=== PATIENT | female | born 1995 | race Hispanic/Latino ===

== ENCOUNTER 2019-12-25 13:27 | Emergency (ER) | payer SELFPAY ==
[2019-12-25 14:59] LABS: Absolute Lymphocytes (CBC) 2.5 K/uL (0.7-4.9); Basophils % 0.4 % (0-1.3); Hematocrit 36.4 % (36.0-45.0); Lymphocytes % 25.2 % (15.3-44.8); RBC Red Blood Cell Count 4.11 M/uL (3.86-4.86)
[2019-12-25 15:02] LABS: Protime INR 1.02
--- NOTE | 2019-12-25 15:07 | RAD REPORT ---
EXAM DESCRIPTION: RAD - Chest Single View - 12/25/2019 3:00 pm CLINICAL HISTORY: CHEST PAIN COMPARISON: None TECHNIQUE: AP portable chest image was obtained 12/25/2019 3:00 pm . FINDINGS: Lungs are clear. Heart and vasculature are normal. No measurable pleural effusion and no p neumothorax. No acute bony abnormality seen. No acute aortic findings suspected. IMPRESSION: No acute cardiopulmonary process.
[2019-12-25 15:14] LABS: Urine Blood 2+ (NEG); Urine Glucose NEGATIVE (NEG); Urine Protein 2+ (NEG); Urine Specific Gravity 1.025 (1.005-1.030)
[2019-12-25 15:34] LABS: ALT/SGPT 20 U/L (12-78); AST/SGOT 10 U/L (15-37); Albumin 3.2 g/dL (3.4-5.0); Alkaline Phosphatase 52 U/L (45-117); BUN Blood Urea Nitrogen 9 mg/dL (7-18); Bicarbonate 24 mmol/L (21-32); Bilirubin Direct < 0.1 mg/dL (0-0.2); Bilirubin Total 0.4 mg/dL (0.2-1.0); Glucose Level 84 mg/dL (74-106); Magnesium 2.2 mg/dL (1.8-2.4); Potassium 3.9 mmol/L (3.5-5.1); Protein, Total 8.5 g/dL (6.4-8.2); Sodium Level 140 mmol/L (136-145); Troponin (Emerg Dept Use Only) < 0.02 ng/mL (0.0-0.045)
--- NOTE | 2019-12-25 15:58 | ER ---
Nurse's Notes [facility] Name: Rakesh Vigil Age: 24 yrs Sex: Female : 1995 Arrival Date: 12/25/2019 Time: 13:31 Bed 17 Private MD: Diagnosis: Other chest pain Presentation: 12/24 13:41 Chief complaint: Patient states: substernal chest pain that started 1 week ago, that em radiates into left arm, denies N/V or fever, feels slightly short of breath. Coronavirus screen: Proceed with normal triage. Patient denies a cough. Patient denies shortness of breath or difficulty breathing. Patient denies measured and/or subjective temperature greater than 100.4F prior to today's visit. Patient denies travel on a cruise ship or to a country the [facility] currently lists as an affected area. Patient denies contact with known and/or suspected case of COVID-19. Ebola Screen: Patient negative for fever greater than or equal to 101.5 degrees Fahrenheit, and additional compatible Ebola Virus Disease symptoms Patient denies exposure to infectious person. Patient denies travel to an Ebola-affected area in the 21 days before illness onset. No symptoms or risks identified at this time. Initial Sepsis Screen: Does the patient meet any 2 criteria? No. Patient's initial sepsis screen is negative. Does the patient have a suspected source of infection? No. Patient's initial sepsis screen is negative. Risk Assessment: Do you want to hurt yourself or someone else? Patient reports no desire to harm self or others. Onset of symptoms was December 18, 2019. 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 - Social history:: Smoking status: Patient denies any tobacco usage or history of. Screenin:49 Abuse screen: Denies threats or abuse. Denies injuries from another. Nutritional ca1 screening: No deficits noted. Tuberculosis screening: No symptoms or risk factors identified. Fall Risk None identified. Assessment: 13:49 General: Appears in no apparent distress. comfortable, Behavior is calm, cooperative, ca1 appropriate for age. Pain: Complains of pain in anterior aspect of left upper chest Pain radiates to left scapular area and left arm Pain currently is 10 out of 10 on a pain scale. Pain began a week ago Is intermittent. Neuro: Level of Consciousness is awake, alert, obeys commands, Oriented to person, place, time, situation. Cardiovascular: Heart tones S1 S2 present Capillary refill < 3 seconds Patient's skin is warm and dry. Cardiovascular: Rhythm is sinus rhythm. Respiratory: Airway is patent Respiratory effort is even, unlabored, Respiratory pattern is regular, symmetrical, Breath sounds are clear bilaterally. GI: Abdomen is flat, non-distended, Bowel sounds present X 4 quads. Abd is soft and non tender X 4 quads. : No signs and/or symptoms were reported regarding the genitourinary system. EENT: No signs and/or symptoms were reported regarding the EENT system. Derm: Skin is intact, is healthy with good turgor, Skin is pink, warm \T\ dry. Musculoskeletal: Circulation, motion, and sensation intact. Capillary refill < 3 seconds. 14:39 Reassessment: Patient appears in no apparent distress at this time. Patient and/or ca1 family updated on plan of care and expected duration. Pain level reassessed. Patient is alert, oriented x 3, equal unlabored respirations, skin warm/dry/pink. 15:45 Reassessment: Patient appears in no apparent distress at this time. Patient and/or ca1 family updated on plan of care and expected duration. Pain level reassessed. Patient is alert, oriented x 3, equal unlabored respirations, skin warm/dry/pink. Vital Signs: 13:41 BP 136 / 92; Pulse 80; Resp 18; Pulse Ox 100% on R/A; Weight 58.97 kg; Height 5 ft. 2 em in. (157.48 cm); Pain 10/10; 14:39 BP 140 / 97; Pulse 74; Resp 16 S; Pulse Ox 100% on R/A; ca1 15:45 BP 123 / 79; Pulse 82; Resp 18 S; Pulse Ox 100% on R/A; ca1 13:41 Body Mass Index 23.78 (58.97 kg, 157.48 cm) em ED Course: 13:31 Patient arrived in ED. as 13:43 Samantha Hill, RN is Primary Nurse. ca1 13:43 Triage completed. em 13:43 Arm band placed on. em 13:44 Neel Santillan PA is PHCP. cp 13:44 Sukhi Barlow MD is Attending Physician. cp 13:49 Patient has correct armband on for positive identification. Bed in low position. Call ca1 light in reach. Side rails up X 1. Pulse ox on. NIBP on. Warm blanket given. 13:51 No provider procedures requiring assistance completed. Patient maintains SpO2 ca1 saturation greater than 95% on room air. 14:40 Initial lab(s) drawn, by me, sent to lab. Inserted saline lock: 20 gauge in right ca1 antecubital area, using aseptic technique. Blood collected. 15:00 XRAY Chest (1 view) In Process Unspecified. EDMS 16:18 IV discontinued, intact, bleeding controlled, No redness/swelling at site. Pressure ca1 dressing applied. Administered Medications: 16:05 Drug: TORadol - Ketorolac 15 mg Route: IVP; Site: right antecubital; ca1 16:16 Follow up: Response: No adverse reaction; Pain is decreased ca1 Outcome: 15:57 Discharge ordered by MD. cp 16:18 Discharged to home ambulatory. ca1 16:18 Condition: stable 16:18 Discharge instructions given to patient, Instructed on discharge instructions, follow up and referral plans. medication usage, Demonstrated understanding of instructions, follow-up care, medications, Prescriptions given X 1. 16:19 Patient left the ED. ca1 Signatures: Dispatcher [employer] EDNJ Allen Siu RN RN em Khadra Jeffries as Neel Santillan PA PA cp Samantha Hill, JYOTHI RN ca1
--- NOTE | 2019-12-25 15:58 | EDPHYS ---
Physician Documentation [facility] Name: Rakesh Vigil Age: 24 yrs Sex: Female : 1995 Arrival Date: 12/25/2019 Time: 13:31 Bed 17 Private MD: ED Physician Sukhi Barlow HPI: 12/24 14:15 This 24 yrs old Female presents to ER via Ambulatory with complaints of Chest cp Pain, Arm Pain. 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 - Social history:: Smoking status: Patient denies any tobacco usage or history of. ROS: 14:20 Constitutional: Negative for body aches, chills, fever, poor PO intake. cp 14:20 Eyes: Negative for injury, pain, redness, and discharge. cp 14:20 ENT: Negative for ear pain, sore throat, difficulty swallowing, difficulty handling secretions. 14:20 Cardiovascular: Positive for chest pain, Negative for edema, palpitations. 14:20 Respiratory: Negative for cough, shortness of breath, wheezing. 14:20 Abdomen/GI: Negative for abdominal pain, nausea, vomiting, and diarrhea. 14:20 Back: Negative for radiated pain. 14:20 MS/extremity: Positive for pain, of the left arm, Negative for injury or acute deformity, decreased range of motion, paresthesias. 14:20 Neuro: Negative for altered mental status, headache, syncope, weakness. 14:20 All other systems are negative. Exam: 14:02 ECG was reviewed by the Attending Physician. cp 14:25 Head/Face: Normocephalic, atraumatic. cp 14:25 Constitutional: The patient appears in no acute distress, alert, awake, non-diaphoretic, non-toxic, well developed, well nourished. 14:25 Eyes: Periorbital structures: appear normal, Conjunctiva: normal, no exudate, no cp injection, Sclera: no appreciated abnormality, Lids and lashes: appear normal, bilaterally. 14:25 ENT: External ear(s): are unremarkable, Nose: is normal, Mouth: Lips: moist, Oral mucosa: pink and intact, moist, Posterior pharynx: is normal, airway is patent, no erythema, no exudate. 14:25 Neck: ROM/movement: is normal, is supple, without pain, no range of motions limitations. 14:25 Chest/axilla: Inspection: normal, Palpation: crepitus, is not appreciated, tenderness, that is mild, of the left breast, that partially reproduces the patient's complaints, Breasts: are normal. 14:25 Cardiovascular: Rate: normal, Rhythm: regular, Edema: is not appreciated, JVD: is not appreciated. 14:25 Respiratory: the patient does not display signs of respiratory distress, Respirations: normal, no use of accessory muscles, no retractions, labored breathing, is not present, Breath sounds: are clear throughout, no decreased breath sounds, no stridor, no wheezing. 14:25 Abdomen/GI: Exam negative for discomfort, distension, guarding, Inspection: abdomen appears normal. 14:25 Back: pain, is absent, ROM is normal. 14:25 Skin: no rash present. 14:25 Neuro: Orientation: to person, place \T\ time. Mentation: is normal, Motor: moves all fours, strength is normal, Sensation: no obvious gross deficits. Vital Signs: 13:41 BP 136 / 92; Pulse 80; Resp 18; Pulse Ox 100% on R/A; Weight 58.97 kg; Height 5 ft. 2 em in. (157.48 cm); Pain 10/10; 14:39 BP 140 / 97; Pulse 74; Resp 16 S; Pulse Ox 100% on R/A; ca1 15:45 BP 123 / 79; Pulse 82; Resp 18 S; Pulse Ox 100% on R/A; ca1 13:41 Body Mass Index 23.78 (58.97 kg, 157.48 cm) em MDM: 13:52 Patient medically screened. cp 15:00 Differential diagnosis: bronchitis, pneumonia cardiac arrythmia, chest wall pain, cp costochondritis. 15:57 Data reviewed: vital signs, nurses notes, lab test result(s), EKG, radiologic studies, cp plain films, and as a result, I will discharge patient. 15:57 Test interpretation: by ED physician or midlevel provider: ECG. Counseling: I had a cp detailed discussion with the patient and/or guardian regarding: the historical points, exam findings, and any diagnostic results supporting the discharge/admit diagnosis, lab results, radiology results, to return to the emergency department if symptoms worsen or persist or if there are any questions or concerns that arise at home. Special discussion: Based on the patient's history, exam, and Dx evaluation, there is no indication for emergent intervention or inpatient Tx. It is understood by the patient/guardian that if the Sx's persist or worsen they need to return immediately for re-evaluation. 12/24 14:13 Order name: Basic Metabolic Panel; Complete Time: 15:35 cp 12/24 14:13 Order name: CBC with Diff; Complete Time: 15:35 cp 12/24 15:35 Interpretation: Normal except: HGB 11.9. cp 12/24 14:13 Order name: LFT's; Complete Time: 15:35 cp 12/24 14:13 Order name: Magnesium; Complete Time: 15:35 cp 12/24 14:13 Order name: PT-INR; Complete Time: 15:20 cp 12/24 14:13 Order name: Troponin (emerg Dept Use Only); Complete Time: 15:35 cp 12/24 13:49 Order name: EKG; Complete Time: 13:49 ca1 12/24 13:49 Order name: EKG - Nurse/Tech; Complete Time: 13:49 ca1 12/24 13:53 Order name: Urine Dipstick-Ancillary (obtain specimen); Complete Time: 14:55 cp 12/24 14:13 Order name: XRAY Chest (1 view); Complete Time: 15:08 cp 12/24 15:08 Interpretation: Report review. cp 12/24 14:13 Order name: D-Dimer; Complete Time: 15:20 cp 12/24 14:58 Order name: Urine Dipstick--Ancillary (enter results); Complete Time: 15:20 em1 12/24 15:20 Interpretation: Normal except: UBLD 2+; UPROT 2+; UESTR 3+. cp 12/24 14:58 Order name: Urine --Ancillary (enter results); Complete Time: 15:20 em1 12/24 13:53 Order name: Urine Test (obtain specimen); Complete Time: 14:55 cp 12/24 14:13 Order name: Cardiac monitoring; Complete Time: 14:39 cp 12/24 14:13 Order name: IV Saline Lock; Complete Time: 14:39 cp 12/24 14:13 Order name: Labs collected and sent; Complete Time: 14:39 cp 12/24 14:13 Order name: O2 Per Protocol; Complete Time: 14:39 cp 12/24 14:13 Order name: O2 Sat Monitoring; Complete Time: 14:39 cp EC:02 Rate is 73 beats/min. Rhythm is regular. MO interval is normal. QRS interval is normal. cp QT interval is normal. T waves are Inverted in lead aVR. Interpreted by me. Reviewed by me. Administered Medications: 16:05 Drug: TORadol - Ketorolac 15 mg Route: IVP; Site: right antecubital; ca1 16:16 Follow up: Response: No adverse reaction; Pain is decreased ca1 Disposition: 12/25 05:37 Co-signature as Attending Physician, Sukhi Barlow MD I agree with the assessment and kdr plan of care. Disposition: 12/25/19 15:57 Discharged to Home. Impression: Other chest pain. - Condition is Stable. - Discharge Instructions: Chest Wall Pain. - Prescriptions for Diclofenac Sodium 75 mg Oral Tablet Sustained Release - take 1 tablet by ORAL route 2 times per day; 30 tablet. - Medication Reconciliation Form, Thank You Letter, Antibiotic Education, Prescription Opioid Use form. - Follow up: Private Physician; When: 2 - 3 days; Reason: Worsening of condition. - Problem is new. - Symptoms have improved. Signatures: Dispatcher [employer] EDSukhi Sweet MD MD [facility] Allen Siu RN RN Neel Irby PA PA cp Samantha Hill RN RN ca1 Corrections: (The following items were deleted from the chart) 12/24 16:19 15:57 12/25/2019 15:57 Discharged to Home. Impression: Other chest pain. Condition is ca1 Stable. Forms are Medication Reconciliation Form, Thank You Letter, Antibiotic Education, Prescription Opioid Use. Follow up: Private Physician; When: 2 - 3 days; Reason: Worsening of condition. Problem is new. Symptoms have improved. cp
[2019-12-25] MEDS ORDERED: KETOROLAC 30 MG/ML INJ ONE (16:15)
[2019-12-25 16:26] VITALS: O2SAT 100
[2019-12-25 16:29] VITALS: BP 123/79
--- NOTE | 2019-12-25 20:58 | EKG ---
Test Date: 2019-12-25 Test Time: 13:46:16 Nailing Machine Feeder: JULY MEASUREMENT RESULTS: Intervals: Rate: 73 NH: 150 QRSD: 82 QT: 380 QTc: 418 [place]: P: -10 NH: 150 QRS: 79 T: 40 INTERPRETIVE STATEMENTS: Normal sinus rhythm Normal ECG No previous ECG available for comparison Electronically Signed On 12-25-19 20:56:52 CDT by J Carlos Peacock
== END 2019-12-25 16:19 | disposition home or self-care (01) ==
LOC: ER 13:27
DX: R07.89 Other chest pain (principal)
CPT/HCPCS: 36415; 71045; 80048; 80076; 81003; 81025; 83735; 84484; 85025; 85379; 85610; 93005; 96374; 99285

== ENCOUNTER 2020-03-06 08:49 | Emergency (ER) | payer SELFPAY ==
[2020-03-06 10:17] LABS: Urine Blood 3+ (NEG); Urine Glucose NEGATIVE (NEG); Urine Protein 3+ (NEG); Urine Specific Gravity 1.025 (1.005-1.030); Urine pH 6.5 (5.0-7.0)
[2020-03-06 10:24] LABS: Urine Bacteria LOADED /HPF (<20); Urine Culture Reflex Order NOT NEEDED
--- NOTE | 2020-03-06 10:54 | RAD REPORT ---
EXAM DESCRIPTION: CT - Stone Protocol - 03/06/2020 10:38 am CLINICAL HISTORY: Flank pain. FLANK PAIN COMPARISON: No comparisons TECHNIQUE: Axial images were obtained without oral or IV contrast. Lack of contrast limits solid org an and vascular assessment. The [id number] spans the entirety of the system partially obscuring uppermost abdomen and lung bases. Coronal reformatted images were obtained and reviewed. All CT scans are performed using dose optimization technique as appropriate and may include automated exposure control or mA/KV adjustment according to patient size. FINDINGS: The lower lung peñaloza are clear. Imaged portions of the liver and spleen show no suspicious findings on non-contrast imaging. The panc reas and adrenal glands are normal. No pathologic lymphadenopathy in the abdomen or pelvis. Severe right-sided hydronephrosis is present. A large 25 mm stone (1106 HU) is present enveloping the proximal pigtail of a right double-J stent within the right renal pelvis. Right-sided hydroureter is present. Along the distal pigtail the right double-J stent in the urinary bladder a large 36 mm ston e is present enveloping the distal pigtail. Tiny air bubble is present urinary bladder. No left-sided stone is seen. No bowel obstruction, free air, free fluid or abscess. Normal appendix noted. No significant bony abnormality. IMPRESSION: Right-sided double-J stent is in place spanning the right renal pelvis and urinary bladd er. This stent is likely not functioning due to development of large stones surrounding both pigtails . Severe right-sided hydronephrosis and hydroureter is present.
[2020-03-06] MEDS ORDERED: ONDANSETRON 4 MG/2 ML VIAL ONE ×3 (10:57→11:25)
[2020-03-06] MEDS ORDERED: NA CHLORIDE 0.9% 1,000 ML ONE ×2 (10:58→12:29)
[2020-03-06] MEDS ORDERED: KETOROLAC 30 MG/ML INJ ONE (10:58)
[2020-03-06] MEDS ORDERED: CEFTRIAXONE/SWI 1gm 1 GM/10 ML SYR ONE (10:58)
--- NOTE | 2020-03-06 11:22 | EDPHYS ---
Physician Documentation [facility] Name: Rakesh Vigil Age: 24 yrs Sex: Female : 1995 Arrival Date: 03/06/2020 Time: 08:51 Bed 18 Private MD: ED Physician Darian Alejandra HPI: 03/06 10:30 This 24 yrs old Female presents to ER via Ambulatory with complaints of Back cp Pain, Abdominal Pain. 10:30 The patient presents with pain that is acute, with no known mechanism of injury. The cp symptoms are located in the right mid back. Onset: The symptoms/episode began/occurred 3 day(s) ago. The pain radiates to the abdomen. Associated signs and symptoms: Pertinent positives: abdominal pain, nausea, chills, Pertinent negatives: fever. Patient reports history of kidney stones and pain is similar. Patient reports having stent placed in right ureter about 1 year ago by physician in [place]. 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 - Social history:: Smoking status: Patient denies any tobacco usage or history of. ROS: 10:35 Constitutional: Positive for chills, Negative for fever, poor PO intake. cp 10:35 Eyes: Negative for injury, pain, redness, and discharge. cp 10:35 ENT: Negative for ear pain, sore throat, difficulty swallowing, difficulty handling secretions. 10:35 Cardiovascular: Negative for chest pain, palpitations. 10:35 Respiratory: Negative for cough, shortness of breath, wheezing. 10:35 Abdomen/GI: Positive for abdominal pain, nausea, Negative for vomiting, diarrhea, constipation. 10:35 Back: Positive for flank pain, on the right. 10:35 Neuro: Negative for altered mental status, headache, weakness. 10:35 All other systems are negative. Exam: 10:40 Constitutional: The patient appears in no acute distress, alert, awake, non-toxic, well cp developed, well nourished. 10:40 Head/Face: Normocephalic, atraumatic. cp 10:40 Eyes: Periorbital structures: appear normal, Conjunctiva: normal, no exudate, no injection, Sclera: no appreciated abnormality, Lids and lashes: appear normal, bilaterally. 10:40 ENT: External ear(s): are unremarkable, Nose: is normal, Posterior pharynx: Airway: no evidence of obstruction, patent. 10:40 Chest/axilla: Inspection: normal, Palpation: is normal, no crepitus, no tenderness. cp 10:40 Cardiovascular: Rate: normal, Rhythm: regular, Edema: is not appreciated, JVD: is not cp appreciated. 10:40 Respiratory: the patient does not display signs of respiratory distress, Respirations: normal, no use of accessory muscles, no retractions, labored breathing, is not present, Breath sounds: are clear throughout, no decreased breath sounds, no stridor, no wheezing. 10:40 Abdomen/GI: Inspection: abdomen appears normal, Bowel sounds: active, all quadrants, Palpation: soft, in all quadrants, moderate abdominal tenderness, in the posterior aspect of right lateral abdomen, anterior aspect of right lateral abdomen, right upper quadrant and right lower quadrant, rebound tenderness, is not appreciated, voluntary guarding, is elicited in the posterior aspect of right lateral abdomen, anterior aspect of right lateral abdomen, right upper quadrant and right lower quadrant. 10:40 Back: ROM is normal, CVA tenderness, that is moderate, is noted on the right. 10:40 Skin: no rash present. 10:40 Neuro: Orientation: to person, place \T\ time. Mentation: is normal, Motor: moves all fours, strength is normal, Sensation: is normal. Vital Signs: 08:56 BP 123 / 79; Pulse 88; Resp 16; Temp 99.5; Pulse Ox 100% on R/A; Weight 61.23 kg; hb Height 5 ft. 2 in. (157.48 cm); Pain 10/10; 11:39 BP 111 / 75; Pulse 92; Resp 16; Temp 99.3(O); Pulse Ox 99% on R/A; sv 12:15 BP 99 / 42; Pulse 89; Resp 16; Pulse Ox 99% ; sv 08:56 Body Mass Index 24.69 (61.23 kg, 157.48 cm) hb MDM: 09:56 Patient medically screened. cp 11:45 Physician consultation: was contacted at 11:40, regarding regarding transfer, to [facility]. consult, DR Danielson, urologist, will consult on patient and request transfer to hospitalist services. 11:45 Data reviewed: vital signs, nurses notes, lab test result(s), radiologic studies, CT cp scan, I have discussed the patient's presentation/case with the attending Emergency Department Physician; and as a result, I will transfer patient. 11:45 Differential diagnosis: Pyelonephritis UTI, kidney stone, cholecystitis, cp cholelithiasis, sepsis. Counseling: I had a detailed discussion with the patient and/or guardian regarding: the historical points, exam findings, and any diagnostic results supporting the discharge/admit diagnosis, lab results, radiology results, the need to transfer to another facility, [facility] does not immediately have the required specialist. 12:10 Physician consultation: was contacted at 12:00, regarding regarding transfer, to [facility]. patient's condition, DR Morales, hospitalist, will accept patient as transfer. 03/06 10:06 Order name: Urine Microscopic Only; Complete Time: 10:54 03/06 10:54 Interpretation: Normal except: UWBC LOADED; URBC 10-20; UBACT LOADED. 03/06 10:06 Order name: Urine Culture 03/06 10:15 Order name: Urine Dipstick--Ancillary (enter results); Complete Time: 10:21 03/06 10:54 Interpretation: Normal except: UKET 3+; UBLD 3+; UPROT 3+; U NIT POSITIVE; UESTR 3+. 03/06 10:15 Order name: Urine --Ancillary (enter results); Complete Time: 10:21 03/06 10:24 Order name: Basic Metabolic Panel; Complete Time: 11:48 03/06 11:48 Interpretation: Normal except: K 3.4; GFR 70. 03/06 10:24 Order name: CBC with Diff 03/06 11:57 Interpretation: Normal except: RBC 3.44; HGB 10.0; HCT 29.4; MCV 85.5; LYM% 14.9; MN% cp 20.1; MNA 1.9. 03/06 10:24 Order name: CT Stone Protocol; Complete Time: 10:55 03/06 10:56 Interpretation: Report reviewed. 03/06 10:24 Order name: Hepatic Function; Complete Time: 11:48 cp 03/06 11:49 Interpretation: Normal except: AST 8; BILIT 1.1; BILID 0.4; TP 8.7; ALB 2.8; GLOB 5.9; cp A/G 0.5. 03/06 10:24 Order name: Lipase; Complete Time: 11:48 cp 03/06 11:44 Order name: COVID-19 03/06 09:55 Order name: Urine Dipstick-Ancillary (obtain specimen); Complete Time: 10:18 03/06 09:55 Order name: Urine Test (obtain specimen); Complete Time: 09:59 03/06 10:24 Order name: IV Saline Lock; Complete Time: 11:17 03/06 10:24 Order name: Labs collected and sent; Complete Time: 11:17 03/06 11:44 Order name: NPO; Complete Time: 11:45 cp Administered Medications: 11:10 Drug: NS 0.9% 1000 ml Route: IV; Rate: 1 bolus; Site: right antecubital; sv 12:37 Follow up: Response: No adverse reaction; IV Status: Completed infusion; IV Intake: sv 1000ml 11:10 Drug: Zofran (Ondansetron) 4 mg Route: IVP; Site: right antecubital; sv 11:16 Follow up: Response: No adverse reaction sv 11:12 Drug: TORadol - Ketorolac 15 mg Route: IVP; Site: right antecubital; sv 11:45 Follow up: Response: No adverse reaction; Marked relief of symptoms sv 11:14 Drug: Rocephin 1 grams Route: IV; Rate: calculated rate; Site: right antecubital; sv 11:16 Drug: Zofran (Ondansetron) 4 mg Route: IVP; Site: right antecubital; sv 11:45 Follow up: Response: No adverse reaction; Marked relief of symptoms; Nausea is decreasedsv 12:30 Drug: Potassium Chloride 10 mEq Route: IV; Rate: calculated rate; Site: right sv antecubital; 14:12 Follow up: Response: No adverse reaction; IV Status: Infusion continued upon transfer sv 12:30 Drug: NS 0.9% 1000 ml Route: IV; Rate: 125 ml/hr; Site: right antecubital; sv 14:11 Follow up: IV Status: Infusion continued upon transfer ss 14:12 Follow up: Response: No adverse reaction; IV Status: Infusion continued upon transfer sv 14:11 Not Given (Pt denies pain at thist chuy): morphine 2 mg IVP once; (PAIN>8) RASS on ADMN: ss Combtv4, Very Agttd3, Agttd2, Rstlss1, AlertClm0, Drwsy-1, LtSdtn-2, ModSdtn-3, DpSdtn-4, UnArsble-5 x2 Disposition: 16:18 Co-signature as Attending Physician, Darian Alejandra MD. ma2 Disposition: 03/06/20 11:22 Transfer ordered to [facility]. Diagnosis are Calculus of kidney - Right, Unspecified hydronephrosis - Severe Right Kidney. - Reason for transfer: Higher level of care. - Accepting physician is DR Morales. - Condition is Stable. - Problem is new. - Symptoms have improved. Signatures: Dispatcher [employer] Aruna Ireland RN RN Oriana Abarca RN RN Neel Santillan PA PA cp Juliana Schroeder RN RN Darian Alejandra MD MD ma2 Corrections: (The following items were deleted from the chart) 11:57 11:49 Normal except: RBC 3.44; HGB 10.0; HCT 29.4; MCV 85.5; LYM% 14.9; MN% 20.1. cp cp 12:17 11:22 03/06/2020 11:22 Transfer ordered to [facility]. cp Diagnosis is Calculus of kidney - Right; Unspecified hydronephrosis - Severe Right Kidney. Reason for transfer: Higher level of care. Accepting physician is Doctor. Condition is Stable. Problem is new. Symptoms have improved. cp 14:12 12:17 03/06/2020 11:22 Transfer ordered to [facility]. ss Diagnosis is Calculus of kidney - Right; Unspecified hydronephrosis - Severe Right Kidney. Reason for transfer: Higher level of care. Accepting physician is DR Morales. Condition is Stable. Problem is new. Symptoms have improved. cp
--- NOTE | 2020-03-06 11:22 | ER ---
Nurse's Notes [facility] Name: Rakesh Vigil Age: 24 yrs Sex: Female : 1995 Arrival Date: 03/06/2020 Time: 08:51 Bed 18 Private MD: Diagnosis: Calculus of kidney-Right;Unspecified hydronephrosis-Severe Right Kidney Presentation: 03/06 08:56 Chief complaint: Right flank pain, urinary urgency and frequency x 3 days. Hx of kidney hb stones, reports pain is similar. Coronavirus screen: At this time, the client does not indicate any symptoms associated with coronavirus-19. Ebola Screen: No symptoms or risks identified at this time. Initial Sepsis Screen: Does the patient meet any 2 criteria? No. Patient's initial sepsis screen is negative. Does the patient have a suspected source of infection? No. Patient's initial sepsis screen is negative. Risk Assessment: Do you want to hurt yourself or someone else? Patient reports no desire to harm self or others. Onset of symptoms was March 03, 2020. 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 - Social history:: Smoking status: Patient denies any tobacco usage or history of. Screenin:00 Abuse screen: Denies threats or abuse. Denies injuries from another. Nutritional sv screening: No deficits noted. Tuberculosis screening: No symptoms or risk factors identified. Fall Risk None identified. Assessment: 11:00 General: Appears in no apparent distress. uncomfortable, well groomed, well developed, sv Behavior is calm, cooperative, appropriate for age. Pain: Complains of pain in right mid back Pain does not radiate. Pain currently is 10 out of 10 on a pain scale. Quality of pain is described as sharp, Pain began 2-3 days ago. Is continuous. Neuro: Level of Consciousness is awake, alert, obeys commands, Oriented to person, place, time, situation, Moves all extremities. Full function Gait is steady, Speech is normal. Respiratory: Airway is patent Respiratory effort is even, unlabored, Respiratory pattern is regular, symmetrical. : Reports burning with urination, urgency, urinary frequency. Derm: Skin is intact, Skin is pink, warm \T\ dry. Musculoskeletal: Range of motion: intact in all extremities. 11:30 Reassessment: Patient appears in no apparent distress at this time. Patient and/or sv family updated on plan of care and expected duration. Pain level reassessed. Patient is alert, oriented x 3, equal unlabored respirations, skin warm/dry/pink. Patient states feeling better. Patient states symptoms have improved. 13:03 Reassessment: Patient appears in no apparent distress at this time. Patient and/or sv family updated on plan of care and expected duration. Pain level reassessed. Patient is alert, oriented x 3, equal unlabored respirations, skin warm/dry/pink. Patient states feeling better. Patient states symptoms have improved. 14:12 Reassessment: Patient appears in no apparent distress at this time. Patient and/or ss family updated on plan of care and expected duration. Pain level reassessed. Patient is alert, oriented x 3, equal unlabored respirations, skin warm/dry/pink. Patient denies pain at this time. Patient states feeling better. Vital Signs: 08:56 BP 123 / 79; Pulse 88; Resp 16; Temp 99.5; Pulse Ox 100% on R/A; Weight 61.23 kg; hb Height 5 ft. 2 in. (157.48 cm); Pain 10/10; 11:39 BP 111 / 75; Pulse 92; Resp 16; Temp 99.3(O); Pulse Ox 99% on R/A; sv 12:15 BP 99 / 42; Pulse 89; Resp 16; Pulse Ox 99% ; sv 08:56 Body Mass Index 24.69 (61.23 kg, 157.48 cm) ED Course: 08:51 Patient arrived in ED. mr 09:04 Triage completed. hb 09:04 Arm band placed on. hb 09:54 Aruna Galeano, JYOTHI is Primary Nurse. sv 09:54 Neel Santillan PA is PHCP. cp 09:54 Darian Alejandra MD is Attending Physician. cp 10:18 Nurse Practitioner and/or Physician Home Care Assistant to see patient. sv 10:38 CT Stone Protocol In Process Unspecified. EDMS 11:00 Patient has correct armband on for positive identification. Bed in low position. Call sv light in reach. Pulse ox on. NIBP on. Door closed. Head of bed elevated. 11:05 Inserted saline lock: 20 gauge in right antecubital area, using aseptic technique. sv Blood collected. Flushed right antecubital with 5 ml normal saline. 11:40 initiated transfer to [facility], talk to Audrey. bd 13:49 pt accepted in transfer to [facility], admin approval given by Audrey Ramachandran. bd 14:12 No provider procedures requiring assistance completed. Patient transferred, IV remains ss in place. Administered Medications: 11:10 Drug: NS 0.9% 1000 ml Route: IV; Rate: 1 bolus; Site: right antecubital; sv 12:37 Follow up: Response: No adverse reaction; IV Status: Completed infusion; IV Intake: sv 1000ml 11:10 Drug: Zofran (Ondansetron) 4 mg Route: IVP; Site: right antecubital; sv 11:16 Follow up: Response: No adverse reaction sv 11:12 Drug: TORadol - Ketorolac 15 mg Route: IVP; Site: right antecubital; sv 11:45 Follow up: Response: No adverse reaction; Marked relief of symptoms sv 11:14 Drug: Rocephin 1 grams Route: IV; Rate: calculated rate; Site: right antecubital; sv 11:16 Drug: Zofran (Ondansetron) 4 mg Route: IVP; Site: right antecubital; sv 11:45 Follow up: Response: No adverse reaction; Marked relief of symptoms; Nausea is decreasedsv 12:30 Drug: Potassium Chloride 10 mEq Route: IV; Rate: calculated rate; Site: right sv antecubital; 14:12 Follow up: Response: No adverse reaction; IV Status: Infusion continued upon transfer sv 12:30 Drug: NS 0.9% 1000 ml Route: IV; Rate: 125 ml/hr; Site: right antecubital; sv 14:11 Follow up: IV Status: Infusion continued upon transfer ss 14:12 Follow up: Response: No adverse reaction; IV Status: Infusion continued upon transfer sv 14:11 Not Given (Pt denies pain at thist chuy): morphine 2 mg IVP once; (PAIN>8) RASS on ADMN: ss Combtv4, Very Agttd3, Agttd2, Rstlss1, AlertClm0, Drwsy-1, LtSdtn-2, ModSdtn-3, DpSdtn-4, UnArsble-5 x2 Intake: 12:37 IV: 1000ml; Total: 1000ml. sv Outcome: 11:22 ER care complete, transfer ordered by MD. cp 12:58 Transferred by ground EMS to [facility], Transfer form completed. sv X-rays sent w/ patient. Note: Report given to Margarette ROE at [facility] 12:58 Condition: stable 12:58 Instructed on the need for transfer. 14:12 Patient left the ED. ss Signatures: Dispatcher [employer] EDMS Sasha Gonsalez Stephanie, RN RN Bejarano, Jacqueline peck Oriana Abarca RN RN Neel Santillan PA PA cp Baxter, Heather, JYOTHI RN hb Corrections: (The following items were deleted from the chart) 13:02 11:39 Pulse 92bpm; Resp 16bpm; Pulse Ox 99% RA; Temp 99.3F Oral; sv sv
[2020-03-06 11:25] LABS: Absolute Lymphocytes (CBC) 1.4 K/uL (0.7-4.9); Basophils % 0.3 % (0-1.3); Hematocrit 29.4 % (36.0-45.0); Lymphocytes % 14.9 % (15.3-44.8); MPV 8.3 fL (7.6-11.3); RBC Red Blood Cell Count 3.44 M/uL (3.86-4.86)
[2020-03-06 11:42] LABS: Albumin 2.8 g/dL (3.4-5.0); Bilirubin Direct 0.4 mg/dL (0-0.2); Bilirubin Total 1.1 mg/dL (0.2-1.0); Potassium 3.4 mmol/L (3.5-5.1); Protein, Total 8.7 g/dL (6.4-8.2)
[2020-03-06] MEDS ORDERED: KCL 20 MEQ/100 mL IVPB 20 MEQ/100 ML BAG IV ONE (12:30)
[2020-03-06 14:27] VITALS: TEMP 99.3; O2SAT 99
[2020-03-06 14:29] VITALS: BP 99/42
[2020-03-06 14:32] LABS: Blood Morphology Comment NOT SEEN (NOT SEEN); Platelet Estimate ADEQ
== END 2020-03-06 14:12 | disposition short-term general hospital (02) ==
LOC: ER 08:49
DX: N13.2 Hydronephrosis with renal and ureteral calculous obstruction (principal); Z87.442 Personal history of urinary calculi
CPT/HCPCS: 36415; 74176; 76377; 80048; 80076; 81003; 81015; 81025; 83690; 85025; 87086; 87088; 96361; 96365; 96366; 96375; 99285; J0696; J2405; J3480; J7030

== ENCOUNTER 2020-07-05 13:23 | Emergency (ER) | payer SELFPAY ==
--- OUTSIDE RECORDS SUMMARY | 2020-07-05 13:26 | XMS REPORT | Clinical Summary ---
:1995 Author Organization [facility] Address [address] [place] [address] Care Team Providers Name Role Phone Unavailable Primary Care Provider Unavailable Allergies No Known Allergies Medications Medication Sig Dispensed Refills Start End Date Status Date ferrous sulfate 325 Take 1 tablet 30 tablet 11 Active (65 FE) MG tablet (325 mg total) 0 21 by mouth daily with breakfast. tamsulosin (FLOMAX) Take 1 capsule 14 capsule 0 10/13 0.4 mg Cap 24 hr (0.4 mg total) 0 20 capsule by mouth daily for 14 days. phenazopyridine Take 2 tablets 10 tablet 0 03/17/20 (PYRIDIUM) 95 MG (190 mg total) 0 20 tablet by mouth 3 (three) times daily as needed (dysuria) for up to 3 days. oxybutynin Take 1 tablet (5 21 tablet 0 03/21/20 Ex pired (DITROPAN) 5 MG mg total) by 0 20 tablet mouth 3 (three) times daily as needed (bladder spasms) for up to 7 days. traMADoL (ULTRAM) 50 Take 1 tablet 15 tablet 0 03/14 Discontinued mg tablet (50 mg total) by 0 20 mouth every 6 (six) hours as needed for up to 3 days. Max Daily Amount: 200 mg docusate sodium Take 1 capsule 10 capsule 0 03/24/20 (COLACE) 100 MG (100 mg total) 0 20 capsule by mouth 2 (two) times daily as needed for Constipation for up to 10 days. traMADoL (ULTRAM) 50 Take 1 tablet 15 tablet 0 03/17 mg tablet (50 mg total) by 0 20 mouth every 6 (six) hours as needed for up to 3 days. Max Daily Amount: 200 mg doxycycline Take 1 capsule 28 capsule 0 03/28/20 Ex pired (MONODOX) 100 MG (100 mg total) 0 20 capsule by mouth 2 (two) times daily for 14 days. amoxicillin (AMOXIL) Take 1 tablet 28 tablet 0 03/28 875 MG tablet (875 mg total) 0 20 by mouth 2 (two) times daily for 14 days. Active Problems Problem Noted Date Hydronephrosis with urinary obstruction due to uretera l calculus 03/07/2020 Nephrolithiasis 03/06/2020 Encounters Date Type Specialty Care Team Description 03/13/2020 Anesthesia Event John Carr Jr., MD 03/13/2020 Surgery Glenn Clancy CYSTOSCOPY,LIT HOLAPAXY MD Ej W/ LASER LITHOT RIPSY 03/08/2020 Travel 03/06/2020 - Hospital Encounter General Internal Nalam, Sally Nephr olithiasis; 03/15/2020 Medicine MD Ania Hydronephrosis with urinary obstruction due to ureteral calculus; Gaby Fields Pyelonephritis; MD Miguel Ángel Bladder stone Hemant Steward MD 03/06/2020 Travel after 07/05/2019 Social History Tobacco Use Types Packs/Day Years Used Date Never Smoker Smokeless Tobacco: Never Used Sex Assigned at Date Recorded Not on file Last Filed Vital Signs Vital Sign Reading Time Taken Comments Blood Pressure 118/69 03/15/2020 7:04 AM CDT Pulse 70 03/15/2020 7:04 AM CDT Temperature 36.8 C (98.2 F) 03/15/2020 7:04 AM CDT Respiratory Rate 18 03/15/2020 7:04 AM CDT Oxygen Saturation 98% 03/15/2020 7:04 AM CDT Inhaled Oxygen Concentration - - Weight 61.2 kg (135 lb) 03/06/2020 5:13 PM CDT Height 157.5 cm (5' 2") 03/06/2020 5:13 PM CDT Body Mass Index 24.69 03/06/2020 5:13 PM CDT Plan of Treatment Health Maintenance Due Date Last Done Comments CERVICAL CANCER SCREENING PAP ONLY (Age 21-65) 2015 DEPRESSION SCREENING (12+) 06/26/2019 INFLUENZA VACCINE (#1) 2020 Implants Implanted Type Area Kettle Cleaner Device Identifier Shelf Model / Expiration Serial / Date Lot Stent Uret Ult Berry [id number] [id number] - [id number] IMPLANTS Right: ZEENAT [id number] 12/04/2022 192-142 / Implanted: Qty: 1 on 03/13/2020 by Glenn Clancy MD at [facility] Ureter SCI:UROLOGY/ACCOUNTING RECRUITER / ECOLOGY [id number] Procedures Procedure Name Priority Date/Time Associated Comments Diagnosis TRANSFUSION SERVICE 03/17/2020 6:31 REPORT - SCAN PM CDT PREPARE RBC STAT 03/15/2020 12:30 Results for this PM CDT procedure are i n the results section. CBC W/PLT COUNT & Routine 03/15/2020 7:03 Result s for this AUTO DIFFERENTIAL AM CDT procedure are in the results section. CBC W/PLT COUNT & Routine 03/15/2020 7:03 Result s for this AUTO DIFFERENTIAL AM CDT procedure are in the results section. BASIC METABOLIC PANEL Routine 03/15/2020 7:03 Re sults for this (7) AM CDT procedure are i n the results section. VANCOMYCIN LEVEL, Timed 03/14/2020 5:07 Result s for this TROUGH PM CDT procedure are i n the results section. CT ABDOMEN/PELVIS LUIS F 03/14/2020 9:58 Result s for this WITHOUT IV CONTRAST AM CDT procedur e are in the results section. CBC W/PLT COUNT & Routine 03/14/2020 5:18 Result s for this AUTO DIFFERENTIAL AM CDT procedure are in the results section. CBC W/PLT COUNT & Routine 03/14/2020 5:18 Result s for this AUTO DIFFERENTIAL AM CDT procedure are in the results section. BASIC METABOLIC PANEL Routine 03/14/2020 5:18 Re sults for this (7) AM CDT procedure are i n the results section. TRANSFUSION SERVICE 03/13/2020 6:01 REPORT - SCAN PM CDT XR CHEST 1 VIEW Routine 03/13/2020 12:55 Results for this PORTABLE/BEDSIDE PM CDT procedure a re in the results section. CBC W/PLT COUNT & STAT 03/13/2020 12:47 Result s for this AUTO DIFFERENTIAL PM CDT procedure are in the results section. CBC W/PLT COUNT & STAT 03/13/2020 12:47 Result s for this AUTO DIFFERENTIAL PM CDT procedure are in the results section. BASIC METABOLIC PANEL STAT 03/13/2020 12:47 Re sults for this (7) PM CDT procedure are i n the results section. FL FLUORO Routine 03/13/2020 12:03 Results for this NON-SPECIFIC UP TO 1 PM CDT procedu re are in HOUR the results section. SURGICALLY OBTAINED Routine 03/13/2020 11:14 Resu lts for this CULTURE + GRAM STAIN AM CDT procedu re are in the results section. FUNGUS CULTURE + Routine 03/13/2020 11:14 Results for this SMEAR AM CDT procedure are i n the results section. ANAEROBIC CULTURE Routine 03/13/2020 11:14 Result s for this AM CDT procedure are i n the results section. AFB CULTURE + SMEAR Routine 03/13/2020 11:14 Resu lts for this (NON-SPUTUM) AM CDT procedure are i n the results section. STONE ANALYSIS Routine 03/13/2020 10:16 Results f or this AM CDT procedure are i n the results section. PROCEDURE W/ C-ARM 03/13/2020 7:24 Nephrolithia sis AM CDT Ureteral stent retained Case Notes 4 HRS Special Needs (C-ARM, LASER, SHOCK PULSE, RIGID NEPHROSCOPE, RAT TOOTH GRASPER, SPLIT LEG TABLE ATTACHMENTS) CYSTOSCOPY,REMOVAL URETERAL 03/13/2020 7:24 AM Nephrolithiasis STENTS CDT Ureteral stent retained Case Notes 4 HRS Special Needs (C-ARM, LASER, SHOCK PULSE, RIGID NEPHROSCOPE, RAT TOOTH GRASPER, SPLIT LEG TABLE ATTACHMENTS) LITHOTRIPSY,PERCUTANEOUS 03/13/2020 7:24 AM Nep hrolithiasis CDT Ureteral stent retained Case Notes 4 HRS Special Needs (C-ARM, LASER, SHOCK PULSE, RIGID NEPHROSCOPE, RAT TOOTH GRASPER, SPLIT LEG TABLE ATTACHMENTS) CYSTOSCOPY,RETROGRADES 03/13/2020 7:24 AM Nephr olithiasis CDT Ureteral stent retained Case Notes 4 HRS Special Needs (C-ARM, LASER, SHOCK PULSE, RIGID NEPHROSCOPE, RAT TOOTH GRASPER, SPLIT LEG TABLE ATTACHMENTS) CYSTOSCOPY,URETEROSCOPY W/ 03/13/2020 7:24 Neph rolithiasis LITHOTRIPSY AND URETERAL STENT AM CDT Ureteral s tent retained Case Notes 4 HRS Special Needs (C-ARM, LASER, SHOCK PULSE, RIGID NEPHROSCOPE, RAT TOOTH GRASPER, SPLIT LEG TABLE ATTACHMENTS) CYSTOSCOPY,LITHOLAPAXY W/ 03/13/2020 7:24 Nephr olithiasis LASER LITHOTRIPSY AM CDT Ureteral stent retained Case Notes 4 HRS Special Needs (C-ARM, LASER, SHOCK PULSE, RIGID NEPHROSCOPE, RAT TOOTH GRASPER, SPLIT LEG TABLE ATTACHMENTS) CBC W/PLT COUNT & AUTO Routine 03/13/2020 4:11 AM CDT Results for this DIFFERENTIAL procedure are i n the results section . VANCOMYCIN LEVEL, TROUGH Timed 03/13/2020 4:11 AM CDT Results for this procedure are i n the results section . PROTHROMBIN TIME/INR Routine 03/13/2020 4:11 AM CDT Results for this procedure are i n the results section . PT/APTT Routine 03/13/2020 4:11 AM CDT Resu lts for this procedure are i n the results section . CBC W/PLT COUNT & AUTO Routine 03/13/2020 4:11 AM CDT Results for this DIFFERENTIAL procedure are i n the results section . BASIC METABOLIC PANEL (7) Routine 03/13/2020 4:11 AM CDT Results for this procedure are i n the results section . SARS-COV2/RT-PCR (HS & REF LUIS F 03/12/2020 9:25 PM CDT Results for this LABS) procedure are i n the results section . ANTIBODY IDENTIFICATION Routine 03/12/2020 2:59 PM CDT Results for this procedure are i n the results section . ABORH, MANUAL STAT 03/12/2020 10:05 AM CDT Res ults for this procedure are i n the results section . ABORH, MANUAL Routine 03/12/2020 9:38 AM CDT Res ults for this procedure are i n the results section . TYPE AND SCREEN, AUTOMATED Routine 03/12/2020 9:38 AM CDT Results for this procedure are i n the results section . SCREEN, URINE Routine 03/12/2020 5:30 AM CDT Results for this procedure are i n the results section . CBC W/PLT COUNT & AUTO Routine 03/12/2020 4:08 AM CDT Results for this DIFFERENTIAL procedure are i n the results section . PROTHROMBIN TIME/INR Routine 03/12/2020 4:08 AM CDT Results for this procedure are i n the results section . PT/APTT Routine 03/12/2020 4:08 AM CDT Resu lts for this procedure are i n the results section . CBC W/PLT COUNT & AUTO Routine 03/12/2020 4:08 AM CDT Results for this DIFFERENTIAL procedure are i n the results section . BASIC METABOLIC PANEL (7) Routine 03/12/2020 4:08 AM CDT Results for this procedure are i n the results section . POCT-GLUCOSE METER Routine 03/11/2020 1:11 PM CDT Results for this procedure are i n the results section . POCT-GLUCOSE METER Routine 03/11/2020 6:23 AM CDT Results for this procedure are i n the results section . CBC W/PLT COUNT & AUTO Routine 03/11/2020 4:42 AM CDT Results for this DIFFERENTIAL procedure are i n the results section . CBC W/PLT COUNT & AUTO Routine 03/11/2020 4:42 AM CDT Results for this DIFFERENTIAL procedure are i n the results section . BASIC METABOLIC PANEL (7) Routine 03/11/2020 4:42 AM CDT Results for this procedure are i n the results section . POCT-GLUCOSE METER Routine 03/11/2020 1:21 AM CDT Results for this procedure are i n the results section . VANCOMYCIN LEVEL, TROUGH Timed 03/11/2020 12:32 AM CDT Results for this procedure are i n the results section . SARS-COV2/RT-PCR ([facility] & REF Routine 03/10/2020 6:14 AM CDT Results for this LABS) procedure are i n the results section . APTT Routine 03/10/2020 6:09 AM CDT Resu lts for this procedure are i n the results section . PROTHROMBIN TIME/INR Routine 03/10/2020 6:09 AM CDT Results for this procedure are i n the results section . CBC W/PLT COUNT & AUTO Routine 03/10/2020 3:55 AM CDT Results for this DIFFERENTIAL procedure are i n the results section . CBC W/PLT COUNT & AUTO Routine 03/10/2020 3:55 AM CDT Results for this DIFFERENTIAL procedure are i n the results section . BASIC METABOLIC PANEL (7) Routine 03/10/2020 3:55 AM CDT Results for this procedure are i n the results section . CBC W/PLT COUNT & AUTO Routine 03/09/2020 3:33 AM CDT Results for this DIFFERENTIAL procedure are i n the results section . FERRITIN Routine 03/09/2020 3:33 AM CDT Resu lts for this procedure are i n the results section . IRON, TIBC, % SAT. (WITHOUT Routine 03/09/2020 3:33 AM CDT Results for this FERRITIN) procedure are i n the results section . CBC W/PLT COUNT & AUTO Routine 03/09/2020 3:33 AM CDT Results for this DIFFERENTIAL procedure are i n the results section . BASIC METABOLIC PANEL (7) Routine 03/09/2020 3:33 AM CDT Results for this procedure are i n the results section . CBC W/PLT COUNT & AUTO Routine 03/08/2020 4:40 AM CDT Results for this DIFFERENTIAL procedure are i n the results section . CBC W/PLT COUNT & AUTO Routine 03/08/2020 4:40 AM CDT Results for this DIFFERENTIAL procedure are i n the results section . BASIC METABOLIC PANEL (7) Routine 03/08/2020 4:40 AM CDT Results for this procedure are i n the results section . URINE CULTURE Routine 03/08/2020 2:50 AM CDT Res ults for this procedure are i n the results section . NM KIDNEY IMAGING SINGLE Routine 03/07/2020 1:40 PM CDT Results for this FLOWITH FUNCTION procedure a re in the results section . URINALYSIS W/ REFLEX URINE Routine 03/07/2020 7:23 AM CDT Results for this CULTURE procedure are i n the results section . URINE CULTURE Routine 03/07/2020 7:23 AM CDT Res ults for this procedure are i n the results section . (CELLAVISION MANUAL DIFF) Routine 03/07/2020 4:20 AM CDT Results for this procedure are i n the results section . CBC W/PLT COUNT & AUTO Routine 03/07/2020 4:20 AM CDT Results for this DIFFERENTIAL procedure are i n the results section . CBC W/PLT COUNT & AUTO Routine 03/07/2020 4:20 AM CDT Results for this DIFFERENTIAL procedure are i n the results section . BASIC METABOLIC PANEL (7) Routine 03/07/2020 4:20 AM CDT Results for this procedure are i n the results section . VITAMIN D, 25-HYDROXY Routine 03/07/2020 4:20 AM CDT Results for this procedure are i n the results section . POCT-GLUCOSE METER Routine 03/06/2020 10:56 PM CDT Results for this procedure are i n the results section . IR PERCUTANEOUS NEPHROSTOMY Routine 03/06/2020 9:56 PM CDT Results for this TUBE PLACEMENT procedure are in the results section . SARS-COV2/RT-PCR ([facility] & REF STAT 03/06/2020 8:06 PM CDT Results for this LABS) procedure are i n the results section . (CELLAVISION MANUAL DIFF) Routine 03/06/2020 5:45 PM CDT Results for this procedure are i n the results section . CBC W/PLT COUNT & AUTO Routine 03/06/2020 5:45 PM CDT Results for this DIFFERENTIAL procedure are i n the results section . PROTHROMBIN TIME/INR Routine 03/06/2020 5:45 PM CDT Results for this procedure are i n the results section . CBC W/PLT COUNT & AUTO Routine 03/06/2020 5:45 PM CDT Results for this DIFFERENTIAL procedure are i n the results section . BASIC METABOLIC PANEL (7) Routine 03/06/2020 5:45 PM CDT Results for this procedure are i n the results section . BLOOD CULTURE Routine 03/06/2020 5:44 PM CDT Res ults for this procedure are i n the results section . BLOOD CULTURE Routine 03/06/2020 5:44 PM CDT Res ults for this procedure are i n the results section . after 07/05/2019 Results TRANSFUSION SERVICE REPORT - SCAN (03/17/2020 6:31 PM CDT)Only the most recent of2 resultswithin the time period is included. Narrative Performed At This result has an attachment that is no t available. Prepare RBC (03/15/2020 12:30 PM CDT) Pathologist Sig nature Unit ABO A Pos [place] UNIT NUMBER [id number] [place] Status WORK IN PROGRESS [place] Blood Bank Product RED BLOOD CELLS [place] PRODUCT CODE [id number] [place] Unit ABO A Pos [place] UNIT NUMBER [id number] [place] Status WORK IN PROGRESS [place] [place] Blood Bank Product RED BLOOD CELLS [place] PRODUCT CODE [id number] [place] CROSSMATCH COMPATIBLE [place] CROSSMATCH COMPATIBLE [place] Performing Organization Address City/State/Zipcode Phone Number [place] CBC with platelet count + automated diff (03/15/2020 7:03 AM CDT)Only the most recent of11 resultswithin the time period is included. Pathologist Sig nature WBC 13.3 (H) 3.5 - 10.5 [facility] RBC 3.45 (L) 3.93 - 5.22 [facility] Hemoglobin 9.9 (L) 11.2 - 15.7 [facility] GM/DL [facility] Hematocrit 31.1 (L) 34.1 - 44.9 % [facility] MCV 90.1 79.4 - 94.8 fL [facility] MCH 28.7 25.6 - 32.2 pg [facility] MCHC 31.8 (L) 32.2 - 35.5 [facility] GM/DL [facility] RDW 14.9 (H) 11.7 - 14.4 % [facility] Platelets 463 (H) 150 - 450 K/CU [facility] MPV 9.4 9.4 - 12.3 fL [facility] nRBC 0 0 - 0 /100 WBC [facility] % Neutros 70 % [facility] % Lymphs 20 % [facility] % Monos 7 % [facility] % Eos 1 % [facility] % Baso 0 % [facility] # Neutros 9.34 (H) 1.56 - 6.13 [facility] # Lymphs 2.68 1.18 - 3.74 [facility] # Monos 0.96 (H) 0.24 - 0.36 [facility] # Eos 0.16 0.04 - 0.36 [facility] # Baso 0.04 0.01 - 0.08 [facility] K/L [facility] Immature 1 0 - 1 % [facility] Granulocytes-Relative [facility] Specimen Blood Performing Organization Address City/[facility]/Zipcode Phone Number [address] [address] CENTER Basic Metabolic Panel (03/15/2020 7:03 AM CDT)Only the most recent of11 results within the time period is included. Sodium 137 136 - 145 [facility] meq/L [facility] Potassium 3.8 3.5 - 5.1 [facility] meq/L [facility] Chloride 105 98 - 107 meq/L [facility] CO2 22 22 - 29 meq/L [facility] BUN 7 7 - 21 mg/dL [facility] Creatinine 0.99 0.57 - 1.25 [facility] mg/dL [facility] Glucose 92 70 - 105 mg/dL [facility] Calcium 8.9 8.4 - 10.2 [facility] mg/dL [facility] EGFR Comment: INSUFFICIENT [facility] CLINICAL DATA TO [facility] CALCULATE ESTIMATED CENTER GFR. Specimen Blood Narrative Performed At Contract Loader ID - DB [facility] Performing Organization Address City/[facility] Phone Number [address] [address] P[facility]OS Vancomycin level, trough (03/14/2020 5:07 PM CDT)Only the most recent of3 resultswithin the time period is included. Pathologist Sig nature Vancomycin Tr 23.3 (H) 10.0 - 20.0 ug/mL [facility] Specimen Blood Narrative Performed At Contract Loader ID - DB [facility] Performing Organization Address [facility]/Zipcode Phone Number [address] abdomen/pelvis without iv contrast (03/14/2020 9:58 AM CDT) Specimen Narrative Performed At FINAL REPORT [employer] RIS ABDOMINAL AND PELVIS CT DATED 03/14/2020 CLINICAL INFORMATION: Flank pain, kidn ey stone suspected Post-op PCNL TECHNIQUE: Axial images of the abdomen and pelvis were obtained from diaphragm to the pubic symphysis without GI or intravenous contrast. This exam was performed according to our departmental dose-optimization program, which include s automated exposure control, adjustment of the mA and/or kV according to patient size and/or use of interactive reconstruction technique. COMMENT: There is trace bilateral pleura l effusion with bibasilar subsegmental atelectasis. Liver and spleen are normal in size with out focal abnormality. Gallbladder is contracted. No gallstone or biliary dilatation is noted. Pancreas and adrenals are unremarkable. Both kidneys are normal in size. A right percutaneous nephroureterostomy tube is present. Ther e is moderate right hydronephrosis. Urinary bladder is contr acted. Multiple small subcentimeter stones are seen in the uri nary bladder. The small and large bowel are suboptimal ly evaluated secondary to lack of GI and intravenous contrast. No small or large bowel dilatation is seen. Appendix is normal i n caliber. Uterus and ovaries are unremarkable. No mass, adenopathy or ascites is presen t. IMPRESSION: 1. Presence of right percutaneous nephro ureterostomy tube with moderate right hydronephrosis. 2. Contracted urinary bladder with multi ple stones. Signed: Edison Gusman MD Report Verified Date/Time: 03/14/2020 10:34:53 Reading Location: [facility] C013Y CT Body R [facility] Room Procedure Note Interface, External Ris In - 03/14/2020 10:37 AM CDT FINAL REPORT ABDOMINAL AND PELVIS CT DATED 03/14/2020 CLINICAL INFORMATION: Flank pain, kidne y stone suspected Post-op PCNL TECHNIQUE: Axial images of the abdomen and pelvis were obtained from diaphragm to the pubic symphysis without GI or intravenous contrast. This exam was performed according to our departmental dose-optimization program, which include s automated exposure control, adjustment of the mA and/or kV according to patient size and/or use of interactive reconstruction technique. COMMENT: There is trace bilateral pleura l effusion with bibasilar subsegmental atelectasis. Liver and spleen are normal in size with out focal abnormality. Gallbladder is contracted. No gallstone or biliary dilatation is noted. Pancreas and adrenals are unremarkable. Both kidneys are normal in size. A right percutaneous nephroureterostomy tube is present. Ther e is moderate right hydronephrosis. Urinary bladder is contr acted. Multiple small subcentimeter stones are seen in the uri nary bladder. The small and large bowel are suboptimal ly evaluated secondary to lack of GI and intravenous contrast. No small or large bowel dilatation is seen. Appendix is normal i n caliber. Uterus and ovaries are unremarkable. No mass, adenopathy or ascites is presen t. IMPRESSION: 1. Presence of right percutaneous nephro ureterostomy tube with moderate right hydronephrosis. 2. Contracted urinary bladder with multi ple stones. Signed: Edison Gusman MD Report Verified Date/Time: 03/14/2020 1 0:34:53 Reading Location: [facility] C013Y CT Body R eading Room Performing Organization Address City/State/Zipcode Phone Number [facility] XR chest 1 view portable / bedside (03/13/2020 12:55 PM CDT) Specimen Narrative Performed At FINAL REPORT [employer] CLINICAL HISTORY: Post-op PACU TECHNIQUE: 1 view of the chest. COMPARISON: None IMPRESSION: There are no focal infiltrates or effusi ons. The cardiomediastinal silhouette is within normal limits for s ize. The visualized bones appear intact. There is tubing in the pa rtially imaged right abdomen. Signed: John Braun MD Report Verified Date/Time: 03/13/2020 15:22:32 Reading Location: [facility] Reading Room Procedure Note Interface, External Ris In - 03/13/2020 3:24 PM CDT FINAL REPORT CLINICAL HISTORY: Post-op PACU TECHNIQUE: 1 view of the chest. COMPARISON: None IMPRESSION: There are no focal infiltrates or effusi ons. The cardiomediastinal silhouette is within normal limits for s ize. The visualized bones appear intact. There is tubing in the pa rtially imaged right abdomen. Signed: John Braun MD Report Verified Date/Time: 03/13/2020 1 5:22:32 [facility] Performing Organization Address City/[facility] Phone Number [employer] RIS FL fluoro non-specific up to 1 hour (03/13/2020 12:03 PM CDT) Specimen Narrative Performed At Fluoroscopic unit utilized for a procedure performed i n the OR. No [employer] RIS interpretation was requested. Refer to the operative report for findings. Refer to PACS for patient radiation dose i nformation. Procedure Note Interface, External Ris In - 03/13/2020 1:04 PM CDT Fluoroscopic unit utilized for a procedu re performed in the OR. No interpretation was requested. Refer to the operative r eport for findings. Refer to PACS for patient radiation dose information. Performing Organization Address [facility] Phone Number GE RIS AFB culture + smear (non-sputum) (03/13/2020 11:14 AM CDT) Pathologist Sig nature Result No acid-fast bacilli [facility] isolated in 42 days [facility] AFB Smear No acid fast bacilli [facility] seen [facility] Specimen Line, Indwelling - Right kidney structur e (body structure) Performing Organization Address City/[facility]/Zipcode Phone Number [address] [address] CENTER Anaerobic culture (03/13/2020 11:14 AM CDT) Pathologist Sig nature Result No anaerobes isolated [facility] Specimen Line, Indwelling - Right kidney structur e (body structure) Performing Organization Address [facility]/Zipcode Phone Number [address] [address] CENTER Surgically obtained culture + gram stain (03/13/2020 11:14 AM CDT) Result 1+ [facility]aphylococcus [facility] aureus (A) [facility] Result 1+ Enterococcus [facility] faecalis (A) [facility] Result 1+ Staphylococcus [facility] aureus (A)Comment: of [facility] a second type [facility] Gram Stain Result <1+ WBCs [facility] Gram Stain Result No organisms seen [facility] Specimen Line, Indwelling - Right kidney structur e (body structure) Organism Antibiotic Method Susceptibility Staphylococcus aureus Clindamycin 0.25: Susc eptible Staphylococcus aureus Erythromycin <=0.25: Lora sceptible Staphylococcus aureus Linezolid 2: Suscept ible Staphylococcus aureus Oxacillin 2: Suscept ible Staphylococcus aureus Rifampin <=0.5: Elsy ceptible Staphylococcus aureus Tetracycline <=1: Susce ptible Staphylococcus aureus Trimethoprim + Sulfamethoxazole <=10: Susceptible Staphylococcus aureus Vancomycin <=0.5: Elsy ceptible Enterococcus faecalis Ampicillin <=2: Susce ptible Enterococcus faecalis Linezolid 2: Suscept ible Enterococcus faecalis Vancomycin 2: Suscept ible Staphylococcus aureus Clindamycin 0.25: Susc eptible Staphylococcus aureus Erythromycin 0.5: Susce ptible Staphylococcus aureus Levofloxacin 0.25: Susc eptible Staphylococcus aureus Linezolid 2: Suscept ible Staphylococcus aureus Rifampin <=0.5: Elsy ceptible Staphylococcus aureus Trimethoprim + Sulfamethoxazole <=10: Susceptible Staphylococcus aureus Vancomycin <=0.5: Elsy ceptible Staphylococcus aureus Oxacillin 1.0: Susce ptible Performing Organization Address [facility] Phone Number [address] [address] CENTER Fungus culture + smear (03/13/2020 11:14 AM CDT) Pathologist Sig nature Result No fungus isolated [facility] in 28 days [facility] Fungus Smear No fungal elements [facility] seen [facility] Specimen Line, Indwelling - Right kidney structur e (body structure) Performing Organization Address [facility] Phone Number [address] [address] CENTER STONE ANALYSIS (03/13/2020 10:16 AM CDT) SPECIMEN NOT GIVEN [facility] COMPONENT 1 See Below [facility] ([facility] Comment: [facility] Carbonate Apatite (Dahllite) 90% Calcium Oxalate Dihydrate (Weddellite) 10% This test was developed and its analytical performance characteristics have been determined by [employer]. It has not been cleared or approved by [facility] FDA. This assay has been validated pursuant to the CLI A regulations and is used for clinical purposes. COMPONENT 2 DNR [facility] Stone Weight 0.197 g [facility] Specimen Tissue - Calculus (morphologic abnormali ty) Narrative Performed At Performing Lab [facility] *[facility] [employer] [facility], [address] [place] [phone] Devi Quintero MD Performing Organization Address City/State/Zipcode Phone Number [place] [address] [id number] [facility] PT/aPTT (03/13/2020 4:11 AM CDT)Only the most recent of2 resultswithin the time period is included. Pathologist Sig nature Protime 14.2 11.9 - 14.2 seconds [facility] INR 1.13 <=5.90 [facility] PTT 32.5 22.5 - 36.0 seconds [facility] Specimen Blood Narrative Performed At Effective 11/21/2018: PT Reference Range [facility] Change New: 11.9-14.2 Previous: 11.7-14.7 RECOMMENDED COUMADIN/WARFARIN INR THERAPY RANGES STANDARD DOSE: 2.0-3.0 Includes: PROPHYLAXIS for venous thrombosis, systemic embolization; TREATMENT for venous thrombosis and/or pulmonary embolus. HIGH RISK: Target INR is 2.5-3.5 for patients wiht mechanical heart valves. Performing Organization Address City/State/Zipcode Phone Number [facility] [address] [place], [place] [phone] CENTER Prothrombin time/INR (03/13/2020 4:11 AM CDT)Only the most recent of4 results within the time period is included. Pathologist Sig nature Protime 14.2 11.9 - 14.2 seconds [facility] INR 1.13 <=5.90 [facility] Specimen Blood Narrative Performed At Effective 11/21/2018: PT Reference Range [facility] Change New: 11.9-14.2 Previous: 11.7-14.7 RECOMMENDED COUMADIN/WARFARIN INR THERAPY RANGES STANDARD DOSE: 2.0-3.0 Includes: PROPHYLAXIS for venous thrombosis, systemic embolization; TREATMENT for venous thrombosis and/or pulmonary embolus. HIGH RISK: Target INR is 2.5-3.5 for patients wiht mechanical heart valves. Performing Organization Address City/State/Zipcode Phone Number [facility] [address] [place] [address] CENTER SARS-CoV2/RT-PCR (Asymptomatic ONLY) (03/12/2020 9:25 PM CDT)Only the most recent of3 resultswithin the time period is included. SARS-COV2/RT-PCR Negative Not Detected, [facility] Negative, See [facility] external report CENTER for linked test SARS-COV-2 [facility] DAMARIS [facility] PERFORMING LAB [facility] Specimen Other - Nasopharyngeal wall structure (b ze structure) Narrative Performed At Negative result for this test determines that [facility] SARS-CoV-2 RNA was not present in the specimen above the Limit of Detection (LOD). However, Negative results do not preclude SARS-CoV-2 infection and should not be used as the sole basis for treatment or patient management decisions. Negative results must be combined with clinical observations, patient history, and epidemiological information. A false negative result may occur if a specimen is improperly collected, transported or handled. A false negative result should be considered if patient's recent exposures or clinical presentation indicate that COVID-19 (SARS-CoV-2) is likely and diagnostic tests for other causes of illness are negative. Re-testing should be considered in cases of suspected false negatives. The limit of detection for this assay is 800 copies/mL. This SARS CoV-2 test is a real-time RT-PCR test intended for the qualitative detection of nucleic acid from SARS-CoV-2 in a nasopharyngeal swab specimen collected from individuals suspected of COVID-19 by their healthcare provider. This test has not been Food and Drug Administration (FDA) cleared or approved. This is a modified version of an approved Emergency Use Authorization (EUA) and is in the process of review by the FDA. Once authorized by the FDA, the issued EUA will be effective until the declaration that circumstances exist justifying the authorization of the emergency use of in vitro diagnostic tests for detection and/or diagnosis of COVID-19 is terminated under Section 564(b)(2) of the Act or the EUA is revoked under Section 564(g) of the Act. Fact Sheet for Healthcare Providers: https://www.[employer]/sites/default/files/pro duct/documents/Fact_Sheet_HC_Providers_Lyra_SA RS-CoV-2.pdf Fact Sheet for Healthcare Patients: https://www.[employer]/sites/default/files/pro duct/documents/Fact_Sheet_Patients_Lyra_SARS-C oV-2.pdf Performing Laboratory: [address] [place] [address] Performing Organization Address City/[facility]/[place] [address] CENTER Antibody identification (03/12/2020 2:59 PM CDT) Pathologist Sig prabha ANTIBODY ID UNID IgG [place] (BEAKER) Antibody Consult SIGNED OUTComment: An [place] IgG antibody of undetermined specificity is detected, transfuse crossmatch compatible RBCs.Electronic Signature: Rocky White M.D. Specimen Performing Organization Address City/[facility]/Zipcode Phone Number [place] ABORH, manual (03/12/2020 10:05 AM CDT)Only the most recent of2 resultswithin the time period is included. Pathologist Sig prabha ABO Grouping A [facility] DICAL [facility]ECOS Rh Factor POS [facility] Specimen Blood Performing Organization Address City/[facility]/Zipcode Phone Number [facility] [address] [phone] Type and screen, automated (03/12/2020 9:38 AM CDT) Pathologist Sig nature Ab Scrn POSITIVEComment: [facility] Echo 1 [facility] Specimen Blood Performing Organization Address [facility] Phone Number [address] [phone] Screen, urine (03/12/2020 5:30 AM CDT) Pathologist Sig nature Preg Test, Ur Negative [facility] Specimen Urine Performing Organization Address [facility]opa Phone Number [address] [address] PECOS POC-Glucose meter (03/11/2020 1:11 PM CDT)Only the most recent of4 results within the time period is included. POC-Glucose Meter 101Comment: : 70 - 110 mg/dL [facility] TESTED AT [address], [address]: Contract Loader/Technic everette ID = [id number] for TIANA BAUTISTA Specimen Blood Performing Organization Address [facility] Phone Number [address] [address] PECOS aPTT (03/10/2020 6:09 AM CDT) Pathologist Sig nature PTT 32.3 22.5 - 36.0 seconds [facility] Specimen Blood Performing Organization Address [facility] Phone Number [address] [address] PECOS Iron, TIBC, % sat. (without ferritin) (03/09/2020 3:33 AM CDT) Pathologist Sig nature Iron 28.0 (L) 40.0 - 160.0 [facility] ug/dL [facility] TIBC 209 (L) 250 - 450 ug/dL [facility] Iron % Saturation 13 (L) 20 - 55 % [facility] Specimen Blood Narrative Performed At Contract Loader ID - ADMIN [facility] Performing Organization Address [facility]/Zipcode Phone Number [facility] [address] [place] [address] CENTER Ferritin (03/09/2020 3:33 AM CDT) Pathologist Sig nature Ferritin 142.14 5.00 - 275.00 ng/mL [facility] Specimen Blood Narrative Performed At Contract Loader ID - PIAYA L [facility] Performing Organization Address [facility] Phone Number [facility] [address] [place] [address] CENTER Urine culture (03/08/2020 2:50 AM CDT)Only the most recent of2 resultswithin the time period is included. Pathologist Sig nature Result 20-29,000 col/mL Same organi sm has been isolated from cultures(s) of the same body site within 3 days. Repeat identification and susceptibility testing performed only after consultation with the clinical microbiology laboratory. (A) [facility]: [facility] Refer to previous culture of CENTER Staphylococcus aureus Result 10-19,000 col/mL Same organi sm has been isolated from cultures(s) of the same body site within 3 days. Repeat identification and susceptibility testing performed only after consultation with the clinical microbiology laboratory. (A) [facility] Comment: [facility] Refer to previous culture of CENTER Staphylococcus aureus of a second type Specimen Urine - Urine, Nephrostomy Narrative Performed At <10,000 col/mL Enterococcus species [facility] Performing Organization Address City/[facility]/Zipcode Phone Number [facility] [address] [place] [address] PECOS NM renal scan (03/07/2020 1:40 PM CDT) Specimen Narrative Performed At FINAL REPORT [facility] PROCEDURE: Functional RENAL SCAN, flow and function CPT CODE: [id number] INDICATION: Nephrolithiasis, hyd ronephrosis, right nephrostomy PROTOCOL: 10.8 mCi of Tc-99m MAG 3 was injected intravenously. Renal flow images were obtained in the p osterior projection. Subsequent serial posterior images were obtained over approximately 40 minutes. FINDINGS: There is prompt per fusion of the left kidney but markedly delayed and decreased perfusion of the right kidney. Initial renal activity is divided 82% to the lef t kidney and 18% to the right kidney. Subsequent images show good conc entration of tracer and good tracer clearance from the left renal par enchyma. There is persistent marked decrease in clearance on the righ t. There is mild dilation of the left renal pelvis and moderate dilat ion on the right. There is appropriate flow through the left ureter and the right nephrostomy tube. No activity is seen in the right u reter. IMPRESSION: 1. Marked decrease in right renal parenc hymal function. Good function of the left kidney. 2. Moderate right and mild left hydronep hrosis. Of note, hydronephrosis in the right kidney may b e underestimated given the presence of the right nephrostomy. 3. Functioning right nephrostomy. Signed: Christina Sawant MD Report Verified Date/Time: 03/07/2020 16:24:47 Reading Location: [address] Reading Room Procedure Note Interface, External Ris In - 03/07/2020 4:27 PM CDT FINAL REPORT PROCEDURE: Functional RENAL SCAN, fl ow and function CPT CODE: [id number] INDICATION: Nephrolithiasis, hydron ephrosis, right nephrostomy PROTOCOL: 10.8 mCi of Tc-99m MAG3 w as injected intravenously. Renal flow images were obtained in the p osterior projection. Subsequent serial posterior images were obtained over approximately 40 minutes. FINDINGS: There is prompt perfusi on of the left kidney but markedly delayed and decreased perfusion of the right kidney. Initial renal activity is divided 82% to the lef t kidney and 18% to the right kidney. Subsequent images show good conc entration of tracer and good tracer clearance from the left renal par enchyma. There is persistent marked decrease in clearance on the righ t. There is mild dilation of the left renal pelvis and moderate dilat ion on the right. There is appropriate flow through the left ureter and the right nephrostomy tube. No activity is seen in the right u reter. IMPRESSION: 1. Marked decrease in right renal parenc hymal function. Good function of the left kidney. 2. Moderate right and mild left hydronep hrosis. Of note, hydronephrosis in the right kidney may b e underestimated given the presence of the right nephrostomy. 3. Functioning right nephrostomy. Signed: Christina Sawant MD Report Verified Date/Time: 03/07/2020 1 6:24:47 Reading Location: [address] [address] Reading Room Performing Organization Address City/State/Zipcode Phone Number [facility] Urinalysis w/Microscopic + Reflex to Culture (03/07/2020 7:23 AM CDT) Color, UA Yellow [facility] Clarity, UA Cloudy [facility] Specific [place], 1.025 1.001 - 1.035 [facility] pH, UA 6.5 5.0 - 8.0 [facility] Protein, UA 200 mg/dL (A) Negative [facility] Glucose, UA Negative Negative [facility] Ketones, UA 100 mg/dL (A) Negative [facility] Bilirubin, UA Positive (A) Negative [facility] Blood, UA Moderate (A) Negative [facility] Nitrite, UA Negative Negative [facility] Leukocytes, UA Large (A) Negative [facility] Urobilinogen, UA 6.0 (H) 0.2 - 1.0 mg/dL [facility] RBC, UA 96 /HPF [facility] WBC, UA 1,547 /HPF [facility] Mucus Occasional [facility] Squam Epithel, UA 3 /HPF [facility] Specimen Source [facility] Specimen Urine Narrative Performed At Contract Loader ID - [auto] [facility] Contract Loader ID - tech Performing Organization Address City/State/Zipcode Phone Number [facility] [address] [place] [address] CENTER Manual Differential (03/07/2020 4:20 AM CDT)Only the most recent of2 results within the time period is included. Pathologist Sig nature % Neutros 71 % [facility] % Lymphs 7 % [facility] % Monos 6 % [facility] % Bands 16 (H) 0 - 10 % [facility] # Neutros 6.46 (H) 1.56 - 6.13 K/ul [facility] # Lymphs 0.64 (L) 1.18 - 3.74 K/ul [facility] # Monos 0.55 (H) 0.24 - 0.36 K/uL [facility] # Bands 1.46 (H) 0.00 - 0.80 K/uL [facility] Total Counted 100 [facility] WBC Morphology Normal [facility] Giant Platelet Present [facility] Polychromasia 1+ few [facility] Hypochromia 1+ few [facility] Anisocytosis 1+ few [facility] Macrocytes 1+ few [facility] Poikilocytes 1+ few [facility] Ovalocytes 1+ few [facility] Artifact Present [facility] Platelet Conc Adequate [facility] Specimen Blood Narrative Performed At Contract Loader ID - Esperanza Junior [facility] User comments: Slide comments: Performing Organization Address City/State/Zipcode Phone Number [facility] [address] [place], [place] [phone] PECOS Vitamin D, 25-Hydroxy (03/07/2020 4:20 AM CDT) Pathologist Sig nature Vitamin D 25-Hydroxy 15.8 6.6 - 49.9 ng/mL [facility] Specimen Blood Narrative Performed At Effective 04/05/2017: Reference Range Ch fariha [facility] New: 6.6-49.9 ng/mL Previous: 13.0-47.8 ng/mL Recommended Vitamin D Target Range: 30.0-40.0 ng/mL Contract Loader ID - JONAH Kristina Performing Organization Address City/[facility]/Zipcode Phone Number [facility] [address] [place] [address] CENTER IR Percutaneous Nephrostomy - Ext. Drain Placement (03/06/2020 9:56 PM CDT) Specimen Narrative Performed At FINAL REPORT [facility] Exam: Right nephrostomy tube insertion Clinical History: Right UPJ stone with severe hydronephrosis and fever Consent: Benefits and risks were expla ined to the patient who gave consent to the procedure. Sedation: The procedure was performed with conscious sedation. Continuous cardiorespiratory monitoring was performed by a registered nurse throughout the procedure. The to michael sedation time is 15 minutes. Fluoro Time: 1.0 Minutes Total Images: 2 Medication: Versed 2 mg IV, fentanyl 1 00 mcg IV Procedure: Sterile barrier technique w as followed including cap, mask, sterile gown, sterile gloves, ster ile sheet, hand hygiene and 2% chlorhexidine for cutaneous antisepsi s. The right flank was prepped and draped in usual sterile fash ion. 2% lidocaine was used as local anesthetic. Under ultrasound félix nce, the inferior pole right renal calyx was accessed followed by per cutaneous nephrostogram which demonstrated severe hydronephrosis. A ra diopaque stone is seen encasing the proximal pigtail of the int ernal ureteral stent. Under fluoroscopic guidance, an 8.5 Niuean nep hrostomy tube was advanced into the renal pelvis the catheter was s ecured using 2-0 Prolene and left to gravity drainage. Hemostasis was achieved. The patient tolerated the procedure well without any adverse reactions. He left the department in stable condition. Complication: None immediate Impression: 1. Right nephrostomy tube insertion as d escribed. Signed: Kodi Blanton MD Report Verified Date/Time: 03/06/2020 22:01:35 Reading Location: [place] [address] Angio Body Reading Room Procedure Note Interface, External Ris In - 03/06/2020 10:03 PM CDT FINAL REPORT Exam: Right nephrostomy tube insertion Clinical History: Right UPJ stone with severe hydronephrosis and fever Consent: Benefits and risks were explai richard to the patient who gave consent to the procedure. Sedation: The procedure was performed w ith conscious sedation. Continuous cardiorespiratory monitoring was performed by a registered nurse throughout the procedure. The tot al sedation time is 15 minutes. Fluoro Time: 1.0 Minutes Total Images: 2 Medication: Versed 2 mg IV, fentanyl 10 0 mcg IV Procedure: Sterile barrier technique wa s followed including cap, mask, sterile gown, sterile gloves, ster ile sheet, hand hygiene and 2% chlorhexidine for cutaneous antisepsi s. The right flank was prepped and draped in usual sterile fash ion. 2% lidocaine was used as local anesthetic. Under ultrasound félix nce, the inferior pole right renal calyx was accessed followed by per cutaneous nephrostogram which demonstrated severe hydronephrosis. A ra diopaque stone is seen encasing the proximal pigtail of the int ernal ureteral stent. Under fluoroscopic guidance, an 8.5 Niuean nep hrostomy tube was advanced into the renal pelvis the catheter was s ecured using 2-0 Prolene and left to gravity drainage. Hemostasis was achieved. The patient tolerated the procedure well without any adverse reactions. He left the department in stable condition. Complication: None immediate Impression: 1. Right nephrostomy tube insertion as d escribed. Signed: Kodi Blanton MD Report Verified Date/Time: 03/06/2020 2 2:01:35 Reading Location: [place] [address] Angio Body Reading Room Performing Organization Address City/[facility]/Zipcode Phone Number [facility] Blood Culture - Routine (Left Venipuncture) (03/06/2020 5:44 PM CDT)Only the most recent of2 resultswithin the time period is included. Pathologist Sig nature Result No growth in 5 days [facility] Specimen Blood - Entire left upper arm (body stru cture) Performing Organization Address City/State/Zipcode Phone Number [facility] [address] [place] [address] CENTER after 07/05/2019 Insurance Payer Benefit Plan / Subscriber ID Effective Dates Phone Addre ss Type Group [employer] SELF PAY OP [id number] 2019-Present [facility] Advance Directives For more information, please contact: [phone] Code Status Date Activated Date Inactivated Comments Full Code 03/06/2020 3:52 PM 03/15/2020 2:30 PM This code status [id number]
--- OUTSIDE RECORDS SUMMARY | 2020-07-05 13:28 | XMS REPORT | Continuity of Care Document ---
:1995 Author Organization [facility] t Address [address] [place] [address] Care Team Providers Name Role Phone Ej Clancy MD Attending Clinician DESIRE LAWSON Attending Clinician Unavailable Desire Lawson MD Attending Clinician Humza Fields MD Attending Clinician Bin TSANG Attending Clinician Geraldine Carr MD Attending Clinician Ej Clancy MD Attending Clinician HUMZA FIELDS Admitting Clinician Unavailable Payers Payer Name Policy Type Policy Effective Date Expiration Date Sour ce Number SPECIAL [id number] 2019 [facility] HANDLINGSELF PAY 00:00:00 - Medica l OP DIAGNST IMGING Center [id number] 0-Present Problems Condition Condition Condition Status Onset Resolution Last Treating Co mments Source Name Details Category Date Date Treatment Clinician Date Hydronephr Hydronephr Disease Active C [facility] osis with osis with 03-07 [facility] - urinary urinary 00:00: Medical obstructio obstructio 00 Ce nter n due to n due to ureteral ureteral calculus calculus Nephrolith Nephrolith Disease Active 2019-[address] [facility]asis iasis 03-06 [facility] - [facility] Allergies, Adverse Reactions, Alerts This patient has no known allergies or adverse reactions. Social History Social Habit Start Date Stop Date Quantity Comments Source Sex Assigned At [facility] Tobacco use and 2020-03-13 2020-03-13 Never used FRANK Holm May kes - exposure 00:00:00 00:00:00 Medical Center Smoking Status Start Date Stop Date Source Never smoker FRANK Hol[facility] Medications Ordered Filled Start Stop Current Ordering Indication Dosage Frequency Signature Comments Components Source Medication Medication Date Date Medication? Clinician (SIG) Name Name tamsulosin 2019- No .4mg QD Take [address] [facility] (FLOMAX) 03-15 capsule [facility] - 0.4 mg Cap 00:00: 23:59 (0.4 mg Med ical 24 hr 00 :00 total) by Center capsule mouth daily for 14 days. ferrous 2020- No 325mg Take [address] [facility] sulfate 325 03-14 tablet [facility] - (65 FE) MG 00:00: 23:59 (325 mg Med ical tablet 00 :00 total) by Center mouth daily with breakfast. doxycycline 2019- No 100mg Q.5D Take [address] (MONODOX) 03-14 capsule [facility] - 100 MG 00:00: 23:59 (100 mg Medical capsule 00 :00 total) by Center mouth 2 (two) times daily for 14 days. amoxicillin 2019- No 875mg Q.5D Take [address] (AMOXIL) 03-14 tablet [facility] - 875 MG 00:00: 23:59 (875 mg Medical tablet 00 :00 total) by Center mouth 2 (two) times daily for 14 days. docusate 2019- No 100mg Take [facility] sodium 03-14 capsule [facility] - (COLACE) 00:00: 23:59 (100 mg Medic al 100 MG 00 :00 total) by Center capsule mouth 2 (two) times daily as needed for Constipati on for up to 10 days. oxybutynin 2019- No 5mg Take [address] [facility] (DITROPAN) 03-14 tablet (5 Jazmin es - 5 MG tablet 00:00: 23:59 mg total) Medical 00 :00 by mouth 3 Center (three) times daily as needed (bladder spasms) for up to 7 days. phenazopyri 2019- No 190mg Take [address] dine 03-14 tablets [facility] - (PYRIDIUM) 00:00: 23:59 (190 mg Med ical 95 MG 00 :00 total) by Center tablet mouth 3 (three) times daily as needed (dysuria) for up to 3 days. traMADoL 2019- No 50mg Take [address] [facility] [address] (ULTRAM) 50 03-14 tablet (50 L ukes - mg tablet 00:00: 23:59 mg total) Me dical 00 :00 by mouth Center every 6 (six) hours as needed for up to 3 days. Max Daily Amount: 200 mg traMADoL No 50mg Take [address] [facility] (ULTRAM) 50 03-14 tablet (50 L ukes - mg tablet 00:00: 00:00 mg total) Me dical 00 :00 by mouth Center every 6 (six) hours as needed for up to 3 days. Max Daily Amount: 200 mg Vital Signs Vital Name Observation Time Observation Value Comments Source Systolic blood 2020-03-15 07:04:00 118 mm[Hg] [facility] Diastolic blood 2020-03-15 07:04:00 69 mm[Hg] [facility] S [facility] rate 2020-03-15 07:04:00 70 /min [facility] Body temperature 2020-03-15 07:04:00 36.78 Maryanne [facility] Respiratory rate 2020-03-15 07:04:00 18 /min [facility] Oxygen saturation in 2020-03-15 07:04:00 98 /min [facility] Arterial blood by Medical Ce nter Pulse oximetry Body height 2020-03-06 17:13:00 157.5 cm [facility] Body weight 2020-03-06 17:13:00 61.236 kg [facility] BMI 2020-03-06 17:13:00 24.69 kg/m2 [facility] Procedures Procedure Date / Time Performing Clinician Source Performed TRANSFUSION SERVICE REPORT 2020-03-17 18:31:12 Provider, Default [facility] - - SCAN Scanning [facility] PREPARE RBC 2020-03-15 12:30:00 Gaby Fields [facility] BASIC METABOLIC PANEL (7) 2020-03-15 07:03:00 Gaby Fields [facility] CBC W/PLT COUNT & AUTO 2020-03-15 07:03:00 Gaby Fields [facility] VANCOMYCIN LEVEL, TROUGH 2020-03-14 17:07:00 [address]ra [address] [facility] CT ABDOMEN/PELVIS WITHOUT 2020-03-14 09:58:00 Roberth Radford [facility] - IV CONTRAST [facility] BASIC METABOLIC PANEL (7) 2020-03-14 05:18:00 Gaby Fields [facility] CBC W/PLT COUNT & AUTO 2020-03-14 05:18:00 Gaby Fields [facility] TRANSFUSION SERVICE REPORT 2020-03-13 18:01:29 ProviderDaisy [facility] - - SCAN Scanning [facility] XR CHEST 1 VIEW 2020-03-13 12:55:00 Mahin Monroe [facility] - PORTABLE/BEDSIDE Medical Center BASIC METABOLIC PANEL (7) 2020-03-13 12:47:00 Mahin Monroe [facility] CBC W/PLT COUNT & AUTO 2020-03-13 12:47:00 Mahin Monroe [facility] FL FLUORO NON-SPECIFIC UP 2020-03-13 12:03:00 Glenn Clancy [facility] - TO 1 HOUR [facility] AFB CULTURE + SMEAR 2020-03-13 11:14:40 Glenn Clancy [facility] - (NON-SPUTUM) [facility] ANAEROBIC CULTURE 2020-03-13 11:14:40 Glenn Clancy [facility] FUNGUS CULTURE + SMEAR 2020-03-13 11:14:40 Glenn Clancy [facility] SURGICALLY OBTAINED 2020-03-13 11:14:40 Glenn Clancy [facility] - CULTURE + GRAM STAIN Medical [facility] ter STONE ANALYSIS 2020-03-13 10:16:48 Glenn Clancy [facility] CYSTOSCOPY,LITHOLAPAXY W/ 2020-03-13 07:24:00 Glenn Clancy [facility] - LASER LITHOTRIPSY [facility] CYSTOSCOPY,URETEROSCOPY W/ 2020-03-13 07:24:[address] [facility] LITHOTRIPSY AND URETERAL [facility] Center STENT CYSTOSCOPY,RETROGRADES 2020-03-13 07:24:00 Glenn Clancy [facility] LITHOTRIPSY,PERCUTANEOUS 2020-03-13 07:24:00 Glenn Clancy [facility] CYSTOSCOPY,REMOVAL 2020-03-13 07:24:[address] [facility] URETERAL STENTS [facility] PROCEDURE W/ C-ARM 2020-03-13 07:24:00 Glenn Clancy [facility] BASIC METABOLIC PANEL (7) 2020-03-13 04:11:00 Gaby Fields [facility] PT/APTT 2020-03-13 04:11:00 [facility] PROTHROMBIN TIME/INR 2020-03-13 04:11:00 [facility] VANCOMYCIN LEVEL, TROUGH 2020-03-13 04:11:00 Lilli Randolph [facility] CBC W/PLT COUNT & AUTO 2020-03-13 04:11:00 Gaby Fields [facility] SARS-COV2/RT-PCR ([facility] & 2020-03-12 21:25:00 [facility] - REF LABS) [facility] ANTIBODY IDENTIFICATION 2020-03-12 14:59:00 Hemant Steward [facility] ABORH, MANUAL 2020-03-12 10:05:00 Hallie Mishra [facility] ABORH, MANUAL 2020-03-12 09:38:00 Roberth Radford [facility] SCREEN, URINE 2020-03-12 05:30:00 Saundra Katz [facility] BASIC METABOLIC PANEL (7) 2020-03-12 04:08:00 Gaby Fields [facility] PT/APTT 2020-03-12 04:08:00 Bin [facility] PROTHROMBIN TIME/INR 2020-03-12 04:08:00 [facility] CBC W/PLT COUNT & AUTO 2020-03-12 04:08:00 Gaby Fields [facility] POCT-GLUCOSE METER 2020-03-11 13:11:00 Hemant Steward [facility] POCT-GLUCOSE METER 2020-03-11 06:23:00 Donnie [facility] BASIC METABOLIC PANEL (7) 2020-03-11 04:42:00 Donnie [facility] CBC W/PLT COUNT & AUTO 2020-03-11 04:42:00 [facility]-GLUCOSE METER 2020-03-11 01:21:00 Donnie [facility] VANCOMYCIN LEVEL, TROUGH 2020-03-11 00:32:00 Allegra Reddy [facility] SARS-COV2/RT-PCR ([facility] & 2020-03-10 06:14:[address] [facility] REF LABS) [facility] PROTHROMBIN TIME/INR 2020-03-10 06:09:00 Saundra Katz [facility] APTT 2020-03-10 06:09:00 Saundra Katz [facility] BASIC METABOLIC PANEL (7) 2020-03-10 03:55:00 Donnie [facility] CBC W/PLT COUNT & AUTO 2020-03-10 03:55:[address] [facility] BASIC METABOLIC PANEL (7) 2020-03-09 03:33:00 Donnie [facility] IRON, TIBC, % SAT. 2020-03-09 03:33:00 Donnie [facility] (WITHOUT FERRITIN) [facility] r FERRITIN 2020-03-09 03:33:00 Gaby Fields [facility] CBC W/PLT COUNT & AUTO 2020-03-09 03:33:00 Gaby Fields [facility] BASIC METABOLIC PANEL (7) 2020-03-08 04:40[facility] & AUTO 2020-03-08 04:40:00 Gaby Fields [facility] URINE CULTURE 2020-03-08 02:50[facility] S[facility]LE 2020-03-07 13:40:00 Maureen Garcia [facility] URINE CULTURE 2020-03-07 07:23:00 [facility] URINALYSIS W/ REFLEX URINE 2020-03-07 07:23:00 Yosef Gaines [facility] VITAMIN D, 25-HYDROXY 2020-03-07 04:20:00 Eder Yosef [facility] BASIC METABOLIC PANEL (7) 2020-03-07 04:20:00 Donnie [facility] CBC W/PLT COUNT & AUTO 2020-03-07 04:20:00 Gaby Fields [facility] (CELLAVISION MANUAL DIFF) 2020-03-07 04:20:00 [facility] PO[facility]SE METER 2020-03-06 22:56:00 [facility] IR PERCUTANEOUS 2020-03-06 21:56:00 [facility]AC[facility] SARS-COV2/RT-PCR ([facility] & 2020-03-06 20:06:00 [facility] BASIC METABOLIC PANEL (7) 2020-03-06 17:45:00 Yosef Gaines [facility] PROTHROMBIN TIME/INR 2020-03-06 17:45:00 Eder [facility] CBC W/PLT COUNT & AUTO 2020-03-06 17:45:00 Yosef Gaines [facility] (CELLAVISION MANUAL DIFF) 2020-03-06 17:45:00 Yosef Gaines [facility] BLOOD CULTURE 2020-03-06 17:44:00 Yosef Gaines [facility] Plan of Care Planned Activity Planned Date Details Comments Source Future Scheduled 2020-02-[address] [facility]00 (#1) [code = [facility] INFLUENZA VACCINE (#1)] Future Scheduled 2019-06-[address] [facility] 00:00:00 (12+) [code = [facility] DEPRESSION SCREENING (12+)] Future Scheduled [address] [facility] es - Test 00:00:00 malignant neoplasm of Medica l Center cervix (procedure) [code = 210653517] Encounters Start End Encounter Admission Attending Care Care Encounter Source Date/Time Date/Time Type Type Clinicians Facility Department ID 2020-03-26 2020-03-26 Office RICKY Clancy [id number] 09:54:56 12:25:39 Visit Glenn Ej AMBULATOR [id number] Y [id number] Results Test Description Test Time Test Comments Results Result Comments Source AFB culture + smear (non-sputum) 2020-04-27 09:02:00 Test Item Value Reference Range Interpretation Comme nts Result (test code = 6463-4) No acid-fast bacilli isolated in 42 day s AFB Smear (test code = 81364-0) No acid fast bacilli [facility]-SPUTUM)2020-04-27 09:02:00 Test Item Value Reference Range Interpretation Comments CULTURE (BEAKER) (test No acid-fast bacilli code = 1095) isolated in 42 days AFB SMEAR (BEAKER) No acid fast bacilli (test code = 994) seen Fungus culture + [id number] 16:35:00 Test Item Value Reference Range Interpretation Comments Result (test code = No fungus isolated in 6463-4) 28 days Fungus Smear (test No fungal elements seen code = 1406) [facility] + [id number] 16:35:00 Test Item Value Reference Range Interpretation Comments CULTURE (BEAKER) (test No fungus isolated in code = 1095) 28 days FUNGUS SMEAR (BEAKER) No fungal elements seen (test code = 1406) STONE [id number] 20:44:00 Test Item Value Reference Range Interpretation Comments SPECIMEN NOT GIVEN SOURCE(QUEST) (test code = 2466775) COMPONENT 1 See Below Carbonate Apati te (QUEST) (test (Dahllite) 90% code = 4536801) Calcium Oxal ate Dihydrate (Weddellite) 10 % This test was developed and i ts analytical performance characteristics have been determined by [employer] [facility]. It has not been cl eared or approved by theA. This as say has been valida martha pursuant to the CLIA regulations and is used for clinic al purposes. COMPONENT 2 DNR (QUEST) (test code = 2498) Stone Weight 0.197 g (test code = 2654) SORAYA (test code = Performing Lab SORAYA) *WINNIE [facility], [address] [place] [id number] Devi Quintero MD [facility] [id number] 20:06:00 Test Item Value Reference Range Interpretation Comments Result (test code = No anaerobes isolated 6463-4) [facility] [id number] 20:06:00 Test Item Value Reference Range Interpretation Comments CULTURE (BEAKER) (test No anaerobes isolated code = 1095) SURGICALLY OBTAINED CULTURE + GRAM [id number] 10:03:00 Test Item Value Reference Interpretation Comments Range CULTURE (BEAKER) STAPHYLOCOCCUS A 1+ Staphy lococcus (test code = 1095) AUREUS aureus Clindamycin (test S code = 10) Erythromycin (test S code = 4) Linezolid (test code S = 40) Oxacillin (test code S = 14) Rifampin (test code = S 43) Tetracycline (test S code = 2) Trimethoprim + S Sulfamethoxazole (test code = 47) Vancomycin (test code S = 13) CULTURE (BEAKER) ENTEROCOCCUS A 1+ Enteroco ccus (test code = 1095) FAECALIS faecalis Ampicillin (test code S = 26) Linezolid (test code S = 40) Vancomycin (test code S = 13) CULTURE (BEAKER) A 1+ Staphylo coccus (test code = 1095) aureusof a second type GRAM STAIN RESULT <1+ WBCs (BEAKER) (test code = 1123) GRAM STAIN RESULT No organisms seen (BEAKER) (test code = 968687) Prepare [id number] 12:30:00 Test Item Value Reference Range Interpretation Comments Unit ABO (test code = A Pos 6479235) UNIT NUMBER (test code = [id number] 934-0) Status (test code = 9873211) WORK IN PROGRESS Blood Bank Product (test RED BLOOD CELLS code = 2263) PRODUCT CODE (test code = I0103N71 933-2) CROSSMATCH (test code = COMPATIBLE 2264) [facility] Metabolic [id number] 08:10:00 Test Item Value Reference Range Interpretation Comments Sodium (test code 137 meq/L 136-145 = 2951-2) Potassium (test 3.8 meq/L 3.5-5.1 code = 2823-3) Chloride (test 105 meq/L 98-107 code = 2075-0) CO2 (test code = 22 meq/L -2027-9) BUN (test code = 7 mg/dL 7-21 3094-0) Creatinine (test 0.99 mg/dL 0.57-1.25 code = 2160-0) Glucose (test code 92 mg/dL 70-105 = 2345-7) Calcium (test code 8.9 mg/dL 8.4-10.2 = 08915-8) EGFR (test code = [place] [address]-6) CLINICAL DATA T O CALCULATE ESTIM ATED GFR. SORAYA (test code = Health Insurance Adjuster ID - DB SORAYA) [facility] METABOLIC [id number] 08:10:00 Test Item Value Reference Range Interpretation Comments SODIUM (BEAKER) (test 137 meq/L 136-145 code = 381) POTASSIUM (BEAKER) 3.8 meq/L 3.5-5.1 (test code = 379) CHLORIDE (BEAKER) 105 meq/L 98-107 (test code = 382) CO2 (BEAKER) (test 22 meq/L 22-29 code = 355) BLOOD UREA NITROGEN 7 mg/dL 7-21 (BEAKER) (test code = 354) CREATININE (BEAKER) 0.99 mg/dL 0.57-1.25 (test code = 358) GLUCOSE RANDOM 92 mg/dL 70-105 (BEAKER) (test code = 652) CALCIUM (BEAKER) 8.9 mg/dL 8.4-10.2 (test code = 697) EGFR (BEAKER) (test INSUFFIC IENT CLINICAL code = 1092) DATA TO CALCULA TE ESTIMATED GFR. Health Insurance Adjuster ID - DBCBC with platelet count + automated [id number] 07:19:00 Test Item Value Reference Range Interpretation Comments WBC (test code = 6690-2) 13.3 3.5- 10.5 K/L H RBC (test code = 789-8) 3.45 3.93- 5.22 M/L L MCHC (test code = 786-4) 31.8 32.2- 35.5 GM/DL L Hematocrit (test code = 4544-3) 31.1 % 34.1-44.9 L MCV (test code = 787-2) 90.1 fL 79.4-94.8 MCH (test code = 785-6) 28.7 pg 25.6-32.2 RDW (test code = 788-0) 14.9 % 11.7-14.4 H Platelets (test code = 777-3) 463 150- 450 K/CU MM H MPV (test code = 84165-4) 9.4 fL 9.4-12.3 nRBC (test code = 413) 0 0- 0 /100 WBC % Neutros (test code = 429) 70 % % Lymphs (test code = 430) 20 % % Monos (test code = 431) 7 % % Eos (test code = 432) 1 % % Baso (test code = 437) 0 % # Neutros (test code = 670) 9.34 1.56- 6.13 K/L H # Lymphs (test code = 414) 2.68 1.18- 3.74 K/L # Monos (test code = 415) 0.96 0.24- 0.36 K/L H # Eos (test code = 416) 0.16 0.04- 0.36 K/L # Baso (test code = 417) 0.04 0.01- 0.08 K/L Immature Granulocytes-Relative 1 % 0-1 (test code = 2801) Lab Interpretation (test code = Abnormal 24306-3) [facility] W/PLT COUNT & AUTO [id number] 07:19:00 Test Item Value Reference Range Interpretation Comments WHITE BLOOD CELL COUNT (BEAKER) 13.3 K/ L 3.5-10.5 H (test code = 775) RED BLOOD CELL COUNT (BEAKER) 3.45 M/ L 3.93-5.22 L (test code = 761) HEMOGLOBIN (BEAKER) (test code = 9.9 GM/DL 11.2-15.7 L 410) HEMATOCRIT (BEAKER) (test code = 31.1 % 34.1-44.9 L 411) MEAN CORPUSCULAR VOLUME (BEAKER) 90.1 fL 79.4-94.8 (test code = 753) MEAN CORPUSCULAR HEMOGLOBIN 28.7 pg 25.6-32.2 (BEAKER) (test code = 751) MEAN CORPUSCULAR HEMOGLOBIN CONC 31.8 GM/DL 32.2-35.5 L (BEAKER) (test code = 752) RED CELL DISTRIBUTION WIDTH 14.9 % 11.7-14.4 H (BEAKER) (test code = 412) PLATELET COUNT (BEAKER) (test 463 K/CU MM 150-450 H code = 756) MEAN PLATELET VOLUME (BEAKER) 9.4 fL 9.4-12.3 (test code = 754) NUCLEATED RED BLOOD CELLS 0 /100 WBC 0-0 (BEAKER) (test code = 413) NEUTROPHILS RELATIVE PERCENT 70 % (BEAKER) (test code = 429) LYMPHOCYTES RELATIVE PERCENT 20 % (BEAKER) (test code = 430) MONOCYTES RELATIVE PERCENT 7 % (BEAKER) (test code = 431) EOSINOPHILS RELATIVE PERCENT 1 % (BEAKER) (test code = 432) BASOPHILS RELATIVE PERCENT 0 % (BEAKER) (test code = 437) NEUTROPHILS ABSOLUTE COUNT 9.34 K/ L 1.56-6.13 H (BEAKER) (test code = 670) LYMPHOCYTES ABSOLUTE COUNT 2.68 K/ L 1.18-3.74 (BEAKER) (test code = 414) MONOCYTES ABSOLUTE COUNT (BEAKER) 0.96 K/ L 0.24-0.36 H (test code = 415) EOSINOPHILS ABSOLUTE COUNT 0.16 K/ L 0.04-0.36 (BEAKER) (test code = 416) BASOPHILS ABSOLUTE COUNT (BEAKER) 0.04 K/ L 0.01-0.08 (test code = 417) IMMATURE GRANULOCYTES-RELATIVE 1 % 0-1 PERCENT (BEAKER) (test code = 2801) Vancomycin level, [id number] 17:28:00 Test Item Value Reference Range Interpretation Comments Vancomycin Tr (test code = 23.3 ug/mL 10-20 H 4092-3) SORAYA (test code = SORAYA) Health Insurance Adjuster ID - DB Lab Interpretation (test Abnormal code = 39178-3) [facility], [id number] 17:28:00 Test Item Value Reference Range Interpretation Comments VANCOMYCIN TROUGH (BEAKER) (test 23.3 ug/mL 10.0-20.0 H code = 522) Health Insurance Adjuster ID - DBCT, [id number] 10:34:00Unlisted Reason for Exam - Click Yes and Enter Reason Below->YesUnlisted Reason for Exam->Post-op PCNLFINAL REPORT ABDOMINAL AND PELVIS CT DATED 03/14/2020 CLINICAL INFORMATION: Flank pain, kidney stone suspectedPost-op PCNL TECHNIQUE: Axial images of the abdomen and pelvis were obtained from diaphragm to the pubic symphysis without GI or intravenous contrast. This exam was performed according to our departmental dose-optimization program, which includes automated exposure control, adjustment of the mA and/or kV according to patient size and/or use of interactive reconstruction technique. COMMENT: There is trace bilateral pleural effusion with bibasilar subsegmental atelectasis. Liver and spleen are normal in size without focal abnormality. Gallbladder is contracted. No gallstone or biliary dilatation is noted. Pancreas and adrenals are unremarkable. Both kidneys arenormal in size. A right percutaneous nephroureterostomy tube is present. There is moderate right hydronephrosis. Urinary bladder is contracted. Multiple small subcentimeter stones are seen in the urinary bladder. The small and large bowel are suboptimally evaluated secondary to lack of GI and intraveno us contrast. No small or large bowel dilatation is seen. Appendix is normal in caliber. Uterus and ovaries are unremarkable. No mass, adenopathy or ascites is present. IMPRESSION: 1. Presence of rightpercutaneous nephroureterostomy tube with moderate right hydronephrosis.2. Contracted urinary bladder with multiple stones. Signed: Edison Gusman MDReport Verified Date/Time: 03/14/2020 10:34:53 ReadingLocation: [facility] B1 C013Y CT Body Reading Room CT abdomen/pelvis without iv [id number] 10:34:00Interface, External Ris In - 03/14/2020 10:37 AM CDTFINAL REPORT ABDOMINAL AND PELVIS CT DATED 03/14/2020 CLINICAL INFORMATION: Flank pain, kidney stone suspectedPost-op PCNL TECHNIQUE: Axial images of the abdomen and pelvis were obtained from diaphragm to the pubic symphysis without GI or intravenous contrast. This exam was performed according to our departmental dose-optimization program, which includes automated exposure control, adjustment of the mA and/or kV according to patient size and/or use of interactive reconstruction technique. COMMENT: There is trace bilateralpleural effusion with bibasilar subsegmental atelectasis. Liver and spleen are normal in size without focal abnormality. Gallbladder is contracted. No gallstone or biliary dilatation is noted. Pancreas and adrenals are unremarkable. Both kidneys are normal in size. A right percutaneous nephroureterostomy tube is present. There is moderate right hydronephrosis. Urinary bladder is contracted. Multiple small subcentimeter stones are seen in the urinary bladder. The small and large bowel are suboptimally evaluated secondary to lack of GI and intravenous contrast. No small or large bowel dilatation is seen. Appendix is normal in caliber. Uterus and ovaries are unremarkable. No mass, adenopathy or ascites is present. IMPRESSION: 1. Presence of right percutaneous nephroureterostomy tube with moderate right hydronephrosis.2. Contracted urinary bladder with multiple stones. Signed: Edison Gusman MDReport Verified Date/Time: 03/14/2020 10:34:53 Reading Location: [facility] B1 C013Y CT Body Reading Room [facility] W/PLT COUNT & AUTO [id number] 07:51:00 Test Item Value Reference Range Interpretation Comments WHITE BLOOD CELL COUNT (BEAKER) 14.9 K/ L 3.5-10.5 H (test code = 775) RED BLOOD CELL COUNT (BEAKER) 3.08 M/ L 3.93-5.22 L (test code = 761) HEMOGLOBIN (BEAKER) (test code = 8.5 GM/DL 11.2-15.7 L 410) HEMATOCRIT (BEAKER) (test code = 28.6 % 34.1-44.9 L 411) MEAN CORPUSCULAR VOLUME (BEAKER) 92.9 fL 79.4-94.8 (test code = 753) MEAN CORPUSCULAR HEMOGLOBIN 27.6 pg 25.6-32.2 (BEAKER) (test code = 751) MEAN CORPUSCULAR HEMOGLOBIN CONC 29.7 GM/DL 32.2-35.5 L (BEAKER) (test code = 752) RED CELL DISTRIBUTION WIDTH 15.0 % 11.7-14.4 H (BEAKER) (test code = 412) PLATELET COUNT (BEAKER) (test 437 K/CU MM 150-450 code = 756) MEAN PLATELET VOLUME (BEAKER) 9.6 fL 9.4-12.3 (test code = 754) NUCLEATED RED BLOOD CELLS 0 /100 WBC 0-0 (BEAKER) (test code = 413) NEUTROPHILS RELATIVE PERCENT 78 % (BEAKER) (test code = 429) LYMPHOCYTES RELATIVE PERCENT 13 % (BEAKER) (test code = 430) MONOCYTES RELATIVE PERCENT 7 % (BEAKER) (test code = 431) EOSINOPHILS RELATIVE PERCENT 0 % (BEAKER) (test code = 432) BASOPHILS RELATIVE PERCENT 0 % (BEAKER) (test code = 437) NEUTROPHILS ABSOLUTE COUNT 11.56 K/ L 1.56-6.13 H (BEAKER) (test code = 670) LYMPHOCYTES ABSOLUTE COUNT 1.93 K/ L 1.18-3.74 (BEAKER) (test code = 414) MONOCYTES ABSOLUTE COUNT (BEAKER) 1.09 K/ L 0.24-0.36 H (test code = 415) EOSINOPHILS ABSOLUTE COUNT 0.04 K/ L 0.04-0.36 (BEAKER) (test code = 416) BASOPHILS ABSOLUTE COUNT (BEAKER) 0.03 K/ L 0.01-0.08 (test code = 417) IMMATURE GRANULOCYTES-RELATIVE 1 % 0-1 PERCENT (BEAKER) (test code = 2801) BASIC METABOLIC [id number] 07:35:00 Test Item Value Reference Range Interpretation Comments SODIUM (BEAKER) (test 138 meq/L 136-145 code = 381) POTASSIUM (BEAKER) 3.8 meq/L 3.5-5.1 (test code = 379) CHLORIDE (BEAKER) 111 meq/L 98-107 H (test code = 382) CO2 (BEAKER) (test 20 meq/L 22-29 L code = 355) BLOOD UREA NITROGEN 9 mg/dL 7-21 (BEAKER) (test code = 354) CREATININE (BEAKER) 0.97 mg/dL 0.57-1.25 (test code = 358) GLUCOSE RANDOM 78 mg/dL 70-105 (BEAKER) (test code = 652) CALCIUM (BEAKER) 8.1 mg/dL 8.4-10.2 L (test code = 697) EGFR (BEAKER) (test INSUFFIC IENT CLINICAL code = 1092) DATA TO CALCULA TE ESTIMATED GFR. Health Insurance Adjuster ID - JONAH MRAD, CHEST, 1 VIEW, NON [id number] 15:22:00Reason for exam:->Post-op PACUShould this be performed at the bedside?->YesFINAL REPORT CLINICAL HISTORY: Post-op PACU TECHNIQUE: 1 view of the chest. COMPARISON: None IMPRESSION: There are no focal infiltrates or effusions. The cardiomediastinal silhouette is within normal limits for size. The visualized bones appear intact. There is tubing in the partially imaged right abdomen. Signed: John rBaun Verified Date/Time: 03/13/2020 15:22:32Reading Location: [facility] Reading Room XR chest 1 view portable / [id number] 15:22:00Interface, External Ris In - 03/13/2020 3:24 PM CDTFINAL REPORT CLINICAL HISTORY: Post-op PACU TECHNIQUE: 1 view of the chest. COMPARISON: None IMPRESSION: There are no focal infiltrates or effusions. The cardiomediastinal silhouette is within normal limits for size. The visualized bones appear intact. There is tubing in the partially imaged right abdomen. Signed: John Braun MDReport Verified Date/Time: 03/13/2020 15:22:32 Reading Location: [facility] Reading Room [facility]OL[facility] [id number] 13:52:00 Test Item Value Reference Range Interpretation Comments SODIUM (BEAKER) (test 139 meq/L 136-145 code = 381) POTASSIUM (BEAKER) 4.4 meq/L 3.5-5.1 Specimen slightly (test code = 379) hemolyzed CHLORIDE (BEAKER) 109 meq/L 98-107 H (test code = 382) CO2 (BEAKER) (test 18 meq/L 22-29 L code = 355) BLOOD UREA NITROGEN 9 mg/dL 7-21 (BEAKER) (test code = 354) CREATININE (BEAKER) 1.15 mg/dL 0.57-1.25 Specimen slightly (test code = 358) hemolyzed GLUCOSE RANDOM 153 mg/dL 70-105 H (BEAKER) (test code = 652) CALCIUM (BEAKER) 8.9 mg/dL 8.4-10.2 (test code = 697) EGFR (BEAKER) (test INSUFFIC IENT CLINICAL code = 1092) DATA TO CALCULA TE ESTIMATED GFR. Health Insurance Adjuster ID - CHRIS FCBC W/PLT COUNT & AUTO [id number] 13:51:00 Test Item Value Reference Range Interpretation Comments WHITE BLOOD CELL COUNT (BEAKER) 15.5 K/ L 3.5-10.5 H (test code = 775) RED BLOOD CELL COUNT (BEAKER) 3.67 M/ L 3.93-5.22 L (test code = 761) HEMOGLOBIN (BEAKER) (test code = 10.1 GM/DL 11.2-15.7 L 410) HEMATOCRIT (BEAKER) (test code = 34.3 % 34.1-44.9 411) MEAN CORPUSCULAR VOLUME (BEAKER) 93.5 fL 79.4-94.8 (test code = 753) MEAN CORPUSCULAR HEMOGLOBIN 27.5 pg 25.6-32.2 (BEAKER) (test code = 751) MEAN CORPUSCULAR HEMOGLOBIN CONC 29.4 GM/DL 32.2-35.5 L (BEAKER) (test code = 752) RED CELL DISTRIBUTION WIDTH 14.6 % 11.7-14.4 H (BEAKER) (test code = 412) PLATELET COUNT (BEAKER) (test 472 K/CU MM 150-450 H code = 756) MEAN PLATELET VOLUME (BEAKER) 9.6 fL 9.4-12.3 (test code = 754) NUCLEATED RED BLOOD CELLS 0 /100 WBC 0-0 (BEAKER) (test code = 413) NEUTROPHILS RELATIVE PERCENT 83 % (BEAKER) (test code = 429) LYMPHOCYTES RELATIVE PERCENT 13 % (BEAKER) (test code = 430) MONOCYTES RELATIVE PERCENT 1 % (BEAKER) (test code = 431) EOSINOPHILS RELATIVE PERCENT 0 % (BEAKER) (test code = 432) BASOPHILS RELATIVE PERCENT 0 % (BEAKER) (test code = 437) NEUTROPHILS ABSOLUTE COUNT 12.84 K/ L 1.56-6.13 H (BEAKER) (test code = 670) LYMPHOCYTES ABSOLUTE COUNT 2.07 K/ L 1.18-3.74 (BEAKER) (test code = 414) MONOCYTES ABSOLUTE COUNT (BEAKER) 0.16 K/ L 0.24-0.36 L (test code = 415) EOSINOPHILS ABSOLUTE COUNT 0.02 K/ L 0.04-0.36 L (BEAKER) (test code = 416) BASOPHILS ABSOLUTE COUNT (BEAKER) 0.04 K/ L 0.01-0.08 (test code = 417) IMMATURE GRANULOCYTES-RELATIVE 2 % 0-1 H PERCENT (BEAKER) (test code = 2801) FL, FLUORO, NON-SPECIFIC, UP TO 1 [id number] 12:03:00Reason for exam:- >Cysto, ureteroscopyFluoroscopic unit utilized for a procedure performed in the OR. No interpretation was requested. Refer to the operative report for findings. Refer to PACS for patient radiation dose information.FL fluoro non- specific up to 1 [id number] 12:03:00Interface, External Ris In 03/13/2020 1:04 PM CDTFluoroscopic unit utilized for a procedure performed in the OR. No interpretation was requested. Refer to the operative report for findings. Referto PACS for patient radiation dose information.[facility] (Asymptomatic ONLY)2020-03-13 08:54:00 Test Item Value Reference Range Interpretation Comments SARS-COV2/RT-PCR Negative Not Detected, (test code = Negative, See 67924-3) external report for linked test SARS-COV-2 [facility] PERFORMING LAB (test code = 90087-3) SORAYA (test code = Negative result for this SORAYA) test determines that SARS-CoV-2 RNA was not present in the [...] of the Act. Fact Sheet for Healthcare Providers:https://www.[employer] idel.[employer]/sites/default/f ashutosh/product/documents/F act_Sheet_HC_Providers_L olx_TZOO-IhU-2.pdf Fact Sheet for Healthcare Patients:https://www.[employer]/sites/default/fi les/product/documents/Fa ct_Sheet_Patients_Lyra_S ARS-CoV-2.pdf Performing Laboratory:[facility] [place] [address] [facility] ([facility])2020-03-13 08:54:00 Test Item Value Reference Range Interpretation Comments SARS-COV2/RT-PCR (test Negative Not Detected, Negative, code = 2971060) See external report for linked test SARS-COV-2 PERFORMING LAB [facility] (test code = 3310167) Negative result for this test determines that SARS-CoV-2 RNA was not present in the specimen above the Limit of Detection (LOD). However, Negative results do not preclude SARS-CoV-2 infection and should not be used as the sole basis for treatment or patient management decisions. Negative results mustbe combined with clinical observations, patient history, and epidemiological information. A false negative result may occur if a specimen is improperly collected, transported or handled. A false negative result should be considered if patient's recent exposures or clinical presentation indicate that COVID-19 (SARS-CoV-2) is likely and diagnostic tests for other causes of illness are negative. Re-testing should be considered in cases of suspected false negatives.The limit of detection for this assay is 800 copies/mL.This SARS CoV-2 test is a real-time RT-PCR test intended for the qualitative detection of nucleic acid from SARS-CoV-2 in a nasopharyngeal swab specimen collected from individuals susp ected of COVID-19 by their healthcare provider.This test has not been Food and Drug [...] is revoked under Section 564(g) of the Act.Fact Sheet for Healthcare Providers:https://www.[employer]/sites/default/files/product/documents/Fact_Shee a_IK_Banqbjzqz_Tjca_OWSF-MzL-2.pdfFact Sheet for Healthcare Patients:https://www.[employer]/sites/default/files/product/ documents/Bxtd_Jflcv_Vxzhlpsh_Jwjo_BKGL-RwC-6.pdfPerforming Laboratory:[facility], [place] [address]CZSNSLZWTD LEVEL, [id number] 05:42:00 Test Item Value Reference Range Interpretation Comments VANCOMYCIN TROUGH (BEAKER) (test 34.1 ug/mL 10.0-20.0 HH code = 522) Health Insurance Adjuster LETI RIVERO LBASIC METABOLIC [id number] 05:04:00 Test Item Value Reference Range Interpretation Comments SODIUM (BEAKER) (test 140 meq/L 136-145 code = 381) POTASSIUM (BEAKER) 4.1 meq/L 3.5-5.1 (test code = 379) CHLORIDE (BEAKER) 108 meq/L 98-107 H (test code = 382) CO2 (BEAKER) (test 23 meq/L 22-29 code = 355) BLOOD UREA NITROGEN 7 mg/dL 7-21 (BEAKER) (test code = 354) CREATININE (BEAKER) 0.97 mg/dL 0.57-1.25 (test code = 358) GLUCOSE RANDOM 94 mg/dL 70-105 (BEAKER) (test code = 652) CALCIUM (BEAKER) 8.8 mg/dL 8.4-10.2 (test code = 697) EGFR (BEAKER) (test INSUFFIC IENT CLINICAL code = 1092) DATA TO CALCULA TE ESTIMATED GFR. Health Insurance Adjuster LETI RIVERO [id number] 04:41:00 Test Item Value Reference Range Interpretation Comments Protime (test code = 14.2 11.9- 14.2 5902-2) seconds INR (test code = 1.13 <=5.90 6301-6) PTT (test code = 32.5 22.5- 36.0 83725-3) seconds SORAYA (test code = SORAYA) Effective 11/21/2018: PT Reference Range ChangeNew: 11.9-14.2 Previous: 11.7-14.7 RECOMMENDED COUMADIN/WARFARIN INR THERAPY RANGESSTANDARD DOSE: 2.0-3.0 Includes: PROPHYLAXIS for venous thrombosis, systemic embolization; TREATMENT for venous thrombosis and/or pulmonary embolus.HIGH RISK: Target INR is 2.5-3.5 for patients wiht mechanical heart valves. Lab Interpretation Normal (test code = 91118-4) [facility][id number] 04:41:00 Test Item Value Reference Range Interpretation Comments PROTIME (BEAKER) (test code = 14.2 seconds 11.9-14.2 759) INR (BEAKER) (test code = 370) 1.13 <=5.90 PARTIAL THROMBOPLASTIN TIME 32.5 seconds 22.5-36.0 (BEAKER) (test code = 760) Effective 11/21/2018: PT Reference Range ChangeNew: 11.9-14.2 Previous: 11.7- 14.7RECOMMENDED COUMADIN/WARFARIN INR THERAPY RANGESSTANDARD DOSE: 2.0-3.0 Includes: PROPHYLAXIS for venous thrombosis, systemic embolization; TREATMENT for venous thrombosis and/or pulmonary embolus.HIGH RISK: Target INR is2.5-3.5 for patients wiht mechanical heart valves.Prothrombin time/[id number] 04:40:00 Test Item Value Reference Range Interpretation Comments Protime (test code = 14.2 11.9- 14.2 5902-2) seconds INR (test code = 1.13 <=5.90 6301-6) SORAYA (test code = SORAYA) Effective 11/21/2018: PT Reference Range ChangeNew: 11.9-14.2 Previous: 11.7-14.7 RECOMMENDED COUMADIN/WARFARIN INR THERAPY RANGESSTANDARD DOSE: 2.0-3.0 Includes: PROPHYLAXIS for venous thrombosis, systemic embolization; TREATMENT for venous thrombosis and/or pulmonary embolus.HIGH RISK: Target INR is 2.5-3.5 for patients wiht mechanical heart valves. Lab Interpretation Normal (test code = 40271-9) [facility] HospitalPROTHROMBIN TIME/[id number] 04:40:00 Test Item Value Reference Range Interpretation Comments PROTIME (BEAKER) (test code = 14.2 seconds 11.9-14.2 759) INR (BEAKER) (test code = 370) 1.13 <=5.90 Effective 11/21/2018: PT Reference Range ChangeNew: 11.9-14.2 Previous: 11.7- 14.7RECOMMENDED COUMADIN/WARFARIN INR THERAPY RANGESSTANDARD DOSE: 2.0-3.0 Includes: PROPHYLAXIS for venous thrombosis, systemic embolization; TREATMENT for venous thrombosis and/or pulmonary embolus.HIGH RISK: Target INR is2.5-3.5 for patients wiht mechanical heart valves.CBC W/PLT COUNT & AUTO [id number] 04:34:00 Test Item Value Reference Range Interpretation Comments WHITE BLOOD CELL COUNT (BEAKER) 11.1 K/ L 3.5-10.5 H (test code = 775) RED BLOOD CELL COUNT (BEAKER) 3.38 M/ L 3.93-5.22 L (test code = 761) HEMOGLOBIN (BEAKER) (test code = 9.4 GM/DL 11.2-15.7 L 410) HEMATOCRIT (BEAKER) (test code = 30.5 % 34.1-44.9 L 411) MEAN CORPUSCULAR VOLUME (BEAKER) 90.2 fL 79.4-94.8 (test code = 753) MEAN CORPUSCULAR HEMOGLOBIN 27.8 pg 25.6-32.2 (BEAKER) (test code = 751) MEAN CORPUSCULAR HEMOGLOBIN CONC 30.8 GM/DL 32.2-35.5 L (BEAKER) (test code = 752) RED CELL DISTRIBUTION WIDTH 14.5 % 11.7-14.4 H (BEAKER) (test code = 412) PLATELET COUNT (BEAKER) (test 448 K/CU MM 150-450 code = 756) MEAN PLATELET VOLUME (BEAKER) 9.2 fL 9.4-12.3 L (test code = 754) NUCLEATED RED BLOOD CELLS 0 /100 WBC 0-0 (BEAKER) (test code = 413) NEUTROPHILS RELATIVE PERCENT 62 % (BEAKER) (test code = 429) LYMPHOCYTES RELATIVE PERCENT 24 % (BEAKER) (test code = 430) MONOCYTES RELATIVE PERCENT 8 % (BEAKER) (test code = 431) EOSINOPHILS RELATIVE PERCENT 2 % (BEAKER) (test code = 432) BASOPHILS RELATIVE PERCENT 1 % (BEAKER) (test code = 437) NEUTROPHILS ABSOLUTE COUNT 6.90 K/ L 1.56-6.13 H (BEAKER) (test code = 670) LYMPHOCYTES ABSOLUTE COUNT 2.71 K/ L 1.18-3.74 (BEAKER) (test code = 414) MONOCYTES ABSOLUTE COUNT (BEAKER) 0.86 K/ L 0.24-0.36 H (test code = 415) EOSINOPHILS ABSOLUTE COUNT 0.21 K/ L 0.04-0.36 (BEAKER) (test code = 416) BASOPHILS ABSOLUTE COUNT (BEAKER) 0.05 K/ L 0.01-0.08 (test code = 417) IMMATURE GRANULOCYTES-RELATIVE 3 % 0-1 H PERCENT (BEAKER) (test code = 2801) Antibody [id number] 14:59:00 Test Item Value Reference Range Interpretation Comments ANTIBODY ID (BEAKER) UNID IgG (test code = 2253) Antibody Consult SIGNED OUT An IgG anti body of (test code = 2479) undetermi richard specificity is detected, trans fuse crossmatch comp atible RBCs.Electronic Signature: Rocky White M.D. [facility] HospitalType and screen, [id number] 12:21:00 Test Item Value Reference Range Interpretation Comments Ab Scrn (test code = 890-4) POSITIVE Echo 1 [facility] HospitalABORH, [id number] 10:28:00 Test Item Value Reference Range Interpretation Comments ABO Grouping (test code = 2588) A Rh Factor (test code = 2589) POS [facility] HospitalPregnancy Screen, [id number] 07:32:00 Test Item Value Reference Range Interpretation Comments Preg Test, Ur (test code = 2112-1) Negative [facility] HospitalPREGNANCY SCREEN, [id number] 07:32:00 Test Item Value Reference Range Interpretation Comments TEST URINE (BEAKER) (test Negative code = 583) BASIC METABOLIC [id number] 04:58:00 Test Item Value Reference Range Interpretation Comments SODIUM (BEAKER) (test 138 meq/L 136-145 code = 381) POTASSIUM (BEAKER) 4.4 meq/L 3.5-5.1 (test code = 379) CHLORIDE (BEAKER) 105 meq/L 98-107 (test code = 382) CO2 (BEAKER) (test 24 meq/L 22-29 code = 355) BLOOD UREA NITROGEN 9 mg/dL 7-21 (BEAKER) (test code = 354) CREATININE (BEAKER) 0.89 mg/dL 0.57-1.25 (test code = 358) GLUCOSE RANDOM 97 mg/dL 70-105 (BEAKER) (test code = 652) CALCIUM (BEAKER) 9.0 mg/dL 8.4-10.2 (test code = 697) EGFR (BEAKER) (test INSUFFIC IENT CLINICAL code = 1092) DATA TO CALCULA TE ESTIMATED GFR. Health Insurance Adjuster ID - JONAH MPT/[id number] 04:55:00 Test Item Value Reference Range Interpretation Comments PROTIME (BEAKER) (test code = 14.2 seconds 11.9-14.2 759) INR (BEAKER) (test code = 370) 1.13 <=5.90 PARTIAL THROMBOPLASTIN TIME 35.5 seconds 22.5-36.0 (BEAKER) (test code = 760) Effective 11/21/2018: PT Reference Range ChangeNew: 11.9-14.2 Previous: 11.7- 14.7RECOMMENDED COUMADIN/WARFARIN INR THERAPY RANGESSTANDARD DOSE: 2.0-3.0 Includes: PROPHYLAXIS for venous thrombosis, systemic embolization; TREATMENT for venous thrombosis and/or pulmonary embolus.HIGH RISK: Target INR is2.5-3.5 for patients wiht mechanical heart valves.PROTHROMBIN TIME/[id number] 04:54:00 Test Item Value Reference Range Interpretation Comments PROTIME (BEAKER) (test code = 14.2 seconds 11.9-14.2 759) INR (BEAKER) (test code = 370) 1.13 <=5.90 Effective 11/21/2018: PT Reference Range ChangeNew: 11.9-14.2 Previous: 11.7- 14.7RECOMMENDED COUMADIN/WARFARIN INR THERAPY RANGESSTANDARD DOSE: 2.0-3.0 Includes: PROPHYLAXIS for venous thrombosis, systemic embolization; TREATMENT for venous thrombosis and/or pulmonary embolus.HIGH RISK: Target INR is2.5-3.5 for patients wiht mechanical heart valves.CBC W/PLT COUNT & AUTO [id number] 04:40:00 Test Item Value Reference Range Interpretation Comments WHITE BLOOD CELL COUNT (BEAKER) 11.8 K/ L 3.5-10.5 H (test code = 775) RED BLOOD CELL COUNT (BEAKER) 3.55 M/ L 3.93-5.22 L (test code = 761) HEMOGLOBIN (BEAKER) (test code = 10.0 GM/DL 11.2-15.7 L 410) HEMATOCRIT (BEAKER) (test code = 32.1 % 34.1-44.9 L 411) MEAN CORPUSCULAR VOLUME (BEAKER) 90.4 fL 79.4-94.8 (test code = 753) MEAN CORPUSCULAR HEMOGLOBIN 28.2 pg 25.6-32.2 (BEAKER) (test code = 751) MEAN CORPUSCULAR HEMOGLOBIN CONC 31.2 GM/DL 32.2-35.5 L (BEAKER) (test code = 752) RED CELL DISTRIBUTION WIDTH 14.3 % 11.7-14.4 (BEAKER) (test code = 412) PLATELET COUNT (BEAKER) (test 459 K/CU MM 150-450 H code = 756) MEAN PLATELET VOLUME (BEAKER) 9.3 fL 9.4-12.3 L (test code = 754) NUCLEATED RED BLOOD CELLS 0 /100 WBC 0-0 (BEAKER) (test code = 413) NEUTROPHILS RELATIVE PERCENT 62 % (BEAKER) (test code = 429) LYMPHOCYTES RELATIVE PERCENT 24 % (BEAKER) (test code = 430) MONOCYTES RELATIVE PERCENT 8 % (BEAKER) (test code = 431) EOSINOPHILS RELATIVE PERCENT 2 % (BEAKER) (test code = 432) BASOPHILS RELATIVE PERCENT 1 % (BEAKER) (test code = 437) NEUTROPHILS ABSOLUTE COUNT 7.25 K/ L 1.56-6.13 H (BEAKER) (test code = 670) LYMPHOCYTES ABSOLUTE COUNT 2.84 K/ L 1.18-3.74 (BEAKER) (test code = 414) MONOCYTES ABSOLUTE COUNT (BEAKER) 0.92 K/ L 0.24-0.36 H (test code = 415) EOSINOPHILS ABSOLUTE COUNT 0.24 K/ L 0.04-0.36 (BEAKER) (test code = 416) BASOPHILS ABSOLUTE COUNT (BEAKER) 0.06 K/ L 0.01-0.08 (test code = 417) IMMATURE GRANULOCYTES-RELATIVE 4 % 0-1 H PERCENT (BEAKER) (test code = 2801) Blood Culture - Routine (Left Venipuncture)2020-03-11 18:00:00 Test Item Value Reference Range Interpretation Comments Result (test code = No growth in 5 days 6463-4) [facility] HospitalBLOOD [id number] 18:00:00 Test Item Value Reference Range Interpretation Comments CULTURE (BEAKER) (test No growth in 5 days code = 1095) BLOOD [id number] 18:00:00 Test Item Value Reference Range Interpretation Comments CULTURE (BEAKER) (test No growth in 5 days code = 1095) POC-Glucose [id number] 13:24:00 Test Item Value Reference Range Interpretation Comments POC-Glucose Meter (test 101 mg/dL 70-110 : TE STED AT [facility] code = 1538) [address] [facility], [address]: Health Insurance Adjuster/Techni sameer ID = [id number] for TIANA BAUTISTA Lab Interpretation (test Normal code = 74051-5) [facility] HospitalPOCT-GLUCOSE [id number] 13:24:00 Test Item Value Reference Range Interpretation Comments POC-GLUCOSE METER 101 mg/dL 70-110 : TESTED A T [facility] [address] (BEAKER) (test code = [facility], 1538) [address]: Health Insurance Adjuster/Techni sameer ID = [id number] for PAVELJUAN JTIANA PENDLETON BASIC METABOLIC [id number] 08:47:00 Test Item Value Reference Range Interpretation Comments SODIUM (BEAKER) (test 135 meq/L 136-145 L code = 381) POTASSIUM (BEAKER) 4.0 meq/L 3.5-5.1 (test code = 379) CHLORIDE (BEAKER) 103 meq/L 98-107 (test code = 382) CO2 (BEAKER) (test 26 meq/L 22-29 code = 355) BLOOD UREA NITROGEN 9 mg/dL 7-21 (BEAKER) (test code = 354) CREATININE (BEAKER) 0.81 mg/dL 0.57-1.25 (test code = 358) GLUCOSE RANDOM 95 mg/dL 70-105 (BEAKER) (test code = 652) CALCIUM (BEAKER) 8.5 mg/dL 8.4-10.2 (test code = 697) EGFR (BEAKER) (test INSUFFIC IENT CLINICAL code = 1092) DATA TO CALCULA TE ESTIMATED GFR. Health Insurance Adjuster ID - JONAH MUrine [id number] 08:32:00 Test Item Value Reference Interpretation Comments Range Result (test code = 10-19,000 col/mL A Refe r to previous 6463-4) Same organism has culture been isolated from ofStaphyl ococcus cultures(s) of the aureusof a second same body site type within 3 days. Repeat identification and susceptibility testing performed only after consultation with the clinical microbiology laboratory. SORAYA (test code = <10,000 col/mL SORAYA) Enterococcus species Lab Interpretation Abnormal (test code = 21785-5) [facility] HospitalURINE [id number] 08:32:00 Test Item Value Reference Range Interpretation Comments CULTURE (BEAKER) A 10-19,000 c ol/mL Same (test code = 1095) organism has been isolated from cultures(s ) of the same body site withi n 3 days. Repeat identifi cation and susceptibility testing performed only after consultation wi the clinical microb iology laboratory.Refe r to previous culture ofStaph ylococcus aureusof a seco nd type <10,000 col/mL Enterococcus speciesPOCT-GLUCOSE [id number] 06:34:00 Test Item Value Reference Range Interpretation Comments POC-GLUCOSE METER 91 mg/dL 70-110 : TESTED A T [facility] 6720 (BEAKER) (test code = [facility], 1538) [address]: Health Insurance Adjuster/Techni sameer ID = [id number] for VISH DEVLIN CBC W/PLT COUNT & AUTO [id number] 06:15:00 Test Item Value Reference Range Interpretation Comments WHITE BLOOD CELL COUNT (BEAKER) 13.0 K/ L 3.5-10.5 H (test code = 775) RED BLOOD CELL COUNT (BEAKER) 3.35 M/ L 3.93-5.22 L (test code = 761) HEMOGLOBIN (BEAKER) (test code = 9.4 GM/DL 11.2-15.7 L 410) HEMATOCRIT (BEAKER) (test code = 30.1 % 34.1-44.9 L 411) MEAN CORPUSCULAR VOLUME (BEAKER) 89.9 fL 79.4-94.8 (test code = 753) MEAN CORPUSCULAR HEMOGLOBIN 28.1 pg 25.6-32.2 (BEAKER) (test code = 751) MEAN CORPUSCULAR HEMOGLOBIN CONC 31.2 GM/DL 32.2-35.5 L (BEAKER) (test code = 752) RED CELL DISTRIBUTION WIDTH 14.2 % 11.7-14.4 (BEAKER) (test code = 412) PLATELET COUNT (BEAKER) (test 437 K/CU MM 150-450 code = 756) MEAN PLATELET VOLUME (BEAKER) 9.2 fL 9.4-12.3 L (test code = 754) NUCLEATED RED BLOOD CELLS 0 /100 WBC 0-0 (BEAKER) (test code = 413) NEUTROPHILS RELATIVE PERCENT 66 % (BEAKER) (test code = 429) LYMPHOCYTES RELATIVE PERCENT 21 % (BEAKER) (test code = 430) MONOCYTES RELATIVE PERCENT 8 % (BEAKER) (test code = 431) EOSINOPHILS RELATIVE PERCENT 1 % (BEAKER) (test code = 432) BASOPHILS RELATIVE PERCENT 0 % (BEAKER) (test code = 437) NEUTROPHILS ABSOLUTE COUNT 8.53 K/ L 1.56-6.13 H (BEAKER) (test code = 670) LYMPHOCYTES ABSOLUTE COUNT 2.75 K/ L 1.18-3.74 (BEAKER) (test code = 414) MONOCYTES ABSOLUTE COUNT (BEAKER) 1.07 K/ L 0.24-0.36 H (test code = 415) EOSINOPHILS ABSOLUTE COUNT 0.17 K/ L 0.04-0.36 (BEAKER) (test code = 416) BASOPHILS ABSOLUTE COUNT (BEAKER) 0.05 K/ L 0.01-0.08 (test code = 417) IMMATURE GRANULOCYTES-RELATIVE 3 % 0-1 H PERCENT (BEAKER) (test code = 2801) POCT-GLUCOSE [id number] 01:32:00 Test Item Value Reference Range Interpretation Comments POC-GLUCOSE METER 100 mg/dL 70-110 : TESTED A T [facility] [address] ([place]) (test code = AARTI SANCHEZ ID, [id number]) [id number]: Health Insurance Adjuster/Techni sameer ID = [id number] for VISH REBOLLAR VANCOMYCIN LEVEL, [id number] 01:02:00 Test Item Value Reference Range Interpretation Comments VANCOMYCIN TROUGH ([place]) (test 7.7 ug/mL 10.0-20.0 L code = 522) Health Insurance Adjuster ID - JONAH MSARS-COV2/RT-PCR ([facility])2020-03-10 17:34:00 Test Item Value Reference Range Interpretation Comments SARS-COV2/RT-PCR (test Negative Not Detected, Negative, code = 5401621) See external report for linked test SARS-COV-2 PERFORMING LAB [facility] [place] (test code = 7263644) Negative result for this test determines that SARS-CoV-2 RNA was not present in the specimen above the Limit of Detection (LOD). However, Negative results do not preclude SARS-CoV-2 infection and should not be used as the sole basis for treatment or patient management decisions. Negative results mustbe combined with clinical observations, patient history, and epidemiological information. A false negative result may occur if a specimen is improperly collected, transported or handled. A false negative result should be considered if patient's recent exposures or clinical presentation indicate that COVID-19 (SARS-CoV-2) is likely and diagnostic tests for other causes of illness are negative. Re-testing should be considered in cases of suspected false negatives.The limit of detection for this assay is 800 copies/mL.This SARS CoV-2 test is a real-time RT-PCR test intended for the qualitative detection of nucleic acid from SARS-CoV-2 in a nasopharyngeal swab specimen collected from individuals susp ected of COVID-19 by their healthcare provider.This test has not been Food and Drug [...] is revoked under Section 564(g) of the Act.Fact Sheet for Healthcare Providers:https://www.[employer]/sites/default/files/product/documents/Fact_Mirian menab_JH_Qapuaapxw_Wnzy_WZES-WzK-5.pdfFact Sheet for Healthcare Patients:https://www.[employer]/sites/default/files/product/ documents/Utzi_Ziwsc_Pqrptbch_Gniv_TVQE-PlT-6.pdfPerforming Laboratory:[facility], [place] [id number] 06:27:00 Test Item Value Reference Range Interpretation Comments PTT (test code = 25165-6) 32.3 22.5- 36.0 seconds Lab Interpretation (test code = Normal 94645-2) [facility]PROT[facility]BIN [facility]/[id number] 06:27:00 Test Item Value Reference Range Interpretation Comments PROTIME (BEAKER) (test code = 14.9 seconds 11.9-14.2 H 759) INR (BEAKER) (test code = 370) 1.20 <=5.90 Effective 11/21/2018: PT Reference Range ChangeNew: 11.9-14.2 Previous: 11.7- 14.7RECOMMENDED COUMADIN/WARFARIN INR THERAPY RANGESSTANDARD DOSE: 2.0-3.0 Includes: PROPHYLAXIS for venous thrombosis, systemic embolization; TREATMENT for venous thrombosis and/or pulmonary embolus.HIGH RISK: Target INR is2.5-3.5 for patients wiht mechanical heart valves.[id number] 06:27:00 Test Item Value Reference Range Interpretation Comments PARTIAL THROMBOPLASTIN TIME 32.3 seconds 22.5-36.0 (BEAKER) (test code = 760) BASIC METABOLIC [id number] 06:09:00 Test Item Value Reference Range Interpretation Comments SODIUM (BEAKER) (test 135 meq/L 136-145 L code = 381) POTASSIUM (BEAKER) 3.9 meq/L 3.5-5.1 (test code = 379) CHLORIDE (BEAKER) 103 meq/L 98-107 (test code = 382) CO2 (BEAKER) (test 23 meq/L 22-29 code = 355) BLOOD UREA NITROGEN 7 mg/dL 7-21 (BEAKER) (test code = 354) CREATININE (BEAKER) 0.79 mg/dL 0.57-1.25 (test code = 358) GLUCOSE RANDOM 102 mg/dL 70-105 (BEAKER) (test code = 652) CALCIUM (BEAKER) 8.4 mg/dL 8.4-10.2 (test code = 697) EGFR (BEAKER) (test INSUFFIC IENT CLINICAL code = 1092) DATA TO CALCULA TE ESTIMATED GFR. Health Insurance Adjuster ID - PIAYA LCBC W/PLT COUNT & AUTO [id number] 04:48:00 Test Item Value Reference Range Interpretation Comments WHITE BLOOD CELL COUNT (BEAKER) 13.1 K/ L 3.5-10.5 H (test code = 775) RED BLOOD CELL COUNT (BEAKER) 3.31 M/ L 3.93-5.22 L (test code = 761) HEMOGLOBIN (BEAKER) (test code = 9.1 GM/DL 11.2-15.7 L 410) HEMATOCRIT (BEAKER) (test code = 29.5 % 34.1-44.9 L 411) MEAN CORPUSCULAR VOLUME (BEAKER) 89.1 fL 79.4-94.8 (test code = 753) MEAN CORPUSCULAR HEMOGLOBIN 27.5 pg 25.6-32.2 (BEAKER) (test code = 751) MEAN CORPUSCULAR HEMOGLOBIN CONC 30.8 GM/DL 32.2-35.5 L (BEAKER) (test code = 752) RED CELL DISTRIBUTION WIDTH 14.3 % 11.7-14.4 (BEAKER) (test code = 412) PLATELET COUNT (BEAKER) (test 437 K/CU MM 150-450 code = 756) MEAN PLATELET VOLUME (BEAKER) 9.3 fL 9.4-12.3 L (test code = 754) NUCLEATED RED BLOOD CELLS 0 /100 WBC 0-0 (BEAKER) (test code = 413) NEUTROPHILS RELATIVE PERCENT 69 % (BEAKER) (test code = 429) LYMPHOCYTES RELATIVE PERCENT 18 % (BEAKER) (test code = 430) MONOCYTES RELATIVE PERCENT 9 % (BEAKER) (test code = 431) EOSINOPHILS RELATIVE PERCENT 1 % (BEAKER) (test code = 432) BASOPHILS RELATIVE PERCENT 0 % (BEAKER) (test code = 437) NEUTROPHILS ABSOLUTE COUNT 8.99 K/ L 1.56-6.13 H (BEAKER) (test code = 670) LYMPHOCYTES ABSOLUTE COUNT 2.37 K/ L 1.18-3.74 (BEAKER) (test code = 414) MONOCYTES ABSOLUTE COUNT (BEAKER) 1.22 K/ L 0.24-0.36 H (test code = 415) EOSINOPHILS ABSOLUTE COUNT 0.12 K/ L 0.04-0.36 (BEAKER) (test code = 416) BASOPHILS ABSOLUTE COUNT (BEAKER) 0.05 K/ L 0.01-0.08 (test code = 417) IMMATURE GRANULOCYTES-RELATIVE 3 % 0-1 H PERCENT (BEAKER) (test code = 2801) Iron, TIBC, % sat. (without ferritin)2020-03-09 13:14:00 Test Item Value Reference Range Interpretation Comments Iron (test code = 2498-4) 28.0 ug/dL 40-160 L TIBC (test code = 2500-7) 209 ug/dL 250-450 L Iron % Saturation (test 13 % 20-55 L code = 2502-3) SORAYA (test code = SORAYA) Health Insurance Adjuster ID - ADMIN Lab Interpretation (test Abnormal code = 95808-9) [facility] HospitalIRON, TIBC, % SAT. (WITHOUT FERRITIN)2020-03-09 13:14:00 Test Item Value Reference Range Interpretation Comments IRON (BEAKER) (test code = 547) 28.0 ug/dL 40.0-160.0 L TOTAL IRON BINDING CAPACITY 209 ug/dL 250-450 L (BEAKER) (test code = 769) IRON % SATURATION (2) (BEAKER) 13 % 20-55 L (test code = 2590) Health Insurance Adjuster ID - ADMINBASIC METABOLIC [id number] 07:51:00 Test Item Value Reference Range Interpretation Comments SODIUM (BEAKER) (test 134 meq/L 136-145 L code = 381) POTASSIUM (BEAKER) 3.4 meq/L 3.5-5.1 L (test code = 379) CHLORIDE (BEAKER) 100 meq/L 98-107 (test code = 382) CO2 (BEAKER) (test 25 meq/L 22-29 code = 355) BLOOD UREA NITROGEN 9 mg/dL 7-21 (BEAKER) (test code = 354) CREATININE (BEAKER) 0.77 mg/dL 0.57-1.25 (test code = 358) GLUCOSE RANDOM 85 mg/dL 70-105 (BEAKER) (test code = 652) CALCIUM (BEAKER) 8.2 mg/dL 8.4-10.2 L (test code = 697) EGFR (BEAKER) (test INSUFFIC IENT CLINICAL code = 1092) DATA TO CALCULA TE ESTIMATED GFR. Health Insurance Adjuster ID - [id number] 05:06:00 Test Item Value Reference Range Interpretation Comments Ferritin (test code = 142.14 ng/mL 5-275 2276-4) SORAYA (test code = SORAYA) Health Insurance Adjuster ID - MAT L Lab Interpretation (test Normal code = 80512-8) [facility] HospitalFERRITIN2020-[facility]-14 05:06:00 Test Item Value Reference Range Interpretation Comments FERRITIN (BEAKER) (test code = 142.14 ng/mL 5.00-275.00 361) Health Insurance Adjuster ID - KARENYOLY LCBC W/PLT COUNT & AUTO [id number] 04:33:00 Test Item Value Reference Range Interpretation Comments WHITE BLOOD CELL COUNT (BEAKER) 9.3 K/ L 3.5-10.5 (test code = 775) RED BLOOD CELL COUNT (BEAKER) 3.33 M/ L 3.93-5.22 L (test code = 761) HEMOGLOBIN (BEAKER) (test code = 9.3 GM/DL 11.2-15.7 L 410) HEMATOCRIT (BEAKER) (test code = 29.8 % 34.1-44.9 L 411) MEAN CORPUSCULAR VOLUME (BEAKER) 89.5 fL 79.4-94.8 (test code = 753) MEAN CORPUSCULAR HEMOGLOBIN 27.9 pg 25.6-32.2 (BEAKER) (test code = 751) MEAN CORPUSCULAR HEMOGLOBIN CONC 31.2 GM/DL 32.2-35.5 L (BEAKER) (test code = 752) RED CELL DISTRIBUTION WIDTH 14.2 % 11.7-14.4 (BEAKER) (test code = 412) PLATELET COUNT (BEAKER) (test 415 K/CU MM 150-450 code = 756) MEAN PLATELET VOLUME (BEAKER) 9.8 fL 9.4-12.3 (test code = 754) NUCLEATED RED BLOOD CELLS 0 /100 WBC 0-0 (BEAKER) (test code = 413) NEUTROPHILS RELATIVE PERCENT 63 % (BEAKER) (test code = 429) LYMPHOCYTES RELATIVE PERCENT 22 % (BEAKER) (test code = 430) MONOCYTES RELATIVE PERCENT 9 % (BEAKER) (test code = 431) EOSINOPHILS RELATIVE PERCENT 3 % (BEAKER) (test code = 432) BASOPHILS RELATIVE PERCENT 0 % (BEAKER) (test code = 437) NEUTROPHILS ABSOLUTE COUNT 5.88 K/ L 1.56-6.13 (BEAKER) (test code = 670) LYMPHOCYTES ABSOLUTE COUNT 2.06 K/ L 1.18-3.74 (BEAKER) (test code = 414) MONOCYTES ABSOLUTE COUNT (BEAKER) 0.88 K/ L 0.24-0.36 H (test code = 415) EOSINOPHILS ABSOLUTE COUNT 0.23 K/ L 0.04-0.36 (BEAKER) (test code = 416) BASOPHILS ABSOLUTE COUNT (BEAKER) 0.04 K/ L 0.01-0.08 (test code = 417) IMMATURE GRANULOCYTES-RELATIVE 3 % 0-1 H PERCENT (BEAKER) (test code = 2801) BASIC METABOLIC [id number] 11:05:00 Test Item Value Reference Range Interpretation Comments SODIUM (BEAKER) (test 135 meq/L 136-145 L code = 381) POTASSIUM (BEAKER) 3.4 meq/L 3.5-5.1 L Specimen slightly (test code = 379) hemolyzed CHLORIDE (BEAKER) 100 meq/L 98-107 (test code = 382) CO2 (BEAKER) (test 24 meq/L 22-29 code = 355) BLOOD UREA NITROGEN 10 mg/dL 7-21 (BEAKER) (test code = 354) CREATININE (BEAKER) 0.73 mg/dL 0.57-1.25 Specimen slightly (test code = 358) hemolyzed GLUCOSE RANDOM 89 mg/dL 70-105 (BEAKER) (test code = 652) CALCIUM (BEAKER) 8.4 mg/dL 8.4-10.2 (test code = 697) EGFR (BEAKER) (test INSUFFIC IENT CLINICAL code = 1092) DATA TO CALCULA TE ESTIMATED GFR. CBC W/PLT COUNT & AUTO [id number] 05:12:00 Test Item Value Reference Range Interpretation Comments WHITE BLOOD CELL COUNT (BEAKER) 11.4 K/ L 3.5-10.5 H (test code = 775) RED BLOOD CELL COUNT (BEAKER) 3.14 M/ L 3.93-5.22 L (test code = 761) HEMOGLOBIN (BEAKER) (test code = 8.8 GM/DL 11.2-15.7 L 410) HEMATOCRIT (BEAKER) (test code = 27.9 % 34.1-44.9 L 411) MEAN CORPUSCULAR VOLUME (BEAKER) 88.9 fL 79.4-94.8 (test code = 753) MEAN CORPUSCULAR HEMOGLOBIN 28.0 pg 25.6-32.2 (BEAKER) (test code = 751) MEAN CORPUSCULAR HEMOGLOBIN CONC 31.5 GM/DL 32.2-35.5 L (BEAKER) (test code = 752) RED CELL DISTRIBUTION WIDTH 14.1 % 11.7-14.4 (BEAKER) (test code = 412) PLATELET COUNT (BEAKER) (test 380 K/CU MM 150-450 code = 756) MEAN PLATELET VOLUME (BEAKER) 9.8 fL 9.4-12.3 (test code = 754) NUCLEATED RED BLOOD CELLS 0 /100 WBC 0-0 (BEAKER) (test code = 413) NEUTROPHILS RELATIVE PERCENT 78 % (BEAKER) (test code = 429) LYMPHOCYTES RELATIVE PERCENT 11 % (BEAKER) (test code = 430) MONOCYTES RELATIVE PERCENT 8 % (BEAKER) (test code = 431) EOSINOPHILS RELATIVE PERCENT 1 % (BEAKER) (test code = 432) BASOPHILS RELATIVE PERCENT 0 % (BEAKER) (test code = 437) NEUTROPHILS ABSOLUTE COUNT 8.94 K/ L 1.56-6.13 H (BEAKER) (test code = 670) LYMPHOCYTES ABSOLUTE COUNT 1.29 K/ L 1.18-3.74 (BEAKER) (test code = 414) MONOCYTES ABSOLUTE COUNT (BEAKER) 0.93 K/ L 0.24-0.36 H (test code = 415) EOSINOPHILS ABSOLUTE COUNT 0.08 K/ L 0.04-0.36 (BEAKER) (test code = 416) BASOPHILS ABSOLUTE COUNT (BEAKER) 0.03 K/ L 0.01-0.08 (test code = 417) IMMATURE GRANULOCYTES-RELATIVE 1 % 0-1 PERCENT (BEAKER) (test code = 2801) KIDNEY IMAGING, SINGLE, FLOW/[id number] 16:24:00Unlisted Reason for Exam - Click Yes and Enter Reason Below->YesUnlisted Reason for Exam->check function of right kidney for possible nephrectomyFINAL REPORT PROCEDURE: Functional RENAL SCAN, flow and function CPT CODE: 10827 INDICATION: Nephrolithiasis, hydronephrosis, right nephrostomy PROTOCOL: 10.8 mCi of Tc-99m MAG3 was injected intravenously. Renal flow images were obtained in the posterior projection. Subsequent serial posterior images were obtained over approximately 40 minutes. FINDINGS: There is prompt perfusion of the left kidney but markedly delayed and decreased perfusion of the right kidney. Initial renal activity is divided 82% to the left kidney and 18% to the right kidney. Subsequent images show good concentration of tracer and good tracer clearance from the left renal parenchyma. There is persistent marked decrease in clearance on the right. There is mild dilation of the left renal pelvis and moderate dilation on the right. There is appropriate flow through the left ureter and the right nephrostomy tube. No activity is seen in the right ureter. IMPRESSION:1. Marked decrease in right renal parenchymal function. Good function of the left kidney.2. Moderate right and mild left hydronephrosis. Of note, hydronephrosis in the right kidney may be underestimated given thepresence of the right nephrostomy.3. Functioning right nephrostomy. Signed: Christina Sawant MDReport Verified Date/Time: 03/07/2020 16:24:47 Reading Location: [address] [place] [address] Reading Room El ectronically signed by: CHRISTINA SAWANT MD on 03/07/2020 04:24 PMNM renal [id number] 16:24:00Interface, External Ris In - 03/07/2020 4:27 PM CDTFINAL REPORT PROCEDURE: Functional RENAL SCAN, flow and function CPT CODE: 78162 INDICATION: Nephrolithiasis, h ydronephrosis, right nephrostomy PROTOCOL: 10.8 mCi of Tc-99m MAG3 was injected intravenously. Renal flow images were obtained in the posterior projection. Subsequent serial posterior images were obtained over approximately 40 minutes. FINDINGS: There is prompt perfusion of the left kidney but markedly delayed and decreased perfusion of the right kidney. Initial renal activity is divided 82% to the left kidney and 18% to the right kidney. Subsequent images show good concentration of tracer and good tracer clearance from the left renal parenchyma. There is persistent marked decrease inclearance on the right. There is mild dilation of the left renal pelvis and moderate dilation on theright. There is appropriate flow through the left ureter and the right nephrostomy tube. No activityis seen in the right ureter. IMPRESSION:1. Marked decrease in right renal parenchymal function. Good function of the left kidney.2. Moderate right and mild left hydronephrosis. Of note, hydronephrosisin the right kidney may be underestimated given the presence of the right nephrostomy.3. Functioningright nephrostomy. Signed: Christina Sawant MDReport Verified Date/Time: 03/07/2020 16:24:47 Reading Location: [address] [facility])2020-03-07 12:30:00 Test Item Value Reference Range Interpretation Comments SARS-COV2/RT-PCR (test Negative Not Detected, Negative, code = 2556378) See external report for linked test SARS-COV-2 PERFORMING LAB [facility] (test code = 1394387) Negative result for this test determines that SARS-CoV-2 RNA was not present in the specimen above the Limit of Detection (LOD). However, Negative results do not preclude SARS-CoV-2 infection and should not be used as the sole basis for treatment or patient management decisions. Negative results mustbe combined with clinical observations, patient history, and epidemiological information. A false negative result may occur if a specimen is improperly collected, transported or handled. A false negative result should be considered if patient's recent exposures or clinical presentation indicate that COVID-19 (SARS-CoV-2) is likely and diagnostic tests for other causes of illness are negative. Re-testing should be considered in cases of suspected false negatives.The limit of detection for this assay is 800 copies/mL.This SARS CoV-2 test is a real-time RT-PCR test intended for the qualitative detection of nucleic acid from SARS-CoV-2 in a nasopharyngeal swab specimen collected from individuals susp ected of COVID-19 by their healthcare provider.This test has not been Food and Drug [...] is revoked under Section 564(g) of the Act.Fact Sheet for Healthcare Providers:https://www.[employer]/sites/default/files/product/documents/Fact_Shee c_WW_Myhdypuai_Cahm_JNYQ-EzC-1.pdfFact Sheet for Healthcare Patients:https://www.[employer]/sites/default/files/product/ documents/Llwq_Nhmkh_Vmipsgjy_Sipy_SKRJ-ShU-6.pdfPerforming Laboratory:[facility], [place] [address]Savpof Differential 2020-03-07 12:01:00 Test Item Value Reference Range Interpretation Comments % Neutros (test code = 71 % 2816) % Lymphs (test code = 7 % 2817) % Monos (test code = 6 % 2818) % Bands (test code = 16 % 0-10 H 2826) # Neutros (test code = 6.46 K/ul 1.56-6.13 H 2830) # Lymphs (test code = 0.64 K/ul 1.18-3.74 L 2831) # Monos (test code = 0.55 K/uL 0.24-0.36 H 2832) # Bands (test code = 1.46 K/uL 0-0.8 H 2840) Total Counted (test code 100 = 1351) WBC Morphology (test code Normal = 487) Giant Platelet (test code Present = 313) Polychromasia (test code 1+ few = 478) Hypochromia (test code = 1+ few 963) Anisocytosis (test code = 1+ few 961) Macrocytes (test code = 1+ few 964) Poikilocytes (test code = 1+ few 966) Ovalocytes (test code = 1+ few 477) Artifact (test code = Present 3432) Platelet Conc (test code Adequate = 3438) SORAYA (test code = SORAYA) Health Insurance Adjuster ID - Esperanza Carlin comments: Slide comments: Lab Interpretation (test Abnormal code = 62743-5) [facility] W/PLT COUNT & AUTO [id number] 12:01:00 Test Item Value Reference Range Interpretation Comments WHITE BLOOD CELL COUNT (BEAKER) 9.1 K/ L 3.5-10.5 (test code = 775) RED BLOOD CELL COUNT (BEAKER) 3.25 M/ L 3.93-5.22 L (test code = 761) HEMOGLOBIN (BEAKER) (test code = 9.1 GM/DL 11.2-15.7 L 410) HEMATOCRIT (BEAKER) (test code = 29.5 % 34.1-44.9 L 411) MEAN CORPUSCULAR VOLUME (BEAKER) 90.8 fL 79.4-94.8 (test code = 753) MEAN CORPUSCULAR HEMOGLOBIN 28.0 pg 25.6-32.2 (BEAKER) (test code = 751) MEAN CORPUSCULAR HEMOGLOBIN CONC 30.8 GM/DL 32.2-35.5 L (BEAKER) (test code = 752) RED CELL DISTRIBUTION WIDTH 14.2 % 11.7-14.4 (BEAKER) (test code = 412) PLATELET COUNT (BEAKER) (test 359 K/CU MM 150-450 code = 756) MEAN PLATELET VOLUME (BEAKER) 9.9 fL 9.4-12.3 (test code = 754) NUCLEATED RED BLOOD CELLS 0 /100 WBC 0-0 (BEAKER) (test code = 413) (CELLAVISION MANUAL DIFF)2020-03-07 12:01:00 Test Item Value Reference Range Interpretation Comments NEUTROPHILS - REL 71 % (CELLAVISION)(BEAKER) (test code = 2816) LYMPHOCYTES - REL 7 % (CELLAVISION)(BEAKER) (test code = 2817) MONOCYTES - REL 6 % (CELLAVISION)(BEAKER) (test code = 2818) BANDS - REL (CELLAVISION)(BEAKER) 16 % 0-10 H (test code = 2826) NEUTROPHILS - ABS 6.46 K/ul 1.56-6.13 H (CELLAVISION)(BEAKER) (test code = 2830) LYMPHOCYTES - ABS 0.64 K/ul 1.18-3.74 L (CELLAVISION)(BEAKER) (test code = 2831) MONOCYTES - ABS 0.55 K/uL 0.24-0.36 H (CELLAVISION)(BEAKER) (test code = 2832) BANDS - ABS (CELLAVISION)(BEAKER) 1.46 K/uL 0.00-0.80 H (test code = 2840) TOTAL COUNTED (BEAKER) (test code = 100 1351) WBC MORPHOLOGY (BEAKER) (test code Normal = 487) GIANT PLATELETS (BEAKER) (test code Present = 313) POLYCHROMATOPHILLIC RBCS(BEAKER) 1+ few (test code = 478) HYPOCHROMIA (BEAKER) (test code = 1+ few 963) ANISOCYTOSIS (BEAKER) (test code = 1+ few 961) MACROCYTES (BEAKER) (test code = 1+ few 964) POIKILOCYTES (BEAKER) (test code = 1+ few 966) OVALOCYTES (BEAKER) (test code = 1+ few 477) ARTIFACT (CELLAVISION)(BEAKER) Present (test code = 3432) PLATELET CONCENTRATION Adequate (CELLAVISION)(BEAKER) (test code = 3438) Health Insurance Adjuster ID - Fidel-Felipe JuniorEmy comments: Slide comments:Urinalysis w/Microscopic + Reflex to [id number] 11:12:00 Test Item Value Reference Range Interpretation Comments Color, UA (test code = Yellow 5778-6) Clarity, UA (test code = Cloudy 5767-9) Specific [place], UA 1.025 1.001-1.035 (test code = 5811-5) pH, UA (test code = 6.5 5.0-8.0 5803-2) Protein, UA (test code = 200 mg/dL Negative A 67009-1) Glucose, UA (test code = Negative Negative 365) Ketones, UA (test code = 100 mg/dL Negative A 2514-8) Bilirubin, UA (test code Positive Negative A = 38850-8) Blood, UA (test code = Moderate Negative A 55386-7) Nitrite, UA (test code = Negative Negative 5802-4) Leukocytes, UA (test code Large Negative A = 5799-2) Urobilinogen, UA (test 6.0 mg/dL 0.2-1 H code = 98280-2) RBC, UA (test code = 96 /HPF 40864-9) WBC, UA (test code = 1547 /HPF 5821-4) Mucus (test code = Occasional 8247-9) Squam Epithel, UA (test 3 /HPF code = 96645-2) Specimen Source (test code = 2795) SORAYA (test code = SROAYA) Health Insurance Adjuster ID - [auto]Health Insurance Adjuster ID - tech Lab Interpretation (test Abnormal code = 47537-0) [facility] UR[facility] [id number] 11:12:00 Test Item Value Reference Range Interpretation Comments COLOR (BEAKER) (test code = 470) Yellow CLARITY (BEAKER) (test code = 469) Cloudy SPECIFIC GRAVITY UA (BEAKER) (test 1.025 1.001-1.035 code = 468) PH UA (BEAKER) (test code = 467) 6.5 5.0-8.0 PROTEIN UA (BEAKER) (test code = 200 mg/dL Negative A 464) GLUCOSE UA (BEAKER) (test code = Negative Negative 365) KETONES UA (BEAKER) (test code = 100 mg/dL Negative A 371) BILIRUBIN UA (BEAKER) (test code = Positive Negative A 462) BLOOD UA (BEAKER) (test code = Moderate Negative A 461) NITRITE UA (BEAKER) (test code = Negative Negative 465) LEUKOCYTE ESTERASE UA (BEAKER) Large Negative A (test code = 466) UROBILINOGEN UA (BEAKER) (test 6.0 mg/dL 0.2-1.0 H code = 463) RBC UA (BEAKER) (test code = 519) 96 /HPF WBC UA (BEAKER) (test code = 520) 1547 /HPF MUCUS (BEAKER) (test code = 1574) Occasional SQUAMOUS EPITHELIAL (BEAKER) (test 3 /HPF code = 516) SOURCE(BEAKER) (test code = 2795) Health Insurance Adjuster ID - [auto]Health Insurance Adjuster ID - techVitamin D, [id number] 07:14:00 Test Item Value Reference Range Interpretation Comments Vitamin D 25-Hydroxy 15.8 ng/mL 6.6-49.9 (test code = 2764) SORAYA (test code = SORAYA) Effective 04/05/2017: Reference Range ChangeNew: 6.6-49.9 ng/mL Previous: 13.0-47.8 ng/mL Recommended Vitamin D Target Range: 30.0-40.0 ng/mLOperator ID - JONAH M Lab Interpretation (test Normal code = 77547-1) [facility], [id number] 07:14:00 Test Item Value Reference Range Interpretation Comments VITAMIN D 25-OH (BEAKER) (test 15.8 ng/mL 6.6-49.9 code = 2764) Effective 04/05/2017: Reference Range ChangeNew: 6.6-49.9 ng/mL Previous: 13.0-47.8 ng/mLRecommended Vitamin D Target Range: 30.0-40.0 ng/mLOperator ID - JONAH MBASIC METABOLIC [id number] 07:09:00 Test Item Value Reference Range Interpretation Comments SODIUM (BEAKER) (test 134 meq/L 136-145 L code = 381) POTASSIUM (BEAKER) 3.5 meq/L 3.5-5.1 (test code = 379) CHLORIDE (BEAKER) 103 meq/L 98-107 (test code = 382) CO2 (BEAKER) (test 22 meq/L 22-29 code = 355) BLOOD UREA NITROGEN 10 mg/dL 7-21 (BEAKER) (test code = 354) CREATININE (BEAKER) 0.78 mg/dL 0.57-1.25 (test code = 358) GLUCOSE RANDOM 92 mg/dL 70-105 (BEAKER) (test code = 652) CALCIUM (BEAKER) 8.1 mg/dL 8.4-10.2 L (test code = 697) EGFR (BEAKER) (test INSUFFIC IENT CLINICAL code = 1092) DATA TO CALCULA TE ESTIMATED GFR. Health Insurance Adjuster ID - JONAH MPOCT-GLUCOSE [id number] 23:40:00 Test Item Value Reference Range Interpretation Comments POC-GLUCOSE METER 77 mg/dL 70-110 : TESTED Jt Mena [facility] [address] ([place]) (test code = AARTI SANCHEZ ID, [id number]) [id number]: Health Insurance Adjuster/Techni sameer ID = [id number] for Anna Armando (contra ct) ANG, NEPHROSTOMY, PERC, EXTERNAL [id number] 22:01:00Reason for exam:- >PCN placement due to hydronephrosisFINAL REPORT Exam: Right nephrostomy tube insertion Clinical History: RightUPJ stone with severe hydronephrosis and fever Consent: Benefits and risks were explained to the [facility] ient who gave consent to the procedure. Sedation: The procedure was performed with conscious sedation. Continuous cardiorespiratory monitoring was performed by a registered nurse throughout the procedure. The total sedation time is 15 minutes. Fluoro Time: 1.0 Minutes Total Images: 2 Medication: Versed 2 mg IV, fentanyl 100 mcg IV Procedure: Sterile barrier technique was followed including cap,mask, sterile gown, sterile gloves, sterile sheet, hand hygiene and 2% chlorhexidine for cutaneous antisepsis. The right flank was prepped and draped in usual sterile fashion. 2% lidocaine was used as local anesthetic. Under ultrasound guidance, the inferior pole right renal calyx was accessed followed by percutaneous nephrostogram which demonstrated severe hydronephrosis. A radiopaque stone is seen encasing the proximal pigtail of the internal ureteral stent. Under fluoroscopic guidance, an 8.5 Micronesian nephrostomy tube was advanced into the renal pelvis the catheter was secured using 2-0 Prolene and left to gravity drainage. Hemostasis was achieved. The patient tolerated the procedure well withoutany adverse reactions. He left the department in stable condition. Complication: None immediate Impression: 1. Right nephrostomy tube insertion as described. Signed: Sara Blanton MDReport Verified Date/Time: 03/06/2020 22:01:35 Reading Location: [place] [address] Angio Body Reading Room [facility] signed by: SARA BLANTON M.D. on 03/06/2020 10:01 PMIR Percutaneous Nephrostomy - Ext. Drain [id number] 22:01:00Interface, External Ris In - 03/06/2020 10:03 PM CDTFINAL REPORT Exam: Right nephrostomy tube insertion Clinical History: Right UPJ stone with severe hydronephrosis and fever Consent: Benefits and risks were explained to the patient who gave consent to the procedure. Sedation: The procedure was performed with conscious sedation. Continuous cardiorespiratory monitoring was performed by a registered nurse throughout the procedure. The total sedation time is 15 minutes. Fluoro Time: 1.0 Minutes Total Images: 2 Medication: Versed 2 mg IV, fentanyl 100 mcg IV Procedure: Sterile barrier technique was followed including cap, mask, sterile gown, sterile gloves, sterile sheet, hand hygiene and 2% chlorhexidine for cutaneous antisepsis. The right flank was prepped and drapedin usual sterile fashion. 2% lidocaine was used as local anesthetic. Under ultrasound guidance, the inferior pole right renal calyx was accessed followed by percutaneous nephrostogram which demonstrated severe hydronephrosis. A radiopaque stone is seen encasing the proximal pigtail of the internal ureteral stent. Under fluoroscopic guidance, an 8.5 Micronesian nephrostomy tube was advanced into the renal pelvis the catheter was secured using 2-0 Prolene and left to gravity drainage. Hemostasis was achieved. The patient tolerated the procedure well without any adverse reactions. He left the department instable condition. Complication: None immediate Impression: 1. Right nephrostomy tube insertion asdescribed. Signed: Sara Blanton MDReport Verified Date/Time: 03/06/2020 22:01:35 Reading Location: [place] [address] Angio Body Reading Room [facility](CELLAVISION MANUAL DIFF) 2020-03-06 18:39:00 Test Item Value Reference Range Interpretation Comments NEUTROPHILS - REL 63 % (CELLAVISION)(BEAKER) (test code = 2816) LYMPHOCYTES - REL 10 % (CELLAVISION)(BEAKER) (test code = 2817) MONOCYTES - REL 16 % (CELLAVISION)(BEAKER) (test code = 2818) BANDS - REL (CELLAVISION)(BEAKER) 9 % 0-10 (test code = 2826) NEUTROPHILS - ABS 5.99 K/ul 1.56-6.13 (CELLAVISION)(BEAKER) (test code = 2830) LYMPHOCYTES - ABS 0.95 K/ul 1.18-3.74 L (CELLAVISION)(BEAKER) (test code = 2831) MONOCYTES - ABS 1.52 K/uL 0.24-0.36 H (CELLAVISION)(BEAKER) (test code = 2832) BANDS - ABS (CELLAVISION)(BEAKER) 0.86 K/uL 0.00-0.80 H (test code = 2840) TOTAL COUNTED (BEAKER) (test code = 100 1351) RBC MORPHOLOGY (BEAKER) (test code Normal = 762) GIANT PLATELETS (BEAKER) (test code Present = 313) HYPERSEGMENTATION Present (CELLAVISION)(BEAKER) (test code = 3445) PLASMACYTOID LYMPHS(BEAKER) (test Present code = 1677) ARTIFACT (CELLAVISION)(BEAKER) Present (test code = 3432) PLATELET CONCENTRATION Adequate (CELLAVISION)(BEAKER) (test code = 3438) Health Insurance Adjuster ID - Halima comments: Slide comments:BASIC METABOLIC PANEL 2020-03-06 18:31:00 Test Item Value Reference Range Interpretation Comments SODIUM (BEAKER) (test 136 meq/L 136-145 code = 381) POTASSIUM (BEAKER) 3.5 meq/L 3.5-5.1 (test code = 379) CHLORIDE (BEAKER) 103 meq/L 98-107 (test code = 382) CO2 (BEAKER) (test 21 meq/L 22-29 L code = 355) BLOOD UREA NITROGEN 10 mg/dL 7-21 (BEAKER) (test code = 354) CREATININE (BEAKER) 0.88 mg/dL 0.57-1.25 (test code = 358) GLUCOSE RANDOM 68 mg/dL 70-105 L (BEAKER) (test code = 652) CALCIUM (BEAKER) 8.5 mg/dL 8.4-10.2 (test code = 697) EGFR (BEAKER) (test INSUFFIC IENT CLINICAL code = 1092) DATA TO CALCULA TE ESTIMATED GFR. Health Insurance Adjuster ID - DBCBC W/PLT COUNT & AUTO [id number] 18:14:00 Test Item Value Reference Range Interpretation Comments WHITE BLOOD CELL COUNT (BEAKER) 9.5 K/ L 3.5-10.5 (test code = 775) RED BLOOD CELL COUNT (BEAKER) 3.36 M/ L 3.93-5.22 L (test code = 761) HEMOGLOBIN (BEAKER) (test code = 9.7 GM/DL 11.2-15.7 L 410) HEMATOCRIT (BEAKER) (test code = 30.5 % 34.1-44.9 L 411) MEAN CORPUSCULAR VOLUME (BEAKER) 90.8 fL 79.4-94.8 (test code = 753) MEAN CORPUSCULAR HEMOGLOBIN 28.9 pg 25.6-32.2 (BEAKER) (test code = 751) MEAN CORPUSCULAR HEMOGLOBIN CONC 31.8 GM/DL 32.2-35.5 L (BEAKER) (test code = 752) RED CELL DISTRIBUTION WIDTH 13.9 % 11.7-14.4 (BEAKER) (test code = 412) PLATELET COUNT (BEAKER) (test 401 K/CU MM 150-450 code = 756) MEAN PLATELET VOLUME (BEAKER) 9.8 fL 9.4-12.3 (test code = 754) NUCLEATED RED BLOOD CELLS 0 /100 WBC 0-0 (BEAKER) (test code = 413) PROTHROMBIN [id number] 18:08:00 Test Item Value Reference Range Interpretation Comments PROTIME (BEAKER) (test code = 15.9 seconds 11.9-14.2 H 759) INR (BEAKER) (test code = 370) 1.31 <=5.90 Effective 11/21/2018: PT Reference Range ChangeNew: 11.9-14.2 Previous: 11.7- 14.7RECOMMENDED COUMADIN/WARFARIN INR THERAPY RANGESSTANDARD DOSE: 2.0-3.0 Includes: PROPHYLAXIS for venous thrombosis, systemic embolization; TREATMENT for venous thrombosis and/or pulmonary embolus.HIGH RISK: Target INR is2.5-3.5 for patients wiht mechanical heart valves.
[2020-07-05] MEDS ORDERED: FENTANYL CITR 100 MCG/2 ML ONE ×2 (13:51→14:11)
[2020-07-05] MEDS ORDERED: NA CHLORIDE 0.9% 1,000 ML ONE (13:51)
[2020-07-05 13:54] LABS: Absolute Lymphocytes (CBC) 2.7 K/uL (0.7-4.9); Basophils % 0.6 % (0-1.3); Lymphocytes % 19.8 % (15.3-44.8); MPV 9.7 fL (7.6-11.3)
[2020-07-05 14:02] LABS: Potassium 3.8 mmol/L (3.5-5.1)
[2020-07-05] MEDS ORDERED: KETOROLAC 30 MG/ML INJ ONE (14:28)
--- NOTE | 2020-07-05 14:35 | RAD REPORT ---
EXAM DESCRIPTION: CT - Stone Protocol - 07/05/2020 2:23 pm CLINICAL HISTORY: Flank pain. FLANK PAIN COMPARISON: Stone Protocol dated 03/06/2020 TECHNIQUE: Axial images were obtained without oral or IV contrast. Lack of contrast limits solid org an and vascular assessment. The [id number] spans the entirety of the system partially obscuring uppermost abdomen and lung bases. Coronal reformatted images were obtained and reviewed. All CT scans are performed using dose optimization technique as appropriate and may include automated exposure control or mA/KV adjustment according to patient size. FINDINGS: The lower lung peñaloza are clear. Imaged portions of the liver and spleen show no suspicious findings on non-contrast imaging. The panc reas and adrenal glands are normal. No pathologic lymphadenopathy in the abdomen or pelvis. Severe right hydronephrosis is present with right hydroureter also noted to the level of the mid righ t ureter. No obstructing stone is visualized. No left-sided urinary tract stone or obstructive uropat hy. No bowel obstruction, free air, free fluid or abscess. Normal appendix noted.3.4 cm right ovarian cys t noted. No significant bony abnormality. IMPRESSION: Severe right hydronephrosis is present without obstructing calculus identified.
[2020-07-05 16:16] LABS: Urine Blood 1+ (NEG); Urine Glucose NEGATIVE (NEG); Urine Protein NEGATIVE (NEG); Urine Specific Gravity 1.025 (1.005-1.030)
[2020-07-05 16:59] LABS: Urine Bacteria 20-50 /HPF (<20); Urine RBC <5 /HPF (NONE SEEN)
--- NOTE | 2020-07-05 17:23 | ER ---
Nurse's Notes [facility] Name: Rakesh Vigil Age: 25 yrs Sex: Female : 1995 Arrival Date: 07/05/2020 Time: 13:24 Bed 14 Private MD: Diagnosis: Hydronephrosis;Urinary tract infection, site not specified Presentation: 07/05 13:30 Chief complaint: Patient states: right sided abd pain radiating to right mid back that aa5 began 1 hr ago, pt also reports nausea and vomiting. Denies diarrhea. 13:30 Coronavirus screen: nausea, vomiting. Ebola Screen: Patient negative for fever greater aa5 than or equal to 101.5 degrees Fahrenheit, and additional compatible Ebola Virus Disease symptoms. Initial Sepsis Screen: Does the patient meet any 2 criteria? No. Patient's initial sepsis screen is negative. Does the patient have a suspected source of infection? No. Patient's initial sepsis screen is negative. Risk Assessment: Do you want to hurt yourself or someone else? Patient reports no desire to harm self or others. Onset of symptoms was June 2020. 13:30 Acuity: CLARISSE 2 aa5 13:30 Method Of Arrival: Ambulatory aa5 Triage Assessment: 13:30 General: Appears distressed, uncomfortable, Behavior is cooperative, appropriate for bp age, anxious. Pain: Complains of pain in right flank. EENT: No deficits noted. Neuro: No deficits noted. Cardiovascular: No deficits noted. Respiratory: No deficits noted. GI: Abdomen is non-distended. : No signs and/or symptoms were reported regarding the genitourinary system. Derm: No deficits noted. Musculoskeletal: No deficits noted. Historical: - Allergies: 13:25 No Known Allergies; aa5 - PMHx: 13:25 Kidney stones; aa5 - PSHx: 13:25 Lithotripsy; aa5 - Immunization history:: Adult Immunizations unknown. - Social history:: Smoking status: Patient denies any tobacco usage or history of. Screenin:37 Abuse screen: Denies threats or abuse. Denies injuries from another. Nutritional bp screening: No deficits noted. Tuberculosis screening: No symptoms or risk factors identified. Fall Risk None identified. Assessment: 13:30 General: SEE TRIAGE NOTE. bp 14:00 GI: Bowel sounds present X 4 quads. Abd is soft X 4 quads. bp 14:18 Reassessment: No changes from previously documented assessment. Patient and/or family bp updated on plan of care and expected duration. Pain level reassessed. PT TO CT Patient states symptoms have improved. 16:14 Reassessment: Patient appears in no apparent distress at this time. No changes from bp previously documented assessment. Patient and/or family updated on plan of care and expected duration. Pain level reassessed. Patient is alert, oriented x 3, equal unlabored respirations, skin warm/dry/pink. ALL CURRENT ORDERS COMPLETE. 18:10 Reassessment: PT D/C HOME AMBULATORY, DX WITH HYDRONEPHROSIS AND UTI Patient states bp feeling better. Vital Signs: 13:40 BP 138 / 97; Pulse 73; Resp 16; Temp 98.3; Pulse Ox 98% ; bp 13:40 Weight 61.23 kg (R); Height 5 ft. 2 in. (157.48 cm) (R); Pain 10/10; aa5 14:19 BP 134 / 95; Pulse 65; Resp 16; Pulse Ox 100% ; bp 16:14 BP 129 / 82; Pulse 77; Resp 16; Pulse Ox 100% ; bp 17:44 BP 113 / 59; Pulse 83; Resp 16; Pulse Ox 99% ; bp 13:40 Body Mass Index 24.69 (61.23 kg, 157.48 cm) aa5 ED Course: 13:24 Patient arrived in ED. ag5 13:27 [facility]ud[facility] De Leon [facility] snw 13:27 Lucas George MD is Attending Physician. snw 13:35 Thaddeus Powers, JYOTHI is Primary Nurse. bp 13:37 Inserted saline lock: 20 gauge in right antecubital area, using aseptic technique. bp Blood collected. 13:37 Patient has correct armband on for positive identification. Bed in low position. Call bp light in reach. Side rails up X2. 13:41 Triage completed. aa5 13:45 Arm band placed on. bp 14:16 CT Stone Protocol Sent. bp 14:23 CT Stone Protocol In Process Unspecified. EDMS 18:10 No provider procedures requiring assistance completed. IV discontinued, intact, bp bleeding controlled, No redness/swelling at site. Pressure dressing applied. Administered Medications: 13:38 Drug: fentaNYL (PF) 25 mcg Route: IVP; Site: right antecubital; bp 17:44 Follow up: Response: Pain is decreased bp 13:38 Drug: NS 0.9% 1000 ml Route: IV; Rate: 1 bolus; Site: right antecubital; bp 17:44 Follow up: IV Status: Completed infusion; IV Intake: 1000ml bp 14:05 Drug: fentaNYL (PF) 25 mcg Route: IVP; Site: right antecubital; bp 16:12 Follow up: Response: Pain is decreased bp 14:15 Drug: TORadol 30 mg Route: IVP; Site: right antecubital; bp 16:12 Follow up: Response: Pain is decreased bp 17:30 Drug: Rocephin 1 grams Route: IV; Rate: calculated rate; Site: right antecubital; bp 18:12 Follow up: IV Status: Completed infusion; IV Intake: 50ml bp Intake: 17:44 IV: 1000ml; Total: 1000ml. bp 18:12 IV: 50ml; Total: 1050ml. bp Outcome: 17:23 Discharge ordered by . snw 18:10 Discharged to home ambulatory. bp 18:10 Condition: stable 18:10 Discharge instructions given to patient, Instructed on discharge instructions, follow up and referral plans. medication usage, Demonstrated understanding of instructions, follow-up care, medications, Prescriptions given X 3. 18:12 Patient left the ED. bp Signatures: Dispatcher [employer] EDMS Lyudmila De Leon, NELLYC TOBACCO CLASSER-Brianw Morena Jones RN RN aa5 Thaddeus Powers RN RN bp Daljit Riely ag5 Corrections: (The following items were deleted from the chart) 16:15 14:18 Reassessment: PT TO CT Patient states symptoms have improved. bp bp
--- NOTE | 2020-07-05 17:24 | EDPHYS ---
Physician Documentation [facility] Name: Rakesh Vigil Age: 25 yrs Sex: Female : 1995 Arrival Date: 07/05/2020 Time: 13:24 Bed 14 Private MD: ED Physician Lucas George HPI: 07/05 15:55 This 25 yrs old Female presents to ER via Ambulatory with complaints of snw Abdominal Pain. 15:55 The patient presents with abdominal pain right lower quadrant, right flank. Onset: The snw symptoms/episode began/occurred suddenly, just prior to arrival. The symptoms radiate to right lower quadrant. Associated signs and symptoms: Pertinent positives: nausea and vomiting. The symptoms are described as stabbing. Severity of pain: At its worst the pain was incapacitating in the emergency department the pain is unchanged. The patient has experienced similar episodes in the past. It is unknown whether or not the patient has recently seen a physician. Historical: - Allergies: 13:25 No Known Allergies; aa5 - PMHx: 13:25 Kidney stones; aa5 - PSHx: 13:25 Lithotripsy; aa5 - Immunization history:: Adult Immunizations unknown. - Social history:: Smoking status: Patient denies any tobacco usage or history of. ROS: 15:53 Constitutional: Negative for fever, chills, and weight loss, Eyes: Negative for injury, snw pain, redness, and discharge, ENT: Negative for injury, pain, and discharge, Neck: Negative for injury, pain, and swelling, Cardiovascular: Negative for chest pain, palpitations, and edema, Respiratory: Negative for shortness of breath, cough, wheezing, and pleuritic chest pain, Abdomen/GI: Negative for abdominal pain, nausea, vomiting, diarrhea, and constipation, : Negative for injury, bleeding, discharge, and swelling, MS/Extremity: Negative for injury and deformity, Skin: Negative for injury, rash, and discoloration, Neuro: Negative for headache, weakness, numbness, tingling, and seizure, Psych: Negative for depression, anxiety, suicide ideation, homicidal ideation, and hallucinations. Exam: 15:52 Constitutional: . Head/Face: Normocephalic, atraumatic. Eyes: Pupils equal round and snw reactive to light, extra-ocular motions intact. Lids and lashes normal. Conjunctiva and sclera are non-icteric and not injected. Cornea within normal limits. Periorbital areas with no swelling, redness, or edema. ENT: Nares patent. No nasal discharge, no septal abnormalities noted. Tympanic membranes are normal and external auditory canals are clear. Oropharynx with no redness, swelling, or masses, exudates, or evidence of obstruction, uvula midline. Mucous membranes moist. Neck: Trachea midline, no thyromegaly or masses palpated, and no cervical lymphadenopathy. Supple, full range of motion without nuchal rigidity, or vertebral point tenderness. No Meningismus. Chest/axilla: Normal chest wall appearance and motion. Nontender with no deformity. No lesions are appreciated. Cardiovascular: Regular rate and rhythm with a normal S1 and S2. No gallops, murmurs, or rubs. Normal PMI, no JVD. No pulse deficits. Respiratory: Lungs have equal breath sounds bilaterally, clear to auscultation and percussion. No rales, rhonchi or wheezes noted. No increased work of breathing, no retractions or nasal flaring. Skin: Warm, dry with normal turgor. Normal color with no rashes, no lesions, and no evidence of cellulitis. MS/ Extremity: Pulses equal, no cyanosis. Neurovascular intact. Full, normal range of motion. Neuro: Awake and alert, GCS 15, oriented to person, place, time, and situation. Cranial nerves II-XII grossly intact. Motor strength 5/5 in all extremities. Sensory grossly intact. Cerebellar exam normal. Normal gait. Psych: Awake, alert, with orientation to person, place and time. Behavior, mood, and affect are within normal limits. 15:52 Abdomen/GI: Inspection: abdomen appears normal. 15:52 Back: CVA tenderness, that is moderate, is noted on the right. 15:53 Constitutional: The patient appears alert, awake, anxious, in obvious pain, restless, snw uncomfortable. Vital Signs: 13:40 BP 138 / 97; Pulse 73; Resp 16; Temp 98.3; Pulse Ox 98% ; bp 13:40 Weight 61.23 kg (R); Height 5 ft. 2 in. (157.48 cm) (R); Pain 10/10; aa5 14:19 BP 134 / 95; Pulse 65; Resp 16; Pulse Ox 100% ; bp 16:14 BP 129 / 82; Pulse 77; Resp 16; Pulse Ox 100% ; bp 17:44 BP 113 / 59; Pulse 83; Resp 16; Pulse Ox 99% ; bp 13:40 Body Mass Index 24.69 (61.23 kg, 157.48 cm) aa5 MDM: 13:43 Patient medically screened. snw 17:29 Data reviewed: vital signs, nurses notes. Data interpreted: Pulse oximetry: on room air snw is 100 %. Interpretation: normal. Counseling: I had a detailed discussion with the patient and/or guardian regarding: the historical points, exam findings, and any diagnostic results supporting the discharge/admit diagnosis, the presence of at least one elevated blood pressure reading (>120/80) during this emergency department visit, lab results, radiology results, the need for outpatient follow up, to return to the emergency department if symptoms worsen or persist or if there are any questions or concerns that arise at home. Response to treatment: the patient's symptoms have markedly improved after treatment. Special discussion: Based on the history and exam findings, there is no indication for further emergent testing or inpatient evaluation. I discussed with the patient/guardian the need to see the primary care provider for further evaluation of the symptoms. I discussed with the patient/guardian the need to see the urologist for further evaluation of the symptoms. 07/05 13:36 Order name: CBC with Diff; Complete Time: 13:59 snw 07/05 13:36 Order name: Chem 7; Complete Time: 14:07 snw 07/05 13:36 Order name: Test, Serum; Complete Time: 13:59 snw 07/05 13:36 Order name: Urine Microscopic Only; Complete Time: 17:07 snw 07/05 16:11 Order name: Urine Dipstick--Ancillary (enter results); Complete Time: 16:18 eb 07/05 14:08 Order name: CT Stone Protocol; Complete Time: 14:40 snw 07/05 16:11 Order name: Urine --Ancillary (enter results); Complete Time: 16:18 eb 07/05 17:02 Order name: Urine Culture [facility] 07/05 14:42 Order name: Urine Dipstick-Ancillary (obtain specimen); Complete Time: 16:03 snw Administered Medications: 13:38 Drug: fentaNYL (PF) 25 mcg Route: IVP; Site: right antecubital; bp 17:44 Follow up: Response: Pain is decreased bp 13:38 Drug: NS 0.9% 1000 ml Route: IV; Rate: 1 bolus; Site: right antecubital; bp 17:44 Follow up: IV Status: Completed infusion; IV Intake: 1000ml bp 14:05 Drug: fentaNYL (PF) 25 mcg Route: IVP; Site: right antecubital; bp 16:12 Follow up: Response: Pain is decreased bp 14:15 Drug: TORadol 30 mg Route: IVP; Site: right antecubital; bp 16:12 Follow up: Response: Pain is decreased bp 17:30 Drug: Rocephin 1 grams Route: IV; Rate: calculated rate; Site: right antecubital; bp 18:12 Follow up: IV Status: Completed infusion; IV Intake: 50ml bp Disposition: 18:44 Co-signature as Attending Physician, Lucas George MD. rn Disposition: 07/05/20 17:23 Discharged to Home. Impression: Hydronephrosis, Urinary tract infection, site not specified. - Condition is Stable. - Discharge Instructions: Abdominal Pain, Adult, Urinary Tract Infection, Adult, Hydronephrosis, Dietary Guidelines to Help Prevent Kidney Stones, Rehydration, Adult. - Prescriptions for Levaquin 500 mg Oral Tablet - take 1 tablet by ORAL route once daily for 7 days; 7 tablet. Pyridium 200 mg Oral Tablet - take 1 tablet by ORAL route every 8 hours for 3 days; 9 tablet. Macrobid 100 mg Oral Capsule - take 1 capsule by ORAL route every 12 hours for 7 days; 14 capsule. - Work release form, Medication Reconciliation Form, Thank You Letter, Antibiotic Education, Prescription Opioid Use form. - Follow up: Emergency Department; When: As needed; Reason: Worsening of condition. Follow up: Private Physician; When: 1 - 2 days; Reason: Recheck today's complaints, Continuance of care, Re-evaluation by your physician. Signatures: Dispatcher [employer] Lyudmila Lucio, NELLYC NETTING WEAVER-Csnw Lucas George MD MD rn Calderon, Audri, RN RN aa5 Thaddeus Powers RN RN bp Corrections: (The following items were deleted from the chart) 15:54 15:52 Constitutional: This is a well developed, well nourished patient who is awake, snw alert, and in no acute distress. Head/Face: Normocephalic, atraumatic. Eyes: Pupils equal round and reactive to light, extra-ocular motions intact. Lids and lashes normal. Conjunctiva and sclera are non-icteric and not injected. Cornea within normal limits. Periorbital areas with no swelling, redness, or edema. ENT: Nares patent. No nasal discharge, no septal abnormalities noted. Tympanic membranes are normal and external auditory canals are clear. Oropharynx with no redness, swelling, or masses, exudates, or evidence of obstruction, uvula midline. Mucous membranes moist. Neck: Trachea midline, no thyromegaly or masses palpated, and no cervical lymphadenopathy. Supple, full range of motion without nuchal rigidity, or vertebral point tenderness. No Meningismus. Chest/axilla: Normal chest wall appearance and motion. Nontender with no deformity. No lesions are appreciated. Cardiovascular: Regular rate and rhythm with a normal S1 and S2. No gallops, murmurs, or rubs. Normal PMI, no JVD. No pulse deficits. Respiratory: Lungs have equal breath sounds bilaterally, clear to auscultation and percussion. No rales, rhonchi or wheezes noted. No increased work of breathing, no retractions or nasal flaring. Skin: Warm, dry with normal turgor. Normal color with no rashes, no lesions, and no evidence of cellulitis. MS/ Extremity: Pulses equal, no cyanosis. Neurovascular intact. Full, normal range of motion. Neuro: Awake and alert, GCS 15, oriented to person, place, time, and situation. Cranial nerves II-XII grossly intact. Motor strength 5/5 in all extremities. Sensory grossly intact. Cerebellar exam normal. Normal gait. Psych: Awake, alert, with orientation to person, place and time. Behavior, mood, and affect are within normal limits. snw 15:55 15:52 Constitutional: This is a well developed, well nourished patient who is awake, snw alert, and in no acute distress. Head/Face: Normocephalic, atraumatic. Eyes: Pupils equal round and reactive to light, extra-ocular motions intact. Lids and lashes normal. Conjunctiva and sclera are non-icteric and not injected. Cornea within normal limits. Periorbital areas with no swelling, redness, or edema. ENT: Nares patent. No nasal discharge, no septal abnormalities noted. Tympanic membranes are normal and external auditory canals are clear. Oropharynx with no redness, swelling, or masses, exudates, or evidence of obstruction, uvula midline. Mucous membranes moist. Neck: Trachea midline, no thyromegaly or masses palpated, and no cervical lymphadenopathy. Supple, full range of motion without nuchal rigidity, or vertebral point tenderness. No Meningismus. Chest/axilla: Normal chest wall appearance and motion. Nontender with no deformity. No lesions are appreciated. Cardiovascular: Regular rate and rhythm with a normal S1 and S2. No gallops, murmurs, or rubs. Normal PMI, no JVD. No pulse deficits. Respiratory: Lungs have equal breath sounds bilaterally, clear to auscultation and percussion. No rales, rhonchi or wheezes noted. No increased work of breathing, no retractions or nasal flaring. Skin: Warm, dry with normal turgor. Normal color with no rashes, no lesions, and no evidence of cellulitis. MS/ Extremity: Pulses equal, no cyanosis. Neurovascular intact. Full, normal range of motion. Neuro: Awake and alert, GCS 15, oriented to person, place, time, and situation. Cranial nerves II-XII grossly intact. Motor strength 5/5 in all extremities. Sensory grossly intact. Cerebellar exam normal. Normal gait. Psych: Awake, alert, with orientation to person, place and time. Behavior, mood, and affect are within normal limits. snw 16:13 14:42 Topete ordered. snw bp 17:02 14:42 Urine Culture+[id number].LAB.BRZ ordered. EDMS EDMS 18:12 17:23 07/05/2020 17:23 Discharged to Home. Impression: Hydronephrosis; Urinary tract bp infection, site not specified. Condition is Stable. Forms are Medication Reconciliation Form, Thank You Letter, Antibiotic Education, Prescription Opioid Use. Follow up: Emergency Department; When: As needed; Reason: Worsening of condition. Follow up: Private Physician; When: 1 - 2 days; Reason: Recheck today's complaints, Continuance of care, Re-evaluation by your physician. snw
[2020-07-05] MEDS ORDERED: CEFTRIAXONE/SWI 1gm 1 GM/10 ML SYR ONE (18:07)
[2020-07-05] MEDS ORDERED: NA CHLORIDE 0.9% 100 ML ONE (18:07)
[2020-07-05 18:18] VITALS: TEMP 98.3
[2020-07-05 18:22] VITALS: BP 113/59; O2SAT 99
== END 2020-07-05 18:12 | disposition home or self-care (01) ==
LOC: ER 13:23
DX: N39.0 Urinary tract infection, site not specified (principal); N13.30 Unspecified hydronephrosis; Z87.442 Personal history of urinary calculi
CPT/HCPCS: 36415; 74176; 76377; 80048; 81003; 81015; 81025; 84703; 85025; 87086; 87088; 96361; 96365; 96375; 99284; J0696; J3010; J7030

== ENCOUNTER 2022-01-16 12:57 | Emergency (ER) | payer SELFPAY ==
--- OUTSIDE RECORDS SUMMARY | 2022-01-16 13:02 | XMS REPORT | Continuity of Care Document ---
:1995 Author Organization [facility] t Address [address] [place] [address] Care Team Providers Name Role Phone DESIRE LAWSON Attending Clinician Unavailable Ej Clancy MD Attending Clinician DESIRE LAWSON Admitting Clinician Unavailable HUMZA WHITLOCK Admitting Clinician Unavailable Problems Condition Condition Condition Status Onset Resolution Last Treating Co mments Source Name Details Category Date Date Treatment Clinician Date No known No known Disease [facility] active active College problems problems of Medicin e Allergies, Adverse Reactions, Alerts Allergy Allergy Status Severity Reaction(s) Onset Inactive Treating Comm ents Source Name Type Date Date Clinician NO KNOWN Allergy Active [facility] Social History Social Habit Start Date Stop Date Quantity Comments Source Sex Assigned At [facility] of [facility] Tobacco use and 2020-03-26 2020-03-26 Never used [facility] exposure 00:00:00 00:00:00 of Medicine Alcohol intake 2020-03-26 2020-03-26 Ex-drinker [facility] Col lege 00:00:00 00:00:00 (finding) of Medicine Smoking Status Start Date Stop Date Source Never smoker [facility] o f Medicine Medications Ordered Filled Start Stop Current Ordering Indication Dosage Frequency Signature Comments Components Source Medication Medication Date Date Medication? Clinician (SIG) Name Name Ferrous Yes 65mg Take 65 mg [facility] or Sulfate 9-19 by mouth [facility] (IRON) 325 00:00: daily. of (65 Fe) MG 00 Medicin TABS e amoxicillin 2020- No 875mg Take 875 [facility] (AMOXIL) 9-19 10-04 mg by [facility] 875 MG 00:00: 04:59 mouth. of tablet 00 :00 Medicin e doxycycline 2020- No 100mg Take 100 [facility] (MONODOX) 03-14 10-04 mg by [facility] 100 MG 00:00: 04:59 mouth. of capsule 00 :00 Medicin e Vital Signs Vital Name Observation Time Observation Value Comments Source WEIGHT 2020-03-06 00:00:00 61.236 kg HEIGHT 2020-03-06 00:00:00 157.5 cm Systolic blood 2020-03-26 15:19:00 109 mm[Hg] [facility] Diastolic blood 2020-03-26 15:19:00 72 mm[Hg] [facility] Medicine Heart rate 2020-03-26 15:19:00 74 [facility] 2020-03-26 15:19:00 35.56 [facility] Body height 2020-03-26 15:19:00 157.5 [facility] Body weight 2020-03-26 15:19:00 59.875 kg [facility] BMI 2020-03-26 15:19:00 24.14 kg/m2 [facility] Systolic blood 2020-03-26 15:19:00 109 mm[Hg] [facility] Diastolic blood 2020-03-26 15:19:00 72 mm[Hg] [facility] Heart rate 2020-03-26 15:19:00 74 /[facility] Body temperature 2020-03-26 15:19:00 35.56 [facility] Body height 2020-03-26 15:19:00 157.5 [facility] Body weight 2020-03-26 15:19:00 59.875 kg [facility] BMI 2020-03-26 15:19:00 24.14 kg/m2 [facility] WEIGHT 2020-03-06 00:00:00 61.236 kg HEIGHT 2020-03-06 00:00:00 157.5 cm Procedures Procedure Date / Time Performed Performing Clinician [facility] e POCT URINALYSIS 2020-03-26 00:00:00 Glenn Clancy [facility] Co llege of DIPSTICK Medicine Plan of Care Planned Activity Planned Date Details Comments Source Diagnostic Test 2020-06-26 US RENAL BILATERAL Expected: [employer] Pending 00:00:00 [code = 99597] 06/26/2020 of Medicine (Approximate), Expires: 03/26/2021 Future Scheduled TETANUS SHOT [facility] Rabia ege Test (ADULT) [code = of Medicine TETANUS SHOT (ADULT)] Future Scheduled HEPATITIS C [facility] Rabia ege Test SCREENING [code = of Medicin e HEPATITIS C SCREENING] Future Scheduled HIV SCREENING [facility] Col lege Test [code = HIV of Medicine SCREENING] Future Scheduled CERVICAL CANCER [facility] C ollege Test SCREENING 3 YEAR of Medicine FOLLOW UP [code = CERVICAL CANCER SCREENING 3 YEAR FOLLOW UP] Future Scheduled FLU VACCINE > 6 [facility] C ollege Test MONTHS [code = FLU of Medici ne VACCINE > 6 MONTHS] Future Scheduled ZOSTER VACCINE (1 [facility] Test of 2) [code = of Medicine ZOSTER VACCINE (1 of 2)] Encounters Start End Encounter Admission Attending Care Care Encounter Source Date/Time Date/Time Type Type Clinicians Facility Department ID 2020-03-06 [facility] Urology [id number] [facility] 15:14:00 ANTWAN 2020-03-26 2020-03-26 Office RICKY Clancy [id number] [place] [address] 09:54:56 12:25:39 Visit Glenn Pagan AMBULATOR [id number] College Y [id number] of [id number] Medi radha 300 e 2020-03-26 2020-03-26 Office RICKY Clancy [id number] 09:54:56 12:25:39 Visit Glenn Pagan AMBULATOR [id number] Y 0.2.7.2.686 [id number] 300 Results Test Description Test Time Test Comments Results Result Comments Source AFB CULTURE + SMEAR (NON-SPUTUM) 2020-04-27 09:02:00 Test Item Value Reference Range Interpretation Comme nts CULTURE (BEAKER) (test code = 1095) No acid-fast bacilli isolated i n 42 days AFB SMEAR (BEAKER) (test code = 994) No acid fast bacilli seen FUNGUS CULTURE + [id number] 16:35:00 Test Item Value Reference Range Interpretation Comments CULTURE (BEAKER) (test No fungus isolated in code = 1095) 28 days FUNGUS SMEAR (BEAKER) No fungal elements seen (test code = 1406) POCT URINALYSIS [id number] 00:00:00 Test Item Value Reference Range Interpretation Comments COLOR UA (test code = 5778-6) Yellow YELLOW/STRAW CLARITY UA (test code = 00957-3) Cloudy CLEAR GLUCOSE UA (test code = 5792-7) Negative NEGATIVE BILIRUBIN UA (test code = 5770-3) Negative NEGATIVE KETONES UA (test code = 33588-1) Negative NEGATIVE SPECIFIC GRAVITY UA (test code = 1.005-1.035 5811-5) BLOOD UA (test code = 5794-3) Small 1+ NEGATIVE PH UA (test code = 5803-2) 5-9 PROTEIN UA (test code = 5804-0) Trace NEGATIVE UROBILINOGEN UA (test code = 0.02 E.U/DL NORMAL MG/DL 5818-0) LEUKOCYTE ESTERASE UA (test code SMALL NEGATIVE = 5799-2) NITRITE UA (test code = 5802-4) Negative NEGATIVE REDUCING SUBSTANCES URINE (test code = 74260-7) [facility] [id number] 20:06:00 Test Item Value Reference Range Interpretation Comments CULTURE (BEAKER) (test No anaerobes isolated code = 1095) SURGICALLY OBTAINED CULTURE + GRAM [id number] 10:03:00 Test Item Value Reference Interpretation Comments [...] No organisms seen (BEAKER) (test code = 493140) BASIC METABOLIC [id number] 08:10:00 Test Item Value Reference Range Interpretation [...] 1092) DATA TO CALCULA TE ESTIMATED GFR. Assembler Engine ID - DBCBC W/PLT COUNT & AUTO [id number] 07:19:00 Test Item Value Reference Range Interpretation [...] 0-1 PERCENT (BEAKER) (test code = 2801) VANCOMYCIN LEVEL, [id number] 17:28:00 Test Item Value Reference Range Interpretation Comments VANCOMYCIN TROUGH (BEAKER) (test 23.3 ug/mL 10.0-20.0 H code = 522) Assembler Engine ID - DBCT, [id number] 10:34:00Unlisted Reason for Exam - Click Yes [...] Gusman MDReport Verified Date/Time: 03/14/2020 10:34:53 ReadingLocation[facility] C[facility] Body Reading Room CBC W/PLT COUNT & AUTO [id number] 07:51:00 Test Item Value Reference Range Interpretation [...] (BEAKER) (test code = 2801) BASIC METABOLIC [id number] 07:35:00 Test Item Value Reference Range Interpretation [...] 1092) DATA TO CALCULA TE ESTIMATED GFR. Assembler Engine ID - JONAH MRAD, CHEST, 1 VIEW, NON [id number] 15:22:00Reason for exam:->Post-op PACUShould this be performed at the bedside?->YesFINAL REPORT CLINICAL HISTORY: Post-op PACU TECHNIQUE: 1 view of the chest. COMPARISON: None IMPRESSION: There are no focal infiltrates or effusions. The cardiomediastinal silhouette is within normal limits for size. The visualized bones appear intact. There is tubing in the partially imaged right abdomen. Signed: John Braun MDReport Verified Date/Time: 03/13/2020 15:22:32Reading Location: [facility] Radiology Reading Room BASIC METABOLIC [id number] 13:52:00 Test Item Value Reference Range Interpretation [...] 1092) DATA TO CALCULA TE ESTIMATED GFR. Assembler Engine ID - CHRIS FCBC W/PLT COUNT & AUTO [id number] 13:51:00 Test Item Value Reference Range Interpretation [...] 2801) FL, FLUORO, NON-SPECIFIC, UP TO 1 [id number] 12:03:00Reason for exam:- >Cysto, ureteroscopyFluoroscopic unit utilized for a procedure performed in the OR. No interpretation was requested. Refer to the operative report for findings. Refer to PACS for patient radiation dose information.SARS-COV2/RT-PCR ([facility])2020-03-13 08:54:00 Test Item Value Reference Range Interpretation Comments SARS-COV2/RT-PCR (test Negative Not Detected, Negative, code = 1654368) See external report for linked test SARS-COV-2 PERFORMING LAB [facility] (test code = 0455190) Negative result for this test determines that [...] 564(g) of the Act.Fact Sheet for Healthcare Providers:https://www.[employer]/sites/default/files/product/documents/Fact_Shee g_RI_Gwarjrpbu_Sbsc_QBMF-CtB-4.pdfFact Sheet for Healthcare Patients:https://www.[employer].com/sites/default/files/product/ documents/Tylr_Itphj_Zaemgfro_Mtdr_PJBE-JtE-1.pdfPerforming Laboratory:[facility], [place] [address]PSLEZIWLGJ LEVEL, [id number] 05:42:00 Test Item Value Reference Range Interpretation Comments VANCOMYCIN TROUGH (BEAKER) (test 34.1 ug/mL 10.0-20.0 HH code = 522) Assembler Engine ID - MAT LBASIC METABOLIC [id number] 05:04:00 Test Item Value Reference Range Interpretation [...] 1092) DATA TO CALCULA TE ESTIMATED GFR. Assembler Engine ID - MAT [id number] 04:41:00 Test Item Value Reference Range Interpretation [...] is2.5-3.5 for patients wiht mechanical heart valves.PROTHROMBIN TIME/[id number] 04:40:00 Test Item Value Reference Range Interpretation [...] mechanical heart valves.CBC W/PLT COUNT & AUTO [id number] 04:34:00 Test Item Value Reference Range Interpretation [...] H PERCENT (BEAKER) (test code = 2801) SCREEN, [id number] 07:32:00 Test Item Value Reference Range Interpretation Comments TEST URINE (BEAKER) (test Negative code = 583) BASIC METABOLIC [id number] 04:58:00 Test Item Value Reference Range Interpretation [...] 1092) DATA TO CALCULA TE ESTIMATED GFR. Assembler Engine ID - JONAH [id number] 04:55:00 Test Item Value Reference Range Interpretation [...] is2.5-3.5 for patients wiht mechanical heart valves.PROTHROMBIN TIME/[id number] 04:54:00 Test Item Value Reference Range Interpretation [...] mechanical heart valves.CBC W/PLT COUNT & AUTO [id number] 04:40:00 Test Item Value Reference Range Interpretation [...] 0-1 H PERCENT (BEAKER) (test code = 2802) BLOOD [id number] 18:00:00 Test Item Value Reference Range Interpretation Comments CULTURE (BEAKER) (test No growth in 5 days code = 1095) BLOOD [id number] 18:00:00 Test Item Value Reference Range Interpretation Comments CULTURE (BEAKER) (test No growth in 5 days code = 1095) POCT-GLUCOSE [id number] 13:24:00 Test Item Value Reference Range Interpretation Comments POC-GLUCOSE METER 101 mg/dL 70-110 : TESTED A T [facility] (BEAKER) (test code = AARTI SANCHEZ MD, 1538) [address]: Assembler Engine/Techni smaeer ID = [id number] for TIANA BAUTISTA BASIC METABOLIC [id number] 08:47:00 Test Item Value Reference Range Interpretation [...] 1092) DATA TO CALCULA TE ESTIMATED GFR. Assembler Engine ID - JONAH MURINE [id number] 08:32:00 Test Item Value Reference Range Interpretation Comments CULTURE (BEAKER) A 10-19,000 c ol/mL Same (test code = 1095) organism has been isolated from cultures(s ) of the same body site withi n 3 days. Repeat identifi cation and susceptibility testing performed only after consultation wi th the clinical microb iology laboratory.Refe r to previous culture ofStaph ylococcus aureusof a seco nd type <10,000 col/mL Enterococcus speciesPOCT-GLUCOSE [id number] 06:34:00 Test Item Value Reference Range Interpretation Comments POC-GLUCOSE METER 91 mg/dL 70-110 : TESTED A T [facility] (BEAKER) (test code = AARTI Chase [facility], 153) [address]: Assembler Engine/Techni sameer ID = [id number] for VISH DEVLIN CBC W/PLT COUNT & AUTO [id number] 06:15:00 Test Item Value Reference Range Interpretation [...] PERCENT (BEAKER) (test code = 2801) POCT-GLUCOSE [id number] 01:32:00 Test Item Value Reference Range Interpretation Comments POC-GLUCOSE METER 100 mg/dL 70-110 : TESTED A T [facility] (HAMMAD) (test code = AARTI SANCHEZ MD, 1538) [address]: Assembler Engine/Techni sameer ID = [id number] for VISH REBOLLAR VANCOMYCIN LEVEL, [id number] 01:02:00 Test Item Value Reference Range Interpretation Comments VANCOMYCIN TROUGH (HAMMAD) (test 7.7 ug/mL 10.0-20.0 L code = 522) Assembler Engine ID - JONAH MSARS-COV2/RT-PCR ([facility])2020-03-10 17:34:00 Test Item Value Reference Range Interpretation Comments SARS-COV2/RT-PCR (test Negative Not Detected, Negative, code = 7580707) See external report for linked test SARS-COV-2 PERFORMING LAB [facility] (test code = 3121248) Negative result for this test determines that [...] 564(g) of the Act.Fact Sheet for Healthcare Providers:https://www.[employer]/sites/default/files/product/documents/Fact_Mirian menaj_OP_Iwjajceoz_Pvyc_ONXC-BgA-9.pdfFact Sheet for Healthcare Patients:https://www.[employer]/sites/default/files/product/ documents/Sgjv_Efjfw_Etizstff_Hjsj_ICSB-KfR-0.pdfPerforming Laboratory:[facility], [place] [id number] TIME/INR 2020-03-10 06:27:00 Test Item Value Reference Range Interpretation [...] INR is2.5-3.5 for patients wiht mechanical heart valves.[id number] 06:27:00 Test Item Value Reference Range Interpretation Comments PARTIAL THROMBOPLASTIN TIME 32.3 seconds 22.5-36.0 (BEAKER) (test code = 760) BASIC METABOLIC [id number] 06:09:00 Test Item Value Reference Range Interpretation [...] 1092) DATA TO CALCULA TE ESTIMATED GFR. Assembler Engine ID - PIAYA LCBC W/PLT COUNT & AUTO [id number] 04:48:00 Test Item Value Reference Range Interpretation [...] H PERCENT (BEAKER) (test code = 2801) IRON, TIBC, % SAT. (WITHOUT FERRITIN)2020-03-09 13:14:00 Test Item Value Reference Range Interpretation Comments IRON (BEAKER) (test code = 547) 28.0 ug/dL 40.0-160.0 L TOTAL IRON BINDING CAPACITY 209 ug/dL 250-450 L (BEAKER) (test code = 769) IRON % SATURATION (2) (BEAKER) 13 % 20-55 L (test code = 2590) Assembler Engine ID - ADMINBASIC METABOLIC [id number] 07:51:00 Test Item Value Reference Range Interpretation [...] 1092) DATA TO CALCULA TE ESTIMATED GFR. Assembler Engine ID - [id number] 05:06:00 Test Item Value Reference Range Interpretation Comments FERRITIN (BEAKER) (test code = 142.14 ng/mL 5.00-275.00 361) Assembler Engine ID - MAT LCBC W/PLT COUNT & AUTO [id number] 04:33:00 Test Item Value Reference Range Interpretation [...] (BEAKER) (test code = 2801) BASIC METABOLIC [id number] 11:05:00 Test Item Value Reference Range Interpretation [...] ESTIMATED GFR. CBC W/PLT COUNT & AUTO [id number] 05:12:00 Test Item Value Reference Range Interpretation [...] (test code = 2801) KIDNEY IMAGING, SINGLE, FLOW/[id number] 16:24:00Unlisted Reason for Exam - Click Yes and Enter Reason Below->YesUnlisted Reason for Exam->check function of right kidney for possible nephrectomyFINAL REPORT PROCEDURE: Functional RENAL SCAN, flow and function CPT CODE: 98777 INDICATION: Nephrolithiasis, hydronephrosis, right nephrostomy PROTOCOL: 10.8 [...] MDReport Verified Date/Time: 03/07/2020 16:24:47 Reading Location: [address] [address] Reading Room El ectronically signed by: CHRISTINA SAWANT MD on 03/07/2020 04:24 PM SARS-COV2/RT-PCR ([facility])2020-03-07 12:30:00 Test Item Value Reference Range Interpretation Comments SARS-COV2/RT-PCR (test Negative Not Detected, Negative, code = 9210095) See external report for linked test SARS-COV-2 PERFORMING LAB [facility] (test code = 2357937) Negative result for this test determines that [...] 564(g) of the Act.Fact Sheet for Healthcare Providers:https://www.[employer]/sites/default/files/product/documents/Fact_Shee a_VW_Lzasgvvuf_Ufyd_YYBI-FvN-1.pdfFact Sheet for Healthcare Patients:https://www.[employer]/sites/default/files/product/ documents/Frmk_Rcmuo_Hurdfbxa_Mnkg_CKJJ-BcX-3.pdfPerforming Laboratory:[facility], [place] [address]CEF W/PLT COUNT & AUTO [id number] 12:01:00 Test Item Value Reference Range Interpretation [...] CONCENTRATION Adequate (CELLAVISION)(BEAKER) (test code = 3438) Assembler Engine ID - RominaFelipe Tesfaye comments: Slide comments:URINALYSIS W/ REFLEX URINE [id number] 11:12:00 Test Item Value Reference Range Interpretation [...] = 516) SOURCE(BEAKER) (test code = 2795) Assembler Engine ID - [auto]Assembler Engine ID - techVITAMIN D, [id number] 07:14:00 Test Item Value Reference Range Interpretation Comments VITAMIN D 25-OH (BEAKER) (test 15.8 ng/mL 6.6-49.9 code = 2764) Effective 04/05/2017: Reference Range ChangeNew: 6.6-49.9 ng/mL Previous: 13.0-47.8 ng/mLRecommended Vitamin D Target Range: 30.0-40.0 ng/mLOperator ID - JONAH MBASIC METABOLIC [id number] 07:09:00 Test Item Value Reference Range Interpretation [...] 1092) DATA TO CALCULA TE ESTIMATED GFR. Assembler Engine ID - JONAH MPOCT-GLUCOSE [id number] 23:40:00 Test Item Value Reference Range Interpretation Comments POC-GLUCOSE METER 77 mg/dL 70-110 : [facility]ED A T [facility] (test code = AARTI Chase [facility], 1538) [address]: Assembler Engine/Techni sameer ID = [id number] for Hend khadramariaelenaAnna (contra ct) ANG, NEPHROSTOMY, PERC, EXTERNAL [id number] 22:01:00Reason for exam:- >PCN placement due to hydronephrosisFINAL REPORT Exam: Right nephrostomy tube insertion Clinical History: RightUPJ stone with severe hydronephrosis and fever Consent: Benefits and risks were explained to the [facility] ient who gave consent to the [...] ureteral stent. Under fluoroscopic guidance, an 8.5 [place] nephrostomy tube was advanced into the renal pelvis the catheter was secured using 2-0 Prolene and left to gravity drainage. Hemostasis was achieved. The patient tolerated the procedure well withoutany adverse reactions. He left the department in stable condition. Complication: None immediate Impression: 1. Right nephrostomy tube insertion as described. Signed: Kodi Blanton MDReport Verified Date/Time: 03/06/2020 22:01:35 Reading Location: [place] [address] Angio Body Reading Room [facility] signed by: KODI BLANTON M.D. on 03/06/2020 10:01 PM(CELLAVISION MANUAL DIFF)2020-03-06 18:39:00 Test Item Value Reference Range Interpretation [...] 313) HYPERSEGMENTATION Present (CELLAVISION)(BEAKER) (test code = 2045) PLASMACYTOID LYMPHS(BEAKER) (test Present code = 3587) ARTIFACT (CELLAVISION)(BEAKER) Present (test code = 7872) PLATELET CONCENTRATION Adequate (CELLAVISION)(BEAKER) (test code = 3438) Assembler Engine ID - StephanieUser comments: Slide comments:BASIC METABOLIC PANEL 2020-03-06 18:31:00 [...] 1092) DATA TO CALCULA TE ESTIMATED GFR. Assembler Engine ID - DBCBC W/PLT COUNT & AUTO [id number] 18:14:00 Test Item Value Reference Range Interpretation [...] 0-0 (BEAKER) (test code = 413) PROTHROMBIN TIME/[id number] 18:08:00 Test Item Value Reference Range Interpretation [...]
[2022-01-16 13:23] LABS: Urine Blood 2+ (Negative); Urine Glucose Negative (Negative); Urine Protein 3+ (Negative); Urine Specific Gravity 1.025 (1.005-1.030); Urine pH 6.5 (5.0-7.0)
[2022-01-16] MEDS ORDERED: ONDANSETRON 4 MG/2 ML VIAL ONE (13:30)
[2022-01-16] MEDS ORDERED: MORPHINE 4 MG/ML SYR ONE (13:30)
[2022-01-16] MEDS ORDERED: NA CHLORIDE 0.9% 1,000 ML ONE (13:31)
[2022-01-16 13:44] LABS: Absolute Lymphocytes (CBC) 2.3 K/uL (0.7-4.9); Hematocrit 39.2 % (36.0-45.0); MCV 91.9 fL (80-100); MPV 9.5 fL (7.6-11.3); RBC Red Blood Cell Count 4.27 M/uL (3.86-4.86)
[2022-01-16] MEDS ORDERED: MAGNESIUM SULFATE 1 gm IVPB 1 GM/100 ML BAG IV ONE (13:48)
[2022-01-16] MEDS ORDERED: FENTANYL CITR 100 MCG/2 ML ONE ×2 (13:48→15:21)
[2022-01-16] MEDS ORDERED: CEFTRIAXONE 2000 MG/VIAL ONE (13:48)
[2022-01-16] MEDS ORDERED: NA CHLORIDE 0.9% 50 ML ONE (13:49)
[2022-01-16 14:02] LABS: Albumin 3.7 g/dL (3.4-5.0); Bilirubin Total 0.7 mg/dL (0.2-1.0); Protein, Total 8.1 g/dL (6.4-8.2)
[2022-01-16 14:29] LABS: Urine Specific Gravity/Preg 1.025 (1.005-1.030)
--- NOTE | 2022-01-16 14:35 | RAD REPORT ---
EXAM DESCRIPTION: CTStone Protocol - 01/16/2022 2:14 pm CLINICAL HISTORY: flank pain COMPARISON: Stone Protocol dated 07/05/2020; Stone Protocol dated 03/06/2020 TECHNIQUE: CT of the abdomen and pelvis was performed. All CT scans are performed using dose optimization technique as appropriate and may include automated exposure control or mA/KV adjustment according to patient size. FINDINGS: Lower chest: No acute abnormality. Liver: No acute abnormality or suspicious lesions. Biliary: No biliary ductal dilatation. Stomach: No significant focal abnormality. Duodenum: No significant focal abnormality. Pancreas: No significant abnormality. Spleen: No significant abnormality. Adrenal: No suspicious lesions. Kidney/ureter: Persistent severe right-sided hydronephrosis with renal cortical thinning. Interval de velopment of stones in the right kidney including a large stone measuring 2.2 cm. There is a smaller stone at the right UPJ. Punctate stone in left kidney. Retroperitoneum: No retroperitoneal adenopathy. Vascular: No aneurysm. Bowel: No significant focal abnormality. Normal appendix. Peritoneum: No ascites or free air. Bladder: Grossly unremarkable. Reproductive: No adnexal masses. Bones: No acute fracture. Other: n/a IMPRESSION: Severe chronic right-sided hydroureteronephrosis. New renal calculi in the obstructed ki dney that could reflect chronic infection. This is presumably related to a UPJ obstruction unrelated to renal calculi.
--- NOTE | 2022-01-16 15:15 | EDPHYS ---
Physician Documentation [facility] Name: Rakesh Vigil Age: 26 yrs Sex: Female : 1995 Arrival Date: 01/16/2022 Time: 12:59 Bed 13 Private MD: ED Physician Aruna Casillas HPI: 01/16 13:22 This 26 yrs old Female presents to ER via Ambulatory with complaints of jmm Possible Kidney Stone, Flank Pain. 13:22 The patient complains of pain in the right flank. Onset: The symptoms/episode jmm began/occurred acutely, just prior to arrival. Modifying factors: The symptoms are alleviated by nothing. the symptoms are aggravated by nothing. Associated signs and symptoms: Pertinent positives: vomiting. The patient has experienced similar episodes in the past. This is a 26 year old female with a history of kidney stones that presents to the ED with complaints of right flank pain beginning just prior to arrival. Pain is consistent with previous episodes of kidney stones. . 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 - Social history:: Smoking status: Patient denies any tobacco usage or history of. ROS: 13:22 Constitutional: Negative for fever, chills, and weight loss, Cardiovascular: Negative jmm for chest pain, palpitations, and edema, Respiratory: Negative for shortness of breath, cough, wheezing, and pleuritic chest pain. 13:22 Abdomen/GI: Positive for vomiting. 13:22 Back: Positive for flank pain, on the right. 13:22 All other systems are negative. Exam: 13:22 Head/Face: atraumatic. Eyes: EOMI, no conjunctival erythema appreciated ENT: Moist jmm Mucus Membranes Neck: Trachea midline, Supple Chest/axilla: Normal chest wall appearance and motion. Cardiovascular: Regular rate and rhythm. No edema appreciated Respiratory: Normal respirations, no respiratory distress appreciated 13:22 Skin: General appearance color normal MS/ Extremity: Moves all extremities, no obvious deformities appreciated, no edema noted to the lower extremities Neuro: Awake and alert Psych: Behavior is normal, Mood is normal, Patient is cooperative and pleasant 13:22 Constitutional: The patient appears alert, awake, uncomfortable. 13:22 Abdomen/GI: Inspection: abdomen appears normal, Bowel sounds: normal, Palpation: soft, moderate abdominal tenderness, in the posterior aspect of right lateral abdomen and anterior aspect of right lateral abdomen. 13:22 Back: CVA tenderness, that is moderate, is noted on the right. Vital Signs: 13:05 BP 107 / 94; Pulse 89; Resp 17; Temp 99.1; Pulse Ox 100% ; Weight 68.95 kg; Height 5 ap3 ft. 2 in. (157.48 cm); Pain 10/10; 13:45 BP 122 / 77; Pulse 71; Resp 18; Pulse Ox 100% on R/A; ld1 14:32 BP 122 / 77; Pulse 76; Resp 16; Pulse Ox 99% on R/A; eh3 15:20 Pain 10/10; eh3 15:20 BP 127 / 80; Pulse 65; Resp 20; Pulse Ox 98% on R/A; eh3 16:15 BP 122 / 83; Pulse 71; Resp 18; Pulse Ox 98% on R/A; ld1 13:05 Body Mass Index 27.80 (68.95 kg, 157.48 cm) ap3 MDM: 13:22 Patient medically screened. [facility] 15:13 Data reviewed: vital signs, nurses notes. Counseling: I had a detailed discussion with flor the patient and/or guardian regarding: the historical points, exam findings, and any diagnostic results supporting the discharge/admit diagnosis, lab results, radiology results, the need to transfer to another facility. ED course: I discussed the patient with Dr. Braun whom accepted the patient to her service. . 01/16 13:22 Order name: Urine --Ancillary (enter results); Complete Time: 14:31 01/16 13:23 Order name: CBC with Diff; Complete Time: 14:31 [facility] 01/16 13:23 Order name: CMP; Complete Time: 14:31 [facility] 01/16 13:23 Order name: Lipase; Complete Time: 14:31 [facility] 01/16 13:23 Order name: Urine Dipstick-Ancillary; Complete Time: 13:27 [facility] 01/16 14:57 Order name: SARS RAPID; Complete Time: 15:58 01/16 13:38 Order name: CT Stone Protocol; Complete Time: 14:52 [facility] 01/16 13:23 Order name: IV Saline Lock; Complete Time: 13:35 [facility] 01/16 13:23 Order name: Labs collected and sent; Complete Time: 13:35 [facility] Administered Medications: 13:25 Drug: Zofran (Ondansetron) 4 mg Route: IVP; Site: right antecubital; ld1 15:22 Follow up: Response: No adverse reaction eh3 13:28 Drug: morphine 4 mg Route: IVP; Infused Over: 4 mins; Site: right antecubital; ld1 15:22 Follow up: Response: No adverse reaction eh3 13:35 Drug: NS 0.9% 1000 ml Route: IV; Rate: 1 bolus; Site: right antecubital; ld1 15:21 Follow up: Response: No adverse reaction; IV Intake: 1000ml eh3 14:05 Drug: fentaNYL (PF) 50 mcg Route: IVP; Site: right antecubital; eh3 15:22 Follow up: Response: No adverse reaction eh3 14:28 Drug: Rocephin (cefTRIAXone) 2 grams Route: IV; Rate: calculated rate; Site: right ld1 antecubital; 15:22 Follow up: Response: No adverse reaction; IV Intake: 50ml eh3 14:56 Drug: Magnesium Sulfate 1 grams Route: IVPB; Infused Over: 1 hrs; Site: right ld1 antecubital; 15:20 Drug: fentaNYL (PF) 50 mcg Route: IVP; Site: right antecubital; eh3 16:15 Drug: fentaNYL (PF) 50 mcg Route: IVP; Site: right antecubital; ld1 Disposition: 18:32 STAFF ATTESTATION The patient's history, exam findings, diagnostics, and a summary of sd2 any interventions or procedures was reviewed in detail with the ED midlevel provider. I confirm the diagnosis as documented by the midlevel provider and I agree with the care plan articulated in the disposition section with regards to our discussion of the patient's case. Aruna Casillas MD. Disposition Summary: 01/16/22 15:15 Transfer Ordered Transfer Location: Other Acute Care Facility [facility] Reason: Higher level of care jmm Condition: Stable jmm Problem: new jmm Symptoms: are unchanged jmm Accepting Physician: Dr. Braun(01/16/22 16:16) ld1 Diagnosis - Calculus of ureter jmm - UTI/ Urinary tract infection, site not specified [facility] Forms: - Medication Reconciliation Form jmm - SBAR form jm Signatures: Dispatcher [employer] EDMS Erasto Carrera PA PA jmm Prokisch, Amanda, RN RN ap3 Maryan Garner RN RN ld1 Roxanne Carlson [facility] Aruna Casillas MD MD sd2 Corrections: (The following items were deleted from the chart) 16:16 15:15 Dr. Braun [facility] ld1
--- NOTE | 2022-01-16 15:15 | ER ---
Nurse's Notes [facility] Name: Rakesh Vigil Age: 26 yrs Sex: Female : 1995 Arrival Date: 01/16/2022 Time: 12:59 Bed 13 Private MD: Diagnosis: Calculus of ureter;UTI/ Urinary tract infection, site not specified Presentation: 01/16 13:05 Chief complaint: Patient states: she has a history of kidney stones, and had a stent ap3 placed for stones with her previous . It is reported after she delivered her child, the stent was removed. Patient presents to the ED to day with right sided flank pain on a scale of 10/10. Coronavirus screen: At this time, the client does not indicate any symptoms associated with coronavirus-19. Ebola Screen: No symptoms or risks identified at this time. Initial Sepsis Screen: Does the patient meet any 2 criteria? HR > 90 bpm. Does the patient have a suspected source of infection? No. Patient's initial sepsis screen is negative. Risk Assessment: Do you want to hurt yourself or someone else? Patient reports no desire to harm self or others. Onset of symptoms was January 16, 2022. 13:05 Method Of Arrival: Ambulatory ap3 13:05 Acuity: CLARISSE 3 ap3 14:40 Initial Sepsis Screen: Does the patient meet any 2 criteria?. ld1 Triage Assessment: 13:08 General: Appears uncomfortable, Behavior is restless. Pain: Complains of pain in right ap3 flank Pain currently is 10 out of 10 on a pain scale. Neuro: Level of Consciousness is awake, alert, obeys commands, Oriented to person, place, time. Cardiovascular: Patient's skin is warm and dry. Respiratory: Airway is patent Respiratory effort is even, unlabored. GI: Reports nausea. : Reports pain in right flank(s). 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 - Social history:: Smoking status: Patient denies any tobacco usage or history of. Screenin:09 Abuse screen: Denies threats or abuse. Nutritional screening: No deficits noted. ap3 Tuberculosis screening: No symptoms or risk factors identified. 13:45 Fall Risk None identified. ld1 Assessment: 13:45 Reassessment: See triage assessment. General: Appears in no apparent distress. ld1 uncomfortable, Behavior is cooperative, appropriate for age, anxious, crying. 13:45 Pain: Complains of pain in right low back Pain radiates to right lower quadrant Pain ld1 currently is 10 out of 10 on a pain scale. Pain: Quality of pain is described as sharp, shooting, stabbing. Neuro: Level of Consciousness is awake, alert, obeys commands, Oriented to person, place, time, situation. Neuro: Oriented to. Cardiovascular: Capillary refill < 3 seconds Patient's skin is warm and dry. Respiratory: Airway is patent Respiratory effort is even, unlabored. GI: Abdomen is flat, non-distended. GI: Bowel sounds present X 4 quads. Abd is soft Abdomen is tender to palpation in right upper quadrant and right lower quadrant. : No signs and/or symptoms were reported regarding the genitourinary system. EENT: No signs and/or symptoms were reported regarding the EENT system. Derm: No signs and/or symptoms reported regarding the dermatologic system. Musculoskeletal: No signs and/or symptoms reported regarding the musculoskeletal system. Vital Signs: 13:05 BP 107 / 94; Pulse 89; Resp 17; Temp 99.1; Pulse Ox 100% ; Weight 68.95 kg; Height 5 ap3 ft. 2 in. (157.48 cm); Pain 10/10; 13:45 BP 122 / 77; Pulse 71; Resp 18; Pulse Ox 100% on R/A; ld1 14:32 BP 122 / 77; Pulse 76; Resp 16; Pulse Ox 99% on R/A; eh3 15:20 Pain 10/10; eh3 15:20 BP 127 / 80; Pulse 65; Resp 20; Pulse Ox 98% on R/A; eh3 16:15 BP 122 / 83; Pulse 71; Resp 18; Pulse Ox 98% on R/A; ld1 13:05 Body Mass Index 27.80 (68.95 kg, 157.48 cm) ap3 ED Course: 12:59 Patient arrived in ED. as 13:02 [facility] 13:02 Aruna Casillas is Attending Physician. m 13:07 Triage completed. ap3 13:09 Arm band placed on right wrist. ap3 13:12 Maryan Garner, JYOTHI is Primary Nurse. ld1 13:45 Patient has correct armband on for positive identification. Placed in gown. Bed in low ld1 position. Call light in reach. Side rails up X2. bus monitor on. Pulse ox on. NIBP on. 13:45 No provider procedures requiring assistance completed. ld1 14:15 CT Stone Protocol In Process Unspecified. EDMS 14:58 initiated a transfer with German Perez Rn from the [facility] Transfer [place]. eb 15:[address] Braun the hospitalist on [facility] with Erasto Dudley for patient transfer consultation. 15:20 SARS RAPID Sent. eh3 15:23 administrative approval given by German Perez Rn/patient has been accepted to [facility] bed [id number]/ Dr. Rita Braun has accepted the patient in transfer/ report to be called to the transfer center at [phone]. 16:16 Patient transferred, IV remains in place. ld1 Administered Medications: 13:25 Drug: Zofran (Ondansetron) 4 mg Route: IVP; Site: right antecubital; ld1 15:22 Follow up: Response: No adverse reaction eh3 13:28 Drug: morphine 4 mg Route: IVP; Infused Over: 4 mins; Site: right antecubital; ld1 15:22 Follow up: Response: No adverse reaction eh3 13:35 Drug: NS 0.9% 1000 ml Route: IV; Rate: 1 bolus; Site: right antecubital; ld1 15:21 Follow up: Response: No adverse reaction; IV Intake: 1000ml eh3 14:05 Drug: fentaNYL (PF) 50 mcg Route: IVP; Site: right antecubital; eh3 15:22 Follow up: Response: No adverse reaction eh3 14:28 Drug: Rocephin (cefTRIAXone) 2 grams Route: IV; Rate: calculated rate; Site: right ld1 antecubital; 15:22 Follow up: Response: No adverse reaction; IV Intake: 50ml eh3 14:56 Drug: Magnesium Sulfate 1 grams Route: IVPB; Infused Over: 1 hrs; Site: right ld1 antecubital; 15:20 Drug: fentaNYL (PF) 50 mcg Route: IVP; Site: right antecubital; eh3 16:15 Drug: fentaNYL (PF) 50 mcg Route: IVP; Site: right antecubital; ld1 Medication: 13:45 VIS not applicable for this client. ld1 Intake: 15:21 IV: 1000ml; Total: 1000ml. eh3 15:22 IV: 50ml; Total: 1050ml. eh3 Outcome: 15:15 ER care complete, transfer ordered by . [facility] 16:15 Transferred by ground EMS to [facility]. 1 16:15 Condition: stable 16:15 Instructed on the need for transfer. 16:16 Patient left the ED. ld1 Signatures: Dispatcher [employer] EDMS Erasto Carrera PA PA jmm Martinez, Amelia as Prokisch, Amanda RN RN 3 Jaymie Trevizo Lauren, RN RN ld1 Roxanne Carlson 3
[2022-01-16 15:35] LABS: SARS-CoV-2 Antigen Rapid Res Negative (Negative)
[2022-01-16 16:21] VITALS: TEMP 99.1
[2022-01-16 16:26] VITALS: O2SAT 98
[2022-01-16 16:40] VITALS: BP 122/83
== END 2022-01-16 16:16 ==
LOC: ER 12:57
DX: N20.1 Calculus of ureter (principal); N39.0 Urinary tract infection, site not specified; Z87.442 Personal history of urinary calculi
CPT/HCPCS: 36415; 74176; 76377; 80053; 81003; 81025; 83690; 85025; 87811; 96374; 96375; 99285; J0696; J2405; J3010; J3475; J7030

== ENCOUNTER 2022-03-22 18:23 | Emergency (ER) | payer SELFPAY ==
--- OUTSIDE RECORDS SUMMARY | 2022-03-22 18:29 | XMS REPORT | Continuity of Care Document ---
:1995 Author Organization [facility] t Address [address] [place] [address] [address] [place] [address] Care Team Providers Name Role Phone No, Pcp [facility] Primary Care Physician Unavailable LULU ANTWAN DESIRE Attending Clinician Unavailable Armando_Lynn Attending Clinician Unavailable Leyla Braun MD Attending Clinician Anoop Garrett MD Attending Clinician [phone] Weston Dixon MD Attending Clinician LEYLA BRAUN Attending Clinician Unavailable ANOOP GARRETT Attending Clinician Unavailable Syd Roberts MD Attending Clinician Justice Diaz MD Attending Clinician Lg Mooney CRNA Attending Clinician [phone] Lg Garcia MD Attending Clinician Glenn Clancy MD Attending Clinician LULU ANTWAN DESIRE Admitting Clinician Unavailable Lydia Admitting Clinician Unavailable WESTON DIXON Admitting Clinician Unavailable MC WHITLOCK Admitting Clinician Unavailable Payers Payer Name Policy Type Policy Number Effective Date Expiration Date S ource Problems Condition Condition Condition Status Onset Resolution Last Treating Co mments Source Name Details Category Date Date Treatment Clinician Date Hydronephr Hydronephr Disease [facility] Hydronephr Hydronephr Disease Active C [facility] with osis with [facility] urinary urinary 00:00: Medical obstructio obstructio 00 Ce nter n due to n due to ureteral ureteral calculus calculus Nephrolith Nephrolith Disease Active C [facility]asis [facility]asis [facility] No known No known Disease [facility] r active active College problems problems of Medicin e Allergies, Adverse Reactions, Alerts Allergy Allergy Status Severity Reaction(s) Onset Inactive Treating Comm ents Source Name Type Date Date Clinician NO KNOWN Allergy Active [facility] Social History Social Habit Start Date Stop Date Quantity Comments Source History SDOH [facility] Std Drinks Medica l Center History SDOH [facility] Alcohol Binge Medical Elina ter History SDOH [facility] Alcohol Comment Medical C enter History SDOH [facility] Transport Non-Med Medical Center History SDOH [facility] Housing Places Medical Ce nter Lived Alcohol intake 2022-01-19 2022-01-[address] [facility]:00 non-drinker Medical Cente r (finding) History [facility] 2022-01-17 2022-01-[address] [facility] Alcohol Frequency 00:00:00 00:00:00 Medical Center History [facility] 2022-01-17 2022-01-[address] [facility] Transport Med 00:00:00 00:00:[address] History [facility] 2022-01-17 2022-01-[address] [facility] Housing Unable to 00:00:00 00:00:00 Medical Center Pay History [facility] 2022-01-17 2022-01-[address] [facility] Housing Homeless 00:00:00 00:00:00 Medical Center Last Year Tobacco use and 2020-03-08 2020-03-[address] [facility] exposure 00[facility]00:00 00:00:00 Medical Center Sex Assigned At [address] [facility] 00:[facility] 00[facility]00 Medical Center Smoking Status Start Date Stop Date Source Never smoker [facility] Center Medications Ordered Filled Start Stop Current Ordering Indication Dosage Frequency Signature Comments Components Source Medication Medication Date Date Medication? Clinician (SIG) Name Name tamsulosin Yes .4mg QD Take 1 [facility] (FLOMAX) 7-27 [facility] 0.4 mg Cap 00:00: (0.4 mg Medi todd 24 hr 00 total) by Center capsule mouth daily. Ferrous Yes 65mg Take 65 mg [facility] or Sulfate 9-19 by mouth College (IRON) 325 00:00: daily. of (65 Fe) MG 00 Medicin TABS e amoxicillin No 875mg Take 875 [facility] (AMOXIL) 03-14 10-04 mg by [place] 875 MG 00:00: 04:59 mouth. of tablet 00 :00 Medicin e doxycycline No 100mg Take 100 [facility] (MONODOX) 9 10-04 mg by [place] 100 MG 00:00: 04:59 mouth. of capsule 00 :00 Medicin e Vital Signs Vital Name Observation Time Observation Value Comments Source HEIGHT 2020-03-06 00:00:00 157.5 cm WEIGHT 2020-03-06 00:00:00 61.236 kg WEIGHT 2022-01-16 20:26:00 61.2 kg WEIGHT 2022-01-16 20:26:00 61.2 kg WEIGHT 2022-01-16 20:26:00 61.2 kg Systolic blood 2020-03-26 15:19:00 109 mm[Hg] [facility] pressure Medicine Diastolic blood 2020-03-26 15:19:00 72 mm[Hg] [facility] pressure Medicine Heart rate 2020-03-26 15:19:00 74 /min [facility] Body temperature 2020-03-26 15:19:00 35.56 Maryanne [facility] Body height 2020-03-26 15:19:00 157.5 cm [facility] Body weight 2020-03-26 15:19:00 59.875 kg [facility] BMI 2020-03-26 15:19:00 24.14 kg/m2 [facility] Systolic blood 2020-03-26 15:19:00 109 mm[Hg] [facility] pressure Medicine Diastolic blood 2020-03-26 15:19:00 72 mm[Hg] [facility] Heart rate 2020-03-26 15:19:00 74 /min [facility] Body temperature 2020-03-26 15:19:00 35.56 Maryanne [facility] Body height 2020-03-26 15:19:00 157.5 cm [facility] Body weight 2020-03-26 15:19:00 59.875 kg [facility] BMI 2020-03-26 15:19:00 24.14 kg/m2 [facility] HEIGHT 2020-03-06 00:00:00 157.5 cm WEIGHT 2020-03-06 00:00:00 61.236 kg Systolic blood 2022-01-19 12:40:00 114 mm[Hg] [facility] Diastolic blood 2022-01-19 12:40:00 64 mm[Hg] [facility] Heart rate 2022-01-19 12:40:00 74 /min [facility] Body temperature 2022-01-19 12:40:00 36.28 Maryanne [facility] Respiratory rate 2022-01-19 12:40:00 20 /min [facility] Oxygen saturation in 2022-01-19 12:40:00 97 /min [facility] Arterial blood by Medical Ce nter Pulse oximetry Body weight 2022-01-16 20:26:00 61.2 kg [facility] BMI 2022-01-16 20:26:00 24.68 kg/m2 [facility] Procedures Procedure Date / Time Performed Performing Clinician Sourc e FL FLUORO NON-SPECIFIC 2022-01-19 08:15:00 [facility] TISSUE EXAM 2022-01-19 08:03:00 Syd Roberts [facility] CYSTOSCOPY, WITH 2022-01-19 07:26:00 Syd Roberts [facility] URETERAL STENT INSERTION [facility] CBC W/PLT COUNT & AUTO 2022-01-19 05:14:00 Leyla Braun [facility] BASIC METABOLIC PANEL 2022-01-19 05:14:00 Braun, [facility] ([address] [place] [address] CBC W/PLT COUNT & AUTO 2022-01-19 05:14:00 [facility] SARS-COV2/RT-PCR ([facility] & 2022-01-18 14:47:00 Jose [facility] REF LABS) [facility] SCREEN, URINE 2022-01-18 14:47:00 Jose [facility] CBC W/PLT COUNT & AUTO 2022-01-18 04:47:00 [facility] BASIC METABOLIC PANEL 2022-01-18 04:47:00 [place] [id number]) [facility] CBC W/PLT COUNT & AUTO 2022-01-18 04:47:[address] [facility] CT ABDOMEN/PELVIS 2022-01-17 09:28:00 Syd Roberts [facility] WITHOUT IV CONTRAST [facility] er URINALYSIS W/ 2022-01-17 06:47:00 Don [facility] BASIC METABOLIC PANEL 2022-01-17 04:15:00 Don [place] [id number]) [facility] MAGNESIUM 2022-01-17 04:15:00 Don [facility] CBC W/PLT COUNT & AUTO 2022-01-17 04:15:00 Don [facility] CBC W/PLT COUNT & AUTO 2022-01-17 04:15:00 Don [facility] LACTIC ACID, ARTERIAL 2022-01-16 23:33:00 Don [facility] BLOOD CULTURE 2022-01-16 23:32:00 Don [facility] BLOOD CULTURE 2022-01-16 23:27:00 Don [facility] URINE CULTURE 2022-01-16 23:16:00 [facility] POCT URINALYSIS DIPSTICK 2020-03-26 00:00:00 Clancy, Glenn Ej [facility] Plan of Care Planned Activity Planned Date Details Comments Source Future Scheduled 2022-02-[address] [facility] Test 00:00:00 (#1) [code = Medical Center INFLUENZA VACCINE (#1)] Future Scheduled 2021-06-[address] [facility] Test 00:00:00 SCREENING (12+) Medical Cent er [code = DEPRESSION SCREENING (12+)] Diagnostic Test 2020-06-26 US RENAL BILATERAL Expected: [facility] Pending 00:00:00 [code = 18865] 06/26/2020 of Medicine (Approximate), Expires: 03/26/2021 Future Scheduled [address] [facility] Test 00:00:00 malignant neoplasm Medical C enter of cervix (procedure) [code = 836278494] Future Scheduled 2013 DTAP/TDAP/TD [facility] Test 00:00:00 VACCINES (1 - Medical Center Tdap) [code = DTAP/TDAP/TD VACCINES (1 - Tdap)] Future Scheduled [address] [facility] Test 00:00:00 SCREENING [code = Medical nter HEPATITIS C SCREENING] Future Scheduled 1994 COVID-[address] [facility] Test 00:00:00 (#1) [code = [facility] Center COVID-19 VACCINE (#1)] Future Scheduled TETANUS SHOT [facility] Qasim ege Test (ADULT) [code = of Medicine TETANUS SHOT (ADULT)] Future Scheduled HEPATITIS C [facility] Qasim ege Test SCREENING [code = of Medicin e HEPATITIS C SCREENING] Future Scheduled HIV SCREENING [facility] Col lege Test [code = HIV of Medicine SCREENING] Future Scheduled CERVICAL CANCER [facility] C ollege Test SCREENING 3 YEAR of Medicine FOLLOW UP [code = CERVICAL CANCER SCREENING 3 YEAR FOLLOW UP] Future Scheduled FLU VACCINE > 6 [facility] C ollege Test MONTHS [code = FLU of Medici ne VACCINE > 6 MONTHS] Future Scheduled ZOSTER VACCINE (1 [facility] Test of 2) [code = of Medicine ZOSTER VACCINE (1 of 2)] Encounters Start End Encounter Admission Attending Care Care Encounter Source Date/Time Date/Time Type Type Clinicians Facility Department ID 2020-03-06 Inpatient SAMUEL LAWSON [facility] Urology [id number] [facility] 15:14:00 ANTWAN 2022-03-09 2022-03-09 Outpatient Armstrong_B [facility] [id number] [place] 00:00:00 00:00:00 [id number] [facility] 2022-02-27 2022-02-27 Outpatient Armstrong_B [facility] [id number] [place] 00:00:00 00:00:00 [id number] [facility] 2022-01-26 2022-01-26 Outpatient Armstrong_B [facility] [id number] [facility] 00:00:00 00:00:00 [id number] [facility] 2022-01-16 2022-01-19 [facility] Leyla Braun [facility] [id number] [facility] 18:08:00 12:30:[address] [facility] 2022-01-16 2022-01-19 [id number] 18:08:00 12:30:00 [facility] 2022-01-19 2022-01-19 Surgery Roberts, [facility] [id number] 07:30:00 09:00:00 [facility] 2022-01-19 2022-01-19 Anesthesia Joe Justice [facility] [id number] 07:26:00 08:20:00 Event [facility] 2022-01-18 2022-01-18 Anesthesia Lg Garcia [facility] [id number] 16:02:53 16:02:53 Event [facility] 2022-01-17 2022-01-17 Travel [facility] [id number] [facility] 00:00:00 00:00:00 [facility] 2020-03-26 2020-03-26 Office RICKY Clancy [id number] 09:54:56 12:25:39 Visit Glenn Pagan AMBULATOR [id number] Y [id number] 2020-03-26 2020-03-26 Office RICKY Clancy [id number] [facility] 09:54:56 12:25:39 Visit Glenn Pagan AMBULATOR [id number] College Y [id number] of [id number] Medi radha 300 e Results Test Description Test Time Test Comments Results Result Comments Source Tissue Exam 2022-01-26 09:13:39 Test Item Value Reference Range Interpretation Comme nts Case Report (test code = 104) Surgical Pathology Report Case: [id number] Authorizing Provider: Syd Roberts, Collected: 01/19/2022 08:03 AM Ordering Location: [address] Med/Surg Received: 01/19/2022 08:50 AM Pathologist: Luis Blair MD Specimens: A) - Soft Tissue, Other, right posterior bladder biopsy B) - Soft Tissue, Other, right lateral bladder biopsy DIAGNOSIS (test code = 3220) q3cujYTxVVRgv0wgNUMupJXhQpPjRvWkKcHiYk p cdWMxIHtccnRmMVxlcGljOTYwMlxhbnNpXHNwbH TbW2TbmhiaXAxdJB7bXG1jlTywxHEydIDbCSPgH gZbz3xlz049dTMha4gkLXZUlowtbNn7kXkyI49v l3H3RgqyP38qwOExCKJ2VBUoZHKfkRWuJSKfNMV 7PVKooXEmT9kuKCBxNX0rdqqeUBxsPKonHWJbpC Q0YDXmiFNjT5OxWWWpOQjmDPVhzgr5SgRpFd4yw XBhjPanNIgqHWNpVQFvRTabCDFpLhUbIN7dWZUM IcSQUPRARHGHHVZNDZPOIXfXKIARI0ICOTOHR1A gSQLPZ7WGXEwzSIKppQZaIS0XIUPIUn0FXA0HDv GAINVAI83QLGComaa0HRTxLO4DZ3XGOXOAPIEwZ BIMLQBHQZEZY1GfPNCAYmVIIkbMATuiSHAejBVs QLGhQPBANL6ODawyPmhQTTDNYbzsEolJJEOqICA TBGFQRQbdTkxDIBODTCQayxa7QGEtRE4FNDbDS2 yERzmFECYEBZ6EHWVhxKAsYVTwFqIqIVFBU8HZC HQVRlIATq2BKuiTOB8STWMZYYRUNVdGZDVHHCCd vd33NYY0EfIai8D1KHX9SPPcGCTqa7gdLGKsmFT zZkHdYxOiUdAeEyjfvTUaUOOuMgKnr0sxm782kT Hpn1cuBBElHgI6pIMuEUQlsPOyF262BXNsIOutp 0ggo1KrRUItnQFlr4S9LPGDvoqljSi9sUobM85g z0U9DbacG5vcIZImUDLsV5PiLF8pAIIuWmg9SNP 8UDW3MXAvWVTzE6PdJL9cTGHxhPOvSCu4c8cklZ eeDGXdYRI2c9amSPkqcvOhAQ2mdd9rfWb4v8eqq oWmILVoNJTyvFUYDDZmE8PphHueSv2xsMg4oWjq DhyvDSC5Piy9UM0vnl19jdc7zLdjMZTvtogdNpD 3IWkgXFChwonlKJe7MCrlYHNxtSU6RQIkfDRcT5 BbVWVdSH2uxlo8IXC3ILdoNBEqMrY2TZEucRJpA QWzrWthHLqcp727CUH2EdJdAV0oL6Qew4M6fP4u fCEeNUQyrEDoYqQhVELzgc2vzDYfDUfga1HdHOX 7cyH5xMBfyCIwZJZaGsR8NLnqEH9aui96SNOyAH P8my8cvKEfiFpnokVxzHHoLLquV9DbSNEng164T HGbO9ChICAsl3P0uuAyHzNyEVKxmVU1mrY1NPYr BJ2boxbsf9kfEWbjOZuxIBTxolV0byT2EUHwbSH zZ3ExaS2iGYTsSZ1hhbguw5jtMSM6ZQkoAEZkSP S7TcVgIQAhy9Qdrml5MlVpn3OnjLIxLHonC17zy 860DARulsIlG3gxtDTshxeumDNlixahVNzjjwH9 RUMtJJqrycchNPBxDAlcB6imXqHtCNHaoGpyUHq yj9XlTGRmETJdIaRktGNhKHRuZgz2BQGqoYXwLH MlJsQrC6yywlijOvQBWXVzg5dhA7csvVRXsWTtB 8KyRJemfrVuUMzaPTnlGSDcMEZoGH99KNfrGDNu cn19 CPT Code(s) (test code = 3357) x4rteBBhKBMwyZD5StClDVFnf0lrl1QlcAGp cGF hCSnveVMllsHvmm80rMO9zT26UV6bDAFaNnJ1IP UtfnM5Rzz0LRWoKIItdZVaF852z4xta4chdeHjt IN9vGqyELPxfscrQmF5BVfsIXNkvnjjTYa5QLzq WDFryGY2FLRtkNRdE1UmWMXrSW6opja3ZSB1KEm eLEYrLbV4RMHbaSIpTGSiuUnzNLbkq455XAW6Pk FoZDGaauAfaMtyuS5tSaCsTEP9BUTjYVlzOIGle yA1NBW0XezoVDCsfwS0COD7ZPysPEYnwb8= GROSS DESCRIPTION (test code = r5cbaOYrIHRcrLTOCARbW3gbkrIdPGVfzEOz Z3B [id number]) pmrwbGLrcZJ0vLP5ltWgmpDOauKDxKF8JHCGuLx YrLQTusQIggqWtKaNcLJPvtDKoaOH2BUDiIE8vu clqCJriFRfoQCLpihO6HZJqtJEdQ5HrPEKcIE3b xrkbERV4PKehpN6jqsECCrxaOe9idFFtoFwjNeR vYwIuACPvNXHsRMCfoLfcXQCrPPp4kF6MDkyzO4 8lg9F0Tpf0QIEeWXMmT6BtHW8xEIQyuVJgV92QU ggeRLS1AHCWGijeAUQuRS3Qq2seQMOpzZQfULF8 EGelzPShXHWbWKPfGIq7DBGsKYimjFXkBO0kpJv bFfndiOpuh6EdeGIhALreFJAlVPCnAGcaCOXhIM 0HYwYfHEQ0YpT5JHsvAQe9NVj1DA0BBqGxBYDbZ OY9XhS7PhEmXPt8CQdzKJ9VZGW2VSVyKNh0BjV8 NTIxNCBcXHQgMiBcXGYgQXJpYWwgXFxmbCBcXG5 vaXokgMZxqnFDWrOKj3S1CFXqu1N6KYbpI0TcGR IuXHBhciANClxlcGljTmVzdERvYzEgDQpcbHRyc GFyXGxpbjBccmluMCANClxsdHJjaFxmczIwIFJl H8XabkFvCAwlQPWgge8zpYdrAXhgVaAmtZIsSJk fZLM8rGOsQXI1RKbtMBT6PRJ5kgVnAJXxKD96CB bbIL97bHFpHFEtCLGwSPzwCtVkREFkb5G0NBBjd 1E4ZDnqv2PoBIShNEwnCO3oBODusDKvGSAaDsI8 QN8yyZvsrkwbDK4uLDVwBGxrWJlzPGH1CVD5TYM wdUJqz9osdl1fRIcsWDBgBMVgaNCaMBrlQTHhgS avHDx7DJU3Fh5mgANcYRJleiJcNPOtIKZ8CGWFJ H6bRKNjjlOPHugxjZWzpjgrlUwxRzWfyUAcIcBo tCgigB17WXFyuLIyMCU0ZJ6pIWPnmcgvIRQqEQQ hZZM7XFlcfH57iPIdENDeJCEymZFftZ7Tm8csPF TmgEAhFZT9FDdnaEHxISIaCPRtCEkdWnOgW8MRV NVmYmo0URJ1AQIeXTr3XQyiB5GDEWYtQMK4VKXq ERT9AkZ3SIf1GVJSHo1nJIu9SNU2NMRqMUD7DgT 1OAakzRBcYLycTcRDaosmuTWxKKInKPtfrwD2DT FiCVZlgNqyrU2pQs7oZ27nwCKHwZHosEQxQV00q FSoDagcIAUqGSyaZNFoZ00hb3NDy8XqJE7YXHo1 uzPwijdwuV3gJUShveZkLRtlfTRvB3znPvRaQXY MVWBaaUVcIBKlykXne5YcCFappmFmY3KrLTywBf GpJQQrp2l1zKAmlDJhGEPdkUK0x79tjEP1yUWst OEjZRMgaOltlDXxygWokjXwY5LgHNXrz12dmGA9 cCWwhZZuMR52hMFtHlGpilGfyhJrbYhxN4Cho2U kfSRsYOGzj4W0TFgsVN4yVUFoBSuuMIyxJWS1GJ L5CDKqdNVct9ishe9mWIsyYKWuFSOtrKAlTHbsR XQckEniQIr1TLR2Ic0xhJMwLQWequBhKOWxLHT2 CDVFEY8tDLFMEI8udI7GDNQqSLnmMAAkbTIDYYV 6JE4pRSiceQGoekcmTFGlJ1RzI4PaeqVooMRaGL QuwqRlf1mtGCN4NWCcuIPooKCnUaNxBkpbYEP0H Dycb8qmSPG7CQAqbJNteMNzVUmgDoSeZxypHSBq Y8LuW9YtakP9RDj7 MICROSCOPIC DESCRIPTION (test code = t2caiFBxEGLyyBD1OzHyWSEvi1sjd6 [place] [address]) dKHxioZIxwhKezl09nAK6jM37RV9pZVCuLtI3AW HualP5Xqr8ZRUmLQHmmCRqX274z9nss1lgquYim FL6sDdnGLLcmjdtJvM9GOneCOZpicezYPo8CMro RSAecYD9ZJLbtPPoW3SdCFCuFN7gttw7NXS4CSa tFUOkNtG0LMCzmEBaATRllGclNActu964AKZ4Bz JkBBSaiiWthVgpgG3kDcHaRFOICBXuWVJIDVU5z X6jkrWmImU7qZTzhxsrmKUosJ7ulZKffN8pKSZz DZYqdYuvyIIvCVYhsnSlMUPmbH2fcwxmGtjtPJF ucbTuvS7ey1nvhLPhrWlyxRawzLCvuFBna7Ilw4 x3tCCtaILngwwnTUlyTucafV6paShtylBjqzL2e SLnfIDfiW2nVAWpp0ZreHIoJTKUjWTjBRDuzdKt gUXlzSrpTDU4CMchm4XxcCPtvxCxjYfzdmEdcVf gHRRnZxgfMsjybbOrY2Kbw8hiRQwdGJUwpYkxpJ k4qLP5uVJgQHenKw3cnZcpvtmxGXNKfA36ud1hv HWpazUug1ElKBBmBKWkv4QtYMDvECwxeDyyMJYv wq3ohgdsqHYqX88sqVCvxCXvZPKjPPR3rLPxrnX yiUvaz70yRQNfLFXik4FpqLb1VDRow7RnSXMLZB lqJK5oBQANHe1xBUKwAEPpMCZdhtJtnxarKPZwP WDpx13awVZ4MM08ZThghGvwlwEepKYoA6LozOZw UXOlug3yUEThMUOGxfDkGVkeJ41feaR8ZNcqIDd pKK15kPNoXULnCBSpbp6= SPECIAL STUDIES (test code = 3376) a9batEQxKFMrs4ujGTEpeROySxXuXwBe ZnRuYmp cqHSaSTnxwxIwXIoua4UdM5XmTmWpVPkbifUxDZ FhZkayqmrePKRrZNX5akOzPUJrVOriWIRtKDbtO v4ryIWziTzrRgSkGDVdm6hhprZAycznfZq1r4zw HTBwGoQ9xTQcASmnP5kliaYygIGzV9IcdHDewBj 9m1amYgIoLwB2jSAdQYrbX0gopbTffOOlWZLjCF y1rR81ZSGbdB4egRBsIKsrrpDkVeY4CEkvHIEjY yZ5DJKniDJqNSTkW3ycEYLlPLoiXMInYTuhhNMv KES9kAkyt6O4vOKxvDXwkTnaQqJmZnUfXaYTf7A lDKm2nIzfG3SbEKIuKsQ3yJVeTQWtJPlzUNKkYH EhreR0jRvfueZor76qbPHyFYGvHMDwYlLnuLjoN AKaERRYg7FgfZwiCJS0kRh3cDulRpxlFWG3Lne1 XC8zir97mkk2vOszSZTgndtrRzF2RJpmDNCilqq wRVg8JMwpRTUrkKT1KHWfdMRfR6IdJRMvTQ9ffw o9BRJ0YXdmCAPyKgF4XPTbpEKxOJRxeIvfGHdfq 584UVJ6TlNqEA2xP4Brq3A1aC4thLGmTMNmhSDi HbLoRPWvcd2pgSZtHMmht8RlBGL6ckU6mZRrvCT oDNMeYF22Wdrtq1BkUtukw0YrQ63juME3HWffj7 iiKN7oIcE8ekUkGIhxx0dgjX3gPgU1YTvwCT2tS M0rOBPzqC6npcbnENEmXhVzjgwlMZTpfIvfvxUh Uz9hcGetQBL2LKraO3bfwW2kTzO4CZggG0ubeN5 oSPz9FEfgqPD6SPWtwA3zCE0xbodol6acAMgbUH ezACSzrhK0inP4KBDgyYIyY8ZklE3bTUHdNG4ho bvpu2itFMQ6VSitAVFfPJS1UoMsHPWty4Soply2 JpNuj4MrqQToEAnfJ78ob486CCYgdsRgG0aqjGM khkzwxKCkplviALcznuJ1ZAOfJDXtGOlrLUWfUD ZzMjJcbGFuZzEwMzNcaGljaFxmMVxkYmNoXGYxX HwbH4roYdIdS4TtGRDpAeLkENtuCTjrcWSruBVf qQV9wZ7zPA1nFUUldUBsK6LgJWAphbBwaUFxAKU 3cCPxcJWtUS3yBAwdjSRwk8xbd9FxI7gkgTmaoB N6LI6iEAVcNMKqLOoev5HxkT2tNjmefQPepcycV GujkuOmHGrasfizPMSqQSspP1clSbGdRIZqdArr HGpyj8RgJIDvCYGpCqelrzCtBJr5caLgYKIvkmu lSJLbsCpkwL5jDlAaDuVtQehiFT1sSJVzK7tscM LwOGGbRRMbC0arIlTzpL4bkSrmMMbbOiAfOhFoT zHQv429aw4bLSRlsGVxajUWuQWtsW2lQVnjBVqx EJffwXJsYFtlz2jsFWZxz6a6oXTrREYqgrAei6u nPVxuqsAqJVXqpZUmmTIuXQTji76eQVjvuTijgB piUNCnm7ChhTcdw8UsKeCgGSjnb4IgW97inNFrv RJvjBwhQBOxxaKaGQPzh89er2zpDXSkKeO5fAOa oNM9dTXabVKck6GmwEjjXUBgr7qfVSCjnt7ikgv foHEar6BwlJ9auyblUZivqCZyzuTnDKPqx4k2pK CoXGRoKJRzRToadEy9TRAnd974sr1pcdU1rUYrB OF7TEslOBAdASBwnyLgQXFmcTLpeXRfIQFaUGwe XGYxXGZzMjJcbGFuZzEwMzNcaGljaFxmMVxkYmN tBGIiPUnpF8heRqCiW4EhOOHwTlVbxWPwB0nprS FyXHBsYWluXGYxXGZzMjJcbGFuZzEwMzNcaGlja RbcUNsoNiRqKXMeLNpoR4sqQiFrE0IiRMYjAlFm DUvewJRdnkhuVOhftsDfIMaahcfpFKRfYGryI3r uFzTlSQTnnWigQLuou6ToWFKlGFEvAxsfmwDdCS s4owGqCXNnlibttEKgndjrENzefbXnHMlzjxqoN AWmNFtgU9alRmNyQIPhlAauYKivf4RrEPIzGRWr XgiuvsMeJQnbvCZen0tob8SoY4galCnfmNV1JBX wB3nodRTixFK4MUZ7sC3vHIuvqqRjKMOpa7BjEQ KgOSDsKiZ7gM6vNPR8TjYDaMrbXHMkAVeyBTPoE GZzMjJcbGFuZzEwMzNcaGljaFxmMVxkYmNoXGYx QDmbU1wyOwKmX5EuWIAbYxEynMevWEjrXVx9Vvt rmOOpndxtQNuqzuHxNPwbywhaYSLaPWpxF8iwQq KaLJKtsOvcUUsxm8AqDOFcIKFnYfypydYlCKZuI GZxiJHzoXUZXU67HIHeIRJzkOqzaL4ngSCWMVZw zxX1g5Z0BZuuUKLrMVr6CHqfrmLcYIDsqM2eCMG hXI0jQLa1nsOnRTYbr5QwRE7tCWJvcXXzAZY0RG Slc0ToA7Tax4YhTBAhSYPjyg7axbFeGmORgYXwL GHghb28YIBqUQ4jT7kkVZXvASOziuBstCZst6Pj SLSvkVQ1sWTeOM0CSzURa09uRRUrJMTAohKmOLI zyUpmdRE0yiR5xE1nNmPZiJEzQfSVSZygvsMuLK Oivv5iotTaSOUrOJLst9JnuUEebXMftdSkO7Kav 7IrTWKjjt79DFtzoSRxgv19IG0rD2Bme5IkbN3b WKjzOTTwr1BawMRfrVUaVTYjg3KjJ5glkhrwBKo gdOPeuS5nIFFuZBl2QBRze4BsRYGtw8EuDaHwcm OeFBQsBBSqGCYnvC10CKS2gAzjcGekajQzHC0sW SPicjEpDCGzTEBtvE2uBHdpiqVxUCTiyjA2s4Q3 OWbuTSYvxtPsNlvrMQX2xeIvjtH0yKXlV2idsac xQNygICGrm0NpsB6dqUJJqKEre8JjyJFiyWHXgY VvPW3vnbKzYY0hUYP0TQrlHERSKTEuAOzeOIIsC WE3GJnjBvxjZSZ4cgEpOWMrz0XcNMumG9ejZ93i jGafqNj2xFByrFvreNVznFReOOAwwrU0z3H5PLK dm9WcsvtbEGKvDAnuKCXaNFLfNqRleWYjXkPbYf KmyIgvtYjnIvhhBtDnOAKsDCjdN4ruOtRsXqZgO puiAOX8xW== [facility] [id number] 09:13:39Surgical Pathology Report Case: [id number] Authorizing Provider: Syd Roberts, Collected:01/19/2022 08:03 AM Ordering Location: [address] Med/Surg Received: 01/19/2022 08:50 AM Pathologist: Luis Blair MD Specimens: A) - Soft Tissue, Other, right posterior bladder biopsy B) - Soft Tissue, Other, right lateral bladder biopsy A. URINARY BLADDER, RIGHT POSTERIOR, BIOPSY -NEPHROGENIC ADENOMA -MUSCULARIS PROPRIA NOT IDENTIFIEDB. URINARY BLADDER, RIGHT LATERAL, BIOPSY -NEPHROGENIC ADENOMA -MUSCULARIS PROPRIA NOT IDENTIFIED Signing Pathologist Direct Phone Line: [phone] signed by Luis Blair MD on 01/26/2022 at 9:13 [id number]. Soft Tissue, Other.Received in formalin labeled with at least two patient identifiers and "soft tissue, other" is one piece of wright- pink, 0.3 cm in greatest dimension. The specimen is entirely submitted in cassette A1. B. Soft Tissue, Other.Received in formalin labeled with at least two patient identifiers and "soft tissue, other" is one piece of wright tissue, 0.3 cm in greatest dimension. The specimen is entirely submitted in cassette B1. ND/Sarah-B. Sections of the right posterior and rightlateral urinary bladder biopsy urothelial mucosa with chronic inflammation in the lamina propria. There are papillary-like projections lined by bland cuboidal epithelium with hobnailing. Immunostains were performed, with appropriate controls, and the neoplasms are positive for PAX 8 and CK7. 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 No malignancy is identified.The interpretation of this case included the use of immunohistochemistry or special stains.Control Slides Examined: In-house known positive controls were evaluated along with the test tissue. These control slides run alongside of the patients sample show appropriate staining. Internal positive and negative controls when available are evaluated Immunohistochemistry technical testing was performed at [facility], Pathology Laboratory where it was developed and its performance characteristics were determined. It has not been cleared or approved by the U.S. Food and Drug Administration. The FDA has determined that such clearance or approval is not necessary. The test is used for clinical purposes. It should not be regarded as investigational or for research. This laboratory is certified under the ClinicalLaboratory Improvement Amendments of 1988 (CLIA-88) as qualified to perform high complexity clinicallaboratory testing.BLOOD CULTURE 2022-01-22 04:00:57 Test Item Value Reference Range Interpretation Comments CULTURE (BEAKER) (test No growth in 5 days code = 1095) BLOOD [id number] 04:00:57 Test Item Value Reference Range Interpretation Comments CULTURE (BEAKER) (test No growth in 5 days code = 1095) FL, FLUORO, NON-SPECIFIC, UP TO 1 [id number] 08:15:00Reason for exam:- >CYSTOSCOPY, WITH URETERAL STENT INSERTION - [facility] 1995 Sex: FAn imaging unit was utilized for this procedure. No radiologist interpretation was requested. Refer to the EMR for findings. Refer to PACS for any patient radiation dose information.BASIC METABOLIC [id number] 07:01:06 Test Item Value Reference Range Interpretation Comments SODIUM (BEAKER) (test 136 meq/L 135-148 code = 381) POTASSIUM (BEAKER) 4.0 meq/L 3.6-5.5 (test code = 379) CHLORIDE (BEAKER) 109 meq/L 98-106 H (test code = 382) CO2 (BEAKER) (test 21 meq/L 20-29 code = 355) BLOOD UREA NITROGEN 11 mg/dL 10-26 (BEAKER) (test code = 354) CREATININE (BEAKER) 0.72 mg/dL 0.50-1.20 (test code = 358) GLUCOSE RANDOM 83 mg/dL 70-110 (BEAKER) (test code = 652) CALCIUM (BEAKER) 8.8 mg/dL 8.5-10.5 (test code = 697) EGFR (BEAKER) (test INSUFFIC IENT CLINICAL code = 1092) DATA TO CALCULA TE ESTIMATED GFR. Manager Statistical ID - [id number] ID - [id number] ID - [id number] ID - [id number] ID - NMOFIWKN383Pshwcxim ID - [id number] ID - [id number] ID - HNYSCZDR548Epdfxmbl ID - TJZWRPMH647Tgdulmwx ID - BXSTMWMP539Rimwjlpr ID - IPLGZZBB138Ocydiztb ID - ORNMGUCN607Gmzwogbn ID - [id number] W/PLT COUNT & AUTO [id number] 06:34:22 Test Item Value Reference Range Interpretation Comments WHITE BLOOD CELL COUNT (BEAKER) 9.0 K/ L 4.0-10.0 (test code = 775) RED BLOOD CELL COUNT (BEAKER) 3.85 M/ L 4.00-5.00 L (test code = 761) HEMOGLOBIN (BEAKER) (test code = 12.3 GM/DL 12.0-15.5 410) HEMATOCRIT (BEAKER) (test code = 35.7 % 36.0-46.0 L 411) MEAN CORPUSCULAR VOLUME (BEAKER) 92.7 fL 82.0-99.0 (test code = 753) MEAN CORPUSCULAR HEMOGLOBIN 31.9 pg 27.0-33.0 (BEAKER) (test code = 751) MEAN CORPUSCULAR HEMOGLOBIN CONC 34.5 GM/DL 32.0-36.0 (BEAKER) (test code = 752) RED CELL DISTRIBUTION WIDTH 13.2 % 12.0-15.0 (BEAKER) (test code = 412) PLATELET COUNT (BEAKER) (test 248 K/CU MM 150-430 code = 756) MEAN PLATELET VOLUME (BEAKER) 11.5 fL 6.0-11.5 (test code = 754) NUCLEATED RED BLOOD CELLS 0 /100 WBC 0-0 (BEAKER) (test code = 413) NEUTROPHILS RELATIVE PERCENT 57 % (BEAKER) (test code = 429) LYMPHOCYTES RELATIVE PERCENT 32 % (BEAKER) (test code = 430) MONOCYTES RELATIVE PERCENT 9 % (BEAKER) (test code = 431) EOSINOPHILS RELATIVE PERCENT 1 % (BEAKER) (test code = 432) BASOPHILS RELATIVE PERCENT 0 % (BEAKER) (test code = 437) NEUTROPHILS ABSOLUTE COUNT 5.16 K/ L 1.80-8.00 (BEAKER) (test code = 670) LYMPHOCYTES ABSOLUTE COUNT 2.88 K/ L 1.48-4.50 (BEAKER) (test code = 414) MONOCYTES ABSOLUTE COUNT (BEAKER) 0.79 K/ L 0.00-1.30 (test code = 415) EOSINOPHILS ABSOLUTE COUNT 0.13 K/ L 0.00-0.50 (BEAKER) (test code = 416) BASOPHILS ABSOLUTE COUNT (BEAKER) 0.04 K/ L 0.00-0.20 (test code = 417) IMMATURE GRANULOCYTES-RELATIVE 0 % 0-0 PERCENT (BEAKER) (test code = 2801) SARS-CoV2/RT-PCR (Asymptomatic ONLY)2022-01-18 15:50:06 Test Item Value Reference Interpretation Comments Range SARS-COV2/RT-PCR Negative Negative The SARS-Co V-2 (test code = target nucleic 04941-9) acids are not detected in thi s specimen. Negat corbin results do not preclude SARS-C oV-2 infection and should not be u sed as the sole bas is for patient management decisions. Nega tive results must be combined with clinical observations, patient history , and epidemiolog ical information. A false negative result may occu r if a specimen is improperly collected, transported or handled. This S ARS CoV-2 test is a rapid, real-david e RT-PCR test intended for th e qualitative detection of nucleic acid fr om SARS-CoV-2 in a nasopharyngeal swab specimen collec martha from individual s suspected of COVID-19 by the ir healthcare provider. SORAYA (test code = This test has been SORAYA) authorized by FDA under an EUA for use by authorized laboratories. This test is only authorized for the duration of the declaration that circumstances exist justifying the authorization of emergency use of in vitro diagnostic tests for detection and/or diagnosis of COVID-19 under Section 564(b)(1) of the Federal Food, Drug and Cosmetic Act, 21 U.S.C. 360bbb-3(b)(1), unless the authorization is terminated or revoked sooner. Fact Sheet for Healthcare Providers: https://www.[employer]/Documents/Xp ert%20Xpress%20SAR S%20CoV-2/Fact%20S heets/302-3802%20S ARS-COV-2%20HEALTH CARE%20PROVIDERS%2 0FACT%20SHEET.pdf Fact Sheet for Healthcare Patients: https://wwwNetheos/Documents/Xp ert%20Xpress%20SAR S%20CoV-2/Fact%20S heets/302-3801%20S ARS-COV-2%20PATIEN T%20FACT%20SHEET.p df Lab Interpretation Normal (test code = 78837-2) [facility])2022-01-18 15:50:06 Test Item Value Reference Range Interpretation Comments SARS-COV2/RT-PCR Negative Negative The SARS-Co V-2 target (test code = nucleic acids a re not 5681504) detected in thi s specimen. Negative result s do not preclude SARS-C oV-2 infection and s hould not be used as the colin e basis for patient managem ent decisions. Nega tive results must be combine d with clinical observ ations, patient history , and epidemiological information. A false negativ e result may occur if a spec imen is improperly qasim ected, transported or handled. This SARS CoV-2 test is a rapid, real-time RT-PC R test intended for th e qualitative detection of nu cleic acid from SARS-CoV-2 in a nasopharyngeal swab specimen collected from individuals suspected of CO VID-19 by their healthcar e provider. This test has been authorized by FDA under an EUA for use by authorized laboratories. This test is only authorized for the duration of the declaration that circumstances exist justifying the authorization of emergency use of in vitro diagnostic tests for detection and/or diagnosis of COVID-19 under Section 564(b)(1) of the Federal Food, Drug and Cosmetic Act, 21 U.S.C. 360bbb-3(b)(1), unless the authorization is terminated or revoked sooner. Fact Sheet for Healthcare Providers: https://www.[employer]/Documents/Xpert%20Xpress%20SARS%20CoV-2/Fact%20Sheets/302-3802%21RQEE-WSA-7%20 HEALTHCARE%20PROVIDERS%20FACT%20SHEET.pdf Fact Sheet for Healthcare Patients: https://www.[employer]/Documents/Xpert%20Xp ress%20SARS%20CoV-2/Fact%20Sheets/302-3801%72ECOU-YBS-9%20PATIENT%20FACT%20SHEET .pdfPregnancy Screen, [id number] 14:59:26 Test Item Value Reference Range Interpretation Comments Preg Test, Ur (test code = 2112-1) Negative Negative Lab Interpretation (test code = Normal 22156-5) [facility] [id number] 14:59:26 Test Item Value Reference Range Interpretation Comments TEST URINE (BEAKER) (test Negative Negative code = 583) Urine [id number] 10:00:50 Test Item Value Reference Range Interpretation Comments Result (test code = <10,000 col/mL skin 6463-4) [facility] [id number] 10:00:50 Test Item Value Reference Range Interpretation Comments CULTURE (BEAKER) (test <10,000 col/mL skin code = 1095) zuleima BASIC METABOLIC [id number] 06:13:55 Test Item Value Reference Range Interpretation Comments SODIUM (BEAKER) (test 138 meq/L 135-148 code = 381) POTASSIUM (BEAKER) 4.0 meq/L 3.6-5.5 (test code = 379) CHLORIDE (BEAKER) 110 meq/L 98-106 H (test code = 382) CO2 (BEAKER) (test 21 meq/L 20-29 code = 355) BLOOD UREA NITROGEN 11 mg/dL 10-26 (BEAKER) (test code = 354) CREATININE (BEAKER) 0.70 mg/dL 0.50-1.20 (test code = 358) GLUCOSE RANDOM 89 mg/dL 70-110 (BEAKER) (test code = 652) CALCIUM (BEAKER) 8.7 mg/dL 8.5-10.5 (test code = 697) EGFR (BEAKER) (test INSUFFIC IENT CLINICAL code = 1092) DATA TO CALCULA TE ESTIMATED GFR. Manager Statistical ID - [id number] ID - [id number] ID - [id number] ID - hnexdmszu829Xehatrbc ID - dhalayzht442Apgknioy ID - tnzrtsnfw633Jtdfnedg ID - tusxqnflw321Gotuhpdm ID - dukdexwii430Wjecykgi ID - qlbixflqm501Btnetyfq ID - fndotswls229Kciwovvh ID - mykccgesq181Nwhhbakj ID - qyuvhdatw888Bxhyznot ID - topzzjyge571ZOO W/PLT COUNT & AUTO DIFFERENTIAL 2022-01-18 05:53:44 Test Item Value Reference Range Interpretation Comments WHITE BLOOD CELL COUNT (BEAKER) 7.0 K/ L 4.0-10.0 (test code = 775) RED BLOOD CELL COUNT (BEAKER) 3.76 M/ L 4.00-5.00 L (test code = 761) HEMOGLOBIN (BEAKER) (test code = 11.8 GM/DL 12.0-15.5 L 410) HEMATOCRIT (BEAKER) (test code = 35.2 % 36.0-46.0 L 411) MEAN CORPUSCULAR VOLUME (BEAKER) 93.6 fL 82.0-99.0 (test code = 753) MEAN CORPUSCULAR HEMOGLOBIN 31.4 pg 27.0-33.0 (BEAKER) (test code = 751) MEAN CORPUSCULAR HEMOGLOBIN CONC 33.5 GM/DL 32.0-36.0 (BEAKER) (test code = 752) RED CELL DISTRIBUTION WIDTH 13.5 % 12.0-15.0 (BEAKER) (test code = 412) PLATELET COUNT (BEAKER) (test 215 K/CU MM 150-430 code = 756) MEAN PLATELET VOLUME (BEAKER) 11.4 fL 6.0-11.5 (test code = 754) NUCLEATED RED BLOOD CELLS 0 /100 WBC 0-0 (BEAKER) (test code = 413) NEUTROPHILS RELATIVE PERCENT 45 % (BEAKER) (test code = 429) LYMPHOCYTES RELATIVE PERCENT 42 % (BEAKER) (test code = 430) MONOCYTES RELATIVE PERCENT 10 % (BEAKER) (test code = 431) EOSINOPHILS RELATIVE PERCENT 2 % (BEAKER) (test code = 432) BASOPHILS RELATIVE PERCENT 0 % (BEAKER) (test code = 437) NEUTROPHILS ABSOLUTE COUNT 3.13 K/ L 1.80-8.00 (BEAKER) (test code = 670) LYMPHOCYTES ABSOLUTE COUNT 2.96 K/ L 1.48-4.50 (BEAKER) (test code = 414) MONOCYTES ABSOLUTE COUNT (BEAKER) 0.69 K/ L 0.00-1.30 (test code = 415) EOSINOPHILS ABSOLUTE COUNT 0.15 K/ L 0.00-0.50 (BEAKER) (test code = 416) BASOPHILS ABSOLUTE COUNT (BEAKER) 0.03 K/ L 0.00-0.20 (test code = 417) IMMATURE GRANULOCYTES-RELATIVE 0 % 0-0 PERCENT (BEAKER) (test code = 2801) CT, [id number] 09:53:00Stone procotolUnlisted Reason for Exam - Click Yes and Enter Reason Below->NoIs this for enterography?->NoWill this procedure require oral contrast?->No [facility] CENTERName: YISSEL MELARA : 1995 Sex: FFINAL REPORT CT abdomen and pelvis, 01/17/2022 HISTORY: Hydronephrosis TECHNIQUE: Helical scanning of the abdomen and pelvis was performed without intravenous or oral contrast.This examination was performed according to departmental dose optimization protocol that includes automatic exposure control, adjustment of the MA and/or KV depending on patient size and/or iterative reconstruction technique. The lung bases are clear. No pleural or pericardial effusions are seen. The liver is unremarkable without masses or abnormal density. Spleen and pancreas are unremarkable. Thereis a tiny nonobstructing stone in the upper collecting system of the left kidney. No further left renal abnormalities are seen. The right kidney exhibits moderately severe chronic hydronephrosis with substantial attenuation of the renal parenchyma. There are multiple stones within the dilated pelvicalyceal system ranging from approximately 3 mm to 14 mm. The largest stone is located in the lower polecalyx. A 4 mm stone is also seen in the proximal portion of ureter. The most proximal portion the ureter is dilated at the ureteropelvic junction but below this level exhibits only slight dilatation. There are no distal ureteral or bladder calculi seen. There is no significant distention gastrointestinal tract, ascites or retroperitoneal adenopathy. CT examination of the pelvis is unremarkable. The appendix is seen and appears normal. No significant osseous abnormalities are identified. CONCLUSION: Moderately severe left-sided hydronephrosis with multiple intrarenal and proximal ureteral calculi. Tiny upper pole right renal stone without associated hydronephrosis. Signed: Nae Webb [facility] Verified Date/Time: 01/17/2022 09:53:02 Reading Location: [facility] Radiology Reading Room Urinalysis w/ [id number] 07:09:16 Test Item Value Reference Range Interpretation Comments Color, UA (test code Yellow = 5778-6) Clarity, UA (test Slightly Cloudy code = 5767-9) Specific [place], UA 1.015 1.001-1.035 (test code = 5811-5) pH, UA (test code = 8.0 5.0-8.0 5803-2) Protein, UA (test 100 mg/dL Negative A code = 69459-4) Glucose, UA (test Negative Negative code = 365) Ketones, UA (test Negative Negative code = 2514-8) Bilirubin, UA (test Negative Negative code = 54841-6) Blood, UA (test code Moderate Negative A = 04614-8) Nitrite, UA (test Negative Negative code = 5802-4) Leukocytes, UA (test Large Negative A code = 5799-2) Urobilinogen, UA 1.0 mg/dL 0.2-1.0 (test code = 06102-0) Bacteria, UA (test Few code = 09124-2) RBC, UA (test code = 5-10 See_Comment [Autom ated 799-7) message] The system which generated this result transmit martha reference range : /HPF. The reference range was not used to interpret this result as normal/abnormal . WBC, UA (test code = 20-50 See_Comment [Autom ated 20133-3) message] The system which generated this result transmit martha reference range : /HPF. The reference range was not used to interpret this result as normal/abnormal . SQUAMOUS EPITHELIAL <5 See_Comment [Automa martha (test code = 51935-7) messag e] The system which generated this result transmit martha reference range : /HPF. The reference range was not used to interpret this result as normal/abnormal . Specimen Source (test code = 2795) Lab Interpretation Abnormal (test code = 01953-3) [facility] [id number] 07:09:16 Test Item Value Reference Range Interpretation Comments COLOR (BEAKER) (test code = Yellow 470) CLARITY (BEAKER) (test code = Slightly Cloudy 469) SPECIFIC GRAVITY UA (BEAKER) 1.015 1.001-1.035 (test code = 468) PH UA (BEAKER) (test code = 8.0 5.0-8.0 467) PROTEIN UA (BEAKER) (test 100 mg/dL Negative A code = 464) GLUCOSE UA (BEAKER) (test Negative Negative code = 365) KETONES UA (BEAKER) (test Negative Negative code = 371) BILIRUBIN UA (BEAKER) (test Negative Negative code = 462) BLOOD UA (BEAKER) (test code Moderate Negative A = 461) NITRITE UA (BEAKER) (test Negative Negative code = 465) LEUKOCYTE ESTERASE UA Large Negative A (BEAKER) (test code = 466) UROBILINOGEN UA (BEAKER) 1.0 mg/dL 0.2-1.0 (test code = 463) BACTERIA (BEAKER) (test code Few = 517) RBC UA-MANUAL (BEAKER) (test 5-10 /HPF code = 1659) WBC UA-MANUAL (BEAKER) (test 20-50 /HPF code = 1661) SQUAMOUS EPITHELIAL MANUAL <5 /HPF (BEAKER) (test code = 1663) SOURCE(BEAKER) (test code = 2795) BASIC METABOLIC [id number] 05:31:24 Test Item Value Reference Range Interpretation Comments SODIUM (BEAKER) (test 136 meq/L 135-148 code = 381) POTASSIUM (BEAKER) 4.1 meq/L 3.6-5.5 (test code = 379) CHLORIDE (BEAKER) 109 meq/L 98-106 H (test code = 382) CO2 (BEAKER) (test 20 meq/L 20-29 code = 355) BLOOD UREA NITROGEN 11 mg/dL 10-26 (BEAKER) (test code = 354) CREATININE (BEAKER) 0.74 mg/dL 0.50-1.20 (test code = 358) GLUCOSE RANDOM 96 mg/dL 70-110 (BEAKER) (test code = 652) CALCIUM (BEAKER) 8.3 mg/dL 8.5-10.5 L (test code = 697) EGFR (BEAKER) (test INSUFFIC IENT CLINICAL code = 1092) DATA TO CALCULA TE ESTIMATED GFR. Manager Statistical ID - [id number] ID - OOJY78Yjjexnbw ID - NPUH33Gvqnqxvn ID - NYUA87Zwswlekx ID - JUDI38Roflkspt ID - AEII99Glifdcuf ID - ALXP93Lmyevuoj ID - CXIU97Ciltuliu ID - IROA10Xbgegjld ID - [id number] 05:30:12 Test Item Value Reference Range Interpretation Comments MAGNESIUM (BEAKER) (test code = 2.0 mg/dL 1.5-3.0 627) Manager Statistical ID - [id number] ID - [id number] ID - VAMZ30Jzoixnhc ID - [id number] CBC W/PLT COUNT & AUTO [id number] 05:14:13 Test Item Value Reference Range Interpretation Comments WHITE BLOOD CELL COUNT (BEAKER) 11.9 K/ L 4.0-10.0 H (test code = 775) RED BLOOD CELL COUNT (BEAKER) 3.78 M/ L 4.00-5.00 L (test code = 761) HEMOGLOBIN (BEAKER) (test code = 12.1 GM/DL 12.0-15.5 410) HEMATOCRIT (BEAKER) (test code = 35.8 % 36.0-46.0 L 411) MEAN CORPUSCULAR VOLUME (BEAKER) 94.7 fL 82.0-99.0 (test code = 753) MEAN CORPUSCULAR HEMOGLOBIN 32.0 pg 27.0-33.0 (BEAKER) (test code = 751) MEAN CORPUSCULAR HEMOGLOBIN CONC 33.8 GM/DL 32.0-36.0 (BEAKER) (test code = 752) RED CELL DISTRIBUTION WIDTH 13.4 % 12.0-15.0 (BEAKER) (test code = 412) PLATELET COUNT (BEAKER) (test 229 K/CU MM 150-430 code = 756) MEAN PLATELET VOLUME (BEAKER) 11.3 fL 6.0-11.5 (test code = 754) NUCLEATED RED BLOOD CELLS 0 /100 WBC 0-0 (BEAKER) (test code = 413) NEUTROPHILS RELATIVE PERCENT 67 % (BEAKER) (test code = 429) LYMPHOCYTES RELATIVE PERCENT 20 % (BEAKER) (test code = 430) MONOCYTES RELATIVE PERCENT 12 % (BEAKER) (test code = 431) EOSINOPHILS RELATIVE PERCENT 1 % (BEAKER) (test code = 432) BASOPHILS RELATIVE PERCENT 0 % (BEAKER) (test code = 437) NEUTROPHILS ABSOLUTE COUNT 7.95 K/ L 1.80-8.00 (BEAKER) (test code = 670) LYMPHOCYTES ABSOLUTE COUNT 2.34 K/ L 1.48-4.50 (BEAKER) (test code = 414) MONOCYTES ABSOLUTE COUNT (BEAKER) 1.42 K/ L 0.00-1.30 H (test code = 415) EOSINOPHILS ABSOLUTE COUNT 0.12 K/ L 0.00-0.50 (BEAKER) (test code = 416) BASOPHILS ABSOLUTE COUNT (BEAKER) 0.02 K/ L 0.00-0.20 (test code = 417) IMMATURE GRANULOCYTES-RELATIVE 0 % 0-0 PERCENT (BEAKER) (test code = 2801) Lactic Acid, [id number] 00:11:15 Test Item Value Reference Range Interpretation Comments Lactate, Art (test 1.0 mmol/L 0.5-2.0 Specimen code = 2874) slightly hemolyzed SORAYA (test code = SORAYA) Manager Statistical ID - [id number] ID - [id number] ID - [id number] ID - [id number] Lab Interpretation Normal (test code = 07562-8) [facility] [id number] 00:11:15 Test Item Value Reference Range Interpretation Comments LACTATE BLOOD 1.0 mmol/L See_Comment Specimen sligh tly ARTERIAL (2) hemolyzed [Auto mated (BEAKER) (test code message] The system = 0244) which generated this result transmit martha reference range : 0.5-<2.0. The r eference range was not u sed to interpret this result as normal/abnor mal. Manager Statistical ID - [id number] ID - [id number] ID - JRAE06Cmslahjs ID - [id number] AFB CULTURE + SMEAR (NON-SPUTUM)2020-04-27 09:02:00 Test Item Value Reference Range Interpretation Comments CULTURE (BEAKER) (test No acid-fast bacilli code = 1095) isolated in 42 days AFB SMEAR (BEAKER) No acid fast bacilli (test code = 994) seen FUNGUS CULTURE + [id number] 16:35:00 Test Item Value Reference Range Interpretation Comments CULTURE (BEAKER) (test No fungus isolated in code = 1095) 28 days FUNGUS SMEAR (BEAKER) No fungal elements seen (test code = 1406) POCT URINALYSIS [id number] 00:00:00 Test Item Value Reference Range Interpretation Comments COLOR UA (test code = 5778-6) Yellow YELLOW/STRAW CLARITY UA (test code = 94037-5) Cloudy CLEAR GLUCOSE UA (test code = 5792-7) Negative NEGATIVE BILIRUBIN UA (test code = 5770-3) Negative NEGATIVE KETONES UA (test code = 92763-6) Negative NEGATIVE SPECIFIC GRAVITY UA (test code [...] NEGATIVE REDUCING SUBSTANCES URINE (test code = 05715-1) [facility] [id number] 20:06:00 Test Item Value Reference Range Interpretation Comments CULTURE (BEAKER) (test No anaerobes isolated code = 1095) SURGICALLY OBTAINED CULTURE + GRAM [id number] 10:03:00 Test Item Value Reference Interpretation Comments [...] No organisms seen (BEAKER) (test code = 605132) BASIC METABOLIC [id number] 08:10:00 Test Item Value Reference Range Interpretation [...] 1092) DATA TO CALCULA TE ESTIMATED GFR. Manager Statistical ID - DBCBC W/PLT COUNT & AUTO [id number] 07:19:00 Test Item Value Reference Range Interpretation [...] (BEAKER) (test code = 2801) VANCOMYCIN LEVEL, [id number] 17:28:00 Test Item Value Reference Range Interpretation Comments VANCOMYCIN TROUGH (BEAKER) (test 23.3 ug/mL 10.0-20.0 H code = 522) Manager Statistical ID - DBCT, [id number] 10:34:00Unlisted Reason for Exam - Click Yes [...] trace bilateral pleural effusion with bibasilar subsegmental atelectasis.Liver and spleen are normal in size without focal abnormality. Gallbladder is contracted. No gallstone or biliary dilatation is noted. Pancreas and adrenals are unremarkable. Both kidneys are normal insize. A right percutaneous nephroureterostomy tube is present. There is moderate right hydronephrosis. Urinary bladder is contracted. Multiple small subcentimeter stones are seen in the urinary bladder. The small and large bowel are suboptimally evaluated secondary to lack of GI and intravenous contrast. No small or large bowel dilatation is seen. Appendix is normal in caliber. Uterus and ovaries areunremarkable. No mass, adenopathy or ascites is present. IMPRESSION: 1. Presence of right percutaneous nephroureterostomy tube with moderate right hydronephrosis.2. Contracted urinary bladder with multiple stones. Signed: Edison [facility] Verified Date/Time: 03/14/2020 10:34:53 Reading Location: [facility] C013Y CT Body Reading Room CBC W/PLT COUNT & AUTO [id number] 07:51:00 Test Item Value Reference Range Interpretation [...] (BEAKER) (test code = 2801) BASIC METABOLIC [id number] 07:35:00 Test Item Value Reference Range Interpretation [...] 1092) DATA TO CALCULA TE ESTIMATED GFR. Manager Statistical ID - JONAH MRAD, CHEST, 1 VIEW, NON [id number] 15:22:00Reason for exam:->Post-op PACUShould this be performed [...] MDReport Verified Date/Time: 03/13/2020 15:22:32 Reading Location: [facility] Radiology Reading Room Electronically signed by: JOHN BRAUN M.D. on03/13/2020 03:22 [facility] 2020-03-13 13:52:00 Test Item Value Reference Range Interpretation [...] 1092) DATA TO CALCULA TE ESTIMATED GFR. Manager Statistical ID - WEYAUWEGA FCBC W/PLT COUNT & AUTO [id number] 13:51:00 Test Item Value Reference Range Interpretation [...] 2801) FL, FLUORO, NON-SPECIFIC, UP TO 1 [id number] 12:03:00Reason for exam:- >Cysto, ureteroscopyFluoroscopic unit utilized for a procedure performed in the OR. No interpretation was requested. Refer to the operative report for findings. Refer to PACS for patient radiation dose information.SARS-COV2/RT-PCR ([facility])2020-03-13 08:54:00 Test Item Value Reference Range Interpretation Comments SARS-COV2/RT-PCR (test Negative Not Detected, Negative, code = 7975335) See external report for linked test SARS-COV-2 PERFORMING LAB [facility] DAMARIS (test code = 0125807) Negative result for this test determines that [...] individuals suspected of COVID-19 by their healthcare provider.This test [...] justifying the authorization of the emergency use ofin vitro diagnostic tests for detection and/or diagnosis of COVID-19 is terminated under Section 564(b)(2) of the Act or the EUA is revoked under Section 564(g) of the Act.Fact Sheet for Healthcare Prov iders:https://www.[employer].[facility]/sites/default/files/product/documents/Fact_Sheet_HC _Tstdtaggp_Xkmh_BZQQ-LjG-4.pdfFact Sheet for Healthcare Patients:https://www.[employer].[facility]/sites/default/files/product/docume nts/Ofld_Umcjm_Lczxiznc_Gvzd_SDGI-PuZ-0.pdfPerforming Laboratory:[facility].[place], [place] [address]EESVYDEENU LEVEL, TROUGH 2020-03-13 05:42:00 Test Item Value Reference Range Interpretation Comments VANCOMYCIN TROUGH (BEAKER) (test 34.1 ug/mL 10.0-20.0 HH code = 522) Manager Statistical ID - PIAYA LBASIC METABOLIC [id number] 05:04:00 Test Item Value Reference Range Interpretation [...] 1092) DATA TO CALCULA TE ESTIMATED GFR. Manager Statistical ID - PIAYA LPT/[id number] 04:41:00 Test Item Value Reference Range Interpretation [...] is 2.5-3.5 for patients wiht mechanical heart valves.PROTHROMBIN TIME/[id number] 04:40:00 Test Item Value Reference Range Interpretation [...] is 2.5-3.5 for patients wiht mechanical heart valves.CBC W/PLT COUNT & AUTO [id number] 04:34:00 Test Item Value Reference Range Interpretation [...] PERCENT (BEAKER) (test code = 2801) SCREEN, [id number] 07:32:00 Test Item Value Reference Range Interpretation Comments TEST URINE (BEAKER) (test Negative code = 583) BASIC METABOLIC [id number] 04:58:00 Test Item Value Reference Range Interpretation [...] 1092) DATA TO CALCULA TE ESTIMATED GFR. Manager Statistical ID - JONAH MPT/[id number] 04:55:00 Test Item Value Reference Range Interpretation [...] is 2.5-3.5 for patients wiht mechanical heart valves.PROTHROMBIN [id number] 04:54:00 Test Item Value Reference Range Interpretation [...] is 2.5-3.5 for patients wiht mechanical heart valves.CBC W/PLT COUNT & AUTO [id number] 04:40:00 Test Item Value Reference Range Interpretation [...] H PERCENT (BEAKER) (test code = 2801) BLOOD [id number] 18:00:00 Test Item Value Reference Range Interpretation Comments CULTURE (BEAKER) (test No growth in 5 days code = 1095) BLOOD [id number] 18:00:00 Test Item Value Reference Range Interpretation Comments CULTURE (BEAKER) (test No growth in 5 days code = 1095) POCT-GLUCOSE [id number] 13:24:00 Test Item Value Reference Range Interpretation Comments POC-GLUCOSE METER 101 mg/dL 70-110 : TESTED A T [facility] 6720 (BEAKER) (test code = [facility] Salvatore [facility], 1538) [id number]: Manager Statistical/Techni sameer ID = [id number] for PAVELJUAN JAprilGRISSOMTIANA BASIC METABOLIC [id number] 08:47:00 Test Item Value Reference Range Interpretation [...] 1092) DATA TO CALCULA TE ESTIMATED GFR. Manager Statistical ID - JONAH MURINE [id number] 08:32:00 Test Item Value Reference Range Interpretation [...] seco nd type <10,000 col/mL Enterococcus speciesPOCT-GLUCOSE [id number] 06:34:00 Test Item Value Reference Range Interpretation Comments POC-GLUCOSE METER 91 mg/dL 70-110 : TESTED A T [facility] 6720 (BEAKER) (test code = AARTI Chase [facility], 1538) 76113: Manager Statistical/Techni sameer ID = [id number] for VISH DEVLIN CBC W/PLT COUNT & AUTO [id number] 06:15:00 Test Item Value Reference Range Interpretation [...] PERCENT (BEAKER) (test code = 2801) POCT-GLUCOSE [id number] 01:32:00 Test Item Value Reference Range Interpretation Comments POC-GLUCOSE METER 100 mg/dL 70-110 : TESTED A T [facility] 6720 (BEAKER) (test code = AARTI SANCHEZ [place], 1538) 51652: Manager Statistical/Techni sameer ID = [id number] for VISH REBOLLAR VANCOMYCIN LEVEL, [id number] 01:02:00 Test Item Value Reference Range Interpretation Comments VANCOMYCIN TROUGH (BEAKER) (test 7.7 ug/mL 10.0-20.0 L code = 522) Manager Statistical ID - JONAH MSARS-COV2/RT-PCR ([facility])2020-03-10 17:34:00 Test Item Value Reference Range Interpretation Comments SARS-COV2/RT-PCR (test Negative Not Detected, Negative, code = 9137847) See external report for linked test SARS-COV-2 PERFORMING LAB [facility] DAMARIS (test code = 4380571) Negative result for this test determines that [...] individuals suspected of COVID-19 by their healthcare provider.This test [...] justifying the authorization of the emergency use ofin vitro diagnostic tests for detection and/or diagnosis of COVID-19 is terminated under Section 564(b)(2) of the Act or the EUA is revoked under Section 564(g) of the Act.Fact Sheet for Healthcare Prov iders:https://www.[employer].[facility]/sites/default/files/product/documents/Fact_Sheet_HC _Vntzsyuss_Tjsq_SYOU-GrF-6.pdfFact Sheet for Healthcare Patients:https://www.[employer].[facility]/sites/default/files/product/docume nts/Evbl_Iwyhn_Zgcxndfm_Vhwf_UQRS-GbM-9.pdfPerforming Laboratory:[facility], [place] [address]DSWSHQNGOBM TIME/INR 2020-03-10 06:27:00 Test Item Value Reference [...] is 2.5-3.5 for patients wiht mechanical heart valves.[id number] 06:27:00 Test Item Value Reference Range Interpretation Comments PARTIAL THROMBOPLASTIN TIME 32.3 seconds 22.5-36.0 (BEAKER) (test code = 760) BASIC METABOLIC [id number] 06:09:00 Test Item Value Reference Range Interpretation [...] 1092) DATA TO CALCULA TE ESTIMATED GFR. Manager Statistical ID - PIAYA LCBC W/PLT COUNT & AUTO [id number] 04:48:00 Test Item Value Reference Range Interpretation [...] % 20-55 L (test code = 2590) Manager Statistical ID - ADMINBASIC METABOLIC [id number] 07:51:00 Test Item Value Reference Range Interpretation [...] 1092) DATA TO CALCULA TE ESTIMATED GFR. Manager Statistical ID - [id number] 05:06:00 Test Item Value Reference Range Interpretation Comments FERRITIN (BEAKER) (test code = 142.14 ng/mL 5.00-275.00 361) Manager Statistical ID - KARENAYA LCBC W/PLT COUNT & AUTO [id number] 04:33:00 Test Item Value Reference Range Interpretation [...] (BEAKER) (test code = 2801) BASIC METABOLIC [id number] 11:05:00 Test Item Value Reference Range Interpretation [...] ESTIMATED GFR. CBC W/PLT COUNT & AUTO [id number] 05:12:00 Test Item Value Reference Range Interpretation [...] (test code = 2801) KIDNEY IMAGING, SINGLE, FLOW/[id number] 16:24:00Unlisted Reason for Exam - Click Yes and Enter Reason Below->YesUnlisted Reason for Exam->check function of right kidney for possible nephrectomyFINAL REPORT PROCEDURE: Functional RENAL SCAN, flow and function CPT CODE: 57339 INDICATION: Nephrolithiasis, hydronephrosis, right nephrostomy PROTOCOL: 10.8 mCi of Tc-99m MAG3 was injected intravenously. Renal flow images were obtained in the posterior projection. Subsequent serial posterior images were obtained over approximately 40 minutes. FINDINGS: There is prompt perfusionof the left kidney but markedly delayed and [...] given the presence of the right nephrostomy.3. Functioning right nephrostomy. Signed: Christina Sawant [facility]ITALeport Verified Date/Time: 03/07/2020 16:24:47 Reading Location: [address] [address] Reading Room SARS-COV2/RT-PCR ([facility])2020-03-07 12:30:00 Test Item Value Reference Range Interpretation Comments SARS-COV2/RT-PCR (test Negative Not Detected, Negative, code = 0788458) See external report for linked test SARS-COV-2 PERFORMING LAB [facility] DAMARIS (test code = 6039327) Negative result for this test determines that [...] individuals suspected of COVID-19 by their healthcare provider.This test [...] justifying the authorization of the emergency use ofin vitro diagnostic tests for detection and/or diagnosis of COVID-19 is terminated under Section 564(b)(2) of the Act or the EUA is revoked under Section 564(g) of the Act.Fact Sheet for Healthcare Prov iders:https://www.[employer]com/sites/default/files/product/documents/Fact_Sheet_HC _Bcboczcbf_Cjcn_NALC-OvD-8.pdfFact Sheet for Healthcare Patients:https://www.[employer].[facility]/sites/default/files/product/docume nts/Vvoz_Eifvy_Ucfqbrim_Mifc_HMTS-HhP-9.pdfPerforming Laboratory:[facility], [place] [address]UXB W/PLT COUNT & AUTO [id number] 12:01:00 Test Item Value Reference Range Interpretation [...] CONCENTRATION Adequate (CELLAVISION)(BEAKER) (test code = 3438) Manager Statistical ID - Fidel-Felipe Carlin comments: Slide comments:URINALYSIS W/ REFLEX URINE [id number] 11:12:00 Test Item Value Reference Range Interpretation [...] = 516) SOURCE(BEAKER) (test code = 2795) Manager Statistical ID - [auto]Manager Statistical ID - techVITAMIN D, [id number] 07:14:00 Test Item Value Reference Range Interpretation Comments VITAMIN D 25-OH (BEAKER) (test 15.8 ng/mL 6.6-49.9 code = 2764) Effective 04/05/2017: Reference Range ChangeNew: 6.6-49.9 ng/mL Previous: 13.0- 47.8 ng/mLRecommendedVitamin D Target Range: 30.0-40.0 ng/mLOperator ID - JONAH Acevedo BASIC METABOLIC [id number] 07:09:00 Test Item Value Reference Range Interpretation [...] 1092) DATA TO CALCULA TE ESTIMATED GFR. Manager Statistical ID - JONAH MPOCT-GLUCOSE [id number] 23:40:00 Test Item Value Reference Range Interpretation Comments POC-GLUCOSE METER 77 mg/dL 70-110 : TESTED Jt Quinonez [facility] 6720 ([place]) (test code = [facility] [place], 1538) 77[address]: Manager Statistical/Techni sameer ID = [id number] for Anna Armando (contra ct) ANG, NEPHROSTOMY, PERC, EXTERNAL [id number] 22:01:00Reason for exam:- >PCN placement due to hydronephrosisFINAL REPORT Exam: Right nephrostomy tube insertion Clinical History: Right UPJstone with severe hydronephrosis and fever Consent: Benefits and risks were explained to the patientwho gave consent to the procedure. Sedation: The [...] ureteral stent. Under fluoroscopic guidance, an 8.5 Israeli nephrostomy tube was advanced into the renal pelvis the catheter was secured using 2-0 Prolene and left to gr avity drainage. Hemostasis was achieved. The patient tolerated the procedure well without any adverse reactions. He left the department in stable condition. Complication: None immediate Impression: 1. Right nephrostomy tube insertion as described. Signed: Sara Blanton MDReport Verified Date/Time: 03/06/2020 22:01:35 Reading Location: [place] [address] [facility] Reading Room (CELLAVISION MANUAL DIFF) 2020-03-06 18:39:00 Test Item Value [...] CONCENTRATION Adequate (CELLAVISION)(BEAKER) (test code = 3438) Manager Statistical ID - Halima comments: Slide comments:BASIC METABOLIC [...] 1092) DATA TO CALCULA TE ESTIMATED GFR. Manager Statistical ID - DBCBC W/PLT COUNT & AUTO [id number] 18:14:00 Test Item Value Reference Range Interpretation [...] 0-0 (BEAKER) (test code = 413) PROTHROMBIN TIME/[id number] 18:08:00 Test Item Value Reference Range Interpretation [...]
[2022-03-22 20:46] LABS: Urine Blood 2+ (Negative); Urine Glucose Negative (Negative); Urine Protein 2+ (Negative); Urine pH 6.5 (5.0-7.0)
[2022-03-22 20:56] LABS: Urine Bacteria <20 /HPF (<20); Urine RBC 21-50 /HPF (None Seen); Urine WBC Clump Many /HPF (None Seen)
--- NOTE | 2022-03-22 20:59 | RAD REPORT ---
EXAM DESCRIPTION: US - Abdomen Exam Limited - 03/22/2022 8:51 pm CLINICAL HISTORY: Abdominal pain. COMPARISON: None. FINDINGS: The gallbladder wall is not thickened. A gallstone is not seen. The biliary tree is normal caliber. IMPRESSION: Unremarkable gallbladder ultrasound.
[2022-03-22 21:34] LABS: Absolute Lymphocytes (CBC) 1.5 K/uL (0.7-4.9); Hematocrit 38.6 % (36.0-45.0); Lymphocytes % 9.7 % (15.3-44.8); MCV 91.7 fL (80-100); MPV 9.4 fL (7.6-11.3); RBC Red Blood Cell Count 4.21 M/uL (3.86-4.86)
[2022-03-22] MEDS ORDERED: CEFTRIAXONE 1000 MG/VIAL ONE (21:35)
[2022-03-22] MEDS ORDERED: KETOROLAC 30 MG/ML INJ ONE (21:36)
[2022-03-22] MEDS ORDERED: NA CHLORIDE 0.9% 1,000 ML ONE ×2 (21:36→22:56)
[2022-03-22] MEDS ORDERED: ONDANSETRON 4 MG/2 ML VIAL ONE (21:36)
[2022-03-22 21:52] LABS: Albumin 3.7 g/dL (3.4-5.0); Bilirubin Total 1.2 mg/dL (0.2-1.0); Potassium 3.6 mmol/L (3.5-5.1); Protein, Total 8.2 g/dL (6.4-8.2)
--- NOTE | 2022-03-22 21:58 | RAD REPORT ---
EXAM DESCRIPTION: CT - Stone Protocol - 03/22/2022 9:28 pm CLINICAL HISTORY: Abdominal pain. COMPARISON: December 2021 TECHNIQUE: Computed axial tomography of the abdomen pelvis was obtained without oral or IV contrast. Lack of IV and oral contrast limits evaluation of solid organs, appendix, bowel, and vessels. To l reformatted images were obtained and reviewed. All CT scans are performed using dose optimization technique as appropriate and may include automated exposure control or mA/KV adjustment according to patient size. FINDINGS: A right ureteral stent has been placed in good position. The right hydronephrosis has dimi nished. It is now moderate. Multiple right renal calculi. A calculus along the course of the right ur eter is not visualized. Right renal cortical thinning Tiny nonobstructing left renal calculus. The liver, spleen, pancreas and adrenals appear grossly normal There is no evidence of diverticulitis. The appendix appears normal IMPRESSION: Placement of a right ureteral stent. The right hydronephrosis has diminished and is now moderate. A calculus along the course of stent is not seen.
--- NOTE | 2022-03-22 22:37 | EDPHYS ---
Physician Documentation [facility] Name: Rakesh Vigil Age: 26 yrs Sex: Female : 1995 Arrival Date: 03/22/2022 Time: 18:26 Bed 17 Private MD: ED Physician Neel Reyes HPI: 03/22 20:45 This 26 yrs old Female presents to ER via Ambulatory with complaints of cp Abdominal Pain, Headache. 20:45 The patient presents with abdominal pain right side abdomen and right flank. Onset: The cp symptoms/episode began/occurred yesterday, and became worse today. The symptoms radiate to right back. Associated signs and symptoms: Pertinent positives: nausea and vomiting, fever. 20:45 Severity of pain: in the emergency department the pain is unchanged despite home cp interventions. 20:45 Patient reports history of having stent placed for right kidney stone after being cp transferred from this facility to another hospital about 2 months ago. Patient admits to not following up to have stent removed. 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 - Social history:: Smoking status: Patient denies any tobacco usage or history of. ROS: 20:50 Constitutional: Positive for fever, Negative for poor PO intake. cp 20:50 Eyes: Negative for injury, pain, redness, and discharge. cp 20:50 ENT: Negative for drainage from ear(s), ear pain, sore throat, difficulty swallowing, difficulty handling secretions. 20:50 Cardiovascular: Negative for chest pain, palpitations. 20:50 Respiratory: Negative for cough, shortness of breath, wheezing. 20:50 Abdomen/GI: Positive for abdominal pain, nausea. 20:50 Back: Positive for flank pain, on the right. 20:50 Neuro: Positive for headache, Negative for altered mental status, weakness. 20:50 All other systems are negative. Exam: 21:00 Constitutional: The patient appears in no acute distress, alert, awake, non-toxic, well cp developed, well nourished, uncomfortable. 21:00 Head/Face: Normocephalic, atraumatic. cp 21:00 Eyes: Periorbital structures: appear normal, Conjunctiva: normal, no exudate, no injection, Sclera: no appreciated abnormality, Lids and lashes: appear normal, bilaterally. 21:00 ENT: External ear(s): are unremarkable, Nose: is normal, Mouth: Lips: moist, Oral mucosa: pink and intact, moist, Posterior pharynx: is normal, airway is patent, no erythema, no exudate. 21:00 Neck: ROM/movement: is normal, is supple, without pain, no range of motions limitations. 21:00 Chest/axilla: Inspection: normal. 21:00 Cardiovascular: Rate: tachycardic, Rhythm: regular. 21:00 Respiratory: the patient does not display signs of respiratory distress, Respirations: normal, no use of accessory muscles, no retractions, labored breathing, is not present, Breath sounds: are clear throughout, no decreased breath sounds, no stridor, no wheezing. 21:00 Abdomen/GI: Inspection: abdomen appears normal, Bowel sounds: active, all quadrants, Palpation: soft, in all quadrants, moderate abdominal tenderness, in the posterior aspect of right lateral abdomen, anterior aspect of right lateral abdomen and right lower quadrant. 21:00 Back: pain, that is moderate, of the right mid back, ROM is painful, with all movement. 21:00 Skin: cellulitis, is not appreciated, no rash present. 21:00 Neuro: Orientation: to person, place \T\ time. Mentation: is normal, Motor: moves all fours, strength is normal, Sensation: is normal. Vital Signs: 18:59 BP 102 / 77; Pulse 107; Resp 16; Temp 100.0(TE); Pulse Ox 100% on R/A; Weight 68.04 kg bm7 (R); Height 5 ft. 2 in. (157.48 cm); Pain 10/10; 22:19 BP 94 / 51; Pulse 91; Resp 16; Temp 98.4; Pulse Ox 97% on R/A; jb5 23:52 BP 108 / 62; Pulse 90; Resp 16; Temp 98(O); Pulse Ox 99% on R/A; Pain 0/10; kl 18:59 Body Mass Index 27.44 (68.04 kg, 157.48 cm) bm7 MDM: 19:55 Patient medically screened. cp 22:21 Physician consultation: Jesse Murray MD was called at 22:20, regarding consult, cp patient's condition, left message on voicemail. 22:30 Data reviewed: vital signs, nurses notes, lab test result(s), radiologic studies, CT cp scan, DR Murray, urology, will not be available for consult, I have discussed the patient's presentation/case with the attending Emergency Department Physician; and as a result, I will transfer patient. 23:15 Counseling: I had a detailed discussion with the patient and/or guardian regarding: the cp historical points, exam findings, and any diagnostic results supporting the discharge/admit diagnosis, lab results, radiology results, the need to transfer to another facility, [facility] does not immediately have the required specialist. 23:15 Differential diagnosis: appendicitis, cholecystitis, Cholelithiasis, Pyelonephritis, cp Ureterolithiasis, urinary tract infection. Response to treatment: the patient's symptoms have markedly improved after treatment. Refusal of service: The patient/guardian displays adequate decision making capability and despite a detailed discussion of alternatives, benefits, risks, and consequences refuses: transfer, patient reports she has children at home to take care of and is requesting discharge to home. Patient understands risk of worsening illness, explained elevated WBC and concern for sepsis while awaiting lactate and procalcitonin results. 03/22 20:30 Order name: CBC with Diff; Complete Time: 21:57 cp 03/22 21:57 Interpretation: Normal except: WBC 15.20; TYRELL% 81.4; LYM% 9.7; NEUT A 12.4. cp 03/22 20:30 Order name: CMP; Complete Time: 21:57 cp 03/22 21:58 Interpretation: Normal except: NA 135; GLUC 130; GFR 77; AST 10; BILIT 1.2; GLOB 4.5; cp A/G 0.8. 03/22 20:30 Order name: Lipase; Complete Time: 21:57 cp 03/22 20:30 Order name: Urine Microscopic Only; Complete Time: 21:08 cp 03/22 20:47 Order name: Urine Dipstick-Ancillary; Complete Time: 21:08 EDMS 03/22 21:58 Interpretation: Normal except: UKET Trace; UBLD 2+; UPROT 2+; UESTR 3+. 03/22 21:03 Order name: Urine --Ancillary (enter results) mw2 03/22 20:30 Order name: Abdomen Limited US; Complete Time: 21:08 cp 03/22 21:06 Order name: Urine Culture EDMS 03/22 21:09 Order name: CT Stone Protocol; Complete Time: 22:00 03/22 21:59 Order name: Lactate 03/22 21:59 Order name: Procalcitonin 03/22 21:59 Order name: Blood Culture Adult (2) 03/22 20:30 Order name: IV Saline Lock; Complete Time: 21:22 cp 03/22 20:30 Order name: Labs collected and sent; Complete Time: 21:22 03/22 20:30 Order name: Urine Dipstick-Ancillary (obtain specimen); Complete Time: 20:46 03/22 20:30 Order name: Urine Test (obtain specimen); Complete Time: 20:46 cp Administered Medications: 21:50 Drug: NS 0.9% 1000 ml Route: IV; Rate: 1 bolus; Site: right antecubital; jb4 21:50 Drug: Zofran (Ondansetron) 4 mg Route: IVP; Site: right antecubital; jb4 21:50 Drug: Rocephin (cefTRIAXone) 1 grams Route: IV; Rate: calculated rate; Site: right jb4 antecubital; 23:51 Follow up: Response: No adverse reaction kl 21:50 Drug: Ketorolac 15 mg Route: IVP; Site: right antecubital; jb4 23:07 Drug: NS 0.9% 1000 ml Route: IV; Rate: 1 bolus; Site: left antecubital; kl 23:51 Follow up: IV Status: Completed infusion; IV Intake: 1000ml kl 23:51 Drug: LevaQUIN (levofloxacin) 500 mg Route: PO; kl Disposition Summary: 03/22/22 23:22 Discharge Ordered Location: Home cp Problem: new(03/22/22 23:22) cp Symptoms: have improved(03/22/22 23:22) cp Condition: Stable(03/22/22 23:22) cp Diagnosis - UTI/ Urinary tract infection, site not specified(03/22/22 23:22) cp - Infected Right Ureter Stent cp - Calculus of kidney cp Followup: cp - With: Private Physician - When: 1 - 2 days - Reason: Recheck today's complaints Discharge Instructions: - Discharge Summary Sheet cp - Dysuria cp - Renal Colic cp - Urinary Tract Infection, Adult cp Forms: - Medication Reconciliation Form cp - Thank You Letter cp - Antibiotic Education cp - Prescription Opioid Use cp Prescriptions: - Ibuprofen 800 mg Oral Tablet - take 1 tablet by ORAL route every 8 hours As needed take with food; 30 tablet; cp Refills: 0, Product Selection Permitted - cefpodoxime 200 mg Oral Tablet - take 1 tablet by ORAL route every 12 hours for 10 days with food; 20 tablet; cp Refills: 0, Product Selection Permitted Signatures: Dispatcher [employer] EDElizabeth Sanches RN RN Neel White PA PA cp Goyo Dang RN RN jb4 Chloé Cleveland RN RN bm7 Corrections: (The following items were deleted from the chart) 23:21 22:35 Doctor cp cp 23:21 22:35 [facility] cp cp 23:21 22:35 Higher level of care cp cp 23:21 22:35 Stable cp cp 23:21 22:35 new cp cp 23:21 22:35 have improved cp cp 23:21 22:35 UTI/ Urinary tract infection, site not specified cp cp 03/23 07:14 03/22 20:45 Associated signs and symptoms: Pertinent positives: fever, cp cp
--- NOTE | 2022-03-22 22:37 | ER ---
Nurse's Notes [facility] Name: Rakesh Vigil Age: 26 yrs Sex: Female : 1995 Arrival Date: 03/22/2022 Time: 18:26 Bed 17 Private MD: Diagnosis: UTI/ Urinary tract infection, site not specified;Infected Right Ureter Stent;Calculus of kidney Presentation: 03/22 19:00 Chief complaint: Spouse and/or significant other states: She has been having a kidney bm7 stone for a while and they put a stent in around a month ago. Now her pain is really bad and shes starting to run a fever and throw up. Coronavirus screen: At this time, the client does not indicate any symptoms associated with coronavirus-19. Ebola Screen: No symptoms or risks identified at this time. Initial Sepsis Screen: Does the patient meet any 2 criteria? HR > 90 bpm. Does the patient have a suspected source of infection? Yes: Dysuria/Frequency/Urgency/UTI. Risk Assessment: Do you want to hurt yourself or someone else? Patient reports no desire to harm self or others. Onset of symptoms was March 22, 2022. 19:00 Method Of Arrival: Ambulatory bm7 19:00 Acuity: CLARISSE 3 bm7 Triage Assessment: 19:02 General: Appears in no apparent distress. uncomfortable, Behavior is calm, cooperative, bm7 appropriate for age. Pain: Complains of pain in back. EENT:. Neuro: No deficits noted. Cardiovascular: No deficits noted. Respiratory: No deficits noted. GI: Abd is soft X 4 quads Abdomen is tender to palpation in suprapubic area. GI: Reports nausea. : Reports pain in right flank(s), urinary frequency. Derm: No deficits noted. No signs and/or symptoms reported regarding the dermatologic system. Musculoskeletal: No deficits noted. No signs and/or symptoms reported regarding the musculoskeletal system. 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 - Social history:: Smoking status: Patient denies any tobacco usage or history of. Screenin:53 Abuse screen: Denies threats or abuse. Nutritional screening: No deficits noted. kl Tuberculosis screening: No symptoms or risk factors identified. Fall Risk None identified. Assessment: 22:00 Reassessment: Patient appears in no apparent distress at this time. Patient and/or kl family updated on plan of care and expected duration. Pain level reassessed. Patient is alert, oriented x 3, equal unlabored respirations, skin warm/dry/pink. 23:54 GI: Bowel sounds present X 4 quads. Vital Signs: 18:59 BP 102 / 77; Pulse 107; Resp 16; Temp 100.0(TE); Pulse Ox 100% on R/A; Weight 68.04 kg bm7 (R); Height 5 ft. 2 in. (157.48 cm); Pain 10/10; 22:19 BP 94 / 51; Pulse 91; Resp 16; Temp 98.4; Pulse Ox 97% on R/A; jb5 23:52 BP 108 / 62; Pulse 90; Resp 16; Temp 98(O); Pulse Ox 99% on R/A; Pain 0/10; kl 18:59 Body Mass Index 27.44 (68.04 kg, 157.48 cm) bm7 ED Course: 18:26 Patient arrived in ED. mr 18:45 Neel Santillan PA is PHCP. cp 18:45 Neel Reyes MD is Attending Physician. cp 19:01 Triage completed. bm7 19:01 Arm band placed on right wrist. bm7 20:46 Urine Microscopic Only Sent. zm 20:53 Abdomen Limited US In Process Unspecified. EDMS 21:21 Inserted saline lock: 20 gauge in right antecubital area, using aseptic technique. zm Blood collected. 21:22 Urine Culture Sent. zm 21:22 Urine --Ancillary (enter results) Sent. zm 21:22 CBC with Diff Sent. zm 21:22 CMP Sent. zm 21:22 Lipase Sent. zm 21:36 CT Stone Protocol In Process Unspecified. EDMS 22:37 initiated a transfer with Cheyanne from [facility]. mw2 23:[address] [facility] spoke to Torsten to cancel the transfer. mw2 23:52 No provider procedures requiring assistance completed. IV discontinued, intact, kl bleeding controlled, No redness/swelling at site. Pressure dressing applied. 23:54 Patient has correct armband on for positive identification. kl Administered Medications: 21:50 Drug: NS 0.9% 1000 ml Route: IV; Rate: 1 bolus; Site: right antecubital; jb4 21:50 Drug: Zofran (Ondansetron) 4 mg Route: IVP; Site: right antecubital; jb4 21:50 Drug: Rocephin (cefTRIAXone) 1 grams Route: IV; Rate: calculated rate; Site: right jb4 antecubital; 23:51 Follow up: Response: No adverse reaction 21:50 Drug: Ketorolac 15 mg Route: IVP; Site: right antecubital; 4 23:07 Drug: NS 0.9% 1000 ml Route: IV; Rate: 1 bolus; Site: left antecubital; 23:51 Follow up: IV Status: Completed infusion; IV Intake: 1000ml 23:51 Drug: LevaQUIN (levofloxacin) 500 mg Route: PO; Medication: 23:54 VIS not applicable for this client. kl Intake: 23:51 IV: 1000ml; Total: 1000ml. Outcome: 22:35 ER care complete, transfer ordered by MD. cp 23:22 Discharge ordered by MD. 23:54 Discharged to home ambulatory, with family. 23:54 Condition: improved 23:54 Discharge instructions given to patient, Instructed on discharge instructions, follow up and referral plans. medication usage, Demonstrated understanding of instructions, follow-up care, medications, Prescriptions given X 2. 23:54 Patient left the ED. Signatures: Dispatcher [employer] EDMS Elizabeth Fu RN RN johanna Bejarano, Jacqueline mr Neel Santillan PA PA cp Goyo Dang, JYOTHI RN jb4 Shanell Barrientos jb5 Gm Stern mw2 Chloé Cleveland, JYOTHI RN bm7 Vivian Jeffries
[2022-03-22] MEDS ORDERED: levoFLOXacin 250 MG TAB ONE (23:44)
== END 2022-03-22 23:54 | disposition home or self-care (01) ==
LOC: ER 18:23
DX: N39.0 Urinary tract infection, site not specified (principal); N20.0 Calculus of kidney; T83.592A Infection and inflammatory reaction due to indwelling ureteral stent, initial encounter
CPT/HCPCS: 36415; 74176; 76377; 76705; 80053; 81003; 81015; 81025; 83605; 83690; 84145; 85025; 87040; 87086; 87088; 96361; 96374; 96375; 99284; J2405; J7030

== ENCOUNTER 2023-04-01 11:48 | Emergency (ER) | payer OTHER ==
--- OUTSIDE RECORDS SUMMARY | 2023-04-01 11:54 | XMS REPORT | Continuity of Care Document ---
:1995 Author Organization [facility] t Address [address] [place] [address] [place] [id number] Care Team Providers Name Role Phone No, Pcp [facility] Primary Care Physician Unavailable Lawrence Guido Attending Clinician Unavailable ANTWAN LAWSON Attending Clinician Unavailable Enrrique Sena Attending Clinician Unavailable Maryan Asencio Attending Clinician Unavailable Lydia Attending Clinician Unavailable ANOOP GARRETT Attending Clinician Unavailable Rita Braun MD Attending Clinician Anoop Garrett MD Attending Clinician [phone] Mary Jane Dixon MD Attending Clinician Syd Roberts MD Attending Clinician [phone] Justice Diaz MD Attending Clinician Lg Mooney CRNA Attending Clinician [phone] Lg Garcia MD Attending Clinician KNOW, DOES_NOT Admitting Clinician Unavailable ANTWAN LAWSON Admitting Clinician Unavailable Enrrique Sena Admitting Clinician Unavailable Physician, No Primary or Family Admitting Clinician Unavaila ble Terrellg_B Admitting Clinician Unavailable MARY JANE DIXON Admitting Clinician Unavailable [facility] WHITLOCK Admitting Clinician Unavailable Payers Payer Name Policy Type Policy Number Effective Date Expiration Date S tracey MEDICAID OF OUT OF [id number] 2020 STATE 00:00:00 Problems Condition Condition Condition Status Onset Resolution Last Treating Co mments Source Name Details Category Date Date Treatment Clinician Date Hydronephr Hydronephr Disease Active [facility] Hydronephr Hydronephr Disease Active [facility] with osis with 9-12 [facility] urinary urinary 00:00: Medical obstructio obstructio 00 Ce nter n due to n due to ureteral ureteral calculus calculus Hydronephr Hydronephr Disease Active [facility]sis with osis with 9-12 [facility] urinary urinary 00:00: Medical obstructio obstructio 00 Ce nter n due to n due to ureteral ureteral calculus calculus Nephrolith Nephrolith Disease Active C [facility] iasis iasis 9[facility]11 [facility] Allergies, Adverse Reactions, Alerts Allergy Allergy Status Severity Reaction(s) Onset Inactive Treating Comm ents Source Name Type Date Date Clinician No Known DA Active [facility] NO KNOWN Allergy Active [facility] Social History Social Habit Start Date Stop Date Quantity Comments Source History SDOH [facility] Alcohol Comment Medical C enter History SDOH [facility] Housing Places Medical Ce nter Lived History SDOH [facility] Alcohol Std Drinks Medica l Center History SDOH [facility] Alcohol Binge Medical [facility] History SDOH [facility] Transport Non-Med Medical Center Alcohol intake 2022-01-19 2022-01-[address] [facility] 00:[facility] 00:00:00 non-drinker Medical Cente r (finding) History SDOH 2022-01-17 2022-01-[address] [facility] Housing Unable to 00:00:00 00:00:00 Medical Center Pay History SDOH 2022-01-17 2022-01-[address] [facility] Homeless 00:00:00 00:00:00 Medical Center Last Year History [facility] 2022-01-17 2022-01-[address] [facility] Alcohol Frequency 00:00:00 00:00:00 Medical Center History [facility] 2022-01-17 2022-01-[address] [facility] Transport Med 00:00:00 00:00:[address] Tobacco use and 2020-03-08 2020-03-08 [address] [facility] exposure 00:[facility]00:00 non-user Medical Center Sex Assigned At 1995 [address] [facility] [address] [facility] 00:00:00 00:00:00 Medical Center Smoking Status Start Date Stop Date Source Never smoked tobacco [facility] Medications Ordered Filled Start Stop Current Ordering Indication Dosage Frequency Signature Comments Components Source Medication Medication Date Date Medication? Clinician (SIG) Name Name tamsulosin 0 Yes .4mg QD Take 1 [facility] (FLOMAX[facility] 7[facility]27 [facility] 0.4 mg Cap 00:00: (0.4 mg Medi todd 24 hr 00 total) by Center capsule mouth daily. tamsulosin 2021-0 Yes .4mg QD Take 1 [facility] (FLOMAX[facility]27 [facility] 0.4 mg Cap 00:00: (0.4 mg Medi todd 24 hr 00 total) by Center capsule mouth daily. tamsulosin 2021-0 Yes .4mg QD Take 1 [facility] (FLOMAX) 7-27 [facility] 0.4 mg Cap 00:00: (0.4 mg Medi todd 24 hr 00 total) by Center capsule mouth daily. tamsulosin 2-0 Yes .4mg QD Take 1 [facility] (FLOMAX[facility]27 [facility] 0.4 mg Cap 00:00: (0.4 mg Medi todd 24 hr 00 total) by Center capsule mouth daily. Vital Signs Vital Name Observation Time Observation Value Comments Source HEIGHT 2020-03-06 00:00:00 157.5 cm WEIGHT 2020-03-06 00:00:00 61.236 kg WEIGHT 2022-01-16 20:26:00 61.2 kg WEIGHT 2022-01-16 20:26:00 61.2 kg HEIGHT 2020-03-06 00:00:00 157.5 cm WEIGHT 2020-03-06 00:00:00 61.236 kg Systolic blood 2022-01-19 12:40:00 114 mm[Hg] [facility] Diastolic blood 2022-01-19 12:40:00 64 mm[Hg] [facility] Heart rate 2022-01-19 12:40:00 74 /min [facility] Body temperature 2022-01-19 12:40:00 36.28 Maryanne [facility] Respiratory rate 2022-01-19 12:40:00 20 /min [facility] Oxygen saturation in 2022-01-19 12:40:00 97 /min [facility] Arterial blood by Medical Ce nter Pulse oximetry Body weight 2022-01-16 20:26:[address] [facility] BMI 2022-01-16 20:26:00 24.68 kg/m2 [facility] Procedures Procedure Date / Time Performed Performing Clinician Sourc e FL FLUORO NON-SPECIFIC 2022-01-19 08:15:00 Syd Roberts [facility] UP TO 1 HOUR [facility] TISSUE EXAM 2022-01-19 08:03:[address] [facility] CYSTOSCOPY, WITH 2022-01-19 07:26:00 Syd Roberts [facility] URETERAL STENT INSERTION [facility] CBC W/PLT COUNT & AUTO 2022-01-19 05:14:00 Rita Braun [facility] BASIC METABOLIC PANEL 2022-01-19 05:14:00 [facility] CBC W/PLT COUNT & AUTO 2022-01-19 05:14:00 Kade [facility] SARS-COV2/RT-PCR ([facility] & 2022-01-18 14:47:00 [facility] SCREEN, URINE 2022-01-18 14:47:00 Lg Garcia [facility] CBC W/PLT COUNT & AUTO 2022-01-18 04:47:00 Braun [facility] BASIC METABOLIC PANEL 2022-01-18 04:47:00 [facility] CBC W/PLT COUNT & AUTO 2022-01-18 04:47:00 Braun [facility] CT ABDOMEN/PELVIS 2022-01-17 09:28:00 Syd Roberts [facility] WITHOUT IV CONTRAST [facility] er URINALYSIS W/ 2022-01-17 06:47:00 Don [facility] BASIC METABOLIC PANEL 2022-01-17 04:15:00 Don [facility] MAGNESIUM 2022-01-17 04:15:00 Don [facility] CBC W/PLT COUNT & AUTO 2022-01-17 04:15:00 Don [facility] CBC W/PLT COUNT & AUTO 2022-01-17 04:15:00 Don [facility] LACTIC ACID, ARTERIAL 2022-01-16 23:33:00 Don [facility] BLOOD CULTURE 2022-01-16 23:32:00 Don [facility] BLOOD CULTURE 2022-01-16 23:27:00 Don [facility] URINE CULTURE 2022-01-16 23:16:00 [facility] Plan of Care Planned Activity Planned Date Details Comments Source Future Scheduled 2023-02-24 INFLUENZA VACCINE (Season [facility] 00:00:00 Ended) [code = INFLUENZA Med ical Center VACCINE (Season Ended)] Future Scheduled 2023-02-24 INFLUENZA VACCINE (Season [facility] 00:00:00 Ended) [code = INFLUENZA Med ical Center VACCINE (Season Ended)] Future Scheduled 2023-02-24 Influenza Vaccine (#1[facility] [code = Influenza Vaccine [facility] (#1)] Future Scheduled 2023-01-[address] [facility] Test 00:00:00 Counseling and Screening Med ical Center (12+) [code = Tobacco Cessation Counseling and Screening (12+)] Future Scheduled 2023-01-[address] [facility] Test 00:00:00 Counseling and Screening Med ical Center (12+) [code = Tobacco Cessation Counseling and Screening (12+)] Future Scheduled 2023-01-[address] [facility] Test 00:00:00 Counseling and Screening Med ical Center (12+) [code = Tobacco Cessation Counseling and Screening (12+)] Future Scheduled 2022-06-[address] [facility] Test 00:00:00 (12+) [code = DEPRESSION Med ical Center SCREENING (12+)] Future Scheduled 2022-06-[address] [facility] Test 00:00:00 (12+) [code = DEPRESSION Med ical Center SCREENING (12+)] Future Scheduled 2022-06-[address] [facility] Test 00:00:00 (12+) [code = DEPRESSION Med ical Center SCREENING (12+)] Future Scheduled 2022-02-24 INFLUENZA VACCINE (#1) [facility] 00:00:00 [code = INFLUENZA VACCINE Md dical Center (#1)] Future Scheduled 2021-06-[address] [facility] Test 00:00:00 (12+) [code = DEPRESSION Med ical Center SCREENING (12+)] Future Scheduled 2015 Screening for malignant [facility] Test 00:00:00 neoplasm of cervix Medical C enter (procedure) [code = 847451017] Future Scheduled 2015 Screening for malignant [facility] Test 00:00:00 neoplasm of cervix Medical C enter (procedure) [code = 321836434] Future Scheduled 2015 Screening for malignant [facility] Test 00:00:00 neoplasm of cervix Medical C enter (procedure) [code = 890418954] Future Scheduled 2015 Screening for malignant [facility] Test 00:00:00 neoplasm of cervix Medical C enter (procedure) [code = 057653215] Future Scheduled 2013 DTAP/TDAP/TD VACCINES ([address] [facility] Test 00:00:00 - Tdap) [code = Medical Cent er DTAP/TDAP/TD VACCINES (1 - Tdap)] Future Scheduled 2013 DTAP/TDAP/TD VACCINES ([address] [facility] Test 00:00:00 - Tdap) [code = Medical Cent er DTAP/TDAP/TD VACCINES (1 - Tdap)] Future Scheduled 2013 DTAP/TDAP/TD VACCINES ([address] [facility] Test 00:00:00 - Tdap) [code = Medical Cent er DTAP/TDAP/TD VACCINES (1 - Tdap)] Future Scheduled 2013 DTAP/TDAP/TD VACCINES ([address] [facility] Test 00:00:00 - Tdap) [code = Medical Cent er DTAP/TDAP/TD VACCINES (1 - Tdap)] Future Scheduled 2012 HEPATITIS C [facility]CRE[facility]ING [facility] 00:00:00 [code = HEPATITIS C Medical Center SCREENING] Future Scheduled 2012 HEPATITIS C [facility]CRE[facility]ING [facility] 00:00:00 [code = HEPATITIS C Medical Center SCREENING] Future Scheduled 2012 HEPATITIS C [facility]CRE[facility]ING [facility] 00:00:00 [code = HEPATITIS C Medical Center SCREENING] Future Scheduled 2012 HEPATITIS C [facility] 00:00:00 [code = HEPATITIS C Medical Center SCREENING] Future Scheduled [address] Human immunodeficiency [facility] 00:00:00 virus screening Medical Cent er (procedure) [code = 723977906] Future Scheduled 1994 COVID-19 VACCINE (#1) [facility] 00:00:00 [code = COVID-19 VACCINE Med ical Center (#1)] Future Scheduled 1994 COVID-19 VACCINE (#1[facility] 00:00:00 [code = COVID-19 VACCINE Med ical Center (#1)] Future Scheduled 1994 COVID-19 VACCINE (#1[facility] 00:00:00 [code = COVID-19 VACCINE Med ical Center (#1)] Future Scheduled 1994 COVID-19 VACCINE (#1[facility] 00:00:00 [code = COVID-19 VACCINE Med ical Center (#1)] Encounters Start End Encounter Admission Attending Care Care Encounter Source Date/Time Date/Time Type Type Clinicians Facility Department ID 2022-05-17 [id number] 09:00:00 11 [facility] 2020-03-06 Inpatient EDENILSON HANSON [facility] [id number] [facility] 15:14:00 ANTWAN 2022-11-02 2022-11-02 Outpatient JEFFERSON Asencio LABO [id number] [facility] 00:05:00 00:05:00 Maryan 62 [facility] 2022-11-01 2022-11-01 Emergency EM Luis M [facility] WYATT [id number] [facility] 19:04:00 23:50:00 Maryan 81 [facility] 2022-05-08 2022-05-08 Outpatient Armstrong_B [facility]U [id number] [place] 00:00:00 00:00:00 [id number] [facility] 2022-04-03 2022-04-03 Outpatient Armstrong_B [facility]U [id number] [place] 00:00:00 00:00:00 [id number] [facility] 2022-03-09 2022-03-09 Outpatient Armstrong_B [facility]U [id number] [place] 00:00:00 00:00:00 [id number] [facility] 2022-02-27 2022-02-27 Outpatient Armstrong_B [facility]U [facility]U [id number] [place] 00:00:00 00:00:00 [id number] [facility] 2022-01-26 2022-01-26 Outpatient Armstrong_B [facility]U [id number] [place] 00:00:00 00:00:00 [id number] [facility] 2022-01-16 2022-01-19 Inpatient ER GERRY [facility] [id number] [facility] 18:08:00 12:30:00 ANOOP Rangel 2022-01-16 2022-01-19 Hospital ER Rita Braun [facility] [id number] [facility] 18:08:00 12:30:00 [facility] 2022-01-19 Surgery Armando [facility] [id number] [facility] 2022-01-19 Anesthesia Justice Diaz [facility] [id number] 07:26[facility]00 08:20:00 Event V[facility] 2022-01-18 2022-01-18 Anesthesia Lg Garcia [facility] [id number] 16:02:53 16:02:53 Event Vinicio [facility] 2022-01-17 2022-01-17 Travel [facility] [id number] [facility] 00:[facility] 00:00:00 [facility] Results Test Description Test Time Test Comments Results Result Comments Source [facility] 2022-11-20 22:52:00 Test Item Value Reference Range Interpretation Comme nts HYDROXYAPATITE (test code = 90 % See_Comment [Automated message] The system which HAST) generated this result transmitted reference range : (). The reference range was not u sed to interpret this result as chapo l/abnormal. ST COLOR (test code = Brown See_Comment [Auto mated message] The system which COLST) generated this result transmitted reference range : (). The reference range was not u sed to interpret this result as chapo l/abnormal. ST SIZE (test code = SIZST) 4x5 mm See_Comment Multiple pieces received. Dimensions of the largest piecereported. [Automated mess age] The system which generated this result transmitted reference range : (). The reference range was not u sed to interpret this result as chapo l/abnormal. ST WEIGHT (test code = 506 mg See_Comment [Aut omated message] The system which WGTST) generated this result transmitted reference range : (). The reference range was not u sed to interpret this result as chapo l/abnormal. ST COMPOSITION (test code = Percentage (Represents the % COMPST) composition)Per centage (Represents the % compositi on) ST CA OXALATE MONOHYDRATE 10 % See_Comment [ Automated message] The system which (test code = CAOXMST) genera martha this result transmitted reference range : (). The reference range was not u sed to interpret this result as chapo l/abnormal. ST COMMENT 1 (test code = Ca lculus received wet. Wet calculi CMTST1) must be dried b eforeanalysis, which delays reportin g of results. Leaving calculiwet (suc h as water, saline, blood, urine) m ay lead tochanges in composition.Todd culus received wet. Wet calculi mus t be dried beforeanalysis, which delays reporting of re sults. Leaving calculiwet (suc h as water, saline, blood, urine) m ay lead tochanges in composition.Pre viously reported result: Edited by: CLIFTON on 11/17/22:9CM TST1 prev. reported as: . . ST COMMENT 2 (test code = Ca lcium phosphate (hydroxyl form) CMTST2) includes hydrox yapatite,amorphous calcium phospha te, and whitlockite. Hydroxyapatitei s the most common of the calcium allan sphate salts found inhuman kidney stones.Calcium phosphate (hydr oxyl form) includes hydroxyapatite, amorphous calcium phosphate, and whitlockite. Hydroxyapatitei s the most common of the calcium allan sphate salts found inhuman kidney stones.Previously reported result : Edited by: CLIFTON on 11/17/22:1908CM TST2 prev. reported as: . . ST PHOTO (test code = Photog raph will follow under a PHOTST) separate coverP hotograph will follow under a separat e coverPreviously reported result : Edited by: CLIFTON on 11/17/22:1909PH OTST prev. reported as: . . ST COMMENT 3 (test code = Ph ysician questions regarding Calculi CMTST3) Analysis [facility] at: [phone].Ph ysician questions regarding Calcu li Analysis contactLab[facility] at: [phone].Pr eviously reported result: Edited by: CLIFTON on 11/17/22:1908CM TST3 prev. reported as: . . ST PLEASE NOTE (test code = This test was developed and its PNST) performance clint racteristicsdetermined by [facility]. It has not been cleared or approvedby state mental health facility Food and Drug Administration. Performed At: [facility] [address] [place] [address] [address] [place], [place] [id number] Pawan K PhD Ph:[phone] is test was developed and its perform ance characteristics determined by [facility]. It has not been cleared or approvedby the Food and Dr ug Administration. Performed At: [facility] [address] [place] [id number] Asael Garcia PhD Ph:[phone] [id number] 05:51:00 Test Item Value Reference Range Interpretation Comments LIPASE (test code = LIP) 107 units/L 73-393 N [id number] 05:51:00 Test Item Value Reference Range Interpretation Comments MAGNESIUM (test code = MAG) 1.7 mg/dL 1.8-2.4 L COMPREHENSIVE METABOLIC [id number] 05:51:00 Test Item Value Reference Range Interpretation Comments SODIUM (test code = 138 mEq/L 135-145 N NA) POTASSIUM (test code 4.4 mEq/L 3.5-5.0 N = K) CHLORIDE (test code 105 mEq/L 100-115 N = CL) CARBON DIOXIDE (test 21 mEq/L 22-31 L code = CO2) ANION GAP (test code 16.10 10-20 N = GAP) GLUCOSE (test code = 122 mg/dL 65-110 H GLU) BLOOD UREA NITROGEN 11 mg/dL 7-18 N (test code = BUN) GLOMERULAR 103 ml/min >60 N The Glomerular FILTRATION RATE Filtration R ate is a (test code = GFR) calculated parameterbased on serum Creatinine, pat ient age and sex. GFR va luesless than 60 mL/min/ 1.73 square meters a re indicative ofCh ronic Kidney Disease. Values less than 15 mL/min/1.73squa re meters indicate Kidney failure. The calculation for GFR is based on the CK D-EPI (2020) calculat ion. This formulais race indifferent and is the recommended for matthew for GFRby the Natio nal Kidney Foundati on for Adults.The GFR will not calculate if th e sex is unknown or if thepatient's ag e is <18 years. CREATININE (test 0.8 mg/dL 0.5-1.0 N code = CREAT) TOTAL PROTEIN (test 6.6 gm/dL 6.3-8.2 N code = PROT) ALBUMIN (test code = 3.2 gm/dL 3.4-4.8 L ALB) CALCIUM (test code = 8.4 mg/dL 8.4-10.2 N CA) BILIRUBIN TOTAL 0.6 mg/dL 0.2-1.0 N (test code = BILT) SGOT/AST (test code 24 units/L 15-37 N = AST) SGPT/ALT (test code 42 units/L 12-78 N = ALT) ALKALINE PHOSPHATASE 49 units/L 46-116 N TOTAL (test code = ALKP) CBC W/AUTO [id number] 05:24:00 Test Item Value Reference Range Interpretation Comments WHITE BLOOD CELL (test code = WBC) 14.3 K/mm3 6.5-12.3 H RED BLOOD CELL (test code = RBC) 4.07 M/mm3 3.51-4.69 N HEMOGLOBIN (test code = HGB) 12.8 g/dL 10.1-13.8 N HEMATOCRIT (test code = HCT) 38.0 % 32.5-41.8 N MEAN CELL VOLUME (test code = MCV) 93.4 fL 84.6-96.6 N MEAN CELL HGB (test code = MCH) 31.4 pg 27.3-33.9 N MEAN CELL HGB CONCETRATION (test 33.7 gm/dL 32.0-34.2 N code = MCHC) RED CELL DISTRIBUTION WIDTH (test 12.0 % 12.2-16.3 L code = RDW) PLATELET COUNT (test code = PLT) 280 K/mm3 134-363 N MEAN PLATELET VOLUME (test code = 11.2 fL 9.2-12.7 N MPV) NEUTROPHIL % (test code = NT%) 88.1 % 57.9-77.3 H LYMPHOCYTE % (test code = LY%) 7.1 % 14.5-29.7 L MONOCYTE % (test code = MO%) 4.1 % 3.6-10.2 N EOSINOPHIL % (test code = EO%) 0.0 % 0.0-3.0 N BASOPHIL % (test code = BA%) 0.1 % 0.1-0.9 N NEUTROPHIL # (test code = NT#) 12.6 K/mm3 LYMPHOCYTE # (test code = LY#) 1.0 K/mm3 MONOCYTE # (test code = MO#) 0.6 K/mm3 EOSINOPHIL # (test code = EO#) 0 K/mm3 BASOPHIL # (test code = BA#) 0.0 K/mm3 RBC MORPHOLOGY REQUIRED (test code NORMAL NORMAL = RBCM) PLATELET MORPHOLOGY REQUIRED (test NORMAL NORMAL code = PLTMR) UA RFLX MICR CULT IF [id number] 23:15:00 Test Item Value Reference Range Interpretation Comments UA COLOR (test code = YELLOW discript YEL/STRAW COLU) UA APPEARANCE (test code TURBID discript CLEAR A = APPU) UA GLUCOSE DIPSTICK (test NEGATIVE mg/dL NEG code = DGLUU) UA BILIRUBIN DIPSTICK NEGATIVE mg/dL NEG (test code = BILU) UA KETONE DIPSTICK (test NEGATIVE mg/dL NEG code = KETU) UA SPECIFIC GRAVITY (test >=1.030 SG 1.005-1.030 A code = SGU) UA BLOOD DIPSTICK (test 3+ mg/DL NEG A code = LAUREN) UA PH DIPSTICK (test code 6.0 pH UNITS 5.0-7.0 = BREANNE) UA PROTEIN DIPSTICK (test 2+ mg/dL NEG A code = PROU) UA UROBILINIOGEN DIPSTICK 0.2 mg/dL <2.0 (test code = URO) UA NITRITE DIPSTICK (test NEGATIVE SCREEN NEG code = ESTEPHANIE) UA LEUKOCYTE ESTERASE 2+ Leuk/mcL NEGATIVE A DIPSTICK (test code = LEUU) UA WBC (test code = WBCU) >50 #WBC/HPF 0-3 A UA RBC (test code = RBCU) 50-100 #RBC/HPF 0-3 A UA BACTERIA (test code = TRACE /HPF NONE-TRACE BACU) UA SQUAMOUS CELLS (test 1+ /HPF NONE A code = SQU) UA CULTURE NEEDED? (test YES,WBC>10 & EPI<25 Culture CHK code = UACULT) Criteria Indication for culture: Gross HematuriaSOURCE OF URINE: CLEAN CATCH- CT ABD PELVIS [id number] 21:05:00 [facility] : 1995 Sex: F Name: YISSEL MELARA [facility] : 1995 Age/S: 27 / F [address] Unit #: [id number] Loc: [place] [address] Phys: Maryan Asencio DO Acct: [id number] Dis Date: Status: REG ER PHONE #: [phone] Exam Date: 11/01/20222044 FAX #: Reason: flank pain, r/o pyelonephritis EXAMS: CPT: [id number] CT ABD PELVIS W/CONT 24584 EXAMINATION: - CT ABD PELVIS W/CONT CLINICAL INDICATION: Female, 27 years old with flank pain, r/o pyelonephritis TECHNIQUE: Thin section axial post-contrast contiguous images were obtained through the abdomen and pelvis followed by coronal and sagittal multiplanar reformations. One or more of the following dose reduction techniques were used: Automated exposure control, adjustment of the mA and/or kV according to patient size, and/or iterative reconstruction. COMPARISON: None FINDINGS: Lower Chest: Visualized lung bases are clear. Heart is normal in size. No pericardial or pleural effusion. Liver: Normal in size and contour. No focal lesions. Bile ducts are of normal caliber. Gallbladder: No stones, wall thickening, or pericholecystic fluid. Pancreas: Normal appearance without focal lesion. Spleen: Normal in size and contour. Adrenals: Normal configuration. Kidneys and ureters: Right-sided hydronephrosis is noted. A double-J right ureteral stent is identified in the proximal portion coiled in the right renal pelvis and the distal portion coiled in the urinary bladder. Left kidney is normal in appearance. Right renal calculi also identified the largest of which measures 12 mm. Bladder/Reproductive Organs: Normal in appearance. Prostate gland is enlarged. It measures 5.9 cm x 4.9 cm. Bowel: Loops of bowel without wall thickening or obstruction. Normal appendix. No free air, free fluid, or fluid collection. Lymph nodes: There are no pathologically enlarged abdominopelvic lymph PAGE 1 Signed Report (CONTINUED) Name: YISSEL MELARA : 1995 Age/S: 27 / F [address] Unit #: [id number] Loc: [place] [id number] Phys: Maryan Asencio DO Acct: [id number] Dis Date: Status: REG ER PHONE #: [phone] Exam Date: 11/01/20222044 FAX #: Reason: flank pain, r/o pyelonephritis EXAMS: CPT: [id number] CT ABD PELVIS W/CONT [id number] (Continued) nodes. Retroperitoneum: No mass or hemorrhage. Abdominal aorta and inferior vena cava are normal in course and caliber. Abdominal wall: No hernia or mass. Bones: No acute abnormality or suspicious bony lesion. IMPRESSION: 1. Right-sided hydronephrosis with a double-Jright ureteral stent as detailed above. 2. Right-sided renal calculi as detailed above. 3. Enlarged prostate gland. at 2104 Reported and signed by: Gómez Fulton M.D. CC: Maryan Asencio DO Technologist:Marli Meeks, RT(R)(CT) CTDI: DLP: [id number] Date/Time: 11/01/2022 (2104) [email or web address] Orig Print D/T: S: 11/01/2022 (2107) PAGE 2 Signed ReportHCG [id number] 20:30:00 Test Item Value Reference Range Interpretation Comments HCG SERUM (test < 1 mi-IU/ML 0-6 N 0 - 6 NOT P REGNANT > 6 code = HCG) SUGGESTIVE OF E CHANDA RISES TWO FOLD EVERY 2 DAYS; S UGGEST RECONFIRMING AF TER 2 DAYS. 150,000-2 00,[address] TRIMESTER 10 ,000 - 50,000 2ND & 3R D TRIMESTER CBC W/AUTO [id number] 20:15:00 Test Item Value Reference Range Interpretation Comments WHITE BLOOD CELL (test code = 13.7 K/mm3 3.5-11.0 H WBC) RED BLOOD CELL (test code = 3.96 M/mm3 4.70-6.10 L RBC) HEMOGLOBIN (test code = HGB) 12.0 G/DL 10.4-14.9 N HEMATOCRIT (test code = HCT) 35.7 % 31.5-44.1 N MEAN CELL VOLUME (test code = 90.2 Fl 84.5-98.6 N MCV) MEAN CELL HGB (test code = MCH) 30.3 pg 27.0-34.2 N MEAN CELL HGB CONCETRATION 33.6 G/DL 31.5-34.0 N (test code = MCHC) RED CELL DISTRIBUTION WIDTH 12.3 SD 11.5-14.5 N (test code = RDW) PLATELET COUNT (test code = 306 K/mm3 150-450 N PLT) MEAN PLATELET VOLUME (test code 10.40 fL 7.0-10.5 N = MPV) NEUTROPHIL % (test code = NT%) 61.8 % 40-76 N IMMATURE GRANULOCYTE % (test 0.3 % 0.0-5.0 N code = IG%) LYMPHOCYTE % (test code = LY%) 27.6 % 20.5-51.1 N MONOCYTE % (test code = MO%) 8.4 % 1.7-9.3 N EOSINOPHIL % (test code = EO%) 1.5 % 0.0-6.0 N BASOPHIL % (test code = BA%) 0.4 % 0.0-2.0 N NUCLEATED RBC % (test code = 0.0 /100WBC% 0.0-1.0 N NRBC%) NEUTROPHIL # (test code = NT#) 8.5 K/mm3 1.8-7.6 H IMMATURE GRANULOCYTE # (test 0.04 x10 3/uL 0.00-0.03 H code = IG#) LYMPHOCYTE # (test code = LY#) 3.8 K/mm3 0.6-3.2 H MONOCYTE # (test code = MO#) 1.2 K/mm3 0.3-1.1 H EOSINOPHIL # (test code = EO#) 0.2 K/mm3 0.0-0.4 N BASOPHIL # (test code = BA#) 0.1 K/mm3 0.0-0.1 N NUCLEATED RBC # (test code = 0.0 K/mm3 0.0-0.1 N NRBC#) MANUAL DIFF REQUIRED (test code NO DIFF/SCN CRITERIA = MDIFF) BASIC METABOLIC [id number] 20:13:00 Test Item Value Reference Range Interpretation Comments SODIUM (test code 139 mmol/L 134-147 N = NA) POTASSIUM (test 3.9 mmol/L 3.4-5.0 N code = K) CHLORIDE (test 110 mmol/L 100-108 H code = CL) CARBON DIOXIDE 23 mmol/L 21-32 N (test code = CO2) ANION GAP (test 6.0 GAP calc 4.0-15.0 N code = GAP) GLUCOSE (test code 109 MG/DL 70-110 N = GLU) BLOOD UREA 14 MG/DL 7-18 N NITROGEN (test code = BUN) GLOMERULAR >=60 max >60 The Glomerular FILTRATION RATE estimate estGFR Filtratio n Rate is a (test code = GFR) calculated parameterbased on serum Creatinin e, patient age and sex. GFR valuesless than 60 mL/min/1.73 square meters are roopa cative ofChronic Kidne y Disease. Values less than 15 mL/min/1.73squa re meters indicate Kidney failure. The calculation for GFR is based on the CK D-EPI (2020) calculat ion. This formulais race indifferent and is the recommended formula for GFR by the [employer] for Adults.The GFR will not calculate i f the sex is unknown or if thepatient's ag e is <18 years. CREATININE (test 0.8 MG/DL 0.6-1.0 N code = CREAT) CALCIUM (test code 9.0 MG/DL 8.5-10.1 N = CA) HEPATIC FUNCTION [id number] 20:13:00 Test Item Value Reference Range Interpretation Comments TOTAL PROTEIN (test code = PROT) 7.5 G/DL 6.4-8.2 N ALBUMIN (test code = ALB) 3.5 G/DL 3.4-5.0 N BILIRUBIN TOTAL (test code = BILT) 0.30 MG/DL 0.2-1.2 N BILIRUBIN DIRECT (test code = 0.10 MG/DL 0.00-0.30 N BILD) BILIRUBIN INDIRECT (test code = 0.20 MG/DL 0.2-1.2 N BILIND) SGOT/AST (test code = AST) 11 Unit/L 15-37 L SGPT/ALT (test code = ALT) 17 Unit/L 12-78 N ALKALINE PHOSPHATASE TOTAL (test 48 Unit/L 45-117 N code = ALKP) [id number] 20:13:00 Test Item Value Reference Range Interpretation Comments LIPASE (test code = LIP) 223 Unit/L 114-286 N Tissue [id number] 09:13:39 Test Item Value Reference Range Interpretation Comments Case Report (test code Surgical Pathology = 104) Report Case: [id number] Authorizing Provider: Syd Roberts, Collected: 01/19/2022 08:03 AM Ordering Location: [address] Med/Surg Received: 01/19/2022 08:50 AM Pathologist: Luis Blair MD Specimens: A) - Soft Tissue, Other, right posterior bladder biopsy B) - Soft Tissue, Other, right lateral bladder biopsy DIAGNOSIS (test code = [id number] 3220) FuZzEwMzNcZnRuYmpcdWMx IHtccnRmMVxlcGljOTYwMl ecweDkZTAkdYJpV5Slsgjo CWpaAA9pSZ2mkSsrkJKxnU YaMYKsBjEdc5jfw809bGEf l2skJONBtmsgkQv5jTnyE7 8ip3Q0DengP57qaDCpENF6 JOEkGEMpiPUoKKPyACL6OK KhiZGsZ6kvFFHhHT5wmfls SWwxUQzaGVQbsTZ3ROYsxF RkJ1YcYJPnVAojOCLwgav0 JpObRc0skLOabEspNMblHQ GwJIMzZJszLVIcQgAdKT6x VVJJTkFSWSBCTEFEREVSLC SDOBxTLHIRH2VSYDDLM8Ms WTQER0LHQTylEDCnjUYyCI 7PMSZXMm9OLA7HAbZDOJWD J77VKJDbghi5LQUzDJ9GO3 NVTEFSSVMgUFJPUFJJQSBO B6WzHTPVFePTQfzQFAmzNJ DgyZDpFTBmXKPESO4ORbvn QkxBRERFUiwgUklHSFQgTE FURVJBTCwgQklPUFNZXHBh vtk5QPKcML4VROwMW5dFRd oYIXVUEZ0VDUHvxODzPCWi WyQsIJUAD1VJCIINJbXVFt 6JFgsQMB6LERCWSVTLRAqN RNLLLEBnnd62SUU1MxGtl4 X5LJP6TWWkLCBnj7uuTTTo bGFuZzEwMzNcZnRuYmpcdW SyODTyJfBzd0wym207sHVb f0ntINHcCeU2uXLhDCNfiR ArM590UQQnQRcfg9yqt3Ct FVApbFVsy4P0OPCNthriwH v4mFaaT99rw1O0SlibX5pp OZLqMGMbK0CjSW4zOFDeNs c3GXW2PJW6YTGeGWUxK7Ve OE2yIQIziZSnMJn0a6ktrZ miVSQiSTK6x4lzKPujshMx XD3xjh0khRc4f0nklvExRH NlCNSboBWXNPAfH9LuwXfw Ku2ttLl4lYwlEmsjJKX2Oo y5QM1yky00udb9bKupERTj uknbRiR6CLtxUFVkpztkYY o2XYryTXPikPG6SFDpjSXh R2UrXIGlXJ9ecdn5JQA6WZ mmDXQoNkR5FCSpnVBgMXDf oRmdVGemv738GSF9VmHpIW 7mB0Aeu0L8rU2zvIEsHSGx vBHtDoGyIJTgvl5rdUFlLM uvo2HhZVT7ycK9dBCnsBBv FXXyIbX3FYzzHK8lve76EF LdYOO3dw8sqAAvxTffqlOt uRFkKEbaW7YbCMXso486LX JvE0NbNURrj0X2awZiWvJc YGDxlOB6rwL0TPEbQW1tdd bna7efBYdlXBneWANtbnK4 noL6IHBooKDsM2CimM3vRF ZuCM5wxsufv8qpAVR6QXsg QLGnFIO5OkZkVMXvu9Lglr s0FzOga3BjxBUbMPubD26o l886HVEbwxFtJ3clbASvlp ewdUSnhgbyETpuhpS6ASJs PYmvohptCAVmWEtlW6qvTc NySGIkkUwrUKkkk7SxXXVk HJGuYzXgfLOfUDWeDou8DM PxqOJfUYZhLwXkJ9abdwgn ByKQXHBlh6owB4hoxJIFlQ XjF2QqMEufmxVzVBcxPWtz NKIeWAPvLL84WIzcQPVsdc 19 CPT Code(s) (test code j5azaTImAMSzyKX9IbNiUP = 3357) Sdj8rbw6LsxBQquJJhFDkn rQKojpBfyn38aPY6yK39XA 9pGODjLzU5YSFxydU9Jhw6 KYRdQPYieSIuW289b4yqm8 kehjRjmMZ9jXsbLZSriwpp SsB0BPjvNVZgajfpURe7FQ kcKOWvtVG9QXTxcPQnX0Rt KOWaGX9fyvs7YXT3IEeoCO UwIwV2WUDpjZPlALFopXwm AUsqd726TEV0PdTzOWHatp ErgFlsdB2yNvIqLSW2XUOc LDqwUFXxinL7YUG8HkqeXN BvspH6HQL9MPnxVPEdbw0= GROSS DESCRIPTION (test w7dbtQEhYARxrSNLLTSvC4 code = [id number]) xqhuDhZKMfsQDaI9Swpkcg LSgdAG4vQA2tzQunoBWmzW VzWS4GOAAoMwFpVYBauEVq kzBdIjPrBBWqlEAbnZJ6VA WbXX0bknskRXjeJHzrDFSz zjM3XVQfxNKcD9KgDUCsDL 9gopymDCW8QLwloA3rjeTT NgilUh6jfLEhsGccXeXiVu NoYXJzZXQwXGZuaWwgQXJp MVr3wP2PVttfU93td6U0Nl m2CDEjOGFeT6LlON2gUUBz lDHvX06OBsukVRJ5SAGFKo hfCNWnQH3Lj9izRZBelNXu RCT0QAmfgXBeBIJbSVLmWP e2QZYeILgsmQZsAC7uhBwb YarrbPkix8WsdMQqANnxGO BzETPyKJjxCDIrOI9LQcIe WDX3SzS6VNtxTUa8UVa8MC 1VBkMiHTGxHMY7EwH7FxJr CRk2MCamNQ8KBXQ6DZSiDK j4SnN3AJNdNKMyBPTqJsEh XGYgQXJpYWwgXFxmbCBcXG 4tcErocMRrkhMTVwXYj6L3 YVEyz0I3CNsxW4DzZGUcDF BhciANClxlcGljTmVzdERv YzEgDQpcbHRycGFyXGxpbj BccmluMCANClxsdHJjaFxm oqGrNRAlD9YpvcLpOAfuSG Ltgn1qhKhlNOcfRuAjlCOw VUqvWWF3rPMzPBD2EJcnPR V8LVS9otQpUPRuHW86VDth NJ43cZScUSUjJZHvMBrvHi VnBIRnp6B8GNPlp6J6AGkr d0YfLYKtNBdgRI4vHUWjpW JhUESiHfI9VN7ufVhnelbu DI3zXRXyHEnhUBdpOHO0ZQ C4QMYnzCAys7izlo8hDCvz IHNwZWNpbWVuIGlzIGVudG hxJVt5SVG3Ud1whUUuZKYd wsLlGRFjHGD3OAGNML5mIR BhciANClxwbGFpblxlcGlj ElNdoAGmGwYctLmjfS89MN VfhPJaFDO2IV3oKKOtmntw TROoHJCqZTX9FClvyF79aS GhFEKlICJazYRomR4Zf1jp QHFmxONcZOL1URzziXKuSD IbRWLgAQdoPfMlI9TOQBCe Nwt1FOO1EMWkVLy5XZamX0 JWSINvEVZ4ZLTbZIO8GqE4 MTu5BIETFn8kSFj7NNX3KC WcFJK3UhZ7NCbibMZjBZei ZiBBcmlhbCBcXGZsIFxcbm M3TLBeAQMuyItfvE2iXm6p I88btQEKlGHbrYKsPD57lF CvXbruUWGxHWnoCKRyJ77m e3BZm1NwHL7DFKi2mhSzjm dajS8uYAGgnkJwZMtztULw C4guTpJrLWUMFSScwPUlLR JborAdg6WvZScqujEeP1Zw UCcvIfUbXOTqj4j6iIAxkP MpKOKikNM9f08cyQS8mODq dCBpZGVudGlmaWVycyBhbm UzW4NyOOZew69okLP4xPCt aQXmYG09vSDkBcMjdfYbyc OyyLklZ9Gxz5NqfBAlDKDs o9Q7ZTjzRX1nEOSuTHijUN quDQI6AFH1EDKmqTCak3ae cr9fFGubYFNeXDDvxGZiFO jqKSGslZkuPGe1ZLV1Np5o qBQiUGHwwrUjRLIhNUF1ZF ISQQ4nDUNNJG5gmK1VJVTq IIpnZWBrrQXZXBA1KG1pXH kqrAUsbvjbVPGtO5QxN5Ef gkKlvFMfJTOkxkPuc7ooXI N6JOQsrVBlbWGjGwYoTpea ZCS4FQxla3weDBI8RWKmaJ VsdDAgDQpcZnMxNntcZXBp L8VxH3HgnvT7RPb7 MICROSCOPIC DESCRIPTION u6wsuNXpZZEfkAV4RuCkMT (test code = 3371) Neo0jwf1AwaYAptYZiWPyq pBTvsrKxzd65pPX5pP77DT 6eHYMcVfN0AVOwnyS7Sed2 CMBwASMebKNxX713q5ijm4 lgefHczOX6eHvaYHIyzjxz OhB4ALdtIBHfadukUPt6TQ jsQLCuyBR9SZGulLWeD2Ds EOLaVV3hzcx9EJT3SAnxGN TqLvJ0XZFpgXTvPDKevImf TOaqe094AFC8AaStBQDivx HycUrohV0nLqEzDFJQJFCb ECMEDWQ2kQ9hyaUdZqL7rD XkwxaikEPadT6wbRNqkU0a IGFuZCByaWdodCBsYXRlcm SyKIFlrZ5uuxgaAcnaVWBa iqKbfJ4pw4gesJCltLtbbC saaWKtqMBdx9Fid1f6qYAu xTFafjcxDQyqUnoioF1yyD vhioExdlA2qHHarORmdE5e ZNXiq4BwlQPhVWVOkFTfZX AnozLdsHIaeUpmLDP9WEvc r6QrfEXqchSduEiifhCohS kwRMPeLuovAvdvtxCfD5Ue g5kwLOatANBocWvyyPk1fB U4nQXaLEsxSj0ilPfjdvtt JXCZeS67rq2cqWYbqgMnk6 KiQWMcVKOjr7XbRRUjBFlk sPenNICmbq7lkdahfAVuV0 4tjALtqGOoCYFrRAU2yWKr ziYkiLtnz77tWNVvDYIyd8 HlmMg2EWRwq7SfBUMBYDjx OM9oWHOJYw0uRRWoWJUhTP OpfuThlzssAOZbOVFpi77a sNU9IC88MErvdJqnpwSwuE MnW3QjqAXjGAIjdl1kDBLw UOAExzTpADqhU51mkyQ5IM ixUIuwLG75rEUfLGSjGYQj cn0= SPECIAL STUDIES (test s1wzkONkNIRsc8coYEYqdF code = 3376) FuZzEwMzNcZnRuYmpcdWMx ODhctiKsALqsm1XdP8GlFf AwMFxhbnNpXGRlZmxhbmcx CZNcJWO2ojZqKCHyGDdgYD IyKRkdWr2kxAOenKupYwQl PVOqi6oajgIUhjrugQv4u4 aaOOPhIxC2nMZlBGmqY9id awOsvIZrK2CvrPBxvUj3d9 edRgRiSlO1oYMeLMiqP1wf vxVswXAkMQNxXPi3sO89GL ZlrZ2tfHIqWFqqclJtTnZ0 OQcmZMIcDzS0ZTXjsONnFN LgW9zzJTHxYTjlLCWbSGxt qFDuRKT4bLdvh5Z2yZUaqO BiuJkvGnQhWvXcCzZEk7Zv IQr4wChjO9QtNIPqQkV8xO QgUGFyYWdyYXBoIEZvbnQ7 eZkvbeAun21eaBLcOZZwKE ZaOgXqgYntFKOxECCEt0Xx tRboWUR7bLu5vSaoJwvqZL F1Dzg2OL7byk26arc3bVid LCHuqwexZiX1HSzoECBucz yfZAv3RJzlFQPsdIL2OKUz sGLiB1ZmCWAbXJ7zlfp4CR A3PPycKEKrQmD1YGBewHDf SJSnaTlnORoqu815DRR7Qz TvTQ5cE6Gkc8R5zB4xdBLf IONwfCIfEeCgVZNicc6clQ YiYLqhu9KoFEK3kbB4nVIa fXVtPPDtFW14Uhkml3KkZz klc4HaU13ywKV6ETntx1ib VM8zToU7neIzRGyrs8oedD 0vHvS2EBpuLG8pUR1yQLAr zP0qdviqUNNrEcEerrziJI GhdSizhyLjMc2smRngIOO3 PNrlE3ddnP4wHdK2YKhbA8 jtsM8mXIb5WEqrsWI3CYIg gZ4hLN7axvzjd5rbTMyfLA vxUMSgceW0snJ2MEPptJBv Q1AevJ5mMHXnWC1guvmpq0 vlOZP5RMkqCFTsDME6SaDj EHIyr6Dckfx0CrHjk2DkoO ZrKQkpA41dx655ABIvvtJz T4qmlNAdknjkhRIaymkaIM rannS9TPUmHNZgUZbkWQRz XGZzMjJcbGFuZzEwMzNcaG ljaFxmMVxkYmNoXGYxXGxv N9heZhSrP1OtAECdIvOtXG cjFLqhmHPbxDXopWJ9xF5i KO3cHHTyiZWtZ6VaXIJdax JrbJPbTXV4zKQmhYHcVH1r HKqlsFWgs9adu2TqS3ejdD mneYI1KG8eTEOjLEFpKDlc d5ZmcB3qCxxzhNRalkmxTX xmczIyXGxhbmcxMDMzXGhp Q8ksCpBpTKYojJlfEZdbh6 NoXGYxXGNmMlxmczIyXGx0 cmNoXHBhclxwYXJccGxhaW 1gKhHbDsDeFjwsDA2oLZQx O0ckcYUpFHYiLZZcS2omZo GnnK5esUcrAKurNoMvIiNo UdUHp938vp8xBUKubJZacs VXbOOoiU9dWZskOUqeHOhc lSOiKIjjw8eeRIFsj3n9tB NaDFVpjeIrs0ihESdkrmEv ZVDrrDWnvCSkLNEwo03xGI dzpUvuzFfqNELlh6QjyKyk r6NyKhIzLKiyz2KbI26fpZ JvbCBzbGlkZXMgcnVuIGFs t85bs1nlPXPaJkH1cNXqnR K2gYTvxWHij6GlwJlzGZBb u7ozDKFntk8ssnuytOYta6 OyvV3zgwpwWJbgxKGtokZw CBJdc2i0wDSoAPRySKMjEJ kbnSn7GBDin603yq5ihuW9 fKIqVKQ1OOatKIAnOQOemp UgZXZhbHVhdGVkXHBsYWlu XGYxXGZzMjJcbGFuZzEwMz NcaGljaFxmMVxkYmNoXGYx LRvqB0wtHbRiF5GfMGZxHl LclYNbN6rsgALfDTViUJfp XGYxXGZzMjJcbGFuZzEwMz NcaGljaFxmMVxkYmNoXGYx CMthO4cmBrBjJ4MwLZNuFu IgIFxwbGFpblxmMVxmczIy OAbeznccBVAjTZacY2wlZz VwPRYolNkuKKnkz7VtUJMt SKIcAdbgujGiWHm6zrWuDA BhclxwbGFpblxmMVxmczIy FDzdewzfEUUmEIwfT6liXd TpPYNpvNdrTBics8BmEZEj XGNmMlxmczIyIEltbXVub2 cos7PkI1lilDmtoAZ4IXWa P1mrmFGudLA5HCW8nR8hWX tzttPiWMXzg2VvEVGeOAIh UpR0yS1aVIO2BaFYiGelEQ BsYWluXGYxXGZzMjJcbGFu ZzEwMzNcaGljaFxmMVxkYm GvFUFrOUvvB5thZgRkQ1Ru SXGiXjZwqTskJJytCDf1Hf xwbGFpblxmMVxmczIyXGxh xamdEIAvOXhdI9kyCjKcCD ZhbZyyCRxjm5FiARLaFZIs MlxmczIyIHMgTWVkaWNhbC KNKO55VJFoOXRclXtaiY8a oHVRHWQnebH9t6T4YWzpHN ClWXd8VUgrmqWzAZPfnX5l HJUuPB2dFAh8bsQrOOUxy4 BgVL8gHWRydJOgDDS4PWBn j2EhO9Bhi1EuVMRwNQDibq 6jxlMuOwCXiWUrMUEqsl16 PDIvDE6pN1dsUERfIMWkpf CqyFJzx9PjAJBysXC4kVBy SC1JUtORg68hPBYgLABQvr WuLXCqkUmocZC7cwY7uA4k LiBUaGUgRkRBIGhhcyBkZX Msul1cgjItQTJoTSRsu0Sk rNDzgUBvxbQdG8Jdb2GiMZ Gcir02GHpeuBSjzw76ST2n B5Ueb8HftM8eJZgmREVhq5 LldNZytGQlAKXxm4AxL0vz gfwhUSjqnDRplO8zUTDsAK k2NDLpe4HpJEPil8ZfPqJg iuYvGHJoXURwBZXwpY31FS W7bTgyhGmfvjJaRQ9tRZKj irNrDDTyLSMazR7gJTxnql VpGYKfyvH9h5J7PMvlCNBs uqFpVabiBLN7vcMwbdG0bH QwZ0ggryoeBPtrUAFsd0Ha iK2wvJCHbXOqk1IvoZXqpD EGyAEwID1rxfBnMI1uACG2 ODggKENMSUEtODgpIGFzIH M6FFqpZlhvQWE8zgTnPDBu h8ZlQGqbD0iaI12ylYjoeS j2gFEhiZabuQJwcHFgEUIg paW7z0D9DEJtf1OzaxmvGM BsYWluXGYyXGZzMjJcbGFu ZzEwMzNcaGljaFxmMlxkYm BwIRNqHPslQ7ezUxQyCoMp JxcxRHM2nT== [id number] 09:13:39 Test Item Value Reference Range Interpretation Comments Case Report (test code Surgical Pathology = 104) Report Case: [id number] Authorizing Provider: Syd Roberts, Collected: 01/19/2022 08:03 AM Ordering Location: [address] Med/Surg Received: 01/19/2022 08:50 AM Pathologist: Luis Blair MD Specimens: A) - Soft Tissue, Other, right posterior bladder biopsy B) - Soft Tissue, Other, right lateral bladder biopsy DIAGNOSIS (test code = [id number] 3220) FuZzEwMzNcZnRuYmpcdWMx IHtccnRmMVxlcGljOTYwMl afedZyTIOuoZCdG4Cvmpbx THdyCK1fWG0crYlqyBKgiC KsUCQpUzUnj4ehe444xTMy h1vaTSLCbngojLl4kDfgG4 7zq5M1VnpwF36cfJHaJJK6 LIDxBGPzdNIrMQJoTHJ8KZ VluAMoH0qfLJPuDV9ygovx PGtuDPjeSGBmrKV8ZHTbeK SnT1OcKWPtEOkhPUBjpay2 BwKrPf2mxDSlkObfUKvbEV JuWODlKZepAZIrFfOkPC3g VVJJTkFSWSBCTEFEREVSLC IYVEbHHIFRZ0ANIMAKF9At GYIXG6EESIomBMHdiWHsEY 3CIRDRBk2RYF2SYbBUYSIP N67OONSqbsq6LRFrSQ8AN7 NVTEFSSVMgUFJPUFJJQSBO I5SvKZOMGiCTThdFLWijDN FkzBMsMMIrCFLURJ2VKhil QkxBRERFUiwgUklHSFQgTE FURVJBTCwgQklPUFNZXHBh zhc8BEBhVT2XXEbEI2jUXa eVOUSPPL3LKKMtxIWpYTAz UnYaPEKZA3KONUYJBsREGm 0RAugYSW8VHGLEOYUJXQyC KGUUIUHmkh37ZDH3QuZjz0 M4NCM7WCOyZMEdq3cqTWOy bGFuZzEwMzNcZnRuYmpcdW OfTNUrUpBzr1tqm197eJGb h7rcTENbDgP4tNUfLZBigL RzE645YBWhVSvug0vmy7Be FUWziPYti6U6UVMTmdtnwV x7nPowM17ca3L3QqzlZ5io XSAjLTIgO1XxZM4qMADsFq c3AHR8HGA7YOBbSATrP0Bx CV0tBIIozDZwDSk8b0sjzX uvFMPcSKG0s3qsLMudosAh PS1owb5elWo1k0ysbbYcHT HvRXCvvQEXQUKsG9LnoCxq Ws1whJb0xNfvQxirCCG3Ba u2JP3tmd94kdr7wDceCGXw hhamNyS3RPemDTYhejklGW d2WSdnXSGdwHI5FXByzWLo L6RrOEMmGT0nrcs4NCB1ON xsVATgBwA1JBBecKMeNCFn gOuwMYgnf981UUQ6YaRzHB 5cG4Mbj1C1cS8mcJUxMLOw oCKdIcJkECToji8qfLNuEB wgp3NkSTZ4cmV1tNFsjHLn OWNqPpC1NAozVY2pfa25UH DdWVD6ke8bmPYkmBcnwiMq oWDkOWsqU4IrMYMpp757DW RxO1OuLOHuq0W7xrZmZsBr GUMczGG0rcD2HQUaCN2vfg vvy4ywBVopLCdgLDZmhyL7 icU6PIJgbKGhN3NwoJ3fVD SkGO1akdgvv0sgASM4HVhe PZMjMDE3BfJnEPZhb6Dtjb d4YhIhd6InsGSkGXpvV49b d027LIIzbaRrC1lzuANlvo vtmHXicbmaHGwjakI3LJKe NVqtdxesVKUgISwpY6ibCb PbFBCleElpNMfnk8QpMCUg UGMmTsXroTSpQHJrXqm7IO NbiPWaBHLoDxAhA8ywuflu SvMOBFTod9gsA0wgiXKYyC XkK6LiERqdakOkTJfcTTah EFPxPTKqDX28DBycIFRprp 19 CPT Code(s) (test code o1iwnPWdOEXsoWJ2PgJfXF = 9567) Wet8ctp6WzfBTwaUQkKFzq oHGnffMzop87eTW5xM82DM 2yGQSnQvU2QYRglrC2Jum7 EKVeHTIywHDsR956a6vso9 qiijHneBW1bZrfLEBcghzn ZqT0CPnuXUCmtjktPBj2KC pqQUEbjHE8AVUjfVVhS7Tu WDBkYJ4zxdj8LEL2TJqpZS ZaPcE9OZKifGIfRXCznKue MBcmd721WYW8BjBwIVZewi WbnHuooP1gTnLcWQP4BZZc PQpgETFrzxA1QCV0FqpqKA TvoaZ3IIL5ZDxkIGCvpv4= GROSS DESCRIPTION (test n0pyxWLeRZSezDEMJFQpS3 code = [id number]) nzyyRuKJYczBHwV6Ojecia EFisYZ0uWZ6jlThgdGHoxX SgFW3GYVHbOiYyPUGebSZb ouUuJbHfIMKgkCNjuKO2LT LeFJ9wdgybZKrsCMzrXKGt fsG6GJQpjUJwD1BrXWYwRX 6poxauNXZ4DYxnzE0wmgIE RgcqHj6ekPXukPbkRwElDu NoYXJzZXQwXGZuaWwgQXJp YPt2xY2CSphoI00cb6R3Dz m2DCOeEYPyG7JeZZ5oQUNo lFUrT08BMkorWUW9CWRUOv dhCPMtYP7We3noXDPmwGHo OQL3NHbfcRJyWWFyZCKxZQ w0NKDoCGdosSQbCE3omImb WkumgLnmu9UscMCsQVveUD XlUDCmHCkxSZQlSZ5APoDb PWP1SzO2KGiuEAy6PBg2RG 8HNpEsUZJcUDB9IfW8UwSe KRc4FMagKJ9BSSF9EBWpFM y9ZxQ6FHEmNVUhXZYzKlKg XGYgQXJpYWwgXFxmbCBcXG 1jsMuugOVpnaYLDtCUu6R8 JPSen6W2BDdjQ7GzRWBvJD BhciANClxlcGljTmVzdERv YzEgDQpcbHRycGFyXGxpbj BccmluMCANClxsdHJjaFxm zsKoCBSqG8YvbaYfYTsgKA Whod9ttZhiCMbiCeYenCWw GYvxCAV1lCAhXXD3BQizTZ U5SWS1jxSmTODiKM50RCpl KD42oBMaMKOfMVLxCQxjPg AnWJWfw9X7ODFby3L1TYer u2UxCKRdWQwrKJ3qKZQxyS QfKGKqDmH0DV3nmKrnziwj GI7eRJYcEAfcEEcaEUC9IQ V1ELUbsDIbs5ahaw6lHTau IHNwZWNpbWVuIGlzIGVudG nnSSz4DQP6Ry5fqZXwTUIa xwMlPXQuGNH3GZXLEN0aQX BhciANClxwbGFpblxlcGlj SvWcwXGyJfVfjYmmxY67KM UugCTzHXK0ZL5gHBGcrnta CXCbBEOoNPH9IXjjkH42hU CbWNSbFYHmzDCtyJ6Hs1gq YBBhiCRiEXS1BBlwwQQgKK XaYBWiDKjoVrZlE8WFIAAr Dco0FRF0PTDzWKp5NSqiD8 VBAHYgGWR3AXHsVPY6LuD0 PLl1REQGCg8gHKy4FXB9OQ OaDTG4TbQ3CFgncVRfNHtu ZiBBcmlhbCBcXGZsIFxcbm M8VVQaSNWnzXhwtI3lBs9c E84zxHXVxJBxjOOpWU47cU BbDdymTCAxJSrtGDDwR81w q9WHg5MyDW3EJPm8wzIrgn kwtU0bTHAezlCuSJjtdIXb A3dqIsMvFFJGCVKoeOVmVR ZhrcPyp6WqYMbkrpSnO3Dx GUylWgEgNSWuz6b8qZSgxJ IiKPGiuDZ8j94umMK8eYOv dCBpZGVudGlmaWVycyBhbm LvB7PyWLXqv56tlFH2rORx lIJnNG91iNSdWlFhumRzys AvwMvlD5Bhz9AbbQEhGWZc y3K4DVaoGS8tIMVrMBhhIF ucPOK6GRY9NSFpiSIhw7oa om3dCDxqRZIsVYJkeCQhQW dwSAUnmFkoJRw2LDG5Er8n dTRgCGNfbnDoETLtOKZ5LY EJZM0iSGXDJW6ikB5BWOYv HDknEODljDXJEZO8YK3pDL ewzNYquvsbEIFsX5QhY1Bm sbOizJQcCSFyxvMnl1ajKG Y5ENDccZHrnQQlBiMbHvoz HSR4UXvki8igPBO7ACCixP VsdDAgDQpcZnMxNntcZXBp V6MpT6OceyR9EWp3 MICROSCOPIC DESCRIPTION b3tpyZVtLOMtuHR8WyQaPN (test code = 3371) Wye0vux7EtuWRzdHBlUXhx yYEfxaDixs66cJN5qC28BY 3mTHWhUqE3TWXznyD5Bis9 VTQqJCLiuHYrW402a7mvt7 mpayGycCF3eZlcBQRxzjqs BaJ6XFmiKJSejsatTLo6HA zqKCShcHE1BOEzpUYvG1Ef AQDzCR7jstd0SSL4RFleKA UiLiO9VSRtpZYoDPLasUol RFytc155JAH3KmPiQMWxqy FytLipaI0hOmYbAGKULOWb TZSQHZS8cQ7thuBzMlK8jJ OpnnvutMUiiZ3ewGIniP9s IGFuZCByaWdodCBsYXRlcm WeCDKsjL0egcjfWktmFUMc jfAwcR9sv3hukXTskEwqsS mxkSNxtATms1Eut7j5mGDv hRQyfjwfZQqvCapiaI3dbR zmnwLeeeL0cUWqoBWcqZ3s IKWzc2JvkGAgBPEDuYIwOR FrhjVblHMxfQqtZOH6CZbc t2CicVLqdaOjxWoqrjEkqD xzHMIsKbwqBryjwuWuW8Nd d8osFUqpKGKujAcyeOe2zA M8fYYkLJxcJu4boFgossur YYKPhZ93ny8xzBPeipAes9 UlCUKdACYox9XzSXXfKUje vGlcIRIgxr6aijnppTZhU0 9zpOZgwIAeQYMdBCR5lHTm dtHfcPqud99zFPXoJYCsu5 MhdNe4HSDyy8FnTEEMKZdv IR3jMYCFGg3mOSGpFUFgAY ShndFybhnqIVUkAHKhl24n iYH1TN43OEuttGzeraUgpE SmO0WyqORfILMpsn6kBGRs KSWFgxXcHFkkV76wvdD5AT lhDLjiEO21oFEiJTBzDLVm cn0= SPECIAL STUDIES (test f8shwRRkHITqp5sqLMCcmN code = 3376) FuZzEwMzNcZnRuYmpcdWMx KWqvddJxXHzqx5LsR0GrZv AwMFxhbnNpXGRlZmxhbmcx BPZmZNS7ciBtQUEnIExaEE BeMAvcNi1cdFGioMvzYhDl CQJzy8iibqJFcfkskWd8q4 akOLTeMvY6xNHhWKrtX3xb kwFdiRImD2PjpIKzqPd9t1 mvJhZiDtJ9aKHuNImdW4hw hiBcrSAsZHJxWHo0jA32PM KvfG9ktVVcGLdijbQwGwJ1 EBtnTYByHwB5KHTkeJTdUU YvE7snWGRuGByuOMHuSWcr fIXoMOR9dPord7A5iDLmsM IdeIgqAmKpZwMnImWXc2Gg AXe3gWcsR7BnFEJlHhG4bS QgUGFyYWdyYXBoIEZvbnQ7 oIplmpIrt12fjRTcIUTlFT BiNvUlbUxzNVUwAVJIz0Tm tXhoZSV8oTx9dOfjCmozPG K6Awy2UB7lgm28exw3tNge ZSGnylblFfT2IOvaNDBpja fuHWv5EWqhUKXibJG2CCMv lCNaS7AqOFGbQT0rimc1BC A9CAriHYZpAcZ1RXOkhPQz XIZyfLwmHFnbm459KCX4Ux DjQL1mW3Knf9P8bL8psBMy JWHlaLDeNdFnWNKrvh2naV TfSXicr4YsNCG3tjP2pTHd kADlMFFtPY24Ofjfc5GhWe yzh3YeM70caLZ1UAutr1ri FO3aMmI3krVaYOqfy8dgiC 1iTcP6PRuaHA3sVB3sLCMw lM9tynaqIZEhSyAiohkeZS KuxYbfzmXrJb9doCprXKV7 AIqiR9erjL1nZjK7TFbnV9 lpcO6xXPg0LNkjnZA6MUVb lW9jTO1kvbbav3tiSUdzJH uuCGWljmS9kfD4XKVwbLFd G6LrbD5vYAUwEH7zlwyqr0 afRRV0JUlrKSXdOWT1OlQd WALln4Izucg9YaGlv2MqhF XqCQupW86su903RXDfwwRe C7absBYqzpejjDLeprouYR roplX3PZPhTAUwQFleZQOj XGZzMjJcbGFuZzEwMzNcaG ljaFxmMVxkYmNoXGYxXGxv C9bvSwAiH4QsQNYiKnTsDS ssJYeubXBavZXqkIX0bX3p NN2hIKVujVZcZ4FkWQHilj JuvNFpCBJ2yPMyaOJaLG0v OBrtpGNuf8csk7ZwO2jwjZ pneZL0SL9jGRLvWRNeNGbi m9FeaV3rRqtouQQvchycLY xmczIyXGxhbmcxMDMzXGhp N0xwJuGmGKChfDfeREuvu4 NoXGYxXGNmMlxmczIyXGx0 cmNoXHBhclxwYXJccGxhaW 6mNpIoGfPlNrfgMC9jVBQw O7amiAZpKNOjEFDaV3itNe PieD3mvBinMVhhYpOnHmTb BtWMa395ks5tFBWtrPKgma VRwBThgZ6bKYrhMZbmPMiq aCFfNYyfc5zaLIBpq2i1yL NcQEVqxrJxe0vnUVifadLu BYWyuCIdqAMsMUXnx46eNG prfTekwVpmBIFdt6IxpMsd d0QaCeOzEMtxr0KiA28ynB JvbCBzbGlkZXMgcnVuIGFs u21pm8wbGYUkVmC2bJWbaW M7pSOwgRFcm6JujDmvFAYr y9igCQZvwq0bhxovaJMlh1 NwdM3qywavMFqvnKYhlkLg CJVuk8y5lIOiYSFoAPUfGI dmePe4MIQml247yg6kxdK3 vTHxUUV1KNzoMPGpVBLcng UgZXZhbHVhdGVkXHBsYWlu XGYxXGZzMjJcbGFuZzEwMz NcaGljaFxmMVxkYmNoXGYx ORfnL4mxIfRsS8NkMVInAh QjtTFeS3zbfVSsQFJdHHgc XGYxXGZzMjJcbGFuZzEwMz NcaGljaFxmMVxkYmNoXGYx MFpjG6kqWcBzR6JiASElUl IgIFxwbGFpblxmMVxmczIy BZafkzdiKLEcDUaqG7lvQu UeMRMzlRvkBXywr3YsHPWy SECwDrptkpFsDRl4pwSdXH BhclxwbGFpblxmMVxmczIy PWpltkwhKTMjVPuqA0rbGt GcWLIqwYscRVxzq8BlDDJm XGNmMlxmczIyIEltbXVub2 zfz1EdL9qyhLbmtVN8YTHe X3efpXQiyKQ7DVR4nV1sUU uictLuNBMip0ZuJJOaMKXu ZlR2tM8cYNY7FeVYsThpPX BsYWluXGYxXGZzMjJcbGFu ZzEwMzNcaGljaFxmMVxkYm DrSMEhDUepU5khJcGzE9Fl FIEoWxKzaOhdCEgfSHr3In xwbGFpblxmMVxmczIyXGxh epelEKGnVJzsN0wcMyRaEH WkdKchDUsps6XgMUKpPPXd MlxmczIyIHMgTWVkaWNhbC ZBOM20KWUjZFCcnUbbmV2h rTIDSPRditO2e4B4XEqcNW GlXTp5OAdsscBtRJVceY8l WOFlSB8jDSw9skCmMXLnd4 KnQL2kAOVowZVcHLT1AYIl p1SmX1Ofy4PrNUSsKVFomw 8zynSwCuPYgLGfSJIwku56 HCKyYZ6dZ1inSWEsOGBeyw WrhYGfj0HwBFQxiFT0tTAb WQ5KEcQQm42lDQWzHHNQwp NfAECjoUwtlES8qwL0jI0v LiBUaGUgRkRBIGhhcyBkZX Dinv9fwwHdFAYpEERji4Uo xJQieVOcziDtZ9Hzh3CkPX Awlf04RGlgtKAvxn52WW6d P3Lwf9VhyZ4pWEwfORDjg7 VezJMwuKQeBJRkt4UkC1mt ryquVHdbiKEfqU2vHGLoVG m2QYTcx9JpPBXnb7QiCsNh vmJdDGCpHCWzVEVjdP56HP C0eEusfUekkoWoTN7bHLQz vjUnRZMaFSDtuQ7gLCdvgy QtPMBafqY1o3L7ANzqSHDz juWzHiwzKEI7bvDpqrX3qA PzW4lihsjjNHjoZYYhv1Id aI0saOPZrTRmr8CugLOezC WQjXVwVC2sozGpRC8eBRH1 ODggKENMSUEtODgpIGFzIH C7DPjqBznvSRA0udVzBOAt o3UrNBaeT0qzG22xtLwirM a5tJSdbLebnKTvqPDmPIKi bsQ6g5O0JJDxm1IcrkivDD BsYWluXGYyXGZzMjJcbGFu ZzEwMzNcaGljaFxmMlxkYm YfKDFfZZasF1hlGxLsUmEg VaqsFIB9eU== [facility] [id number] 09:13:39 Test Item Value Reference Range Interpretation Comments Case Report (test code Surgical Pathology = 104) Report Case: [id number] Authorizing Provider: Syd Roberts, Collected: 01/19/2022 08:03 AM Ordering Location: [address] Med/Surg Received: 01/19/2022 08:50 AM Pathologist: Luis Blair MD Specimens: A) - Soft Tissue, Other, right posterior bladder biopsy B) - Soft Tissue, Other, right lateral bladder biopsy DIAGNOSIS (test code = [id number] 3220) FuZzEwMzNcZnRuYmpcdWMx IHtccnRmMVxlcGljOTYwMl ypfvNsPPMbyBNxJ2Twlwdk NNweNR9lUV3zvIvqqGHwlS RcNGNgOfWhq1cmn026mVBp a0emCIYXpvlkdMh3aLmeH5 5ol6J0TnchD61ajBXvGEY1 ULEoAZSquHSgRMGiKGS6AH DeaSOzH9elWKYxZG5qccyx OWyeUIfeUWTicBA6FBJebZ ZvO2CfEDChBRihPSPhgox4 SbAiSf2rlJGrfVixNMnxMQ LcERIpWIlcYPOyJlKsQC1b VVJJTkFSWSBCTEFEREVSLC GXQBpGZDGAZ2ELNTOSU5Ya RZSJD9EXXMjwFUGciYKnPK 9VBFGWKp2MQI8YCeNTDEHJ A77ILHIiyub2XWLtOT5JQ0 NVTEFSSVMgUFJPUFJJQSBO R3OsAZRXNyNRBwlGTSleSE EaiDQlDMFuVONICC7FSxjy QkxBRERFUiwgUklHSFQgTE FURVJBTCwgQklPUFNZXHBh lyo0VRNnPI4LYNoEP2eGPn bWZQXKIK3UOCSfvOMwAUAq NiVyAYAJZ7FJEWLFUjFPKw 6WYisQXW9GVTKERINXUEeQ LUOWSMTvji62PRA3CeBpu2 K1LSR4BWDlGACdx8ajTXWb bGFuZzEwMzNcZnRuYmpcdW WmMDAbKvLhy8qkd412nIJh k7asOWEfJyJ1vWOkVKIwdM IfK858LPLtAMsrk8crc1Dy RKZklNJdu1K2DHSObbzynX o6lXdfW71wf9G2IpxbE5wy ADZkIXHrO3LwIT4rOPEpFh t7ONW1RLU0GKZdIPZaE1Ta EQ1lTOVzgXWzDWk8s8tfoD vlZNJpUUU8h3haKFmpwmWu NO9ppt9wuXj7w4vujfAeIK LgABVroEKVODZeE4WmmPgk Id1imTp2zKapFfpzPSC1Fk i0SG6vka59fzp2wEexNDYs ittrYgM8ECwaKWUtfzreOL g8CTtdAUCixTX5DCTunMKr Q5XnCOEwSQ7sqlr2WOZ3MO odOIPlBtC5EGGifMUcLCOv kNbrHNzvr790XGJ9GfRcBN 7zB1Bqj4P2sD6cvSUwFLIj vMKgCwPkKURtbz9jaMXdQZ ggi0QwEBZ7vqD5mJYafKFn KUPrTtM8YPgaNW6whq81BS YvTEY5tr3wkDKznLrpkhZm yQTyHNfkB5InZQZub726BF YfO4DdPEDkq4V5psJzImAi BMDmmFF9whW0WQJmLQ6xwj nxz6reYWniMSzpXECbgnH3 bkZ6MOPbcRXtW5XnwE2nFA TnXM8ojcsjn3hhYVA1BXqf EKXwQRQ2SsFiHUEhv9Xfhi p2JmAyy3DqkXNzTOlfK84e v749RWRudiCsK4tukELkgm keaLNwrargFPgrjiT9UMMl CEhogovmXBOwDXjnC7dqEr QoSQJbuZcoAWwzb0LxRMRt LHLfIkTrmQYcWWBdJuz8AZ SayXMeCJMdVcOpS5lmoipn JhQSIICjq6udD2oamMTNvW RcH2QsVRdhejDcLJneBEcq LYPhEXUnWN94SKpgODZkpx 19 CPT Code(s) (test code z8zezVKnHGPktHW5FiJlRU = 3354) Gzd5nwu3NtrKMekNKeSTbb mXAzudQsiv27zGX1fC11PR 1tTOPgBnU1EPVxesK2Dst3 NQPaHICjjUBeS170f6coe8 yzmeRwcTW9jPwxAFJgvjnq VnI8ULovGCAxieuaNTk7UO ogHOVitDB5WOXmaVGwW3Ju XQDmVD2jdvo3CXO1KDjkUD RnPbM4SVIhnFZwXRGvoVgn REroj089YJK6UmTyHRYlte VjyDktqO9aOuAoKXM8VVTk ZWlcRUGkcdA3YRV8EpgxRQ JnxfC6YXC6RHzfVLHgap9= GROSS DESCRIPTION (test i2hvfRJgLMAngWDRTBQoY1 code = [id number]) wlrdCiTUEcfWNgC4Sfiwmv GTmwSZ4pZA9beDyhuIErxS SsYP8RYPVnSaHyIGLltUAb ozMkYfIiBILnzDLmjKI4BU HdIH3itegoAGpuPWywJDZd mtY2ZSKppGYuH4XdGILjUR 4hkspcDIE3OMcvyK6etgXK KiphHj2ioIGrxLckSxNeVq NoYXJzZXQwXGZuaWwgQXJp PMl1qG0EZntkJ59bl2U2Rz t2MFEsFYAfP6PiAW0tYPLl zNInV55EOidkEVZ4AFLDZv gvJYZjZQ4Ve0wgYWPldFMf UVD5UGnkrFSmPIXwXFOnXI v9IAFbVWwmhXIxAY1mdCfp EtzxrLmot9McpGRkHXefNF IzVJQpLBviFKYhKD4ELfYf WOZ2AxJ2DYtnIGe3FYe0VV 1SLbIqSJCiSBH5ZvE4SsXg VJa6ZLydDE4AARA8ODBnCY s7MlP0TCTvNVSlGHBqZdKu XGYgQXJpYWwgXFxmbCBcXG 9loGhghRFrirMXKwVEr4P4 KKEzz1X9DXiwN8LxVGTjAA BhciANClxlcGljTmVzdERv YzEgDQpcbHRycGFyXGxpbj BccmluMCANClxsdHJjaFxm kiOwQMBnN7JxloGhDXkcHA Uhkq2mzTllNEjjZfAlmORi WWdeBJE8qDTzCSX3LAkqFF Q4JLQ5vfKfHCFaXV95IIex [place]63iOGmLIJaXEJjRPmhTs JsTLMrb6C6RINqo0O9XMwo e9IaSMUvXPwqUD5pJZCsyJ XkNRGaSeB0LJ6ysCqzjghz WV9sOAXuLUkiQQdgNSW3XC X9ZOPqiYJez3sqbm5yJFkf IHNwZWNpbWVuIGlzIGVudG kqURn7ZDI0Vm1ykICyMDIx kwCzBYYhTZI0BHQOUS4hWQ BhciANClxwbGFpblxlcGlj JbSycNUtSrKbdJmppD10OG UkbZUgQCQ6RY3wAJVxaeyb AKFgOBSwNMI1JIgblG48fQ XpTQQqODWqoSGdwL1Qm4ta HOBmxLGtQTJ8WTkmwXZzPM WuDDHlXYedHbSkI3CAOZUw Ngc1GGD8KYZdZMz3DEinY3 FJDIUcBES9UFHeEWF9YtQ2 VMr6BEUGHd0jCJn8HEG1ZZ FuSRQ7BcC7MBiwhZYbHIbv ZiBBcmlhbCBcXGZsIFxcbm S7ATNxDRWqaHajxS9zMx8e L96xdPTXlSOgeOTzGN05mH FmWkhxFBCoPHllTLQwF49c y1SUv7XrTD1VOAq2oySwge wttU8cLBFzacPxQBlngUWz X1hiXcCqESNSCKJngGOtLK FyvvMvm8VqWXboyvRjS4Dc DVinGdZuAQCvd1i6mDFqgW DaZBThqFZ1b55pxOC2pIRm dCBpZGVudGlmaWVycyBhbm UfK8XyPLMsw00pgAS5wEIw pDVvVE46eNBeDqMufvEhil TrcFapW1Twh9ZyqVClHNKi u4C7LCirAZ2mEATlLOrrEH szGIL1WGZ7NYCxuRXhg8ub ip4xIGoqTFYaWKKoqWGwQS okVPBrqMopENn5KUN6Jj1m pRToQKQbpzFjPZQxXDX3TZ HSQZ0dZDMKSQ6yoU7XWVNk KMseAXUykTQBPVA6VG0nNP lapTRhuntlSMHcT3LoE2Yp zoWdjYJkRPTotdNmm3xeNV Z4DEPyxVXjvKNrCuFjVxhw KSF8ZNfzd3iwYQI2ZXWwnU VsdDAgDQpcZnMxNntcZXBp X8AbC0QhjdM8VJp5 MICROSCOPIC DESCRIPTION v5euwRZiRVSrhFB2HdGmRQ (test code = 3371) Eac1gfu0JhmIEpjSWvSGxt sKHziqQtgs74pOZ7uY25RI 7oKNZuQwM7BFWwbsK5Wpz0 FNHhUFDsrSHpH580v8xpy6 kgrgFugIS3bOlbRTQoawex UvZ0ZGcvNAPtuascRCg2UR ajTQZobDW9BDNdeZMdF7Ch CWJdGO2mned3OZR4EXcvYO ZmEwM5NYCpqQVcEMYnwYcg GDdfx271ZVY1LrLvQARbhs UohQpwvG1sEnHcWAQONYMw ZLILMYS3tD6asiGqHtY0aO NqmbtdpTJdnJ1dtIMyfE6k IGFuZCByaWdodCBsYXRlcm BdIHEhjF0dnujqThxsOMBu llZyzF3rn8nznRZbbVknlB nnyDCgsPZth0Tkg4r2kCAt zHFinsilUFmuWedbzN5ewO jofrHmasW3cCIqgVZkyJ0s CJDed2WcmJQnACDVoPOlFQ AmesQrgHOduNuwXJI6XTwr j7BguSWjylUvyIomhgSavZ rgBNEkGqtyTyjhouAeE2Cb t1rvCUkoDHQnyXcrqEv8wJ H6zKLqCNusTg7xlWqqualv FSDCmE46aj4xyNApnfZev9 RnJPBlBMIgl7LdMADnPGmp vJprDXDaeq0klklkhLTvZ3 7yeUTcsJBuOXZvVIO0nOIw ssVlbWjkt03xXOJaHWVgr4 MucUj7JNHmg2VeKZAKTAao ZS1eSYRIVu5vHBBnBQNfLE YyfgZtsougOQSqHADnc83o kNT6AR70OIxrlPccygQduJ IgT5EinUCeIDShmc4mSYSq JJTGnrZzSEofM25oalE7PK kiVXqeAO75dTMhLFOoZGDr cn0= SPECIAL STUDIES (test a2xzzFRtILCcd4wqBKAheK code = 3376) FuZzEwMzNcZnRuYmpcdWMx TLijawJdJIppz7OoV2AtJu AwMFxhbnNpXGRlZmxhbmcx CAPzQGK0yiVrLXMlPPcmBQ VhGNyhIa7bbZVuxKfsAtAe RKGee5yfftIBydsuxSf3k4 kfVMDuBqG5iXTwTNdeH1gs pfOfaWSvT7FbwSNcnHw6f2 trDrTaQeC4fSXtSEmxO9hm shYqpUJjGRUoHGw7tN86LV TihW0xtGKqMGggywHkYzC2 LUkeAXXtVdG2DXJvqNUrWD PyI7raQWKxQPekEOFoVRtu zFAeGWL2vJagl1D2hWDqmR JsmMimJeCnLjUmZjURk2Qq BGa6sMojV5OlQBMbWhS6hE QgUGFyYWdyYXBoIEZvbnQ7 jJohunLzs31dzLPiVUHjEZ BrNqGmyItmRKIgZHZUm9Pl yRfxDEN7oXp7lJpvKrqiTS L1Cvf8UB2ynu56sxg5iGvh NSMudxbiTpU2IRdlJZKbdb cfWDh9KOvhIYIpsZD6EATr vVPeQ8FxAVYpUI4frpw3WF F5FRcjAUUeIlO1CCYptLPn OOJqjPvfLCgkg997KKS7Og PfQB2lL3Lgn1B9wX9lpXUk XDGitLKhIlZtNUJebd5mqW SyHExju0UkTPQ9piR8qZOs cRWdJFXuPW48Dhiwj0MtKp lbs7MyS22mcFS9XXlzt8oi DR5uPdB3kvNmWBfbg1xbtE 6cNyV2TOzqWJ3dKZ2xSDOw eA3cgabpPNEhNxFsvjmzUU VemRxhmkXgZv0czWsxJCQ4 SDcyP4bdlJ1aMzU6NOttJ2 wmbE5qHTc1QBnwzNT8DLHo aL5uHV5ljbkui5viCLhmKJ rdSHXjktN6wlJ8HPFxuGGd K9DecB2jKJBoAQ9fifucw7 xtTYJ3UCcaRNDyKSH0ObCl ZVXgj9Aijuh4CdGuo9YpnT KfJWukL89gf073CQOfqeXz E1orgRXrhcncvOYvsubtDZ ddtjF4RNIpGAMbQQngRFEi XGZzMjJcbGFuZzEwMzNcaG ljaFxmMVxkYmNoXGYxXGxv X3ggXaIkQ6XcWWEkQaEtFI yxZSgkuNDniLCqcOH9fB0d QF4gRPZvoZVbV6HrBSTonk VamTQaWLS7hOWwjTTgAC6p PWshmIBqb0moh1GcR2lrvI ntbUL4BA7cSWOzCZLdEBwp g4ZgjR1vQbganPEyiijuSC xmczIyXGxhbmcxMDMzXGhp X4pfKbMfYXYnxRriTEkte9 NoXGYxXGNmMlxmczIyXGx0 cmNoXHBhclxwYXJccGxhaW 1iKwGzVxCyEjgrRD8sXYSh F5sbsRJgZNVwGJOnG2gkZz VmoF0ykFmuAZltKkSfZvWb ZbDQo561uo5rWEJupTHwzw CQeSKmgD8wWUzcEEgqQCbi tJElROise0aaNROdx5o4cM DzLGTjanNeq2wqWNghrhCu RGGmcUMvdJHfVQDke24bYD mqzEggdBvsHARbu6SjvGsi z9JiCmTwNOkww4TfD45vdN JvbCBzbGlkZXMgcnVuIGFs e59ue3uiZQBeUvH5dUKufM T9kSWvoQSrh8OogQyzODGb f5oxSFIuop3fclcmhJLwd3 YrtT8uenbqIKxyuJMxmyEg IKGdh1n8wEJgHBGnPJSzGB zemBx3IWOqc527sv9gqvI4 cWOpMXU4VOudEVUzUDXsnd UgZXZhbHVhdGVkXHBsYWlu XGYxXGZzMjJcbGFuZzEwMz NcaGljaFxmMVxkYmNoXGYx NGutW1iiUtRtO0PeJGRwLs NfuNUwO0qenZWvGSHaKJnk XGYxXGZzMjJcbGFuZzEwMz NcaGljaFxmMVxkYmNoXGYx BGnkF0okYqPbB0KcFXFkPt IgIFxwbGFpblxmMVxmczIy LJgbuqcpWZVxFUknN3erCd IvRZRztVmlVJgft5LbTATq WBAbBitpffTmLWe6bhDyJA BhclxwbGFpblxmMVxmczIy ZOqcfknmVYWfFUctW8nxXc ToYHOpuZhcFTyvu7RpSPTu XGNmMlxmczIyIEltbXVub2 dyf9SwH1qcaKeccIQ1FPVy M4izcSJkvGT6BKT7oH0xMH jzotPwMIFyk4UwFMNeVRDw SmO8eR6uTMC3FqLTqAfoOK BsYWluXGYxXGZzMjJcbGFu ZzEwMzNcaGljaFxmMVxkYm PhFOYyBJinL3xwXwAtT1Yr ONQeYeNeoGunLLccQJq7Vc xwbGFpblxmMVxmczIyXGxh ijvpNIGnSUqdA0yaBjBsTK PftFxmYPntx1OcVIEvMKOs MlxmczIyIHMgTWVkaWNhbC PDET80QXNaJHQmvYkthQ1k kPXVXTMxqyU6d8L2MVguKW ApHPv2EIlxdeZcUIGzkT9s ZVPfQG2bPUz8wnMaAMHhz2 UpEB2pYAGrtEUwEKL0SSQv l9DfJ1Vsf9UdICRaMSAhcj 4nnnDuRrPQzCQvIZHwam27 QCAeHY9dZ1buUIIyMIGwsy ZsnCXim6BmJAHfwPY8eCHe PG5FYkQFf67mZRSjNINYqh HpWYAqeLatwAT5czL3iQ7g LiBUaGUgRkRBIGhhcyBkZX Gfsg6hteHgBNArYKHtd1Nv pAZhtNTwtfOrP6Vnd8OgMV Rexp67CKqarKNhct40AY5y S2Jgw6LnvZ4zTIivUEUky4 LdnKIwbPYkSFImh9NxB9qs fgksZAtqzLWggQ0lWQOhXW k1UAQxc0UqYIXkp6GmYlVw hbAbERXwRLUvAWKktX29MB O5iVpuvTlryfSeDS4iYBSb rtPhPRQeYYAzfN1pWQlppt KrQOGoexV6b9P5OQfnAWDk mvRdPlvtLJR9ntHfppZ1tH NgK0mvgdvbKKxbJZCac8Tp jA9beZXHcZQng2QdrODyhI FQaNNqQC5jxnQuNO7kOFH5 ODggKENMSUEtODgpIGFzIH I9CEcpKhpjTMJ4xpGnVACu s8EzFGlgA2rjU49ybKwwuU t1mOTksEeetKZyrNRzRSAo duK7q3R6EJXrz4JajireGU BsYWluXGYyXGZzMjJcbGFu ZzEwMzNcaGljaFxmMlxkYm IrWONnEOyhO7fiTvYpNlMs GfygSGT3fV== [id number] 09:13:39Surgical Pathology Report Case: [id number] Authorizing Provider: Syd Roberts, Collected:01/19/2022 08:03 AM Ordering Location: [address] Med/Surg Received: 01/19/2022 08:50 AM Pathologist: Luis Blair MD Specimens: A) - Soft Tissue, Other, right posterior bladder biopsy B) - Soft Tissue, Other, right lateral bladder biopsy A. URINARY BLADDER, RIGHT POSTERIOR, BIOPSY -NEPHROGENIC ADENOMA -MUSCULARIS PROPRIA NOT IDENTIFIEDB. URINARY BLADDER, RIGHT LATERAL, BIOPSY-NEPHROGENIC ADENOMA -MUSCULARIS PROPRIA NOT IDENTIFIED Signing Pathologist Direct Phone Line: [phone] signed by Luis Blair MD on 01/26/2022 at 9:13 [id number]. Soft Tissue, Other.Received in formalin labeled with at least two patient identifiers and "soft tissue, other" is one piece of wright-pink, 0.3 cm in greatest dimension. The specimen is entirely submitted in cassette A1. B. Soft Tissue, Other.Received in formalin labeled with at least two patient identifiers and "soft tissue, other" is one piece of wright tissue, 0.3 cm in greatest dimension. The specimen is entirely submitted in cassette B1. ND/Sarah-B. Sections of the right posterior and right lateral urinary bladder biopsy urothelial mucosa with chronic inflammation in the lamina propria. There are papillary-like projections lined by bland cuboidal epithelium with hobnailing. Immunostains w ere performed, with appropriate controls, and the neoplasms are positive for PAX 8 and CK7. 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 No malignancy is identified.The interpretation of this case included the use of immunohistochemistry or special stains.Control Slides Examined: In-house known positive controls were evaluated along with the test tissue. These control slides run alongsideof the patients sample show appropriate staining. Internal positive and negative controls when available are evaluated Immunohistochemistry technical testing was performed at [facility], Pathology Laboratory where it was developed and its performance characteristics were determined. It has not been cleared or approved by the U.S. Food and Drug Administration. The FDA has determined that such clearance or approval is not necessary. The test is used for clinical purposes. It should not be regarded as investigational or for research. This laboratory is certified under the Clinical Laboratory Improvement Amendments of 1988 (CLIA-88) as qualified to perform high complexity clinical laboratory testing.BLOOD [id number] 04:00:57 Test Item Value Reference Range Interpretation Comments CULTURE (BEAKER) (test No growth in 5 days code = 1095) BLOOD [id number] 04:00:57 Test Item Value Reference Range Interpretation Comments CULTURE (BEAKER) (test No growth in 5 days code = 1095) FL, FLUORO, NON-SPECIFIC, UP TO 1 [id number] 08:15:00Reason for exam:- >CYSTOSCOPY, WITH URETERAL STENT INSERTION - [facility] 1995 Sex: FAn imaging unit was utilized for this procedure. No radiologist interpretation was requested. Refer to the EMR for findings. Refer to PACS for any patient radiation dose information.BASIC METABOLIC [id number] 07:01:06 Test Item Value Reference Range Interpretation [...] 1092) DATA TO CALCULA TE ESTIMATED GFR. Bankruptcy Assistant ID - [id number] ID - [id number] ID - [id number] ID - [id number] ID - [id number] ID - [id number] ID - [id number] ID - [id number] ID - [id number] ID - [id number] ID - [id number] ID - [id number] ID - [id number] W/PLT COUNT & AUTO [id number] 06:34:22 Test Item Value Reference Range Interpretation [...] SARS-Co V-2 (test code = target nucleic 95709-3) acids are not detected in thi s [...] rapid, real-david e RT-PCR test intended for e qualitative detection of nucleic acid fr om SARS-CoV-2 in a nasopharyngeal swab specimen colle martha from individual s suspected of COVID-19 [...] Food, Drug and Cosmetic Act, 21 U.S.C. § 360bbb-3(b)(1), unless the authorization is terminated or revoked sooner. Fact Sheet for Healthcare Providers: https://www.[employer]/Documents/Xp ert%20Xpress%20SAR S%20CoV-2/Fact%20S heets/302-3802%20S ARS-COV-2%20HEALTH CARE%20PROVIDERS%2 0FACT%20SHEET.pdf Fact Sheet for Healthcare Patients: https://www.[employer]/Documents/Xp ert%20Xpress%20SAR S%20CoV-2/Fact%20S heets/302-3801%20S ARS-COV-2%20PATIEN T%20FACT%20SHEET.p df Lab Interpretation Normal (test code = 68547-8) [facility]2022-01-18 15:50:06 Test Item Value Reference Interpretation Comments Range SARS-COV2/RT-PCR Negative Negative The SARS-Co V-2 (test code = target nucleic 57238-1) acids are not detected in thi s [...] Food, Drug and Cosmetic Act, 21 U.S.C. § 360bbb-3(b)(1), unless the authorization is terminated or revoked sooner. Fact Sheet for Healthcare Providers: https://www.[employer]/Documents/Xp ert%20Xpress%20SAR S%20CoV-2/Fact%20S heets/302-3802%20S ARS-COV-2%20HEALTH CARE%20PROVIDERS%2 0FACT%20SHEET.pdf Fact Sheet for Healthcare Patients: https://www.[employer]/Documents/Xp ert%20Xpress%20SAR S%20CoV-2/Fact%20S heets/302-3801%20S ARS-COV-2%20PATIEN T%20FACT%20SHEET.p df Lab Interpretation Normal (test code = 30082-9) [facility]2022-01-18 15:50:06 Test Item Value Reference Interpretation Comments Range SARS-COV2/RT-PCR Negative Negative The SARS-Co V-2 (test code = target nucleic 63272-6) acids are not detected in thi s [...] om SARS-CoV-2 in a nasopharyngeal swab specimen [facility] martha from individual s suspected of COVID-19 [...] Food, Drug and Cosmetic Act, 21 U.S.C. § 360bbb-3(b)(1), unless the authorization is terminated or revoked sooner. Fact Sheet for Healthcare Providers: https://www.[employer]/Documents/Xp ert%20Xpress%20SAR S%20CoV-2/Fact%20S heets/302-3802%20S ARS-COV-2%20HEALTH CARE%20PROVIDERS%2 0FACT%20SHEET.pdf Fact Sheet for Healthcare Patients: https://www.[employer]/Documents/Xp ert%20Xpress%20SAR S%20CoV-2/Fact%20S heets/302-3801%20S ARS-COV-2%20PATIEN T%20FACT%20SHEET.p df Lab Interpretation Normal (test code = 95366-8) [facility])2022-01-18 15:50:06 Test Item Value Reference Range Interpretation Comments SARS-COV2/RT-PCR Negative Negative The SARS-Co V-2 target (test code = nucleic acids a re not 3137497) detected in thi s specimen. Negative result [...] revoked sooner. Fact Sheet for Healthcare Providers: https://www.meQuilibrium m/Documents/Xpert%20Xpress%20SARS%20CoV-2/Fact%20Sheets/3023802%60XTFS-CRB-5%20 HEALTHCARE%20PROVIDERS%20FACT%20SHEET.pdf Fact Sheet for Healthcare Patients: https://www.[employer]/Documents/Xpert%20Xp ress%20SARS%20CoV-2/Fact%20Sheets/3023801%84EMNW-EPW-3%20PATIENT%20FACT%20SHEET .pdfPregnancy Screen, [id number] 14:59:26 Test Item Value Reference Range Interpretation Comments Preg Test, Ur (test code = 2111-) Negative Negative Lab Interpretation (test code = Normal 07958-3) [facility] [id number] 14:59:26 Test Item Value Reference Range Interpretation Comments Preg Test, Ur (test code = 2111-1) Negative Negative Lab Interpretation (test code = Normal 91531-9) [facility], [id number] 14:59:26 Test Item Value Reference Range Interpretation Comments Preg Test, Ur (test code = 2111-1) Negative Negative Lab Interpretation (test code = Normal 16458-1) [facility] S[facility]EN, [id number] 14:59:26 Test Item Value Reference Range Interpretation Comments TEST URINE (BEAKER) (test Negative Negative code = 583) Urine [id number] 10:00:50 Test Item Value Reference Range Interpretation Comments Result (test code = <10,000 col/mL skin 6463-4) [facility] [id number] 10:00:50 Test Item Value Reference Range Interpretation Comments Result (test code = <10,000 col/mL skin 6463-4) [facility] [id number] 10:00:50 Test Item Value Reference Range Interpretation Comments Result (test code = <10,000 col/mL skin 6463-4) [facility] [id number] 10:00:50 Test Item Value Reference Range Interpretation Comments CULTURE (BEAKER) (test <10,000 col/mL skin code = 1095) [facility] BASIC METABOLIC [id number] 06:13:55 Test Item Value Reference Range Interpretation [...] 1092) DATA TO CALCULA TE ESTIMATED GFR. Bankruptcy Assistant ID - [id number] ID - [id number] ID - [id number] ID - [id number] ID - [id number] ID - [id number] ID - fixahkeqz405Gkvrwhxx ID - znhyhuard548Fyqszsfs ID - [id number] ID - orcrqinoe649Bxvuglcu ID - [id number] ID - [id number] ID - [id number] W/PLT COUNT & AUTO DIFFERENTIAL 2022-01-18 05:53:44 [...] PERCENT (BEAKER) (test code = 2801) CT, [id number] 09:53:00Stone procotolUnlisted Reason for Exam - Click Yes and Enter Reason Below->NoIs this for enterography?->NoWill this procedure require oral contrast?->No [facility] : 1995 [...] stone without associated hydronephrosis. Signed: Nae Webb MDReport Verified Date/Time: 01/17/2022 09:53:02 Reading Location: [facility] Radiology Reading Room Urinalysis w/ [id number] 07:09:16 Test Item Value Reference Range Interpretation Comments Color, UA (test code Yellow = 5778-6) Clarity, UA (test Slightly Cloudy code = 5767-9) Specific [place], UA 1.015 1.001-1.035 (test code = 5811-5) pH, UA (test code = 8.0 5.0-8.0 5803-2) Protein, UA (test 100 mg/dL Negative A code = 55697-4) Glucose, UA (test Negative Negative code = 365) Ketones, UA (test Negative Negative code = 2514-8) Bilirubin, UA (test Negative Negative code = 75538-1) Blood, UA (test code Moderate Negative A = 19281-6) Nitrite, UA (test Negative Negative code = 5802-4) Leukocytes, UA (test Large Negative A code = 5799-2) Urobilinogen, UA 1.0 mg/dL 0.2-1.0 (test code = 78331-6) Bacteria, UA (test Few code = 79390-1) RBC, UA (test code = 5-10 See_Comment [Autom ated 799-7) message] The system which generated this result transmit martha reference range : /HPF. The reference range was not used to interpret this result as normal/abnormal . WBC, UA (test code = 20-50 See_Comment [Autom ated 59612-9) message] The system which generated this result transmit martha reference range : /HPF. The reference range was not used to interpret this result as normal/abnormal . SQUAMOUS EPITHELIAL <5 See_Comment [Automa martha (test code = 97115-0) messag e] The system which generated this result transmit martha reference range : /HPF. The reference range was not used to interpret this result as normal/abnormal . Specimen Source (test code = 2795) Lab Interpretation Abnormal (test code = 47288-6) [facility]/ [id number] 07:09:16 Test Item Value Reference Range Interpretation Comments Color, UA (test code Yellow = 5778-6) Clarity, UA (test Slightly Cloudy code = 5767-9) Specific [place], UA 1.015 1.001-1.035 (test code = 5811-5) pH, UA (test code = 8.0 5.0-8.0 5803-2) Protein, UA (test 100 mg/dL Negative A code = 36733-4) Glucose, UA (test Negative Negative code = 365) Ketones, UA (test Negative Negative code = 2514-8) Bilirubin, UA (test Negative Negative code = 88128-8) Blood, UA (test code Moderate Negative A = 19343-0) Nitrite, UA (test Negative Negative code = 5802-4) Leukocytes, UA (test Large Negative A code = 5799-2) Urobilinogen, UA 1.0 mg/dL 0.2-1.0 (test code = 18036-7) Bacteria, UA (test Few code = 44442-8) RBC, UA (test code = 5-10 See_Comment [Autom ated 799-7) message] The system which generated this result transmit martha reference range : /HPF. The reference range was not used to interpret this result as normal/abnormal . WBC, UA (test code = 20-50 See_Comment [Autom ated 08479-7) message] The system which generated this result transmit martha reference range : /HPF. The reference range was not used to interpret this result as normal/abnormal . SQUAMOUS EPITHELIAL <5 See_Comment [Automa martha (test code = 59830-3) messag e] The system which generated this result transmit martha reference range : /HPF. The reference range was not used to interpret this result as normal/abnormal . Specimen Source (test code = 2795) Lab Interpretation Abnormal (test code = 96330-4) [facility]/ [id number] 07:09:16 Test Item Value Reference Range Interpretation Comments Color, UA (test code Yellow = 5778-6) Clarity, UA (test Slightly Cloudy code = 5767-9) Specific [place], UA 1.015 1.001-1.035 (test code = 5811-5) pH, UA (test code = 8.0 5.0-8.0 5803-2) Protein, UA (test 100 mg/dL Negative A code = 99574-4) Glucose, UA (test Negative Negative code = 365) Ketones, UA (test Negative Negative code = 2514-8) Bilirubin, UA (test Negative Negative code = 24160-6) Blood, UA (test code Moderate Negative A = 56112-8) Nitrite, UA (test Negative Negative code = 5802-4) Leukocytes, UA (test Large Negative A code = 5799-2) Urobilinogen, UA 1.0 mg/dL 0.2-1.0 (test code = 31672-6) Bacteria, UA (test Few code = 36702-4) RBC, UA (test code = 5-10 See_Comment [Autom ated 799-7) message] The system which generated this result transmit martha reference range : /HPF. The reference range was not used to interpret this result as normal/abnormal . WBC, UA (test code = 20-50 See_Comment [Autom ated 73400-0) message] The system which generated this result transmit martha reference range : /HPF. The reference range was not used to interpret this result as normal/abnormal . SQUAMOUS EPITHELIAL <5 See_Comment [Automa martha (test code = 70714-7) messag e] The system which generated this result transmit martha reference range : /HPF. The reference range was not used to interpret this result as normal/abnormal . Specimen Source (test code = 2795) Lab Interpretation Abnormal (test code = 57814-2) [facility]/ [id number] 07:09:16 Test Item Value Reference Range Interpretation [...] SOURCE(BEAKER) (test code = 2795) BASIC METABOLIC [id number] 05:31:24 Test Item Value Reference Range Interpretation [...] 1092) DATA TO CALCULA TE ESTIMATED GFR. Bankruptcy Assistant ID - [id number] ID - [id number] ID - [id number] ID - [id number] ID - [id number] ID - [id number] ID - [id number] ID - [id number] ID - [id number] ID - [id number] 05:30:12 Test Item Value Reference Range Interpretation Comments MAGNESIUM (BEAKER) (test code = 2.0 mg/dL 1.5-3.0 627) Bankruptcy Assistant ID - [id number] ID - [id number] ID - [id number] ID - [id number] CBC W/PLT COUNT & AUTO [id number] 05:14:13 Test Item Value Reference Range Interpretation [...] (BEAKER) (test code = 2801) Lactic Acid, [id number] 00:11:15 Test Item Value Reference Range Interpretation Comments Lactate, Art (test 1.0 mmol/L 0.5-2.0 Specimen code = 2874) slightly hemolyzed SORAYA (test code = SORAYA) Bankruptcy Assistant ID - [id number] ID - [id number] ID - [id number] ID - [id number] Lab Interpretation Normal (test code = 94745-7) [facility] [id number] 00:11:15 Test Item Value Reference Range Interpretation Comments Lactate, Art (test 1.0 mmol/L 0.5-2.0 Specimen code = 2874) slightly hemolyzed SORAYA (test code = SORAYA) Bankruptcy Assistant ID - [id number] ID - [id number] ID - [id number] ID - [id number] Lab Interpretation Normal (test code = 07339-8) [facility] [id number] 00:11:15 Test Item Value Reference Range Interpretation Comments Lactate, Art (test 1.0 mmol/L 0.5-2.0 Specimen code = 2874) slightly hemolyzed SORAYA (test code = SORAYA) Bankruptcy Assistant ID - [id number] ID - [id number] ID - [id number] ID - [id number] Lab Interpretation Normal (test code = 09989-3) [facility] [id number] 00:11:15 Test Item Value Reference Range Interpretation Comments LACTATE BLOOD 1.0 mmol/L See_Comment Specimen sligh tly ARTERIAL (2) hemolyzed [Auto mated (BEAKER) (test code message] The system = 3674) which generated this result transmit martha reference range : 0.5-<2.0. The r eference range was not u sed to interpret this result as normal/abnor mal. Bankruptcy Assistant ID - [id number] ID - [id number] ID - [id number] ID - [id number] AFB CULTURE + SMEAR (NON-SPUTUM)2020-04-27 09:02:00 Test Item Value Reference Range Interpretation Comments CULTURE (BEAKER) (test No acid-fast bacilli code = 1095) isolated in 42 days AFB SMEAR (BEAKER) No acid fast bacilli (test code = 994) seen FUNGUS CULTURE + [id number] 16:35:00 Test Item Value Reference Range Interpretation Comments CULTURE (BEAKER) (test No fungus isolated in code = 1095) 28 days FUNGUS SMEAR (BEAKER) No fungal elements seen (test code = 1406) ANAEROBIC [id number] 20:06:00 Test Item Value Reference Range Interpretation Comments CULTURE (BEAKER) (test No anaerobes isolated code = 1095) SURGICALLY OBTAINED CULTURE + GRAM [id number] 10:03:00 Test Item Value Reference Interpretation Comments [...] No organisms seen (BEAKER) (test code = 101159) BASIC METABOLIC [id number] 08:10:00 Test Item Value Reference Range Interpretation [...] 1092) DATA TO CALCULA TE ESTIMATED GFR. Bankruptcy Assistant ID - DBCBC W/PLT COUNT & AUTO [id number] 07:19:00 Test Item Value Reference Range Interpretation [...] (BEAKER) (test code = 2801) VANCOMYCIN LEVEL, [id number] 17:28:00 Test Item Value Reference Range Interpretation Comments VANCOMYCIN TROUGH (BEAKER) (test 23.3 ug/mL 10.0-20.0 H code = 522) Bankruptcy Assistant ID - DBCT, [id number] 10:34:00Unlisted Reason for Exam - Click Yes [...] MDReport Verified Date/Time: 03/14/2020 10:34:53 Reading Location: [place] [id number] CT Body Reading Room CBC W/PLT COUNT & AUTO [id number] 07:51:00 Test Item Value Reference Range Interpretation [...] (BEAKER) (test code = 2801) BASIC METABOLIC [id number] 07:35:00 Test Item Value Reference Range Interpretation [...] 1092) DATA TO CALCULA TE ESTIMATED GFR. Bankruptcy Assistant ID - JONAH MRAD, CHEST, 1 VIEW, NON [id number] 15:22:00Reason for exam:->Post-op PACUShould this be performed [...] MDReport Verified Date/Time: 03/13/2020 15:22:32 Reading Location: [facility] Radiology Reading Room BASI METABOLIC PANEL 2020-03-13 13:52:00 Test Item Value [...] 1092) DATA TO CALCULA TE ESTIMATED GFR. Bankruptcy Assistant ID - CHRIS FCBC W/PLT COUNT & AUTO [id number] 13:51:00 Test Item Value Reference Range Interpretation [...] 2801) FL, FLUORO, NON-SPECIFIC, UP TO 1 [id number] 12:03:00Reason for exam:- >Cysto, ureteroscopyFluoroscopic unit utilized for a procedure performed in the OR. No interpretation was requested. Refer to the operative report for findings. Refer to PACS for patient radiation dose information.SARS-COV2/RT-PCR ([facility])2020-03-13 08:54:00 Test Item Value Reference Range Interpretation Comments SARS-COV2/RT-PCR (test Negative Not Detected, Negative, code = 2670681) See external report for linked test SARS-COV-[address] [facility] (test code = 5358950) Negative result for this test determines that [...] of the Act.Fact Sheet for Healthcare Prov iders:https://www.RMDMgroup.DigitalChalk/sites/default/files/product/documents/Fact_Sheet_HC _Ajzsekial_Ulbo_USRW-VoE-2.pdfFact Sheet for Healthcare Patients:https://www.RMDMgroup.DigitalChalk/sites/default/files/product/docume nts/Dakd_Rggiw_Sycbrgqv_Tncq_LGMV-FaN-3.pdfPerforming Laboratory:[facility], [place] [address]NVMWNDHUMY LEVEL, TROUGH 2020-03-13 05:42:00 Test Item Value Reference Range Interpretation Comments VANCOMYCIN TROUGH (BEAKER) (test 34.1 ug/mL 10.0-20.0 HH code = 522) Bankruptcy Assistant ID April RIVERO LBASIC METABOLIC [id number] 05:04:00 Test Item Value Reference Range Interpretation [...] 1092) DATA TO CALCULA TE ESTIMATED GFR. Bankruptcy Assistant ID April RIVERO [id number] 04:41:00 Test Item Value Reference Range Interpretation [...] 2.5-3.5 for patients wiht mechanical heart valves.PROTHROMBIN TIME/[id number] 04:40:00 Test Item Value Reference Range Interpretation [...] mechanical heart valves.CBC W/PLT COUNT & AUTO [id number] 04:34:00 Test Item Value Reference Range Interpretation [...] PERCENT (BEAKER) (test code = 2801) SCREEN, [id number] 07:32:00 Test Item Value Reference Range Interpretation Comments TEST URINE (BEAKER) (test Negative code = 583) BASIC METABOLIC [id number] 04:58:00 Test Item Value Reference Range Interpretation [...] 1092) DATA TO CALCULA TE ESTIMATED GFR. Bankruptcy Assistant ID - JONAH [id number] 04:55:00 Test Item Value Reference Range Interpretation [...] 2.5-3.5 for patients wiht mechanical heart valves.PROTHROMBIN TIME/[id number] 04:54:00 Test Item Value Reference Range Interpretation [...] mechanical heart valves.CBC W/PLT COUNT & AUTO [id number] 04:40:00 Test Item Value Reference Range Interpretation [...] PERCENT (BEAKER) (test code = 2801) BLOOD [id number] 18:00:00 Test Item Value Reference Range Interpretation Comments CULTURE (BEAKER) (test No growth in 5 days code = 1095) BLOOD [id number] 18:00:00 Test Item Value Reference Range Interpretation Comments CULTURE (BEAKER) (test No growth in 5 days code = 1095) POCT-GLUCOSE [id number] 13:24:00 Test Item Value Reference Range Interpretation Comments POC-GLUCOSE METER 101 mg/dL 70-110 : TESTED A T [facility] 6720 (BEAKER) (test code = [place]I [place], 1538) [id number]: Bankruptcy Assistant/Techni sameer ID = [id number] for TIANA BAUTISTA BASIC METABOLIC [id number] 08:47:00 Test Item Value Reference Range Interpretation [...] 1092) DATA TO CALCULA TE ESTIMATED GFR. Bankruptcy Assistant ID - JONAH MURINE [id number] 08:32:00 Test Item Value Reference Range Interpretation [...] seco nd type <10,000 col/mL Enterococcus speciesPOCT-GLUCOSE [id number] 06:34:00 Test Item Value Reference Range Interpretation Comments POC-GLUCOSE METER 91 mg/dL 70-110 : TESTED A T [facility] 6720 (BEAKER) (test code = AARTI Chase [facility], 1538) [id number]: Bankruptcy Assistant/Techni sameer ID = [id number] for VISH DEVLIN CBC W/PLT COUNT & AUTO [id number] 06:15:00 Test Item Value Reference Range Interpretation [...] PERCENT (BEAKER) (test code = 2801) POCT-GLUCOSE [id number] 01:32:00 Test Item Value Reference Range Interpretation Comments POC-GLUCOSE METER 100 mg/dL 70-110 : TESTED A T [facility] 6720 (BEAKER) (test code = AARTI S[place], 1538) [id number]: Bankruptcy Assistant/Techni sameer ID = [id number] for VISH REBOLLAR VANCOMYCIN LEVEL, [id number] 01:02:00 Test Item Value Reference Range Interpretation Comments VANCOMYCIN TROUGH (BEAKER) (test 7.7 ug/mL 10.0-20.0 L code = 522) Bankruptcy Assistant ID - JONAH MSARS-COV2/RT-PCR ([facility])2020-03-10 17:34:00 Test Item Value Reference Range Interpretation Comments SARS-COV2/RT-PCR (test Negative Not Detected, Negative, code = 9562488) See external report for linked test SARS-COV-[address] [facility] (test code = 2164323) Negative result for this test determines that [...] 564(g) of the Act.Fact Sheet for Healthcare Pro viders:https://www.quidel.com/sites/default/files/product/documents/Fact_Sheet_H A_Fdxdxyqgc_Gcvi_OXXG-LyZ-6.pdfFact Sheet for Healthcare Patients:https://www.GPMESS/sites/default/files/product/docum ents/Xcfz_Aecfy_Pccwjkvk_Oexg_NVMS-SpJ-8.pdfPerforming Laboratory:[facility], [place] [address]DBVXZUMOHKS TIME/INR 2020-03-10 06:27:00 Test Item Value Reference [...] is 2.5-3.5 for patients wiht mechanical heart valves.[id number] 06:27:00 Test Item Value Reference Range Interpretation Comments PARTIAL THROMBOPLASTIN TIME 32.3 seconds 22.5-36.0 (BEAKER) (test code = 760) BASIC METABOLIC [id number] 06:09:00 Test Item Value Reference Range Interpretation [...] 1092) DATA TO CALCULA TE ESTIMATED GFR. Bankruptcy Assistant ID - PIAYA LCBC W/PLT COUNT & AUTO [id number] 04:48:00 Test Item Value Reference Range Interpretation [...] % 20-55 L (test code = 2590) Bankruptcy Assistant ID - ADMINBASIC METABOLIC [id number] 07:51:00 Test Item Value Reference Range Interpretation [...] 1092) DATA TO CALCULA TE ESTIMATED GFR. Bankruptcy Assistant ID - [id number] 05:06:00 Test Item Value Reference Range Interpretation Comments FERRITIN (BEAKER) (test code = 142.14 ng/mL 5.00-275.00 361) Bankruptcy Assistant ID - MAT LCBC W/PLT COUNT & AUTO [id number] 04:33:00 Test Item Value Reference Range Interpretation [...] (BEAKER) (test code = 2801) BASIC METABOLIC [id number] 11:05:00 Test Item Value Reference Range Interpretation [...] ESTIMATED GFR. CBC W/PLT COUNT & AUTO [id number] 05:12:00 Test Item Value Reference Range Interpretation [...] (test code = 2801) KIDNEY IMAGING, SINGLE, FLOW/[id number] 16:24:00Unlisted Reason for Exam - Click Yes and Enter Reason Below->YesUnlisted Reason for Exam->check function of right kidney for possible nephrectomyFINAL REPORT PROCEDURE: Functional RENAL SCAN, flow and function CPT CODE: 21623 INDICATION: Nephrolithiasis, hydronephrosis, right nephrostomy PROTOCOL: 10.8 [...] the right nephrostomy.3. Functioning right nephrostomy. Signed: Adam Sawant MDReport Verified Date/Time: 03/07/2020 16:24:47 Reading Location: [address] [address] Reading Room SARS-COV2/RT-PCR ([facility])2020-03-07 12:30:00 Test Item Value Reference Range Interpretation Comments SARS-COV2/RT-PCR (test Negative Not Detected, Negative, code = 9519485) See external report for linked test SARS-COV-2 PERFORMING LAB [facility] (test code = 0513530) Negative result for this test determines that [...] of the Act.Fact Sheet for Healthcare Prov iders:https://www.GPMESS/sites/default/files/product/documents/Fact_Sheet_HC _Aiivbdgqa_Krwy_JFNZ-FbV-8.pdfFact Sheet for Healthcare Patients:https://www.GPMESS/sites/default/files/product/docume nts/Dpke_Eppdj_Cvrmwswm_Plto_ZQLL-XhM-4.pdfPerforming Laboratory:[facility] [place], [place] [address]kristen [place], [place] [address]LWS W/PLT COUNT & AUTO [id number] 12:01:00 Test Item Value Reference Range Interpretation [...] CONCENTRATION Adequate (CELLAVISION)(BEAKER) (test code = 3438) Bankruptcy Assistant ID - Esperanza Carlin comments: Slide comments:URINALYSIS W/ REFLEX URINE [id number] 11:12:00 Test Item Value Reference Range Interpretation [...] = 516) SOURCE(BEAKER) (test code = 2795) Bankruptcy Assistant ID - [auto]Bankruptcy Assistant ID - techVITAMIN D, [id number] 07:14:00 Test Item Value Reference Range Interpretation Comments VITAMIN D 25-OH (BEAKER) (test 15.8 ng/mL 6.6-49.9 code = 2764) Effective 04/05/2017: Reference Range ChangeNew: 6.6-49.9 ng/mL Previous: 13.0- 47.8 ng/mLRecommendedVitamin D Target Range: 30.0-40.0 ng/mLOperator ID - JONAH M BASIC METABOLIC [id number] 07:09:00 Test Item Value Reference Range Interpretation [...] 1092) DATA TO CALCULA TE ESTIMATED GFR. Bankruptcy Assistant ID - JONAH MPOCT-GLUCOSE [id number] 23:40:00 Test Item Value Reference Range Interpretation Comments POC-GLUCOSE METER 77 mg/dL 70-110 : TESTED A T [facility] 6720 (BEAKER) (test code = AARTI Chase [facility], 1538) [id number]: Bankruptcy Assistant/Techni sameer ID = [id number] for Anna Armando (contra ct) ANG, NEPHROSTOMY, PERC, EXTERNAL [id number] 22:01:00Reason for exam:- >PCN placement due to [...] ureteral stent. Under fluoroscopic guidance, an 8.5 Slovenian nephrostomy tube was advanced into the renal pelvis the catheter was secured using 2-0 Prolene and left to gr avity drainage. Hemostasis was achieved. The patient tolerated the procedure well without any adverse reactions. He left the department in stable condition. Complication: None immediate Impression: 1. Right nephrostomy tube insertion as described. Signed: Sara Blanton MDReport Verified Date/Time: 03/06/2020 22:01:35 Reading Location: [address] Body Reading Room (CELLAVISION MANUAL DIFF) 2020-03-06 [...] CONCENTRATION Adequate (CELLAVISION)(BEAKER) (test code = 3438) Bankruptcy Assistant ID - StepIsabellser comments: Slide comments:BASIC METABOLIC PANEL 2020-03-06 18:31:00 [...] 1092) DATA TO CALCULA TE ESTIMATED GFR. Bankruptcy Assistant ID - DBCBC W/PLT COUNT & AUTO [id number] 18:14:00 Test Item Value Reference Range Interpretation [...] 0-0 (BEAKER) (test code = 413) PROTHROMBIN TIME/[id number] 18:08:00 Test Item Value Reference Range Interpretation Comments PROTIME (HAMMAD) (test code = 15.9 seconds 11.9-14.2 H [...]
[2023-04-01 12:36] LABS: Specific Gravity 1.015 (1.005-1.030)
[2023-04-01 12:37] LABS: Absolute Lymphocytes (CBC) 2.1 K/uL (0.7-4.9); Hematocrit 40.3 % (36.0-45.0); Lymphocytes % 16.1 % (15.3-44.8); MCV 91.9 fL (80-100); MPV 9.5 fL (7.6-11.3); Platelets 290 thou/uL (152-406); RBC Red Blood Cell Count 4.38 M/uL (3.86-4.86)
[2023-04-01 12:38] LABS: Specific Gravity 1.015 (1.005-1.030); Urine Bacteria <20 /HPF (<20); Urine Bilirubin NEGATIVE (Negative); Urine Blood 1+ (Negative); Urine Clarity Turbid (Clear); Urine Color Light-Yellow (Yellow); Urine Glucose NEGATIVE (Negative); Urine Protein NEGATIVE (Negative); Urine RBC <5 /HPF (None Seen); Urine Urobilinogen Normal (Normal); Urine pH 5.5 (5.0-7.0)
--- NOTE | 2023-04-01 12:55 | RAD REPORT ---
EXAM DESCRIPTION: US - Pelvis Complete - 04/01/2023 12:43 pm CLINICAL HISTORY: ABD PAIN Pelvic pain. COMPARISON: No comparisons FINDINGS: The uterus is normal in size, shape and echotexture. The uterus measures 8.9 x 6.4 x 4.5 c m. The endometrial stripe measures 4 mm, normal. Both ovaries are normal in size, shape and echotexture. The right ovary measures 4.0 x 2.9 x 2.0 cm. The left ovary measures 3.8 x 1.9 x 1.6 cm. No ovarian or parovarian lesions. No adnexal masses. Normal Doppler blood flow was demonstrated to both ovaries. No significant pelvic ascites. IMPRESSION: Unremarkable study.
[2023-04-01 12:58] LABS: Potassium 4.2 mEq/L (3.5-5.1)
--- NOTE | 2023-04-01 13:15 | EDPHYS ---
Physician Documentation [facility] Name: Rakesh Vigil Age: 27 yrs Sex: Female : 1995 Arrival Date: 04/01/2023 Time: 11:48 Bed 13 Private MD: ED Physician Hemant Neal HPI: 04/01 12:02 This 27 yrs old Female presents to ER via Ambulatory with complaints of jh7 Abdominal Cramping. 12:02 27-year-old female presents with abdominal cramping for the past 6 months. She reports jh7 that she had a Nexplanon implant placed October 2021 and has not had menstrual cycle since then. She states that she has been too busy to see a doctor regarding these complaints, and decided to get checked out in the ER today. No vaginal bleeding, fever, dysuria, flank pain, or stool changes. No PMH. . 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 - Social history:: Smoking status: Patient denies any tobacco usage or history of. ROS: 12:02 Constitutional: Negative for fever, chills, and weight loss, Eyes: Negative for injury, jh7 pain, redness, and discharge, Neck: Negative for injury, pain, and swelling, Cardiovascular: Negative for chest pain, palpitations, and edema, Respiratory: Negative for shortness of breath, cough, wheezing, and pleuritic chest pain, Back: Negative for injury and pain, MS/Extremity: Negative for injury and deformity, Skin: Negative for injury, rash, and discoloration, Neuro: Negative for headache, weakness, numbness, tingling, and seizure, 12:02 Abdomen/GI: Positive for abdominal cramps, Negative for nausea, vomiting, and diarrhea, 12:02 All other systems are negative, 12:02 : Positive for menstrual abnormality, Negative for urinary symptoms, foul smelling jh7 urine, vaginal bleeding, vaginal discharge, vaginal itching, Exam: 12:02 Constitutional: This is a well developed, well nourished patient who is awake, alert, jh7 and in no acute distress. Head/Face: Normocephalic, atraumatic. Cardiovascular: Regular rate and rhythm with a normal S1 and S2. No gallops, murmurs, or rubs. Normal PMI, no JVD. No pulse deficits. Respiratory: Lungs have equal breath sounds bilaterally, clear to auscultation and percussion. No rales, rhonchi or wheezes noted. No increased work of breathing, no retractions or nasal flaring. Abdomen/GI: Soft, non-tender, with normal bowel sounds. No distension or tympany. No guarding or rebound. No evidence of tenderness throughout. Back: No spinal tenderness. No costovertebral tenderness. Full range of motion. Skin: Warm, dry with normal turgor. Normal color with no rashes, no lesions, and no evidence of cellulitis. MS/ Extremity: Pulses equal, no cyanosis. Neurovascular intact. Full, normal range of motion. Neuro: Awake and alert, GCS 15, oriented to person, place, time, and situation. Normal gait. Vital Signs: 12:01 BP 124 / 90; Pulse 88; Resp 16; Temp 98.3; Pulse Ox 100% on R/A; Weight 79.38 kg; hb Height 5 ft. 3 in. ; Pain 2/10; 13:24 BP 113 / 70; Pulse 71; Resp 16; Pulse Ox 99% on R/A; Pain 7/10; nj1 12:01 Body Mass Index 31.00 (79.38 kg, 160.02 cm) hb 12:01 Pain Scale: Adult hb 13:24 Pain Scale: Adult nj1 MDM: 11:53 Patient medically screened. [facility] 13:10 Differential diagnosis: ectopic , Ovarian cyst, side effects from medication. [facility] Data reviewed: vital signs, nurses notes, lab test result(s), radiologic studies, ultrasound. Historians other than the Patient: Spouse/Significant Other: . Counseling: I had a detailed discussion with the patient and/or guardian regarding the historical points, exam findings, and any diagnostic results supporting the discharge/admit diagnosis, the need for outpatient follow up, an OB/Gyne specialist, to return to the emergency department if symptoms worsen or persist or if there are any questions or concerns that arise at home. Special discussion: The patient states that all of this started when she had her Nexplanon implant placed. Advised her to follow-up with her DIE TROUBLE SHOOTER for Nexplanon removal due to side effects.. 04/01 12:06 Order name: Basic Metabolic Panel; Complete Time: 13:08 [facility] 04/01 12:06 Order name: CBC with Diff; Complete Time: 12:40 [facility] 04/01 12:06 Order name: Test, Urine; Complete Time: 12:40 [facility] 04/01 12:06 Order name: Urinalysis W/Microscopic; Complete Time: 12:49 [facility] 04/01 12:42 Order name: Urine Culture [facility] 04/01 12:06 Order name: US Pelvis Complete; Complete Time: 12:57 [facility] 04/01 12:06 Order name: IV Saline Lock; Complete Time: 12:27 [facility] 04/01 12:06 Order name: Labs collected and sent; Complete Time: 12:26 [facility] 04/01 12:06 Order name: NPO; Complete Time: 12:26 [facility] Administered Medications: No medications were administered Disposition: 14:54 Co-signature as Attending Physician, Hemant Neal MD I reviewed the patient's care rt provided by the Advanced Practice Provider and agree with the diagnosis and treatment plan. Disposition Summary: 04/01/23 13:15 Discharge Ordered Notes: Location: Home [facility] Problem: new [facility] Symptoms: are unchanged [facility] Condition: Stable [facility] Diagnosis - Abdominal cramping [facility] Followup: [facility] - With: Private Physician - When: 2 - 3 days - Reason: Recheck today's complaints Discharge Instructions: - Discharge Summary Sheet [facility] - Abdominal or Pelvic Ultrasound [facility] - Abdominal Bloating [facility] Forms: - Medication Reconciliation Form [facility] - Thank You Letter [facility] - Patient Portal Instructions [facility] - Leadership Thank You Letter [facility] - Work release form nj1 Signatures: Dispatcher MedHost EDJuliana Nunes RN RN Shanell Hoffman FNP FNP [facility] Hemant Neal MD MD rt
--- NOTE | 2023-04-01 13:15 | ER ---
Nurse's Notes [facility] Name: Rakesh Vigil Age: 27 yrs Sex: Female : 1995 Arrival Date: 04/01/2023 Time: 11:48 Bed 13 Private MD: Diagnosis: Abdominal cramping Presentation: 04/01 12:01 Chief complaint: Lower abdominal cramping x 6 months. Denies N/V/D/irregular bleeding. hb Coronavirus screen: At this time, the client does not indicate any symptoms associated with coronavirus-19. Ebola Screen: No symptoms or risks identified at this time. Initial Sepsis Screen: Does the patient meet any 2 criteria? No. Patient's initial sepsis screen is negative. Does the patient have a suspected source of infection? No. Patient's initial sepsis screen is negative. Risk Assessment: Do you want to hurt yourself or someone else? Patient reports no desire to harm self or others. Onset of symptoms was October 2022. 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 - Social history:: Smoking status: Patient denies any tobacco usage or history of. Screenin:27 [facility] ED Fall Risk Assessment (Adult) History of falling in the last 3 months, mb9 including since admission No falls in past 3 months (0 pts) Confusion or Disorientation No (0 pts) Intoxicated or Sedated No (0 pts) Impaired Gait No (0 pts) Mobility Assist Device Used No (0 pt) Altered Elimination No (0 pt) Score/Fall Risk Level 0 - 2 = Low Risk Oriented to surroundings, Maintained a safe environment, Educated pt \T\ family on fall prevention, incl call for assistance when getting out of bed. Abuse screen: Denies threats or abuse. Nutritional screening: No deficits noted. Tuberculosis screening: No symptoms or risk factors identified. Assessment: 12:25 General: Appears in no apparent distress. Behavior is calm, cooperative. Pain: mb9 Complains of pain in abdomen Pain does not radiate. Quality of pain is described as crampy, Pain began 6 months ago Is intermittent. Neuro: Sloan Agitation-Sedation Scale (RASS): 0 - Alert and Calm Level of Consciousness is awake, alert, obeys commands, Oriented to person, place, time, situation, Appropriate for age. Cardiovascular: Patient's skin is warm and dry. Respiratory: Airway is patent Respiratory effort is even, unlabored, Respiratory pattern is regular, symmetrical, Breath sounds are clear bilaterally. GI: Abdomen is round non-distended, Bowel sounds present X 4 quads. Abd is soft and non tender X 4 quads. Reports lower abdominal pain, cramping. : Denies vaginal bleeding. EENT: No signs and/or symptoms were reported regarding the EENT system. Derm: Skin is pink, warm \T\ dry. Musculoskeletal: Range of motion: intact in all extremities. 13:42 Reassessment: Patient appears in no apparent distress at this time. Patient and/or nj1 family updated on plan of care and expected duration. Pain level reassessed. Patient is alert, oriented x 3, equal unlabored respirations, skin warm/dry/pink. Vital Signs: 12:01 BP 124 / 90; Pulse 88; Resp 16; Temp 98.3; Pulse Ox 100% on R/A; Weight 79.38 kg; hb Height 5 ft. 3 in. ; Pain 2/10; 13:24 BP 113 / 70; Pulse 71; Resp 16; Pulse Ox 99% on R/A; Pain 7/10; nj1 12:01 Body Mass Index 31.00 (79.38 kg, 160.02 cm) hb 12:01 Pain Scale: Adult hb 13:24 Pain Scale: Adult ga1 ED Course: 11:51 Patient arrived in ED. mr 11:53 Shanell Hernandez, DARCY is [facility]. jh7 11:53 Hemant Neal MD is Attending Physician. 7 11:56 Jacqueline Almeida, JYOTHI is Primary Nurse. mb9 12:02 Triage completed. hb 12:02 Arm band placed on. hb 12:26 Urinalysis W/Microscopic Sent. hb 12:26 Basic Metabolic Panel Sent. hb 12:26 CBC with Diff Sent. hb 12:26 Test, Urine Sent. hb 12:28 Placed in gown. Bed in low position. Call light in reach. Side rails up X 1. Client mb9 placed on continuous cardiac and pulse oximetry monitoring. NIBP monitoring applied. 12:39 No provider procedures requiring assistance completed. mb9 12:45 US Pelvis Complete In Process Unspecified. EDMS 13:42 Provided Education on: Discharge instructions. nj1 13:42 Patient did not have IV access during this emergency room visit. nj1 Administered Medications: No medications were administered Medication: 12:28 VIS not applicable for this client. mb9 Outcome: 13:15 Discharge ordered by . 7 13:42 Discharged to home ambulatory, with significant other, nj1 13:42 Condition: stable 13:42 Discharge instructions given to patient, significant other, Instructed on discharge instructions, follow up and referral plans. Demonstrated understanding of instructions, follow-up care, 13:43 Patient left the ED. nj1 Signatures: Dispatcher MedHost EDCA Jacqueline Bejarano, Reg Reg mr Juliana Schroeder, RN RN Shanell Hernandez, PUBLIC RECORDS RESEARCHER PUBLIC RECORDS RESEARCHER 7 Jacqueline Almeida, RN RN mb9 Portia Murphy, RN RN nj1 Corrections: (The following items were deleted from the chart) 13:42 13:24 BP 113 / 70; Pulse 71bpm; Resp 16bpm; Pulse Ox 99% RA; nj1 nj1
[2023-04-01 14:03] VITALS: BP 113/70; O2SAT 99
== END 2023-04-01 13:43 | disposition home or self-care (01) ==
LOC: ER 11:48
DX: R10.9 Unspecified abdominal pain (principal)
CPT/HCPCS: 36415; 76856; 80048; 81001; 81025; 85025; 87086; 87088; 99283

== ENCOUNTER 2023-09-21 06:33 | Emergency (ER) | payer SELFPAY ==
[2023-09-21] MEDS ORDERED: MORPHINE 4 MG/ML SYR ONE ×3 (07:14→12:42)
[2023-09-21] MEDS ORDERED: KETOROLAC 30 MG/ML INJ ONE (07:14)
[2023-09-21] MEDS ORDERED: ONDANSETRON 4 MG/2 ML VIAL ONE ×2 (07:14→10:38)
[2023-09-21] MEDS ORDERED: NA CHLORIDE 0.9% 1,000 ML ONE (07:15)
[2023-09-21 08:35] LABS: Specific Gravity 1.019 (1.005-1.030)
[2023-09-21 08:43] LABS: Absolute Basophils 0.1 K/uL (0-0.5); Absolute Lymphocytes (CBC) 0.6 K/uL (0.7-4.9); Absolute Monocytes 1.5 K/uL (0.1-1.3); Absolute Neutrophil 17.3 K/uL (1.8-8.0); Basophils % 0.3 % (0-1.3); Eosinophils % 0.1 % (0-4.4); Hematocrit 36.9 % (36.0-45.0); Hemoglobin 12.5 g/dL (12.0-15.0); Lymphocytes % 3.3 % (15.3-44.8); MCH 31.4 pg (27.0-35.0); MCHC 33.9 g/dL (32.0-36.0); MCV 92.5 fL (80-100); MPV 9.2 fL (7.6-11.3); Monocytes % 7.8 % (3.3-12.3); Neutrophils % 88.5 % (41.7-73.7); Platelets 227 thou/uL (152-406); RBC Red Blood Cell Count 3.99 M/uL (3.86-4.86); Red Cell Distribution Width 12.8 % (12.1-15.2)
[2023-09-21 08:43] LABS: Specific Gravity 1.018 (1.005-1.030); Sqamous Epithelial <5 /HPF (None Seen); Urine Bacteria >50 /HPF (<20); Urine Bilirubin NEGATIVE (Negative); Urine Blood 3+ (OVER) (Negative); Urine Clarity Extremely Turbid (Clear); Urine Color Light-Orange (Yellow); Urine Culture Reflex Order REFLEXED; Urine Glucose NEGATIVE (Negative); Urine Ketones NEGATIVE (Negative); Urine Microscopic Reflex YN ORDER UMIC; Urine Mucus Slight /HPF (None Seen); Urine Nitrite 2+ (Negative); Urine Protein 2+ (Negative); Urine RBC >50 /HPF (None Seen); Urine Urobilinogen Normal (Normal); Urine WBC >50 /HPF (<5); Urine WBC Clump Occasional /HPF (None Seen)
[2023-09-21 08:57] LABS: Albumin 3.5 g/dL (3.4-5.0); Anion Gap 8.8 mEq/L (5.0-15.0); Globulin 3.6 g/dL (2.3-3.5); Potassium 3.8 mEq/L (3.5-5.1); Protein, Total 7.1 g/dL (6.4-8.2)
--- NOTE | 2023-09-21 09:19 | RAD REPORT ---
EXAM DESCRIPTION: CT - Abdomen Pelvis Wo Contrast - 09/21/2023 8:38 am CLINICAL HISTORY: Abdominal pain. ABD PAIN COMPARISON: <Comparisons> TECHNIQUE: CT imaging of the abdomen and pelvis was performed without contrast. Solid organ, bowel a nd vascular assessment is limited due to lack of IV and oral contrast. All CT scans are performed using dose optimization technique as appropriate and may include automated exposure control or mA/KV adjustment according to patient size. FINDINGS: The lower lung peñaloza are clear. The liver, spleen, pancreas, adrenal glands are within normal limits for a limited non-contrast exami nation.Severe right-sided hydronephrosis is present with punctate stones in the calices of the right kidney. The right ureter is normal caliber. Punctate caliceal calculi in left kidney. No bowel obstruction, free air, free fluid or abscess. The appendix is normal. [address] The osseous structures are within normal limits. IMPRESSION: Severe right-sided hydronephrosis is present. An obstructing calculus is not seen. Punctate caliceal calculi bilaterally. A limited non-contrast examination was performed as detailed.
[2023-09-21] MEDS ORDERED: NA CHLORIDE 0.9% 250 ML ONE (09:23)
[2023-09-21] MEDS ORDERED: CEFTRIAXONE 2000 MG/VIAL ONE (09:23)
--- NOTE | 2023-09-21 09:31 | ER ---
Nurse's Notes [facility] Name: Rakesh Vigil Age: 28 yrs Sex: Female : 1995 Arrival Date: 09/21/2023 Time: 06:33 Bed 6 Private MD: Diagnosis: Pyelonephritis;Severe right-sided hydronephrosis;Sepsis Presentation: 09/20 06:42 Chief complaint: Patient states: Right sided flank pain that radiates to RLQ onset at cm10 2300. Pt reports pain and burning with urination. Pt has history of kidney stones. Coronavirus screen: Client denies travel out of the [place] in the last 14 days. At this time, the client does not indicate any symptoms associated with coronavirus-19. Ebola Screen: Patient denies travel to an Ebola-affected area in the 21 days before illness onset. No symptoms or risks identified at this time. Initial Sepsis Screen: Does the patient meet any 2 criteria? No. Patient's initial sepsis screen is negative. Does the patient have a suspected source of infection? No. Patient's initial sepsis screen is negative. Risk Assessment: Do you want to hurt yourself or someone else? Patient reports no desire to harm self or others. Onset of symptoms was September 21, 2023. 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 - Social history:: Smoking status: Patient denies any tobacco usage or history of. - Family history:: not pertinent. Screenin:06 [facility] ED Fall Risk Assessment (Adult) History of falling in the last 3 months, ph including since admission No falls in past 3 months (0 pts). [facility] ED Fall Risk Assessment (Adult) Confusion or Disorientation No (0 pts) Intoxicated or Sedated No (0 pts) Impaired Gait No (0 pts) Mobility Assist Device Used No (0 pt) Altered Elimination No (0 pt) Score/Fall Risk Level 0 - 2 = Low Risk Oriented to surroundings, Maintained a safe environment, Educated pt \T\ family on fall prevention, incl call for assistance when getting out of bed, Assessed \T\ reinforced patient's understanding of fall precautions, Provided non-skid footwear, Hourly rounding (assess needs \T\ fall precautionary measures) done, Used ambulatory aids as needed (educated on \T\ assisted with), Used gait belt as appropriate. Abuse screen: Denies threats or abuse. Denies injuries from another. Nutritional screening: No deficits noted. Tuberculosis screening: No symptoms or risk factors identified. Assessment: 08:15 General: Appears in no apparent distress. uncomfortable, Behavior is calm, cooperative, ph appropriate for age. Neuro: No deficits noted. Cardiovascular: No deficits noted. Respiratory: No deficits noted. GI: Bowel sounds present X 4 quads. Abd is soft and non tender X 4 quads. 08:15 Pain: Complains of pain in posterior aspect of right lateral abdomen and anterior ph aspect of right lateral abdomen. : Reports burning with urination, pain with urination. EENT: No deficits noted. Derm: No deficits noted. Musculoskeletal: No deficits noted. 11:47 Reassessment: Patient appears in no apparent distress at this time. Patient and/or ph family updated on plan of care and expected duration. Pain level reassessed. Patient is alert, oriented x 3, equal unlabored respirations, skin warm/dry/pink. Report called to JYOTHI Morales at [facility]. Vital Signs: 06:42 BP 125 / 72; Pulse 96; Resp 18; Temp 98.3; Pulse Ox 100% on R/A; Weight 74.84 kg; cm10 Height 5 ft. 2 in. ; Pain 10/10; 08:30 BP 107 / 67; Pulse 89; Resp 15; Pulse Ox 99% ; ph 09:06 BP 116 / 68; Pulse 81; Resp 14; Pulse Ox 100% ; ph 10:45 BP 125 / 78; Pulse 84; Resp 18; Pulse Ox 99% on R/A; ph 11:52 BP 115 / 71; Pulse 87; Resp 18; Temp 97.9; Pulse Ox 98% on R/A; ph 13:25 BP 115 / 71; Pulse 84; Resp 18; Pulse Ox 100% ; cp4 06:42 Body Mass Index 30.18 (74.84 kg, 157.48 cm) cm10 06:42 Pain Scale: Adult cm10 [place] Coma Score: 07:07 Eye Response: spontaneous(4). Motor Response: obeys commands(6). Verbal Response: sp4 oriented(5). Total: 15. ED Course: 06:35 Patient arrived in ED. jj6 06:39 Oscar Samuel MD is Attending Physician. sp4 06:43 Triage completed. cm10 06:43 Arm band placed on Patient placed in an exam room, on a stretcher. cm10 07:03 Attending Physician role handed off by Oscar Samuel MD rt 07:03 Hemant Neal MD is Attending Physician. rt 07:07 Violet Carlson, JYOTHI is Primary Nurse. ph 07:10 Warm blanket given. oe 07:14 Missed attempt(s): Bleeding controlled, band aid applied, catheter tip intact. oe 07:18 Inserted saline lock: 22 gauge in right wrist, using aseptic technique. Blood collected.oe 07:30 Provided Education on: Time for test results and use of call light. ph 08:15 Patient has correct armband on for positive identification. Placed in gown. Bed in low ph position. Call light in reach. Side rails up X 1. Pulse ox on. NIBP on. 08:22 Test, Urine Sent. ph 08:22 Urinalysis w/ reflexes Sent. ph 08:30 Assisted to bathroom. ph 08:30 Lab(s) recollected, by me, sent to lab. ph 08:30 Urine collected: clean catch specimen, cloudy. ph 08:39 CT Abd/Pelvis - Without Contrast In Process Unspecified. EDMS 09:07 No provider procedures requiring assistance completed. ph 09:34 Transfer initiated with [facility] transfer center; [facility] and [address] decline due to staffing issues. 09:34 Lactate w/ 2H reflex if indic. Sent. ph 09:34 Protime (+inr) Sent. ph 09:34 Ptt, Activated Sent. ph 11:16 Pt accepted as a transfer to [facility]. em1 11:56 Transportation arranged with [facility]; [facility] not available due to operational em1 tempo. 13:26 Patient transferred, IV remains in place. cp4 09/21 07:48 positive blood culture called to Tiffanie Rn / faxed culture result Rn at [facility] where the patient was transferred to [phone]. Administered Medications: 09/20 07:21 Drug: morphine IVP or IV 4 mg IVP once over 4 mins Route: IVP; Infused Over: 4 mins; tm6 Site: right wrist; 08:29 Follow up: Response: No adverse reaction; Pain is decreased ph 07:21 Drug: Ketorolac IVP 30 mg IVP once Route: IVP; Site: right wrist; tm6 08:29 Follow up: Response: No adverse reaction ph 07:21 Drug: Ondansetron IVP 8 mg IVP once; over 2 minutes Route: IVP; Site: right wrist; tm6 08:29 Follow up: Response: No adverse reaction ph 07:21 Drug: NS 0.9% IV 1000 ml IV at 1 bolus Per protocol; 1000 mL bolus Route: IV; Rate: 1 tm6 bolus; Site: right wrist; 08:29 Follow up: Response: No adverse reaction; IV Status: Completed infusion; IV Intake: ph 1000ml 09:21 Drug: morphine IVP or IV 4 mg IVP once over 4 mins Route: IVP; Infused Over: 4 mins; ph Site: right wrist; 09:44 Follow up: Response: No adverse reaction; Pain is decreased ph 09:25 Drug: Rocephin - Rocephin (cefTRIAXone) IVPB 2 grams IVPB once over 30 mins; (mix in ph 100 mL NS) Route: IVPB; Infused Over: 30 mins; Site: right wrist; 10:00 Follow up: Response: No adverse reaction; IV Status: Completed infusion; IV Intake: ph 100ml 10:45 Drug: fentaNYL (PF) IVP 50 mcg IVP once Route: IVP; Site: right wrist; cp4 11:53 Follow up: Response: No adverse reaction; Pain is decreased ph 10:45 Drug: Ondansetron IVP 4 mg IVP once; over 2 minutes Route: IVP; Site: right wrist; cp4 11:54 Follow up: Response: No adverse reaction ph 12:45 Drug: morphine IVP or IV 4 mg IVP once over 4 mins Route: IVP; Infused Over: 4 mins; cp4 Site: right wrist; 13:26 Follow up: Response: No adverse reaction; Pain is decreased cp4 Medication: 09:06 VIS not applicable for this client. ph Intake: 08:29 IV: 1000ml; Total: 1000ml. ph 10:00 IV: 100ml; Total: 1100ml. ph Outcome: 09:30 ER care complete, transfer ordered by . rt 13:26 Transferred by ground EMS to [facility], [facility], Transfer form completed. cp4 X-rays sent w/ patient. 13: Condition: stable 13: Instructed on the need for transfer, :28 Patient left the ED. cp4 Signatures: Dispatcher [employer] Fortunato Tam em1 Violet Carlson RN RN ph Edwina, Jaymie Dunne Jennifer jj6 Hemant Neal MD MD rt Oscar Samuel MD MD sp4 Kimberly Jeffries RN RN cm10 Kaye Saenz cp4 Miles Okeefe RN RN tm6 Corrections: (The following items were deleted from the chart) :04 08:15 Pain: ph ph
--- NOTE | 2023-09-21 09:31 | EDPHYS ---
Physician Documentation [facility] Name: Rakesh Vigil Age: 28 yrs Sex: Female : 1995 Arrival Date: 09/21/2023 Time: 06:33 Bed 6 Private MD: ED Physician Hemant Neal HPI: 09/20 06:39 This 28 yrs old Female presents to ER via Unassigned with complaints of sp4 Possible Kidney Stone. 07:07 28-year-old female with history of prior kidney stones presents with acute onset sp4 moderate to severe right flank pain associated with vomiting. Pain started yesterday at 11 PM . 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 - Social history:: Smoking status: Patient denies any tobacco usage or history of. - Family history:: not pertinent. ROS: 07:07 Constitutional: Negative for fever, chills, and weight loss, positive right flank pain sp4 positive vomiting 07:07 All other systems are negative, Exam: 07:07 Constitutional: This is a well developed, well nourished patient who is awake, alert, sp4 and moderate distress secondary to pain Head/Face: Normocephalic, atraumatic. Eyes: Pupils equal round and reactive to light, extra-ocular motions intact. Lids and lashes normal. Conjunctiva and sclera are not injected. Cornea within normal limits. Periorbital areas with no swelling, redness, or edema. ENT: Nares patent. No nasal discharge, no septal abnormalities noted. Tympanic membranes are normal and external auditory canals are clear. Oropharynx with no redness, swelling, or masses, exudates, or evidence of obstruction, uvula midline. Mucous membranes moist. Neck: Trachea midline, no thyromegaly or masses palpated, and no cervical lymphadenopathy. Supple, full range of motion without nuchal rigidity, or vertebral point tenderness. Chest/axilla: Normal chest wall appearance and motion. Nontender with no deformity. No lesions are appreciated. Cardiovascular: Regular rate and rhythm with a normal S1 and S2. No gallops, murmurs, or rubs. Normal PMI, no JVD. No pulse deficits. Respiratory: Lungs have equal breath sounds bilaterally, clear to auscultation and percussion. No rales, rhonchi or wheezes noted. No increased work of breathing, no retractions or nasal flaring. Abdomen/GI: Soft, with normal bowel sounds. No distension or tympany. No guarding or rebound. No evidence of tenderness throughout. Back: No spinal tenderness. No costovertebral tenderness. Skin: Warm, dry with normal turgor. Normal color with no rashes, no lesions, and no evidence of cellulitis. MS/ Extremity: Pulses equal, no cyanosis. Neurovascular intact. Full, normal range of motion. Neuro: Awake and alert, GCS 15, oriented to person, place, time, and situation. Cranial nerves II-XII grossly intact. Motor strength 5/5 in all extremities. Sensory grossly intact. Psych: Awake, alert, with orientation to person, place and time. Behavior, mood, and affect are within normal limits 09:34 ECG was reviewed by the Attending Physician. rt Vital Signs: 06:42 BP 125 / 72; Pulse 96; Resp 18; Temp 98.3; Pulse Ox 100% on R/A; Weight 74.84 kg; cm10 Height 5 ft. 2 in. ; Pain 10/10; 08:30 BP 107 / 67; Pulse 89; Resp 15; Pulse Ox 99% ; ph 09:06 BP 116 / 68; Pulse 81; Resp 14; Pulse Ox 100% ; ph 10:45 BP 125 / 78; Pulse 84; Resp 18; Pulse Ox 99% on R/A; ph 11:52 BP 115 / 71; Pulse 87; Resp 18; Temp 97.9; Pulse Ox 98% on R/A; ph 13:25 BP 115 / 71; Pulse 84; Resp 18; Pulse Ox 100% ; cp4 06:42 Body Mass Index 30.18 (74.84 kg, 157.48 cm) cm10 06:42 Pain Scale: Adult cm10 [place] Coma Score: 07:07 Eye Response: spontaneous(4). Motor Response: obeys commands(6). Verbal Response: sp4 oriented(5). Total: 15. MDM: 06:40 Patient medically screened. sp4 07:07 Data reviewed: vital signs. sp4 07:10 Differential Diagnosis flu. Transition of care: After a detail discussion of the sp4 patient's case, care is transferred to Hemant Neal MD. 09/20 06:39 Order name: CBC with Diff; Complete Time: 10:20 4 09/20 06:39 Order name: CMP; Complete Time: 09:15 sp4 09/20 06:39 Order name: Lipase; Complete Time: 09:15 4 09/20 06:39 Order name: Test, Urine; Complete Time: 09:15 4 09/20 06:39 Order name: Urinalysis w/ reflexes; Complete Time: 09:15 sp4 09/20 08:49 Order name: Urine Culture EDMS 09/20 08:51 Order name: CBC Smear Scan; Complete Time: 10:20 EDMS 09/20 09:17 Order name: Blood Culture Adult (2) rt 09/20 09:17 Order name: Lactate w/ 2H reflex if indic.; Complete Time: 10:20 rt 09/20 09:17 Order name: Protime (+inr); Complete Time: 10:20 rt 09/20 09:17 Order name: Ptt, Activated; Complete Time: 10:20 rt 09/20 06:44 Order name: CT Abd/Pelvis - Without Contrast; Complete Time: 09:24 4 09/20 09:17 Order name: EKG; Complete Time: 09:17 rt 09/20 06:39 Order name: IV Saline Lock; Complete Time: 08:08 4 09/20 06:39 Order name: Labs collected and sent; Complete Time: 08:08 4 09/20 07:30 Order name: Labs - recollect needed: Recollect all please; Complete Time: 08:29 em1 09/20 09:17 Order name: Accucheck; Complete Time: 09:21 rt 09/20 09:17 Order name: Cardiac monitoring; Complete Time: 09:21 rt 09/20 09:17 Order name: EKG - Nurse/Tech; Complete Time: 09:34 rt 09/20 09:17 Order name: IV Saline Lock - Large Bore; Complete Time: 09:22 rt 09/20 09:17 Order name: O2 Per Protocol; Complete Time: 09:22 rt 09/20 09:17 Order name: O2 Sat Monitoring; Complete Time: 09:22 rt 09/20 09:17 Order name: Vital Signs; Complete Time: 09:22 rt EC:34 Rate is 85 beats/min. Rhythm is regular, Normal Sinus Rhythm with No ectopy. QRS [place] rt is Normal. [place] interval is normal. QRS interval is normal. QT interval is normal. No Q waves. T waves are Normal. No ST changes noted. Interpreted by me. Administered Medications: 07:21 Drug: morphine IVP or IV 4 mg IVP once over 4 mins Route: IVP; Infused Over: 4 mins; tm6 Site: right wrist; 08:29 Follow up: Response: No adverse reaction; Pain is decreased ph 07:21 Drug: Ketorolac IVP 30 mg IVP once Route: IVP; Site: right wrist; tm6 08:29 Follow up: Response: No adverse reaction ph 07:21 Drug: Ondansetron IVP 8 mg IVP once; over 2 minutes Route: IVP; Site: right wrist; tm6 08:29 Follow up: Response: No adverse reaction ph 07:21 Drug: NS 0.9% IV 1000 ml IV at 1 bolus Per protocol; 1000 mL bolus Route: IV; Rate: 1 tm6 bolus; Site: right wrist; 08:29 Follow up: Response: No adverse reaction; IV Status: Completed infusion; IV Intake: ph 1000ml 09:21 Drug: morphine IVP or IV 4 mg IVP once over 4 mins Route: IVP; Infused Over: 4 mins; ph Site: right wrist; 09:44 Follow up: Response: No adverse reaction; Pain is decreased ph 09:25 Drug: Rocephin - Rocephin (cefTRIAXone) IVPB 2 grams IVPB once over 30 mins; (mix in ph 100 mL NS) Route: IVPB; Infused Over: 30 mins; Site: right wrist; 10:00 Follow up: Response: No adverse reaction; IV Status: Completed infusion; IV Intake: ph 100ml 10:45 Drug: fentaNYL (PF) IVP 50 mcg IVP once Route: IVP; Site: right wrist; cp4 11:53 Follow up: Response: No adverse reaction; Pain is decreased ph 10:45 Drug: Ondansetron IVP 4 mg IVP once; over 2 minutes Route: IVP; Site: right wrist; cp4 11:54 Follow up: Response: No adverse reaction ph 12:45 Drug: morphine IVP or IV 4 mg IVP once over 4 mins Route: IVP; Infused Over: 4 mins; cp4 Site: right wrist; 13:26 Follow up: Response: No adverse reaction; Pain is decreased cp4 Disposition Summary: 09/21/23 09:30 Transfer Ordered Notes: Transfer Location: [facility] rt Reason: Higher level of care rt Condition: Fair rt Problem: new rt Symptoms: have improved rt Accepting Physician: (09/21/23 13:28) cp4 Diagnosis - Pyelonephritis rt - Severe right-sided hydronephrosis rt - Sepsis rt Forms: - Medication Reconciliation Form rt - SBAR form rt Critical care time excluding procedures: 12:15 Critical care time: Bedside Care: 30 minutes, Consultation: 5 minutes. Total time: 35 rt minutes Signatures: Dispatcher [employer] EDFortunato Falcon em1 Violet Carlson, RN RN Hemant Neal MD MD rt Oscar Samuel MD MD sp4 Kimberly Jeffries RN RN cm10 Kaye Saenz cp4 Miles Okeefe RN RN tm6 Corrections: (The following items were deleted from the chart) 07:00 06:49 Topete ordered. sp4 tm6 07:04 06:50 BLOOD CULTURE*+BA.LAB.BRZ ordered. EDMS EDMS 07:04 06:50 LACTATE+C.LAB.BRZ ordered. EDMS EDMS 07:05 06:50 PCT+C.LAB.BRZ ordered. EDMS EDMS 07:05 06:50 C-REACTIVE PROTEIN+C.LAB.BRZ ordered. EDMS EDMS 13:28 09:30 rt cp4
[2023-09-21 09:45] LABS: PT Prothrombin Time 12.6 SECONDS (9.5-12.5); PTT, Activated Partial Thromb 21.7 SECONDS (24.3-36.9); Protime INR 1.15
[2023-09-21 10:00] LABS: Blood Morphology Comment NOT SEEN (NOT SEEN); Platelet Estimate ADEQ; White Blood Cell Scan OK (OK)
[2023-09-21] MEDS ORDERED: FENTANYL CITR 100 MCG/2 ML ONE (10:39)
[2023-09-21 13:49] VITALS: BP 115/71; TEMP 97.9
[2023-09-21 14:21] VITALS: O2SAT 100
--- NOTE | 2023-09-22 11:54 | EKG ---
Test Date: 2023-09-21 Test Time: 08:31:18 Kiln Remover: SILVANO MEASUREMENT RESULTS: Intervals: Rate: 85 ND: 152 QRSD: 84 QT: 364 QTc: 433 [place]: P: 34 ND: 152 QRS: 76 T: 31 INTERPRETIVE STATEMENTS: Normal sinus rhythm Normal ECG Compared to ECG 12/25/2019 13:46:16 No significant changes Electronically Signed On 09-22-23 11:49:43 CDT by Jeramie Meeks
== END 2023-09-21 13:28 | disposition short-term general hospital (02) ==
LOC: ER 06:33
DX: N12 Tubulo-interstitial nephritis, not specified as acute or chronic (principal); A41.9 Sepsis, unspecified organism; N13.30 Unspecified hydronephrosis
CPT/HCPCS: 36415; 74176; 80053; 81001; 81025; 83605; 83690; 85025; 85610; 85730; 87040; 87077; 87086; 87088; 87186; 87205; 93005; 96361; 96365; 96375; 99285; J0696; J2405; J3010; J7030; J7050

== ENCOUNTER 2023-09-29 08:47 | Emergency (ER) | payer SELFPAY ==
[2023-09-29] MEDS ORDERED: KETOROLAC 30 MG/ML INJ ONE (09:17)
[2023-09-29 09:30] LABS: Absolute Basophils 0.1 K/uL (0-0.5); Absolute Eosinophils 0.1 K/uL (0-0.5); Absolute Lymphocytes (CBC) 2.7 K/uL (0.7-4.9); Absolute Neutrophil 7.6 K/uL (1.8-8.0); Basophils % 0.7 % (0-1.3); Eosinophils % 1.1 % (0-4.4); Hematocrit 36.5 % (36.0-45.0); Lymphocytes % 23.4 % (15.3-44.8); MCH 30.6 pg (27.0-35.0); MCV 92.6 fL (80-100); MPV 8.2 fL (7.6-11.3); Monocytes % 8.7 % (3.3-12.3); Neutrophils % 66.1 % (41.7-73.7); Platelets 399 thou/uL (152-406); RBC Red Blood Cell Count 3.94 M/uL (3.86-4.86); Red Cell Distribution Width 13.1 % (12.1-15.2)
[2023-09-29 10:02] LABS: Specific Gravity 1.023 (1.005-1.030)
[2023-09-29 10:06] LABS: Specific Gravity 1.023 (1.005-1.030); Sqamous Epithelial <5 /HPF (None Seen); Urine Bacteria <20 /HPF (<20); Urine Bilirubin NEGATIVE (Negative); Urine Blood 3+ (Negative); Urine Clarity Extremely Turbid (Clear); Urine Color Yellow (Yellow); Urine Culture Reflex Order REFLEXED; Urine Glucose NEGATIVE (Negative); Urine Ketones NEGATIVE (Negative); Urine Microscopic Reflex YN ORDER UMIC; Urine Mucus Slight /HPF (None Seen); Urine Nitrite NEGATIVE (Negative); Urine Protein 1+ (Negative); Urine RBC >50 /HPF (None Seen); Urine Urobilinogen Normal (Normal); Urine WBC >50 /HPF (<5); Urine Yeast (Budding) Trace /HPF (None Seen); Urine pH 6.5 (5.0-7.0)
[2023-09-29 10:41] LABS: Albumin 3.1 g/dL (3.4-5.0); Albumin/Globulin Ratio 0.7 (1.1-1.8); Anion Gap 8.8 mEq/L (5.0-15.0); Bilirubin Total 0.4 mg/dL (0.2-1.0); Globulin 4.3 g/dL (2.3-3.5); Potassium 3.8 mEq/L (3.5-5.1); Protein, Total 7.4 g/dL (6.4-8.2)
--- NOTE | 2023-09-29 12:34 | EDPHYS ---
Physician Documentation [facility] Name: Rakesh Vigil Age: 28 yrs Sex: Female : 1995 Arrival Date: 09/29/2023 Time: 08:47 Bed 4 Private MD: ED Physician Jusitn Fajardo HPI: 09/28 09:11 The patient presents with pain that is acute. The symptoms are located in the Right bo1 flank. Onset: The symptoms/episode began/occurred yesterday, Hx of same, was hospitalized in the [facility] and placed on multiple meds including Cipro.. The patient has been recently seen by a physician: . Hospitalist: Dr Lg Velez MD. Pt reports large kidney stone was dx and no procedure as yet.. 09:19 Pt is on her menstrual cycle at present. Denies .. Date on the Rx bottles - bo1 09/24. 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 - Infectious Disease History:: Denies. - Social history:: Smoking status: Patient denies any tobacco usage or history of. ROS: 09:18 Abdomen/GI: Positive for Right flank pain despite meds - Hydrocodone, Negative for bo1 nausea, vomiting, and diarrhea, 09:19 All other systems are negative, bo1 Exam: 11:31 Abdomen/GI: Inspection: abdomen appears normal, Palpation: soft, bo1 11:31 Back: CVA tenderness, that is moderate, is noted on the right, Pt accentuates the palpation tressa to the right flank, 11:31 Skin: Exam negative for diaphoresis, 11:32 Constitutional: The patient appears alert, well hydrated, in obvious distress, bo1 moderately distressed, from pain to the right flank. Vital Signs: 09:09 BP 116 / 71; Pulse 71; Resp 18; Temp 97.9; Pulse Ox 95% ; Weight 74.84 kg; ap3 11:06 BP 121 / 64; Pulse 60; Resp 17; Pulse Ox 95% ; ap3 12:18 BP 115 / 66; Pulse 71; Resp 14; Pulse Ox 99% ; ko1 12:44 BP 116 / 56; Pulse 63; Resp 18; Pulse Ox 95% ; ap3 MDM: 10:07 Medication response: Toradol markedly relieved the patient's pain. bo1 10:44 ED course: Labs are reasonable except the UA but pt can urinate with her placed stent. bo1 The plan is to discuss case with Dr Vleez for OP management on Toradol since IV dose has helped the pt's symptoms. No elevated WBC or Creat.. 11:27 ED course: Pt is comfortable. bo1 12:34 Patient medically screened. bo1 09/28 09:11 Order name: CBC with Diff; Complete Time: 10:06 bo1 09/28 09:11 Order name: CMP; Complete Time: 10:43 bo1 09/28 09:11 Order name: Lipase; Complete Time: 10:43 bo1 09/28 09:11 Order name: Test, Urine; Complete Time: 10:06 bo1 09/28 09:11 Order name: Urinalysis w/ reflexes; Complete Time: 10:13 bo1 09/28 10:09 Order name: Urine Culture EDVA 09/28 09:11 Order name: IV Saline Lock; Complete Time: 09:25 bo1 09/28 09:11 Order name: Labs collected and sent; Complete Time: 09:25 bo1 Administered Medications: 09:26 Drug: TORadol - Ketorolac IVP 15 mg IVP once Route: IVP; Site: right antecubital; ap3 10:01 Follow up: Response: No adverse reaction; Pain is decreased ap3 Disposition Summary: 09/29/23 12:34 Discharge Ordered Notes: Location: Home bo1 Problem: an acute exacerbation bo1 Symptoms: have improved bo1 Condition: Stable bo1 Diagnosis - Unspecified renal colic bo1 Followup: bo1 - With: Private Physician - When: - Reason: Previously arranged followup for the uro-stent and urologist. Discharge Instructions: - Discharge Summary Sheet bo1 - Kidney Stones, [id number] bo1 Forms: - Medication Reconciliation Form bo1 - Thank You Letter bo1 - Antibiotic Education bo1 - Prescription Opioid Use bo1 - Patient Portal Instructions bo1 - Leadership Thank You Letter bo1 Prescriptions: - ketorolac 10 mg Oral tablet - take 1 tablet ORAL route every 6 hours for 4 days as needed for pain; 40 bo1 tablet; Refills: 0, Product Selection Permitted Signatures: Dispatcher [employer] EDVivi Bonilla RN RN ap3 OeiJustin MD MD bo1 Corrections: (The following items were deleted from the chart) : 09:12 CBC+H.LAB.BRZ ordered. EDMS EDMS : 09:12 COMPREHENSIVE METABOLIC PANEL+C.LAB.BRZ ordered. EDMS EDMS : 09:12 LIPASE+C.LAB.BRZ ordered. EDMS EDMS : 09:12 Test, Urine+UC.LAB.BRZ ordered. EDMS EDMS : 09:12 Urinalysis+U.LAB.BRZ ordered. EDMS EDMS
--- NOTE | 2023-09-29 12:34 | ER ---
Nurse's Notes [facility] Name: Rakesh Vigil Age: 28 yrs Sex: Female : 1995 Arrival Date: 09/29/2023 Time: 08:47 Bed 4 Private MD: Diagnosis: Unspecified renal colic Presentation: 09/28 09:09 Chief complaint: Patient states: she is having continued right lower flank pain which ap3 she describes as throbbing. patient denies any difficulty urinating at this time. Coronavirus screen: At this time, the client does not indicate any symptoms associated with coronavirus-19. Ebola Screen: No symptoms or risks identified at this time. Initial Sepsis Screen: Does the patient meet any 2 criteria? No. Patient's initial sepsis screen is negative. Does the patient have a suspected source of infection? No. Patient's initial sepsis screen is negative. Risk Assessment: Do you want to hurt yourself or someone else? Patient reports no desire to harm self or others. Onset of symptoms is unknown. 09:09 Method Of Arrival: Ambulatory ap3 09:09 Acuity: CLARISSE 3 ap3 Triage Assessment: 09:11 General: Appears uncomfortable, Behavior is calm, cooperative. Pain: Complains of pain ap3 in right low back Quality of pain is described as throbbing. Neuro: Level of Consciousness is awake, alert, obeys commands, Oriented to person, place, time, situation. Cardiovascular: Patient's skin is warm and dry. Respiratory: Airway is patent Respiratory effort is even, unlabored, Respiratory pattern is regular, symmetrical. Musculoskeletal: Range of motion: intact in all extremities. 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 - Infectious Disease History:: Denies. - Social history:: Smoking status: Patient denies any tobacco usage or history of. Screenin:12 Abuse screen: Denies threats or abuse. Nutritional screening: No deficits noted. ap3 Tuberculosis screening: No symptoms or risk factors identified. 12:36 [facility] ED Fall Risk Assessment (Adult) History of falling in the last 3 months, ap3 including since admission No falls in past 3 months (0 pts) Confusion or Disorientation No (0 pts) Intoxicated or Sedated No (0 pts) Impaired Gait No (0 pts) Mobility Assist Device Used No (0 pt) Altered Elimination No (0 pt) Score/Fall Risk Level 0 - 2 = Low Risk Oriented to surroundings, Maintained a safe environment, Educated pt \T\ family on fall prevention, incl call for assistance when getting out of bed, Assessed \T\ reinforced patient's understanding of fall precautions, Provided non-skid footwear, Hourly rounding (assess needs \T\ fall precautionary measures) done, Used ambulatory aids as needed (educated on \T\ assisted with), Used gait belt as appropriate. Assessment: 12:44 General: patient reports she does not have her follow up appointment set up at this ap3 time. It is reported she was informed she was told she could pull her stent out on her own at home as she has previously done so. this nurse educated the patient on the importance of following up with the proper provider in a timely manner. patient and spouse verbalized understanding. . Vital Signs: 09:09 BP 116 / 71; Pulse 71; Resp 18; Temp 97.9; Pulse Ox 95% ; Weight 74.84 kg; ap3 11:06 BP 121 / 64; Pulse 60; Resp 17; Pulse Ox 95% ; ap3 12:18 BP 115 / 66; Pulse 71; Resp 14; Pulse Ox 99% ; ko1 12:44 BP 116 / 56; Pulse 63; Resp 18; Pulse Ox 95% ; ap3 ED Course: 08:50 Patient arrived in ED. rg4 09:02 Justin Fajardo MD is Attending Physician. bo1 09:09 Vivi Page, JYOTHI is Primary Nurse. ap3 09:11 Triage completed. ap3 09:12 Arm band placed on right wrist. ap3 09:13 Patient has correct armband on for positive identification. Bed in low position. Call ap3 light in reach. Side rails up X 1. Pulse ox on. NIBP on. 09:25 Initial lab(s) drawn, by me, sent to lab. Inserted saline lock: 22 gauge in right ap3 antecubital area, using aseptic technique. Blood collected. 12:35 Provided Education on: discharge instructions. ap3 12:35 IV discontinued, intact, bleeding controlled, No redness/swelling at site. Pressure ap3 dressing applied. 12:36 No provider procedures requiring assistance completed. ap3 Administered Medications: 09:26 Drug: TORadol - Ketorolac IVP 15 mg IVP once Route: IVP; Site: right antecubital; ap3 10:01 Follow up: Response: No adverse reaction; Pain is decreased ap3 Medication: 09:13 VIS not applicable for this client. ap3 Outcome: 12:34 Discharge ordered by . bo1 12:44 Discharged to home ambulatory, ap3 12:44 Condition: good 12:44 Discharge instructions given to patient, Instructed on discharge instructions, follow up and referral plans. medication usage, Demonstrated understanding of instructions, follow-up care, medications, Prescriptions given X 1, 12:47 Patient left the ED. ap3 Signatures: Jania Frankel4 Vivi Page RN RN ap3 Kristyn Cali, RN RN ko1 Justin Fajardo MD MD bo1
[2023-09-29 13:27] VITALS: BP 116/56; TEMP 97.9; O2SAT 95
== END 2023-09-29 12:47 | disposition home or self-care (01) ==
LOC: ER 08:47
DX: N23 Unspecified renal colic (principal); Z87.442 Personal history of urinary calculi
CPT/HCPCS: 36415; 80053; 81001; 81025; 83690; 85025; 87086; 87088; 96374; 99284

== ENCOUNTER 2024-02-09 20:15 | Emergency (ER) | payer OTHER ==
[2024-02-09 21:27] LABS: SARS-CoV-2 Antigen CONTROL BLUE LINE VIS/BG OK; SARS-CoV-2 Antigen Rapid Res Negative (Negative)
--- NOTE | 2024-02-09 22:34 | ER ---
Nurse's Notes [facility] Name: Rakesh Vigil Age: 28 yrs Sex: Female : 1995 Arrival Date: 02/09/2024 Time: 20:15 Bed DX1 Private MD: Diagnosis: Acute pharyngitis, unspecified;Nausea Presentation: 02/08 20:28 Chief complaint: Patient states: Pt c/o headache, sore throat, nausea, vomiting x 2 tl4 days. Pt denies fever/chills, diarrhea. Coronavirus screen: headache, nausea, sore throat, vomiting. Ebola Screen: No symptoms or risks identified at this time. Initial Sepsis Screen: Does the patient meet any 2 criteria? No. Patient's initial sepsis screen is negative. Does the patient have a suspected source of infection? No. Patient's initial sepsis screen is negative. Risk Assessment: Do you want to hurt yourself or someone else? Patient reports no desire to harm self or others. Onset of symptoms was February 07, 2024. 20:28 Method Of Arrival: Ambulatory tl4 20:28 Acuity: CLARISSE 3 tl4 Triage Assessment: 20:30 General: Appears uncomfortable, Behavior is calm, cooperative. Pain: Complains of pain tl4 in head and neck. EENT: Reports pain when swallowing. Neuro: Level of Consciousness is awake, alert, obeys commands, Oriented to person, place, time, situation. Neuro: Reports headache. Cardiovascular: Capillary refill < 3 seconds Patient's skin is warm and dry. Respiratory: Airway is patent Respiratory effort is even, unlabored, Respiratory pattern is regular, symmetrical. GI: Reports nausea, vomiting. : No signs and/or symptoms were reported regarding the genitourinary system. Derm: No signs and/or symptoms reported regarding the dermatologic system. Musculoskeletal: No signs and/or symptoms reported regarding the musculoskeletal system. 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 - Infectious Disease History:: Denies. - Social history:: Smoking status: Patient denies any tobacco usage or history of. Screenin:02 [facility] ED Fall Risk Assessment (Adult) History of falling in the last 3 months, tl4 including since admission No falls in past 3 months (0 pts) Confusion or Disorientation No (0 pts) Intoxicated or Sedated No (0 pts) Impaired Gait No (0 pts) Mobility Assist Device Used No (0 pt) Altered Elimination No (0 pt) Score/Fall Risk Level 0 - 2 = Low Risk Oriented to surroundings, Maintained a safe environment, Educated pt \T\ family on fall prevention, incl call for assistance when getting out of bed, Assessed \T\ reinforced patient's understanding of fall precautions. Abuse screen: Denies threats or abuse. Denies injuries from another. Nutritional screening: No deficits noted. Tuberculosis screening: No symptoms or risk factors identified. Assessment: 23:04 GI: Bowel sounds present X 4 quads. Abd is soft and non tender X 4 quads. tl4 Vital Signs: 20:28 BP 131 / 86; Pulse 76; Resp 16; Temp 98.2; Pulse Ox 98% ; Weight 74.84 kg; Height 5 ft. tl4 2 in. ; Pain 6/10; 23:03 BP 112 / 74; Pulse 69; Resp 18; Temp 98.4(O); Pulse Ox 100% on R/A; tl4 20:28 Body Mass Index 30.18 (74.84 kg, 157.48 cm) tl4 20:28 Pain Scale: Adult tl4 ED Course: 20:20 Patient arrived in ED. mr 20:24 John Leonard MD is Attending Physician. ec2 20:29 Neel Santillan PA is PHCP. cp 20:30 Triage completed. tl4 20:32 Arm band placed on left wrist. tl4 20:36 SARS RAPID Sent. tl4 20:36 Influenza Screen (a \T\ B) Sent. tl4 20:36 Strep Sent. tl4 20:36 COVID swab sent to lab. Flu and/or RSV swab sent to lab. Strep swab sent to lab. tl4 23:03 Patient has correct armband on for positive identification. Provided Education on: ed tl4 process. 23:04 No provider procedures requiring assistance completed. tl4 23:04 Patient did not have IV access during this emergency room visit. tl4 Administered Medications: No medications were administered Medication: 23:02 VIS not applicable for this client. tl4 Outcome: 22:33 Discharge ordered by . cp 23:03 Discharged to home ambulatory, with family, tl4 23:03 Condition: stable 23:03 Discharge instructions given to patient, Instructed on discharge instructions, follow up and referral plans. medication usage, Demonstrated understanding of instructions, follow-up care, medications, Prescriptions given X 2, 23:04 Patient left the ED. tl4 Signatures: Jacqueline Bejarano, [place] Reg mr Neel Santillan, PA PA John Benoit MD MD ec2 Fredi Funes RN RN tl4 Corrections: (The following items were deleted from the chart) 20:30 20:30 PMHx: Kidney Infections (Kidney stones); tl4 tl4
--- NOTE | 2024-02-09 22:34 | EDPHYS ---
Physician Documentation [facility] Name: Rakesh Vigil Age: 28 yrs Sex: Female : 1995 Arrival Date: 02/09/2024 Time: 20:15 Bed DX1 Private MD: ED Physician John Leonard HPI: 02/08 22:25 This 28 yrs old Female presents to ER via Ambulatory with complaints of cp Abdominal Pain, Sore Throat. 22:25 The patient presents with nausea. Associated signs and symptoms: Pertinent positives: cp sore throat, Pertinent negatives: chest pain, diarrhea, fever, vomiting. 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 - Infectious Disease History:: Denies. - Social history:: Smoking status: Patient denies any tobacco usage or history of. ROS: 22:30 Constitutional: Negative for fever, poor PO intake, cp 22:30 Eyes: Negative for injury, pain, redness, and discharge, cp 22:30 ENT: Positive for sore throat, Negative for drainage from ear(s), ear pain, difficulty swallowing, difficulty handling secretions, 22:30 Respiratory: Negative for cough, shortness of breath, wheezing, 22:30 Abdomen/GI: Positive for nausea, Negative for abdominal pain, active vomiting, 22:30 Neuro: Negative for altered mental status, headache, weakness, 22:30 All other systems are negative, Exam: 22:31 Head/Face: Normocephalic, atraumatic. cp 22:31 Constitutional: The patient appears in no acute distress, alert, awake, non-toxic, well developed, well nourished, 22:31 Eyes: Periorbital structures: appear normal, Conjunctiva: normal, no exudate, no injection, Sclera: no appreciated abnormality, Lids and lashes: appear normal, bilaterally, 22:31 ENT: External ear(s): are unremarkable, Nose: is normal, Mouth: Lips: moist, Oral mucosa: pink and intact, moist, Posterior pharynx: Airway: no evidence of obstruction, patent, 22:31 Cardiovascular: Rate: normal, Rhythm: regular, 22:31 Respiratory: the patient does not display signs of respiratory distress, Respirations: normal, no use of accessory muscles, no retractions, labored breathing, is not present, Breath sounds: are clear throughout, no decreased breath sounds, no stridor, no wheezing, 22:31 Abdomen/GI: Exam negative for discomfort, distension, guarding, Inspection: abdomen appears normal, 22:31 Back: pain, is absent, ROM is normal, 22:31 Chest/axilla: Inspection: normal, Vital Signs: 20:28 BP 131 / 86; Pulse 76; Resp 16; Temp 98.2; Pulse Ox 98% ; Weight 74.84 kg; Height 5 ft. tl4 2 in. ; Pain 6/10; 23:03 BP 112 / 74; Pulse 69; Resp 18; Temp 98.4(O); Pulse Ox 100% on R/A; tl4 20:28 Body Mass Index 30.18 (74.84 kg, 157.48 cm) tl4 20:28 Pain Scale: Adult tl4 MDM: 20:32 Patient medically screened. 22:33 Data reviewed: vital signs, nurses notes, lab test result(s), and as a result, I will cp discharge patient. 22:33 Differential diagnosis: cholecystitis, Cholelithiasis, Ureterolithiasis, urinary tract cp infection, viral illness, strep throat. I considered the following discharge prescriptions or medication management in the emergency department Medications were administered in the Emergency Department. See MAR. Counseling: I had a detailed discussion with the patient and/or guardian regarding the historical points, exam findings, and any diagnostic results supporting the discharge/admit diagnosis, lab results, to return to the emergency department if symptoms worsen or persist or if there are any questions or concerns that arise at home. Response to treatment: the patient's symptoms have mildly improved after treatment, and as a result, I will discharge patient. 02/08 20:33 Order name: Strep cp 02/08 20:33 Order name: Influenza Screen (a \T\ B); Complete Time: 22:21 cp 02/08 20:33 Order name: SARS RAPID; Complete Time: 22:22 cp 02/08 21:22 Order name: Throat Culture EDMS Administered Medications: No medications were administered Disposition Summary: 02/09/24 22:33 Discharge Ordered Notes: Location: Home cp Problem: new cp Symptoms: have improved cp Condition: Stable cp Diagnosis - Acute pharyngitis, unspecified cp - Nausea cp Followup: cp - With: Private Physician - When: 2 - 3 days - Reason: Worsening of condition Discharge Instructions: - Discharge Summary Sheet cp - Nausea, Adult cp - Pharyngitis cp - Sore Throat cp - Form - Excuse from Work, School, or Physical Activity cp Forms: - Medication Reconciliation Form cp - Antibiotic Education cp - Prescription Opioid Use cp - Patient Portal Instructions cp - Leadership Thank You Letter cp Prescriptions: - Bromfed DM 2-30-10 mg/5 mL Oral syrup - administer 10 milliliter ORAL route every 6 hours as needed for cough; 240 cp milliliter; Refills: 0, Product Selection Permitted - Zofran 4 mg Oral Tablet - take 1 tablet ORAL route every 12 hours As needed; 20 tablet; Refills: 0, cp Product Selection Permitted Signatures: Dispatcher [employer] EDNV Neel Santillan PA PA cp Fredi Funes, RN RN tl4 Corrections: (The following items were deleted from the chart) 20:30 20:30 PMHx: Kidney Infections (Kidney stones); tl4 tl4 20:33 20:33 Group A Streptococcus Rapid Sc+BA.LAB.BRZ ordered. EDNV EDMS 20:33 20:33 Influenza Screen (A \T\ B)+BA.LAB.BRZ ordered. EDNV EDMS 20:33 20:33 SARS-COV-2 Antigen Rapid+I.LAB.BRZ ordered. EDNV EDNV 02/09 22:39 02/08 22:35 Constitutional: The patient appears in no acute distress, alert, awake, cp non-toxic, well developed, well nourished, cp 02/09 22:39 02/08 22:35 Head/Face: Normocephalic, atraumatic. cp cp 02/09 22:39 02/08 22:35 Eyes: Periorbital structures: appear normal, Conjunctiva: normal, no cp exudate, no injection, Sclera: no appreciated abnormality, Lids and lashes: appear normal, bilaterally, cp 02/09 22:39 02/08 22:35 ENT: External ear(s): are unremarkable, Nose: is normal, Mouth: Lips: cp moist, Oral mucosa: pink and intact, moist, Posterior pharynx: Airway: no evidence of obstruction, patent, cp 02/09 22:02/08 22:35 Chest/axilla: Inspection: normal, cp cp 02/09 22:39 02/08 22:35 Cardiovascular: Rate: normal, Rhythm: regular, cp cp 02/09 22:39 02/08 22:35 Respiratory: the patient does not display signs of respiratory distress, cp Respirations: normal, no use of accessory muscles, no retractions, labored breathing, is not present, Breath sounds: are clear throughout, no decreased breath sounds, no stridor, no wheezing, cp 02/09 22:39 02/08 22:35 Abdomen/GI: Exam negative for discomfort, distension, guarding, Inspection: cp abdomen appears normal, cp 02/09 22:39 0816 22:35 Back: pain, is absent, ROM is normal, cp cp
[2024-02-09 23:19] VITALS: BP 131/86; TEMP 98.2; O2SAT 98
== END 2024-02-09 23:04 | disposition home or self-care (01) ==
LOC: ER 20:15
DX: J02.9 Acute pharyngitis, unspecified (principal); R11.0 Nausea; Z11.52 Encounter for screening for COVID-19
CPT/HCPCS: 36415; 87070; 87081; 87804; 87811; 99283

== ENCOUNTER 2024-04-22 06:53 | Emergency (ER) | payer OTHER ==
[2024-04-22] MEDS ORDERED: ONDANSETRON 4 MG/2 ML VIAL ONE (07:35)
[2024-04-22] MEDS ORDERED: KETOROLAC 30 MG/ML INJ ONE (07:35)
[2024-04-22] MEDS ORDERED: NA CHLORIDE 0.9% 1,000 ML ONE (07:35)
[2024-04-22 07:58] LABS: Specific Gravity 1.017 (1.005-1.030); Sqamous Epithelial <5 /HPF (None Seen); Urine Bacteria <20 /HPF (<20); Urine Bilirubin NEGATIVE (Negative); Urine Blood Negative (Negative); Urine Clarity Extremely Turbid (Clear); Urine Color Light-Yellow (Yellow); Urine Culture Reflex Order REFLEXED; Urine Glucose NEGATIVE (Negative); Urine Ketones NEGATIVE (Negative); Urine Microscopic Reflex YN ORDER UMIC; Urine Mucus Slight /HPF (None Seen); Urine Nitrite 1+ (Negative); Urine Protein NEGATIVE (Negative); Urine RBC <5 /HPF (None Seen); Urine Urobilinogen Normal (Normal); Urine WBC 20-50 /HPF (<5); Urine WBC Clump Occasional /HPF (None Seen); Urine pH 6.5 (5.0-7.0)
[2024-04-22 08:00] LABS: Absolute Basophils 0.1 K/uL (0-0.5); Absolute Eosinophils 0.1 K/uL (0-0.5); Absolute Lymphocytes (CBC) 2.3 K/uL (0.7-4.9); Absolute Monocytes 0.6 K/uL (0.1-1.3); Absolute Neutrophil 5.4 K/uL (1.8-8.0); Basophils % 0.6 % (0-1.3); Eosinophils % 0.9 % (0-4.4); Hematocrit 37.6 % (36.0-45.0); Hemoglobin 12.5 g/dL (12.0-15.0); Lymphocytes % 26.9 % (15.3-44.8); MCH 31.7 pg (27.0-35.0); MCHC 33.1 g/dL (32.0-36.0); MCV 95.6 fL (80-100); MPV 9.6 fL (7.6-11.3); Monocytes % 7.6 % (3.3-12.3); Platelets 289 thou/uL (152-406); RBC Red Blood Cell Count 3.93 M/uL (3.86-4.86); Red Cell Distribution Width 12.5 % (12.1-15.2)
[2024-04-22 08:12] LABS: ALT/SGPT 16 U/L (13-56); Albumin 3.5 g/dL (3.4-5.0); Albumin/Globulin Ratio 0.9 (1.1-1.8); Alkaline Phosphatase 50 U/L (45-117); Anion Gap 7.2 mEq/L (5.0-15.0); BUN Blood Urea Nitrogen 17 mg/dL (7-18); Bicarbonate 24 mEq/L (21-32); Bilirubin Total 0.4 mg/dL (0.2-1.0); Glomerular Filtration Rate 101 ml/min (=/>90); Glucose Level 108 mg/dL (74-106); Potassium 4.2 mEq/L (3.5-5.1); Protein, Total 7.5 g/dL (6.4-8.2); Sodium Level 138 mEq/L (136-145)
[2024-04-22 08:17] LABS: AST/SGOT < 10 U/L (15-37)
[2024-04-22 08:19] LABS: Specific Gravity 1.017 (1.005-1.030)
--- NOTE | 2024-04-22 08:52 | RAD REPORT ---
EXAMINATION: CT ABDOMEN AND PELVIS WITHOUT CONTRAST CLINICAL INDICATION: ABD PAIN TECHNIQUE: CT abdomen and pelvis was performed, without IV contrast, as per department protocol. Axia l, sagittal and coronal reconstructions were obtained. One or more of the following dose reduction techniques were used: Automated exposure control, adjustment of the mA and kV according to the patien t size, and iterative reconstruction. Unless otherwise specified, incidental findings do not require dedicated imaging follow-up. COMPARISON: 09/21/2023 FINDINGS: The lack of intravenous contrast limits the sensitivity of this exam for evaluation of solid visceral organs, vascular structures, and retroperitoneum. LOWER CHEST: The visualized lung bases are clear. LIVER:Normal in size and contour. No focal lesion. Grossly unremarkable gallbladder. SPLEEN: Normal size. No focal lesion. PANCREAS: No mass, ductal dilation, or tracey-pancreatic fluid. ADRENALS: Normal; no mass. KIDNEYS AND URETERS: Severe right-sided hydronephrosis is seen with cortical thinning, similar to com parative study. No obstructing stone is visualized. Definitive etiology for this hydronephrosis is nonvisualized. There are small calyceal stones present on the right and a punctate calculus seen in t he superior calyx on the left. URINARY BLADDER: Normal contour. GASTROINTESTINAL TRACT: No evidence of bowel obstruction, significant free fluid, free air or abscess . Mild retained stool throughout the colon. APPENDIX: Normal appendix. LYMPH NODES: No lymphadenopathy. MUSCULOSKELETAL: No acute or suspicious osseous abnormality. ADDITIONAL FINDINGS: None. IMPRESSION: Severe right-sided hydronephrosis is present, similar in severity compared to 09/21/2023 study. No obs tructing stone is seen. A definitive etiology for this finding is not evident. Follow-up nonemergent nuclear medicine Lasix renogram may be of value. Small nonobstructing calculi are seen in the calyces of the right kidney as well as the superior salma x of left kidney.
[2024-04-22] MEDS ORDERED: CEFTRIAXONE 1000 MG/VIAL ONE (09:07)
--- NOTE | 2024-04-22 09:26 | ER ---
Nurse's Notes [facility] Name: Rakesh Vigil Age: 28 yrs Sex: Female : 1995 Arrival Date: 04/22/2024 Time: 06:53 Bed 7 Private MD: Diagnosis: Other and unspecified hydronephrosis;UTI/ Urinary tract infection, site not specified Presentation: 04/22 07:04 Chief complaint: Spouse and/or significant other states: she has had right flank pain iw since last night, hx of kidney stones, also has nausea , small amount of blood when she wipes. Coronavirus screen: At this time, the client does not indicate any symptoms associated with coronavirus-19. Ebola Screen: No symptoms or risks identified at this time. Initial Sepsis Screen: Does the patient meet any 2 criteria? No. Patient's initial sepsis screen is negative. Does the patient have a suspected source of infection? No. Patient's initial sepsis screen is negative. 07:04 Method Of Arrival: Ambulatory iw 07:04 Acuity: CLARISSE 3 iw 07:06 Risk Assessment: Do you want to hurt yourself or someone else? Patient reports no iw desire to harm self or others. 07:07 Onset of symptoms was April 21, 2024. 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 - Infectious Disease History:: Denies. - Social history:: Smoking status: Patient denies any tobacco usage or history of. Screenin:49 [facility] ED Fall Risk Assessment (Adult) History of falling in the last 3 months, kc6 including since admission No falls in past 3 months (0 pts) Confusion or Disorientation No (0 pts) Intoxicated or Sedated No (0 pts) Impaired Gait No (0 pts) Mobility Assist Device Used No (0 pt) Altered Elimination No (0 pt) Score/Fall Risk Level 0 - 2 = Low Risk Oriented to surroundings. Abuse screen: Denies threats or abuse. Denies injuries from another. Nutritional screening: No deficits noted. Tuberculosis screening: No symptoms or risk factors identified. Assessment: 07:49 General: Appears in no apparent distress. uncomfortable, well groomed, well developed, kc6 Behavior is calm, cooperative, appropriate for age. Pain: Complains of pain in right flank. Neuro: Level of Consciousness is awake, alert, obeys commands, Oriented to person, place, time, situation, Appropriate for age. Cardiovascular: Capillary refill < 3 seconds. Respiratory: Airway is patent Trachea midline Respiratory effort is even, unlabored, Respiratory pattern is regular, symmetrical. GI: Reports nausea, Patient currently denies diarrhea, vomiting. : Urine is cloudy. EENT: No signs and/or symptoms were reported regarding the EENT system. Derm: No signs and/or symptoms reported regarding the dermatologic system. Skin is intact, is healthy with good turgor, Skin is pink, warm \T\ dry. Musculoskeletal: No signs and/or symptoms reported regarding the musculoskeletal system. Circulation, motion, and sensation intact. Capillary refill < 3 seconds, Range of motion: intact in all extremities. 08:59 Reassessment: Patient appears in no apparent distress at this time. No changes from kc6 previously documented assessment. Patient and/or family updated on plan of care and expected duration. Pain level reassessed. Patient is alert, oriented x 3, equal unlabored respirations, skin warm/dry/pink. 09:32 Reassessment: d/c pending completion of IV fluids and antibiotics. kc6 Vital Signs: 07:04 BP 117 / 84; Pulse 80; Resp 18; Temp 98.5; Pulse Ox 99% on R/A; Weight 74.84 kg; Height iw 5 ft. 2 in. ; Pain 10/10; 08:59 BP 110 / 72; Pulse 55; Resp 16 S; Pulse Ox 100% on R/A; kc6 07:04 Body Mass Index 30.18 (74.84 kg, 157.48 cm) iw 07:04 Pain Scale: Adult iw ED Course: 06:55 Patient arrived in ED. gm2 07:06 Triage completed. iw 07:06 Jeni Vick, JYOTHI is Primary Nurse. kc6 07:07 Joshua Mendes DO is Attending Physician. ms3 07:08 Arm band placed on. iw 07:49 Patient has correct armband on for positive identification. Bed in low position. Call kc6 light in reach. Side rails up X 1. Adult w/ patient. Pulse ox on. NIBP on. Door closed. Noise minimized. Lights dimmed. Warm blanket given. Pillow given. 07:49 Inserted saline lock: 20 gauge in right antecubital area, using aseptic technique. kc6 Blood collected. Flushed with 10 mL NS. Patient maintains SpO2 saturation greater than 95% on room air. 07:57 Radiology exam delayed due to test not completed at this time. sj 08:33 CT Abd/Pelvis - Without Contrast In Process Unspecified. EDMS 09:25 Jesse Murray MD is Referral Physician. ms3 10:22 No provider procedures requiring assistance completed. IV discontinued, intact, kc6 bleeding controlled, No redness/swelling at site. Pressure dressing applied. Administered Medications: 07:48 Drug: Ondansetron IVP 4 mg IVP once; over 2 minutes Route: IVP; Site: right antecubital;kc6 08:59 Follow up: Response: No adverse reaction 6 07:48 Drug: NS 0.9% IV 1000 ml IV at 1 bolus Per protocol; to be given as a bolus over 60 kc6 minutes Route: IV; Rate: 1 bolus; Site: right antecubital; 10:22 Follow up: Response: No adverse reaction; IV Status: Completed infusion; IV Intake: kc6 1000ml 07:49 Drug: TORadol - Ketorolac IVP 15 mg IVP once Route: IVP; Site: right antecubital; kc6 08:59 Follow up: Response: No adverse reaction kc6 09:18 Drug: Rocephin IV 1 grams IV at calculated rate once; Given slow IV push per pharmacy kc6 instructions Route: IV; Rate: calculated rate; Site: right antecubital; 10:21 Follow up: Response: No adverse reaction; IV Status: Completed infusion; IV Intake: [id number] Medication: 10:22 VIS not applicable for this client. kc6 Intake: 10:21 IV: 50ml; Total: 50ml. kc6 10:22 IV: 1000ml; Total: 1050ml. kc6 Outcome: 09:25 Discharge ordered by . ms3 10:22 Discharged to home ambulatory, with significant other, kc6 10:22 Condition: good 10:22 Discharge instructions given to patient, significant other, Instructed on discharge instructions, follow up and referral plans. medication usage, Demonstrated understanding of instructions, follow-up care, medications, Prescriptions given X 1, 10:22 Patient left the ED. kc6 Signatures: Dispatcher [employer] EDFelisha Nguyễn Irene, RN RN iw Joshua Mendes DO DO ms3 Jeni Vick RN RN kc6 Myriam Newton 2
--- NOTE | 2024-04-22 09:26 | EDPHYS ---
Physician Documentation [facility] Name: Rakesh Vigil Age: 28 yrs Sex: Female : 1995 Arrival Date: 04/22/2024 Time: 06:53 Bed 7 Private MD: ED Physician Joshua Mendes HPI: 04/22 09:28 This 28 yrs old Female presents to ER via Ambulatory with complaints of Back ms3 Pain, Abdominal Pain. 09:28 28-year-old female with past medical history of kidney stones presents to the emergency ms3 department for right flank pain that began last night. Patient endorses nausea. Patient denies vomiting, fevers, chills, dizziness. Patient states her discomfort is a 10/10. She denies any alleviating or inciting factors. 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 - Infectious Disease History:: Denies. - Social history:: Smoking status: Patient denies any tobacco usage or history of. ROS: 09:28 Constitutional: Negative for fever, and chills. Cardiovascular: Negative for chest ms3 pain, and palpitations. Respiratory: Negative for shortness of breath, cough, wheezing, and pleuritic chest pain, 09:28 MS/Extremity: Negative for injury and deformity, Skin: Negative for injury, rash, and discoloration, 09:28 Abdomen/GI: Positive for nausea, Negative for vomiting, diarrhea, Exam: 09:28 Constitutional: This is a well developed, well nourished patient who is awake, alert, ms3 and in no acute distress. Head/Face: Normocephalic, atraumatic. Neck: Trachea midline, no cervical lymphadenopathy. Supple, full range of motion without nuchal rigidity, or vertebral point tenderness. No Meningismus. Cardiovascular: Regular rate and rhythm with a normal S1 and S2. No gallops, murmurs, or rubs. Normal PMI, no JVD. No pulse deficits. Respiratory: Lungs have equal breath sounds bilaterally, clear to auscultation and percussion. No rales, rhonchi or wheezes noted. No increased work of breathing, no retractions or nasal flaring. Abdomen/GI: Soft, non-tender, with normal bowel sounds. No distension or tympany. No guarding or rebound. No evidence of tenderness throughout. Skin: Warm, dry with normal turgor. Normal color with no rashes, no lesions, and no evidence of cellulitis. MS/ Extremity: Pulses equal, no cyanosis. Neurovascular intact. Full, normal range of motion. Vital Signs: 07:04 BP 117 / 84; Pulse 80; Resp 18; Temp 98.5; Pulse Ox 99% on R/A; Weight 74.84 kg; Height iw 5 ft. 2 in. ; Pain 10/10; 08:59 BP 110 / 72; Pulse 55; Resp 16 S; Pulse Ox 100% on R/A; kc6 07:04 Body Mass Index 30.18 (74.84 kg, 157.48 cm) iw 07:04 Pain Scale: Adult iw MDM: 07:28 Medical Screening Exam initiated ms3 09:28 Differential diagnosis: Pyelonephritis Ureterolithiasis Musculoskeletal pain. Data ms3 reviewed: vital signs, nurses notes, lab test result(s), radiologic studies, and as a result, I will discharge patient. I considered the following discharge prescriptions or medication management in the emergency department Medications were administered in the Emergency Department. See MAR. Independent interpretation of the following test(s) in the Emergency Department CT Scan: My interpretation is CT abdomen pelvis without IV contrast reviewed reveals right-sided hydronephrosis. Counseling: I had a detailed discussion with the patient and/or guardian regarding the historical points, exam findings, and any diagnostic results supporting the discharge/admit diagnosis, lab results, radiology results, the need for outpatient follow up, to return to the emergency department if symptoms worsen or persist or if there are any questions or concerns that arise at home. Special discussion: I discussed with the patient/guardian in detail that at this point there is no indication for admission to the hospital. It is understood, however, that if the symptoms persist or worsen the patient needs to return immediately for re-evaluation. ED course: Discussed CT and laboratory findings with patient and her . Patient is without fevers, chills. Patient CT scan reveals hydronephrosis similar to August. Discussed necessity for nonemergent imaging to determine cause of hydronephrosis with patient and her . Patient to follow-up with Dr. Murray in 2 to 3 days. Patient and her understand and agree with plan. All questions were answered. Return precautions discussed include fevers, chills, nausea, vomiting, worsening symptoms, or any other concerns. 04/22 07:32 Order name: CBC with Diff; Complete Time: 09:03 ms3 04/22 07:32 Order name: CMP; Complete Time: 09:03 ms3 04/22 07:32 Order name: Urinalysis w/ reflexes; Complete Time: 09:03 ms3 04/22 08:02 Order name: Urine Culture EDMS 04/22 08:17 Order name: Test, Urine; Complete Time: 09:03 kc6 04/22 07:32 Order name: CT Abd/Pelvis - Without Contrast; Complete Time: 09:03 ms3 04/22 07:32 Order name: IV Saline Lock; Complete Time: 07:48 ms3 04/22 07:32 Order name: Labs collected and sent; Complete Time: 07:48 ms3 Administered Medications: 07:48 Drug: Ondansetron IVP 4 mg IVP once; over 2 minutes Route: IVP; Site: right antecubital;kc6 08:59 Follow up: Response: No adverse reaction kc6 07:48 Drug: NS 0.9% IV 1000 ml IV at 1 bolus Per protocol; to be given as a bolus over 60 kc6 minutes Route: IV; Rate: 1 bolus; Site: right antecubital; 10:22 Follow up: Response: No adverse reaction; IV Status: Completed infusion; IV Intake: kc6 1000ml 07:49 Drug: TORadol - Ketorolac IVP 15 mg IVP once Route: IVP; Site: right antecubital; kc6 08:59 Follow up: Response: No adverse reaction kc6 09:18 Drug: Rocephin IV 1 grams IV at calculated rate once; Given slow IV push per pharmacy kc6 instructions Route: IV; Rate: calculated rate; Site: right antecubital; 10:21 Follow up: Response: No adverse reaction; IV Status: Completed infusion; IV Intake: [id number] Disposition Summary: 04/22/24 09:25 Discharge Ordered Notes: Location: Home ms3 Condition: Stable ms3 Diagnosis - Other and unspecified hydronephrosis ms3 - UTI/ Urinary tract infection, site not specified ms3 Followup: ms3 - With: Jesse Murray MD - When: 2 - 3 days - Reason: Recheck today's complaints Discharge Instructions: - Discharge Summary Sheet ms3 - Urinary Tract Infection, Adult ms3 - Hydronephrosis ms3 Forms: - Medication Reconciliation Form ms3 - Antibiotic Education ms3 - Prescription Opioid Use ms3 - Patient Portal Instructions ms3 - Leadership Thank You Letter ms3 - Work release form [id number] Prescriptions: - cefpodoxime 200 mg Oral tablet - take 1 tablet ORAL route every 12 hours with food; 20 tablet; Refills: 0, ms3 Product Selection Permitted Signatures: Dispatcher [employer] Nunu Armijo, RN Joshua Mai DO DO ms3 Jeni Vick RN RN kc6
[2024-04-22 10:35] VITALS: TEMP 98.5
[2024-04-22 10:42] VITALS: BP 110/72; O2SAT 100
== END 2024-04-22 10:22 | disposition home or self-care (01) ==
LOC: ER 06:53
DX: N39.0 Urinary tract infection, site not specified (principal); N13.39 Other hydronephrosis; Z87.442 Personal history of urinary calculi
CPT/HCPCS: 87088; 85025; 81001; 87086; 36415; 81025; 80053; 74176; J2405; J7030; J0696; 87077; 87186; 96361; 96365; 96375; 99284